=== PATIENT | female | born 1955 | race Caucasian/White ===

== ENCOUNTER 2023-09-24 09:40 | Outpatient (OUT) | payer MEDICARE, SELFPAY ==
--- NOTE | 2023-09-24 09:45 | MM_ITS ---
Patient Name: ABDIFATAH HUERTA MR#: [id number] : 1955 Exam Date: 09/24/2023 Ordering Doctor: DR FAWN NOLBE M.D. RADIOLOGY REPORT PROCEDURE: MM TOMOSYNTHESIS SCREENING BI COMPARISON: MG MAMM SCREEN 3D CASTRO CAD, 09/03/2022. MG MAMM SCREEN 3D CASTRO CAD, 08/29/2021. MG MAMM SCREEN CASTRO W CAD, 06/16/2020. MG MAMM SCREEN CASTRO W CAD, 06/12/2019. INDICATIONS: screening Calculator Name NCI Breast Cancer Risk Assessment Tool 5 Year Breast Cancer Risk 1.90% Lifetime Breast Cancer Risk 6.40% Personal Breast Cancer No Personal Ovarian Cancer No Treatments None Family Cancers Father with unknown cancer at age 80. LOCATION: [facility] BREAST COMPOSITION: Scattered areas fibroglandular density. FINDINGS: DIAGNOSTIC CATEGORY 1--NEGATIVE. RIGHT BREAST: No significant suspicious finding. No significant change has occurred. LEFT BREAST: No significant suspicious finding. No significant change has occurred. RECOMMENDATIONS: ROUTINE MAMMOGRAM AND CLINICAL EVALUATION IN 12 MONTHS. PLEASE NOTE: A NORMAL MAMMOGRAM DOES NOT EXCLUDE THE POSSIBILITY OF BREAST CANCER. A CLINICALLY SUSPICIOUS PALPABLE LUMP SHOULD BE BIOPSIED. Dictated by: Austin Alonso M.D. on 09/26/2023 at 07:04 Approved by: Austin Alonso M.D. on 09/26/2023 at 07:06
--- NOTE | 2023-09-24 10:00 | XR_ITS ---
[address] [address] Patient Name: ABDIFATAH HUERTA MRN: [id number] date: 1955 Sex: F Assigned Patient Location: [facility] Current Patient Location: [facility] Accession/Order Number: [id number] Exam Date: 09/24/2023 09:52 Report Date: 09/24/2023 11:26 At the request of: FAWN NOBLE Procedure: XR DEXA axial skeleton EXAMINATION: XR DEXA axial skeleton HISTORY: decreased estrogen level E28.39 COMPARISON: DEXA bone densitometry 08/29/2021 TECHNIQUE: Dual-energy X-ray absorptiometry (DXA) was performed. FINDINGS: SPINE ANALYSIS: Average bone mineral density is 0.939 g/cm2. T-score (standard deviation relative to young adult mean): -2.0 . -2.3% change since prior study. HIP ANALYSIS: Lowest bone mineral density is within the femoral neck, 0.826 g/cm2. T-score (standard deviation relative to young adult mean): -1.5 . +0.2% change since prior study. XR/XR DEXA axial skeleton IMPRESSION: [employer] Classification: Osteopenia - Moderate Fracture Risk Electronically authenticated by: JOEL MEI Date: 09/24/2023 11:26
== END 2023-09-24 09:41 | disposition home or self-care (01) ==
LOC: MAMMO 09:40
PROVIDERS: PCP Internal Medicine; Visit Provider Internal Medicine
DX: Z12.31 Encounter for screening mammogram for malignant neoplasm of breast (principal); Z00.00 Encounter for general adult medical examination without abnormal findings; E28.39 Other primary ovarian failure; Z80.8 Family history of malignant neoplasm of other organs or systems; M85.80 Other specified disorders of bone density and structure, unspecified site
CPT/HCPCS: 77063; 77067; 77080

== ENCOUNTER 2024-10-20 09:29 | Outpatient (OUT) | payer MEDICARE, SELFPAY ==
--- NOTE | 2024-10-20 09:33 | MM_ITS ---
Patient Name: ABDIFATAH HUERTA MR#: [id number] : 1955 Exam Date: 10/20/2024 Ordering Doctor: DR FAWN NOBLE M.D. RADIOLOGY REPORT PROCEDURE: MM TOMOSYNTHESIS SCREENING BI COMPARISON: MM TOMOSYNTHESIS SCREENING BI, 09/24/2023. MG MAMM SCREEN 3D CASTRO CAD, 09/03/2022. MG MAMM SCREEN 3D CASTRO CAD, 08/29/2021. MG MAMM SCREEN CASTRO W CAD, 06/16/2020. INDICATIONS: Screening Calculator Name NCI Breast Cancer Risk Assessment Tool 5 Year Breast Cancer Risk 1.90% Lifetime Breast Cancer Risk 6.20% Personal Breast Cancer No Personal Ovarian Cancer No Treatments None Family Cancers Father with unknown cancer at age 80. LOCATION: [facility] BREAST COMPOSITION: There are scattered areas of fibroglandular density. FINDINGS: DIAGNOSTIC CATEGORY 1--NEGATIVE. RIGHT BREAST: No significant suspicious finding. LEFT BREAST: No significant suspicious finding. RECOMMENDATIONS: ROUTINE MAMMOGRAM AND CLINICAL EVALUATION IN 12 MONTHS. PLEASE NOTE: A NORMAL MAMMOGRAM DOES NOT EXCLUDE THE POSSIBILITY OF BREAST CANCER. A CLINICALLY SUSPICIOUS PALPABLE LUMP SHOULD BE BIOPSIED. Dictated by: Gaetano Sanabria DO on 10/20/2024 at 16:01 Approved by: Gaetano Sanabria DO on 10/20/2024 at 16:03
--- OUTSIDE RECORDS SUMMARY | 2024-10-20 09:40 | XMS_ITS | CCD ---
Author Organization [facility] Care Team Providers Care Rod Welder Name Role Phone HOUSE, DR HOOK Primary Care Unavailable West, DR Tello Attending Unavailable West, DR Tello Admitting Unavailable West, DR Tello Consulting Unavailable HOUSE, DR HOOK Primary Care Unavailable West, DR Tello Attending Unavailable West, DR Tello Admitting Unavailable West, DR Tello Consulting Unavailable ZIEBERIKA, DR JOEL Guzman Consulting Unavailable West, DR Tello Attending Unavailable West, DR Tello Admitting Unavailable West, DR Tello Consulting Unavailable HOUSE, DR HOOK Primary Care Unavailable HOUSE, DR HOOK Primary Care Unavailable West, DR Tello Admitting Unavailable West, DR Tello Attending Unavailable West, DR Tello Consulting Unavailable ZIEBER, DR JOEL Guzman Consulting Unavailable HOUSE, DR HOOK Primary Care Unavailable West, DR Tello Attending Unavailable West, DR Tello Admitting Unavailable West, DR Tello Consulting Unavailable HOUSE, DR HOOK Primary Care Unavailable West, DR Tello Attending Unavailable West, DR Tello Admitting Unavailable West, DR Tello Consulting Unavailable HOUSE, DR HOOK Primary Care Unavailable ARMSTRONG, DR AUGUSTINE Admitting Unavailable ARMSTRONG, DR AUGUSTINE Consulting Unavailable ARMSTRONG, DR AUGUSTINE Attending Unavailable West, DR Tello Consulting Unavailable OSIEL THOMAS Admitting Unavailable ARMSTRONG, DR AUGUSTINE Primary Care Unavailable ARMSTRONG, DR AUGUSTINE Consulting Unavailable OSIEL THOMAS Attending Unavailable ZIEBER, DR JOEL Guzman Consulting Unavailable ARMSTRONG, DR AUGUSTINE Admitting Unavailable ARMSTRONG, DR AUGUSTINE Primary Care Unavailable ARMSTRONG, DR AUGUSTINE Consulting Unavailable ARMSTRONG, DR AUGUSTINE Attending Unavailable ZIEBER, DR JOEL Guzman Consulting Unavailable HOUSE, DR HOOK Primary Care Unavailable West, DR Tello Attending Unavailable West, DR Tello Admitting Unavailable West, DR Tello Consulting Unavailable HOUSE, DR HOOK Primary Care Unavailable West, DR Tello Attending Unavailable West, DR Tello Admitting Unavailable West, DR Tello Consulting Unavailable ANTOINETTEER, DR JOEL Guzman Consulting Unavailable HOUSE, DR HOOK Primary Care Unavailable West, DR Tello Attending Unavailable West, DR Tello Consulting Unavailable West, DR Tello Admitting Unavailable DEBORAHEBER, DR JOEL Guzman Consulting Unavailable SOLO, DR HOOK Primary Care Unavailable West, DR Tello Attending Unavailable West, DR Tello Consulting Unavailable West, DR Tello Admitting Unavailable ZIEBER, DR JOEL Guzman Consulting Unavailable SOLO, DR HOOK Primary Care Unavailable West, DR Tello Attending Unavailable West, DR Tello Consulting Unavailable West, DR Tello Admitting Unavailable SOLO, DR HOOK Primary Care Unavailable West, DR Tello Admitting Unavailable West, DR Tello Attending Unavailable West, DR Tello Consulting Unavailable SOLO, DR HOOK Primary Care Unavailable West, DR Tello Attending Unavailable West, DR Tello Admitting Unavailable West, DR Tello Consulting Unavailable Brijesh Armstrong MD Unavailable Brijesh Armstrong MD Primary Care Provider Brijesh Armstrong MD Primary Care Provider MEENA SCHRADER Attending Unavailable BRIJESH ARMSTRONG Primary Care Unavailable OZIEL ORDAZ Attending Unavailable BRIJESH ARMSTRONG Primary Care Unavailable MEENA SCHRADER Attending Unavailable BRIJESH ARMSTRONG Primary Care Unavailable MEENA SCHRADER Attending Unavailable BRIJESH ARMSTRONG B Primary Care Unavailable BRIJESH ARMSTRONG B Attending Unavailable ROSEANN MARI Attending Unavailable ROSEANN MARI Attending Unavailable BRIJESH ARMSTRONG Referring Unavailable ROSEANN MARI Attending Unavailable MEENA SCHRADER Admitting Unavailable MEENA SCHRADER Attending Unavailable BRIJESH ARMSTRONG B Primary Care Unavailable MEENA SCHRADER Referring Unavailable BRIJESH ARMSTRONG B Primary Care Unavailable MEENA SCHRADER Referring Unavailable BRIJESH ARMSTRONG B Primary Care Unavailable MEENA SCHRADER Referring Unavailable BRIJESH ARMSTRONG B Primary Care Unavailable LUKE GARCIA Referring Unavailable LUKE GARCIA Referring Unavailable JACINTA MORALES Attending Unavailable ERNIE CAO Attending Unavailable LUKE GARCIA Referring Unavailable LUKE GARCIA Referring Unavailable LUKE GARCIA Admitting Unavailable JOSE HOOK Attending Unavailable LUKE GARCIA Referring Unavailable TEMPLE, MADI Referring Unavailable TEMPLEMADI Referring Unavailable JACINTA MORALES Attending Unavailable LUKE GARCIA Attending Unavailable Medications Current Medications Medication Drug Class(es) Dates Sig (Normalized) Sig (Original) calcium chloride 0.0014 meq/ml / potassium chloride 0.004 meq/ml / sodium chloride 0.103 meq/ml / sodium lactate 0.028 meq/ml injectable solution (2 sources) Start: 03-23-2024 take 100 mL intravenously every hour 100 mL/hr, intravenous, Continuous, Starting on Sat03/23/24 at 1215, Recovery (only) calcium citrate 600 mg and vitamin D3 (Citrical & Minerals + Vit D) 600-200 MG-UNIT tablet (8 sources) take 1 tablet by mouth once daily in the morning calcium citrate 600 mg and vitamin D3 (Citrical & Minerals + Vit D) 600-200 MG-UNIT tablet Take 1 tablet by mouth in the morning. Active take 1 tablet by nishi th once daily in the morning calcium citrate 600 mg and vitamin D3 (Citrical & Minerals + Vit D) 600-200 MG-UNIT tablet Take 1 tablet by mouth in the morning. 0 Active cephalexin 500 mg oral capsule (2 sources) Cephalosporin Antibacterial Start: 05-07-2024 End: 05-14-2024 take 1 capsule by mouth three times daily cephalexin (Keflex) 500 mg capsule Indications: Wound infection after surgery Take 1 capsule (500 mg) by mouth 3 times a day for 7 days. 21 capsule 05/07/2024 05/14/2024 Active Start: 04-08-2024 End: 04-13-2024 take 1 capsule by mouth four times daily cephalexin (Keflex) 500 mg capsule Indications: Cellulitis of left lower extremity Take 1 capsule (500 mg) by mouth 4 times a day for 5 days. 20 capsule 04/08/2024 04/13/2024 Active cholecalciferol 0.05 mg oral capsule (7 sources) Vitamin D take 1 capsule by mouth once daily cholecalciferol (Vitamin D-3) 50 mcg (2,000 unit) capsule Take 1 capsule (50 mcg) by mouth once daily. Active citalopram 10 mg oral tablet (14 sources) Serotonin Reuptake Inhibitor Start: 024 End: 025 take 1 tablet by mouth once daily in the morning citalopram (CeleXA) 10 MG tablet Indications: Major depressive disorder with single episode, in full remission (CMS/HCC) TAKE 1 TABLET BY MOUTH EVERY DAY IN THE MORNING 90 tablet 3 08/18/2024 Active docosahexaenoic acid 120 mg / eicosapentaenoic acid 180 mg oral capsule (6 sources) End: take 1 capsule by mouth once daily omega-3 (fish oil) 1000 MG capsule Take 1 capsule by mouth 1 (one) time each day at the same time. 09/03/2024 Discontinued doxycycline monohydrate 100 mg oral tablet (1 source) Tetracycline-class Drug Start: End: take 1 tablet by mouth twice daily doxycycline (Adoxa) 100 mg tablet Indications: Wound infection after surgery Take 1 tablet (100 mg) by mouth 2 times a day for 7 days. Take with a full glass of water and do not lie down for at least 30 minutes after 14 tablet 05/07/2024 05/14/2024 Active 1 ml fentaNYL 0.05 mg/ml injection (1 source) Opioid Agonist Start: 25 mcg, intravenous, Every 5 min PRN, pain moderate (4-6), first line, Starting on Sat03/23/24 at 1159, Recovery (only), Max total of 200 micrograms regardless of dose., If ordered PRN for pain, nurse is permitted to administer this medication for higher pain scores based on patient preference? Yes fluticasone propionate 0.05 mg/actuat metered dose nasal spray (15 sources) Corticosteroid take 1 spray(s) nasal route once daily fluticasone (Flonase) 50 MCG/ACT nasal spray Administer 1 spray into each nostril 1 (one) time each day at the same time. Active fluticasone (Avi nase) 50 mcg/actuation nasal spray 1 spray once daily as needed. Active 0.5 ml HYDROmorphone hydrochloride 1 mg/ml prefilled syringe (1 source) Opioid Agonist Start: 03-23-2024 0.5 mg, intravenous, Every 5 min PRN, pain severe (7-10), first line, Starting on Sat03/23/24 at 1159, Recovery (only), Max total of 4 mg regardless of dose. labetalol hydrochloride 5 mg/ml injectable solution (1 source) beta-Adrenergic Dayana Start: 03-23-2024 5 mg, intravenous, Administer over 1 Minutes, Once as needed, systolic blood pressure greater than 180 mmHg, dystolic blood pressure greater than 100 mmHg and heart rate greater than 60 BPM, Starting on Sat03/23/24 at 1159, For 1 dose, Recovery (only) 2 ml ondansetron 2 mg/ml injection (1 source) Serotonin-3 Receptor Antagonist Start: 03-23-2024 4 mg, intravenous, Once as needed, nausea/vomiting, first line, Starting on Sat03/23/24 at 1159, For 1 dose, Recovery (only), When administering via IV Push, administer over 3-5 minutes. promethazine (Phenergan) 6.25 mg in sodium chloride 0.9% 50 mL IV (1 source) Start: 03-23-2024 6.25 mg, intravenous, Administer over 15 Minutes, Once as needed, Nausea/vomiting, second line, Starting on Sat03/23/24 at 1159, For 1 dose, Recovery (only) simvastatin 40 mg oral tablet (14 sources) HMG-CoA Reductase Inhibitor Start: 08-22-2023 End: 08-21-2024 take 1 tablet by mouth in the morning simvastatin (Zocor) 40 MG tablet Indications: Mixed hyperlipidemia (CMS/HCC) Take 1 tablet (40 mg) by mouth in the morning. 90 tablet 3 08/22/2023 Active sulfamethoxazole 800 mg / trimethoprim 160 mg oral tablet (1 source) Dihydrofolate Reductase Inhibitor Antibacterial, Sulfonamide Antimicrobial Start: 04-03-2024 End: 04-10-2024 take 1 tablet by mouth twice daily sulfamethoxazole-tr imethoprim (Bactrim DS) 800-160 mg tablet Indications: Cellulitis of left lower extremity Take 1 tablet by mouth 2 times a day for 7 days. 14 tablet 04/03/2024 04/10/2024 Active traMADol hydrochloride 50 mg oral tablet (3 sources) Opioid Agonist Start: 03-23-2024 End: 03-28-2024 take 1 tablet by mouth twice daily as needed for pain traMADol (Ultram) 50 mg tablet Indications: Malignant melanoma of lower leg, left (Multi) Take 1 tablet (50 mg) by mouth 2 times a day as needed for severe pain (7 - 10) for up to 5 days. 5 tablet 03/23/2024 03/28/2024 Active valACYclovir 1000 mg oral tablet (6 sources) Herpesvirus Nucleoside Analog DNA Polymerase Inhibitor, Herpes Simplex Virus Nucleoside Analog DNA Polymerase Inhibitor, Herpes Zoster Virus Nucleoside Analog DNA Polymerase Inhibitor Start: 06-02-2024 valACYclovir (Valtrex) 1 g tablet Indications: Herpesviral vesicular dermatitis Take 2 tablets twice a day x 1 day at first start of outbreak, 1 day supply 4 tablet 4 06/02/2024 Active Completed/Discontinued Medications Medication Drug Class(es) Dates Sig (Normalized) Sig (Original) [id number] (Lymphoseek) injection 0.614 millicurie (1 source) Start: 03-23-2024 End: 03-23-2024 0.614 millicurie, intradermal, Once in imaging, Starting on Sat03/23/24 at 0745, For 1 dose, If using for lymphoscintigraphy, administer immediately and up to 15 hours prior to imaging unless otherwise indicated. No imaging for breast injections. Problems Active Problems Problem Classification Problem Date Documented Date Episodic/Chronic Administrative/socia l admission (2 sources) Patient encounter status; Translations: [Other specified counseling] 09-03-2024 Episodic Cardiac dysrhythmias (5 sources) Bradycardia, unspecified; Translations: [Palpitations] Onset: 06-11-2022 Episodic Complications of surgical procedures or medical care (4 sources) Postoperative wound infection; Translations: [Infection following a procedure, other surgical site, initial encounter] Onset: 05-07-2024 05-07-2024 Episodic Conduction disorders (20 sources) Second degree atrioventricular block; Translations: [Atrioventricular block, second degree] Onset: 03-07-2023 03-07-2023 Chronic Disorders of lipid metabolism (18 sources) Mixed hyperlipidemia; Translations: [Mixed hyperlipidemia] Onset: 03-07-2023 03-07-2023 Chronic Melanomas of skin (17 sources) Malignant melanoma of lower leg; Translations: [Malignant melanoma of left lower limb, including hip] Onset: 03-17-2024 03-17-2024 Chronic Melanomas of skin (3 sources) History of malignant melanoma of the skin; Translations: [Personal history of malignant melanoma of skin] 06-02-2024 Episodic Menopausal disorders (10 sources) Decreased estrogen level; Translations: [Other primary ovarian failure] Onset: 03-07-2023 03-07-2023 Chronic Mood disorders (11 sources) Single episode of major depression in full remission; Translations: [Major depressive disorder, single episode, in full remission] Onset: 03-07-2023 3 Chronic Osteoarthritis (8 sources) Osteoarthritis of left knee joint; Translations: [Unilateral primary osteoarthritis, left knee] Onset: 03-07-2023 03-07-2023 Chronic Osteoporosis (10 sources) Osteoporosis; Translations: [Age-related osteoporosis without current pathological fracture] Onset: 03-07-2023 03-07-2023 Chronic Other ear and sense organ disorders (8 sources) Conductive hearing loss; Translations: [Conductive hearing loss, unspecified] Onset: 03-07-2023 03-07-2023 Chronic Other lower respiratory disease (4 sources) Other forms of dyspnea; Translations: [OTHER FORMS OF DYSPNEA] Onset: 08-15-2022 Episodic Other screening for suspected conditions (not mental disorders or infectious disease) (6 sources) Encounter for screening mammogram for malignant neoplasm of breast; Translations: [Patient encounter status] Onset: 09-03-2022 Episodic Other skin disorders (3 sources) Seborrheic keratosis; Translations: [Other seborrheic keratosis] 06-02-2024 Episodic Other skin disorders (3 sources) Lentiginosis; Translations: [Other melanin hyperpigmentation] 06-02-2024 Episodic Other skin disorders (3 sources) Actinic keratosis; Translations: [Actinic keratosis] 06-02-2024 Episodic Otitis media and related conditions (8 sources) Chronic serous otitis media; Translations: [Chronic serous otitis media, unspecified ear] Onset: 03-07-2023 03-07-2023 Chronic Residual codes; unclassified (1 source) Family history of malignant neoplasm, unspecified; Translations: [FAM HX MALIGNANT NEOPLASM UNS] Onset: 09-04-2022 Episodic Skin and subcutaneous tissue infections (3 sources) Cellulitis of left lower limb; Translations: [Cellulitis of left lower limb] Onset: 04-08-2024 Episodic Unclassified (1 source) Ventricular tachycardia, unspecified; Translations: [Ventricular tachycardia, unspecified] Onset: 09-29-2024 Viral infection (1 source) Herpesviral vesicular dermatitis; Translations: [Herpesviral vesicular dermatitis] 06-02-2024 Episodic Past or Other Problems Problem Classification Problem Date Documented Da te Episodic/Chronic Biliary tract disease (8 sources) Cholelithiasis without obstruction; Translations: [Calculus of gallbladder without cholecystitis without obstruction] Onset: 3 03-07-2023 Episodic Other aftercare (4 sources) Encounter for surgical aftercare following surgery on the circulatory system; Translations: [ENC SURG AFTRCARE FLW SURG CIRC SYS] Onset: 2 Episodic Otitis media and related conditions (8 sources) Dysfunction of left eustachian tube; Translations: [Unspecified Eustachian tube disorder, left ear] Onset: 3 03-07-2023 Episodic Phlebitis; thrombophlebitis and thromboembolism (9 sources) Phlebitis and thrombophlebitis of superficial vessels of right lower extremity; Translations: [Phlebitis and thrombophlebitis of superficial vessels of left lower extremity] Onset: 2 Episodic Unclassified (1 source) Ventricular tachycardia, unspecified; Translations: [Ventricular tachycardia, unspecified] Onset: 5 Varicose veins of lower extremity (13 sources) Varicose veins of bilateral lower extremities with pain; Translations: [Varicose veins of lower extremity] Onset: 2 Episodic Results Test Name Value Interpretation Reference Range Facility LIPID PANEL, [facility] [place] Cholesterol [Mass/Vol] 236 mg/dL High <200 [facility] Comment on above: Order Comment: FASTI NG:YES FASTING: YES Performed By: #### 9 [id number], [id number], [id number] #### [facility] [address], [address] [place], [place] [id number] Complaint Operator: Collin Dickson MD Cholesterol in HDL [Mass/Vol] 83 mg/dL Normal > OR = 50 [facility] Comment on above: Order Comment: FASTI NG:YES FASTING: YES Performed By: #### 7 982, [id number], 866 #### [facility] [address], [address] [place] [id number] Complaint Operator: Collin Dickson MD Cholesterol in LDL [Mass/Vol] 132 mg/dL High [facility] Comment on above: Order Comment: FASTI NG:YES FASTING: YES Result Comment: Refe rence range: <100 Desirable range <100 mg/dL for primary prevention; <70 mg/dL for patients with CHD or diabetic patients with > or = 2 CHD risk factors. LDL-C is now calculated using the Shira calculation, which is a validated novel method providing better accuracy than the Friedewald equation in the estimation of LDL-C. Parvin SS et al. LYSSA. 2013;310(19): 2820-2061 (http://IdentiGEN.UmbaBox/faq/DNC363) Performed By: #### 7 600, [id number], 866 #### [facility] [place] [address] Complaint Operator: Collin Dickson MD Cholesterol.total/Chol esterol in HDL [Mass ratio] 2.8 {ratio} Normal <5.0 [facility] Comment on above: Order Comment: FASTI NG:YES FASTING: YES Performed By: #### 7 600, [id number], 868 #### [facility] [place] [address] Complaint Operator: Collin Dickson MD NON HDL CHOLESTEROL 153 mg/dL (calc) High <130 [facility] Comment on above: Order Comment: FASTI NG:YES FASTING: YES Result Comment: For patients with diabetes plus 1 major ASCVD risk factor, treating to a non-HDL-C goal of <100 mg/dL (LDL-C of <70 mg/dL) is considered a therapeutic option. Performed By: #### 7 600, [id number], 865 #### [facility] [place] [address] Complaint Operator: Collin Dickson MD Triglyceride [Mass/Vol] 103 mg/dL Normal <150 [facility] Comment on above: Order Comment: FASTI NG:YES FASTING: YES Performed By: #### 7 600, [id number], 866 #### [facility] [place] [address] Complaint Operator: Collin Dickson MD T4, FREEon 09-05-2024 Free T4 [Mass/Vol] 0.8 ng/dL Normal 0.8-1.8 [facility] Comment on above: Performed By: #### 7 600, [id number], 866 #### [facility] [address] [place] [address] Complaint Operator: Collin Dickson MD TSH W/REFLEX TO FT4on 2024 TSH W/REFLEX TO FT4 19.03 mIU/L High 0.40-4.50 [facility] Comment on above: Performed By: #### 7 600, [id number], 866 #### [facility] [address], [address] [place] [address] Complaint Operator: Collin Dickson MD No Panel Informationon 09-03 [facility] Office Visiton 08-14-2024 Follow-up visit [id number] Cassandra Jo 1955 F Date Provider Department Center 08/14/2024 3848-JACINTA MORALES CARD [facility] Family History Problem Relation Age of Onset Aortic aneurysm Mother Atrial fibrillation Mother Hypertension Father Diabetes Father Hypertension Brother Family Status - Relation Status Age at Mother Father Brother Level of Service:NOCHG MD 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 Problem: Pain - Adult Goal: Verbalizes/displays adequate comfort level or baseline comfort level Outcome: Progressing Problem: Safety - Adult Goal: Free from fall injury Outcome: Progressing Problem: Discharge Planning Goal: Discharge to home or other facility with appropriate resources Outcome: Progressing Problem: Chronic Conditions and Co-morbidities Goal: Patient's chronic conditions and co-morbidity symptoms are monitored and maintained or improved Outcome: Progressing Normal [facility] DSon 08-04-2024 DS Admission Admitted 08/03/2024 for Complete heart block (CMS/HCC) Discharge Diagnosis Complete heart block (CMS/HCC) s/p dual chamber pacemaker Discharge Disposition Home or Self Care () Discharge Medications Your medication list CONTINUE taking these medications Instructions Last Dose Given Next Dose Due cholecalciferol (vitamin D3) 50 mcg (2,000 unit) capsule citalopram 20 mg tablet Commonly known as: CeleXA simvastatin 40 mg tablet Commonly known as: Zocor STOP taking these medications meloxicam 15 mg tablet Commonly known as: Mobic Activity No driving for 1 month (4 weeks) Range of motion restrictions: No lifting left arm above shoulder height for 4-6 weeks. Showering instructions: Can sponge bathe until 1 week wound check. Please do not get incision or bandage wet. Keep clean and dry. Diet Continue on the same type of diet and foods as you were eating before your admission. Drink plenty of water. Allergies Patient has no known allergies. 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 EKG in office showed complete heart block. She was sent to [facility] ED for evaluation and management. EP team saw patient and proceeded with permanent pacemaker placement for complete heart block . Patient tolerated procedure well. Device check showed normally functioning device, stable lead thresholds. Chest XR showed leads in appropriate place. DUAL CHAMBER PACEMAKER IMPLANT PROCEDURE NOTE DATE OF PROCEDURE: 08/03/24 PERFORMING PHYSICIAN: Dr. Luke Garcia CONSENT: Patient LOCATION: EP Lab PROCEDURE PERFORMED: 1. Implantation of pacemaker ([employer]) 2. Ultrasound guided venous access INDICATIONS: 1. 3rd degree AV block PROCEDURAL SEDATION: Versed and Fentanyl. Moderate sedation was administered by the sedation nurse under my supervision and noted in the CVL log. Intraprocedural face to face sedation time: 79min. Monitoring: Cardiac telemetry, Blood pressure, continuous pulse oxymetry. POST PROCEDURE EXAM: Patient was hemodynamically stable. COMPLICATIONS: None. ESTIMATED BLOOD LOSS: 5cc IMPRESSION: 1. Successful dual chamber pacemaker with excellent pacing and sensing parameters. RECOMMENDATIONS: 1. Occlusive dressing to be removed after 2 weeks. 2. Do not wet the incision for 7 days. 3. No lifting heavy weights using arm on the same side x 3weeks 4. Do not lift elbow above the shoulder on the same side for 4-6 weeks. 5. No driving for 1 month. 6. F/u in device clinic 1 week from discharge or sooner for any concerns. Echocardiogram 08/04/24 Conclusions Left Ventricle: The left ventricle is normal size. Global left ventricular systolic function is normal. The EF is 60 % visually. Left ventricular wall thickness is mildly increased. No regional wall motion abnormality. Unable to assess diastolic dysfunction. Right Ventricle: The right ventricle appears normal in size. Right ventricular systolic function appears normal. Unable to assess right sided pressures due to lack of measurable tricuspid regurgitation. Left Atrium: The left atrium appears normal in size. Overall Conclusions: Technically difficult due to patients left arm in sling No significant valvular abnormalities EKG IMPRESSION: Atrial-sensed ventricular-paced rhythm with intrinsic complexes Abnormal ECG When compared with ECG of 03-AUG-2024 14:48, Electronic ventricular pacemaker has replaced Junctional rhythm Vent. rate has increased BY 34 BPM Narrative & Impression XR CHEST 2 VIEWS 08/04/2024 10:01 AM CLINICAL INDICATIONS: Status post pacemaker placed COMPARISON: 08/03/2024 FINDINGS: Heart and mediastinum are unchanged and compatible technique. Dual-lead cardiac pacer in place with leads appear grossly normal position. No evidence of pneumothorax, sizable effusion or acute pulmonary pathology. IMPRESSION: * Uncomplicated postprocedural appearance of the chest. Pertinent Physical Exam At Time of Discharge Physical Exam Constitutional: Appearance: Normal appearance. HENT: Head: Normocephalic. Cardiovascular: Rate and Rhythm: Normal rate and regular rhythm. Pulses: Normal pulses. Heart sounds: Normal heart sounds. Pulmonary: Effort: Pulmonary effort is normal. Breath sounds: Normal breath sounds. Musculoskeletal: Cervical back: Normal range of motion and neck supple. Skin: General: Skin is warm and dry. Comments: Pacemaker insertion site is clean and dry, covered in bandage. Neurological: Mental Status: She is alert. Psychiatric: Mood and Affect: Mood normal. Behavior: Behavior normal. Lab Results Labs Reviewed BASIC METABOLIC PANEL - Abnormal Result Value Sodium 139 Potassium 3.6 Chloride 106 CO2 25 BUN 13 Creatinine 0.80 Glu (more content not included)... Normal [facility] EDPROVon 08-04-2024 EDPROV History of Present Illness Chief Complaint Patient presents with Bradycardia Patient sent to the ED for bradycardia from complete heart block. Cardiology aware. No data recorded History Past Medical History: Diagnosis Date Abnormal ECG Cancer (CMS/HCC) Hyperlipidemia Hypertension Second degree AV block Syncope Past Surgical History: Procedure Laterality Date CHOLECYSTECTOMY Family History Problem Relation Name Age of Onset Aortic aneurysm Mother Atrial fibrillation Mother Hypertension Father Diabetes Father Hypertension Brother Social History Tobacco Use Smoking status: Never Smokeless tobacco: Never Vaping Use Vaping status: Never Used Substance Use Topics Alcohol use: Not Currently Drug use: Never Review of Systems Review of Systems Constitutional: Negative for chills and fever. HENT: Negative for ear pain and sore throat. Eyes: Negative for pain and visual disturbance. Respiratory: Negative for cough and shortness of breath. Cardiovascular: Negative for chest pain and palpitations. Gastrointestinal: Negative for abdominal pain and vomiting. Genitourinary: Negative for dysuria and hematuria. Musculoskeletal: Negative for arthralgias and back pain. Skin: Negative for color change and rash. Neurological: Negative for seizures and syncope. All other systems reviewed and are negative. Physical Exam ED Triage Vitals Temp Heart Rate Resp BP 08/03/24 1436 08/03/24 1436 08/03/24 1436 08/03/24 1436 37.1 ???C (98.7 ???F) (!) 35 18 (!) 209/58 SpO2 Temp Source Heart Rate Source Patient Position 08/03/24 1436 08/03/24 1436 08/03/24 1436 08/04/24 0500 98 % Oral Monitor Standing BP Location FiO2 (%) 08/04/24 1203 -- Left arm Physical Exam Constitutional: Appearance: She is well-developed. HENT: Head: Normocephalic and atraumatic. Nose: Nose normal. Eyes: Pupils: Pupils are equal, round, and reactive to light. Neck: Thyroid: No thyromegaly. Vascular: No JVD. Cardiovascular: Rate and Rhythm: Regular rhythm. Bradycardia present. Pulmonary: Effort: Pulmonary effort is normal. No respiratory distress. Breath sounds: No wheezing. Abdominal: General: Bowel sounds are normal. Palpations: Abdomen is soft. Musculoskeletal: General: Normal range of motion. Cervical back: Normal range of motion and neck supple. Skin: General: Skin is warm. Neurological: Mental Status: She is alert and oriented to person, place, and time. Procedures ED Course & MDM Labs Reviewed BASIC METABOLIC PANEL - Abnormal Result Value Sodium 139 Potassium 3.6 Chloride 106 CO2 25 BUN 13 Creatinine 0.80 Glucose 103 (*) Calcium 9.5 Anion Gap 12 eGFR 80.2 BUN/Creatinine Ratio 16.3 TROPONIN I - Normal Troponin I 0.02 MAGNESIUM - Normal Magnesium 2.4 CBC WITH AUTO DIFFERENTIAL - Normal Auto WBC 8.85 RBC 4.37 Hemoglobin 14.1 Hematocrit 41.9 MCV 95.9 MCH 32.3 MCHC 33.7 RDW 12.6 Neutrophils Relative 66.0 Lymphocytes Relative 25.1 Monocytes Relative 7.1 Eosinophils Relative 1.0 Basophils Relative 0.5 Neutrophils Absolute 5.84 Lymphocytes Absolute 2.22 Monocytes Absolute 0.63 Eosinophils Absolute 0.09 Basophils Absolute 0.04 Platelets 273 nRBC % 0.0 Immature Granulocytes Relative 0.3 Immature Granulocytes Absolute 0.03 CBC AND DIFFERENTIAL Narrative: The following orders were created for panel order CBC and differential. Procedure Abnormality Status --------- ------ CBC auto differential[[id number]] Normal Final result Please view results for these tests on the individual orders. HUITRON TOP Extra Tube Hold for add-ons. XR chest 2 views Final Result * Uncomplicated postprocedural appearance of the chest. Electronically signed: Vignesh Levin. Complete Echo (TTE) w/wo Imaging Agent, Strain, 3D, Bubble Study Final Result Electrophysiology procedure Preliminary Result 1. Successful dual chamber pacemaker with excellent pacing and sensing parameters. RECOMMENDATIONS: 1. Occlusive dressing to be removed after 2 weeks. 2. Do not wet the incision for 7 days. 3. No lifting heavy weights using arm on the same side x 3weeks 4. Do not lift elbow above the shoulder on the same side for 4-6 weeks. 5. No driving for 1 month. 6. F/u in device clinic 1 week from discharge or sooner for any concerns. Luke Garcia MD Cardiac Electrophysiology XR chest 1 view Final Result Low lung volumes with no acute cardiopulmonary disease. Electronically signed: Alphonso Lazo MD. Diagnoses as of 08/10/24 0733 Complete heart block (CMS/HCC) Bradycardia Heart block AV block, 3rd degree (CMS/HCC) Medical Decision Making Attestion Madi Temple MD 08/10/24 0734 Normal [facility] 30on 08-03-2024 30 The patient is Moderately Stable - Low risk of patient condition declining or worsening The patient's goals for the shift include The clinical goals for the shift include stable vs Problem: Pain - Adult Goal: Verbalizes/displays adequate comfort level or baseline comfort level Outcome: Progressing Problem: Safety - Adult Goal: Free from fall injury Outcome: Progressing Problem: Discharge Planning Goal: Discharge to home or other facility with appropriate resources Outcome: Progressing Problem: Chronic Conditions and Co-morbidities Goal: Patient's chronic conditions and co-morbidity symptoms are monitored and maintained or improved Outcome: Progressing Normal [facility] ANESon 08-03-2024 ANES -- Attestation signed by Luke Garcia MD at 08/04/2024 9:26 PM By using the attestations below, the signing clinician agrees that I have read and verify that the documentation has been personally reviewed by me and ensure that the documentation accurately reflects the encounter. GC: I performed the lopez portion(s) of the service and participated in the management and confirm the resident's documentation. Please note there may be an additional personal documentation from me. Patient: Mei Jo Choose an anesthesia record to view details Clinical information reviewed: Tobacco Allergies Meds Med Hx Surg Hx OB Status Fam Hx Soc Hx Physical Exam Airway Mallampati: II TM distance: >3 FB Neck ROM: full Cardiovascular Rhythm: regular Rate: normal (-) murmur Dental Pulmonary (-) decreased breath sounds, wheezes, rales Abdominal Abdomen: soft Bowel sounds: normal Anesthesia Plan ASA 3 (Conscious sedation) Anesthetic plan and risks discussed with patient. Use of blood products discussed with patient who consented to blood products. Plan discussed with attending and fellow. Additional Equipment Requests Normal [facility] BASIC METABOLIC PANELon 07-07 Anion gap [Moles/Vol] 12 mmol/L Normal 7-20 [facility] Comment on above: Performed By: #### L [id number] ####[facility] ([facility])[address] [place] [address] Calcium [Mass/Vol] 9.5 mg/dL Normal 8.6-10.3 [facility] Comment on above: Performed By: #### L [id number] ####[facility] ([facility])[address] [place] [address] Chloride [Moles/Vol] 106 mmol/L Normal 98-107 [facility] Comment on above: Performed By: #### L [id number] ####[facility] ([facility])[address] [place] [address] CO2 [Moles/Vol] 25 mmol/L Normal 21-31 [facility] Comment on above: Performed By: #### L [id number] ####[facility] ([facility])[address] [place] [address] Creatinine [Mass/Vol] 0.80 mg/dL Normal 0.60-1.20 [facility] Comment on above: Performed By: #### L [id number] ####[facility] ([facility])[address] [place] [address] GLOMERULAR FILTRATION RATE ML/MIN/1.73 SQ M.PREDICTED 80.2 mL/min/1.73m*2 Normal >60.0 [facility] Comment on above: Result Comment: The [facility]???s estimated glomerular filtration rate (eGFR) will no longer include consideration of race in its calculation. The National Kid[employer] Foundation???s eGFR Task Force developed new recommendations for the estimation of the glomerular filtration rate in the [place] They recommend immediate implementation of the new equation refit without the race variable in all laboratories because the calculation does not include race. In addition to not including race in the calculation and reporting, it included diversity in its development, and has acceptable performance characteristics and potential consequences that do not disproportionately affect any one group of individuals. Performed By: #### L [id number] ####[facility] ([facility])[address] [place] [address] Glucose [Mass/Vol] 103 mg/dL High 70-100 [facility] Comment on above: Performed By: #### L [id number] ####[facility] ([facility])[address] [place] [address] Potassium [Moles/Vol] 3.6 mmol/L Normal 3.5-5.1 [facility] Comment on above: Performed By: #### L [id number] ####[facility] ([facility])[address] [place] [address] Sodium [Moles/Vol] 139 mmol/L Normal 136-145 [facility] Comment on above: Performed By: #### L [id number] ####[facility] ([facility])[address] [place] [address] Urea nitrogen [Mass/Vol] 13 mg/dL Normal 7-25 [facility] Comment on above: Performed By: #### L [id number] ####[facility] ([facility])[address] [place] [address] UREA NITROGEN/CREATININE (MASS RATIO) IN SER/PLAS 16.3 Normal [facility] Comment on above: Performed By: #### L [id number] ####[facility] ([facility])[address] [place] [address] CBC WITH AUTO DIFFERENTIALon 08-03-2024 Basophils (Bld) [#/Vol] 0.04 10*3/uL Normal 0.00-0.20 [facility] Comment on above: Performed By: #### L [id number] #### [facility] ([facility]) [address] [place] [address] Basophils/100 WBC (Bld) 0.5 % Normal 0.0-1.0 [facility] Comment on above: Performed By: #### L [id number] #### [facility] ([facility]) [address] [place] [address] Eosinophils (Bld) [#/Vol] 0.09 10*3/uL Normal 0.00-0.50 [facility] Comment on above: Performed By: #### L [id number] #### [facility] ([facility]) [address] [place] [address] Eosinophils/100 WBC (Bld) 1.0 % Normal 0.0-6.0 [facility] Comment on above: Performed By: #### L [id number] #### [facility] ([facility]) [address] [place] [address] Erythrocyte distribution width (RBC) [Ratio] 12.6 % Normal 11.5-15.0 [facility] Comment on above: Performed By: #### L [id number] #### [facility] ([facility]) [address] [place] [address] ERYTHROCYTE MEAN CORPUSCULAR HEMOGLOBIN CONCENTRATION (G/DL) BY AUTOMATED 33.7 g/dL Normal 32.0-35.0 [facility] Comment on above: Performed By: #### L [id number] #### [facility] ([facility]) [address] [place] [address] Hematocrit (Bld) [Volume fraction] 41.9 % Normal 36.0-48.0 [facility] Comment on above: Performed By: #### L [id number] #### [facility] ([facility]) [address] [place] [address] Hemoglobin (Bld) [Mass/Vol] 14.1 g/dL Normal 12.0-15.0 [facility] Comment on above: Performed By: #### L [id number] #### [facility] ([facility]) [address] [place] [address] Immature granulocytes (Bld) [#/Vol] 0.03 10*3/uL Normal 0.00-0.20 [facility] Comment on above: Performed By: #### L [id number] #### [facility] ([facility]) [address] [place] [address] Immature granulocytes/100 WBC (Bld) 0.3 % Normal 0.0-1.0 [facility] Comment on above: Performed By: #### L [id number] #### [facility] ([facility]) [address] [place] [address] Lymphocytes (Bld) [#/Vol] 2.22 10*3/uL Normal 1.20-4.00 [facility] Comment on above: Performed By: #### L [id number] #### [facility] ([facility]) [address] [place] [address] Lymphocytes/100 WBC (Bld) 25.1 % Normal 20.0-45.0 [facility] Comment on above: Performed By: #### L [id number] #### [facility] ([facility]) [address] [place] [address] MCH (RBC) [Entitic mass] 32.3 pg Normal 27.0-33.0 [facility] Comment on above: Performed By: #### L [id number] #### [facility] ([facility]) [address] [place] [address] MCV (RBC) [Entitic vol] 95.9 fL Normal 82.0-98.0 [facility] Comment on above: Performed By: #### L [id number] #### [facility] ([facility]) [address] [place] [address] Monocytes (Bld) [#/Vol] 0.63 10*3/uL Normal 0.10-1.00 [facility] Comment on above: Performed By: #### L [id number] #### [facility] ([facility]) [address] [place] [address] Monocytes/100 WBC (Bld) 7.1 % Normal 5.0-12.0 [facility] Comment on above: Performed By: #### L [id number] #### [facility] ([facility]) [address] [place] [address] Neutrophils (Bld) [#/Vol] 5.84 10*3/uL Normal 1.60-7.60 [facility] Comment on above: Performed By: #### L [id number] #### [facility] ([facility]) [address] [place] [address] Neutrophils/100 WBC (Bld) 66.0 % Normal 40.0-72.0 [facility] Comment on above: Performed By: #### L [id number] #### [facility] ([facility]) [address] [place] [address] NRBC (PER 100 WBCS) BY AUTOMATED COUNT 0.0 % Normal 0 [facility] Comment on above: Performed By: #### L [id number] #### [facility] ([facility]) [address] [place] [address] PLATELETS (10*3/UL) IN BLOOD AUTOMATED COUNT 273 10*3/uL Normal 150-400 [facility] Comment on above: Performed By: #### L [id number] #### [facility] ([facility]) [address] [place] [address] RBC (Bld) [#/Vol] 4.37 10*6/uL Normal 3.80-5.00 [facility] Comment on above: Performed By: #### L [id number] #### [facility] ([facility]) [address] [place] [address] WBC (Bld) [#/Vol] 8.85 10*3/uL Normal 4.00-10.60 [facility] Comment on above: Performed By: #### L [id number] #### [facility] ([facility]) [address] [place] [address] CONSULTon 08-03-2024 CONSULT -- Attestation signed by Luke Garcia MD at 08/03/2024 5:46 PM By using the attestations below, the signing clinician agrees that I have read and verify that the documentation has been personally reviewed by me and ensure that the documentation accurately reflects the encounter. GC: I performed the lopez portion(s) of the service and participated in the management and confirm the resident's documentation. Please note there may be an additional personal documentation from me. I discussed the procedure in length with figures to the patient and went over the risks, benefits and alternatives of the PPM implantation procedure. I stated to the patient that the risk can be classified as major and minor complications. The minor include discomfort over the incision site, erythema. The major complications include pneumothorax, hemothorax, thromboembolism including DVT stroke systemic emboli endorgan damage and even . We also discussed the possibility of lead perforation leading to pericardial effusion or tamponade which may or may not require surgical intervention as well as the possibility of valve damage. Overall the risk of these complications ranged anywhere from 1-5%. Patient verbalized understanding and have agreed to proceed with the procedure. Cardiology Consult Note Reason for Consult: Complete heart block HPI: Mei Jo is a 68 y.o. female with past history remarkable for primary hypertension, hyperlipidemia, remote history of syncope and 2nd degree AV block who presented to [facility] ED after she was sent from cardiology clinic for complete heart block. Over last 2 to 3 weeks patient had noted that her heart rate is slow, in the 30s, reported that she felt dizzy when she climbs stairs, in addition to significant fatigue and tiredness. No chest pain or shortness of breath. No other complaints. Cardiology team consulted for evaluation and management. Cardiology ROS: Review of Systems Constitutional: Negative for activity change and appetite change. Respiratory: Negative for chest tightness, shortness of breath and wheezing. Cardiovascular: Negative for chest pain, palpitations and leg swelling. Gastrointestinal: Negative for abdominal pain, nausea and vomiting. Neurological: Positive for dizziness and light-headedness. Past Medical History She has a past medical history of Abnormal ECG, Cancer (CMS/HCC), Hyperlipidemia, Hypertension, Second degree AV block, and Syncope. Surgical History She has a past surgical history that includes Cholecystectomy. Social History She reports that she has never smoked. She has never used smokeless tobacco. She reports that she does not currently use alcohol. She reports that she does not use drugs. Family History Family History Problem Relation Name Age of Onset Aortic aneurysm Mother Atrial fibrillation Mother Hypertension Father Diabetes Father Hypertension Brother Allergies Patient has no known allergies. Medications Current Outpatient Medications Medication Instructions cholecalciferol (vitamin D3) 50 mcg, oral, Daily RT citalopram (CELEXA) 20 mg, oral, Daily meloxicam (MOBIC) 15 mg, oral, As needed simvastatin (ZOCOR) 40 mg, oral, Nightly (Not in a hospital admission) Last Recorded Vitals Patient Vitals for the past 24 hrs: BP Temp Temp src Pulse Resp SpO2 Height Weight 08/03/24 1436 (!) 209/58 37.1 ???C (98.7 ???F) Oral (!) 35 18 98 % 1.575 m (5' 2 ) 74.4 kg (164 lb) Physical Examination: Physical Exam Constitutional: General: She is not in acute distress. Appearance: Normal appearance. She is not ill-appearing. HENT: Head: Normocephalic and atraumatic. Cardiovascular: Rate and Rhythm: Regular rhythm. Bradycardia present. Heart sounds: Normal heart sounds. No murmur heard. Pulmonary: Breath sounds: Normal breath sounds. No wheezing or rales. Abdominal: Palpations: Abdomen is soft. Tenderness: There is no abdominal tenderness. Musculoskeletal: Right lower leg: No edema. Left lower leg: No edema. Skin: General: Skin is warm and dry. Findings: No erythema or rash. Neurological: Mental Status: She is alert and oriented to person, place, and time. Mental status is at baseline. Relevant Lab Results Encounter Date: 08/03/24 ECG 12 lead (Now) Result Value Ventricular Rate 37 QRS DURATION 86 QT Interval 536 QTC CALCULATION(BAZETT) 420 R-Jones 14 T Wave Jones 71 Impression Junctional bradycardia with occasional Premature ventricular complexes Possible Anterior infarct , age undetermined Abnormal ECG No previous ECGs available No results found for: CKTOTAL , CKMB , CKMBINDEX , TROPONINI No echocardiogram results found for the past 12 months No nuclear medicine results found for the past 12 m (more content not included)... Normal [facility] EDNJACOBon 08-03-2024 EDNURS Patient was instruct ed to come here by bladder trimmer to have pacemaker placed. Patient HR 35 upon arrival to ED. Patient denies any chest pain. SOB with exertion. Normal [facility] MAGNESIUMon 08-03-2024 Magnesium [Mass/Vol] 2.4 mg/dL Normal 1.9-2.7 [facility] Comment on above: Performed By: #### L [id number] ####[facility] ([facility])[address] [place] [address] NURSNOTEon 08-03-2024 NURSNOTE Report given to BORIS Blanchard from RENETTA Foster Any medications or safety alerts were reviewed. Any pending diagnostics and notifications were also reviewed, as well as any safety concerns or issues, abnormal labs, abnormal imagining, and abnormal assessment findings. Questions were answered. Normal [facility] Office Visiton 08-03-2024 Follow-up visit [id number] Cassandra Jo 1955 F Date Provider Department Center 08/03/2024 [id number]-[facility]ED[facility]ERN[facility] Family History Problem Relation Age of Onset Aortic aneurysm Mother Atrial fibrillation Mother Hypertension Father Diabetes Father Hypertension Brother Family Status - Relation Status Age at Mother Father Brother Level of Service:77030 MD OFFICE/OUTPATIENT ESTABLISHED HIGH MDM 40 MIN Reason for Visit and Comments: Hypertension [603785] - BP has been high. Hyperlipidemia [182] Bradycardia [098424] - HR running in the high 30's-low 40's. Very lightheaded and tired lately. Fatigue [46] Shortness of Breath [340920] - Very SOB with minimal exertion. Normal [facility] TROPONIN Ion 08-03-2024 Troponin I.cardiac [Mass/Vol] 0.02 ng/mL Normal 0.00-0.04 [facility] Comment on above: Performed By: #### L [id number] ####[facility] ([facility])[address] [place] [address] Cryotherapy, skin lesionon 1 [facility] DERMPATH LAB- DERMATOPATHOLO GYon 03-23-2024 DERMPATH LAB- DERMATOPATHOLOGY Pathology report.total SEE COMMENT Dermatopathology Case: [id number] Authorizing Provider: Meena Schrader MD Collected: 03/23/2024 1101 Ordering Location: [facility] Received: 03/23/2024 1213 OR Pathologist: Rosana Hoang MD Specimens: A) - SENTINEL LYMPH NODE MELANOMA, SENTINEL NODE #1 COUNT- 732 B) - SKIN EXCISION, WIDE LOCAL EXCISION 3X5 CM, SHORT SUPERIOR 12:00, LONG POSTERIOR 3:00 Path report.final diagnosis SEE COMMENT A. NODE, SENTINEL NODE #1 COUNT- 732, BIOPSY: BENIGN LYMPH NODE. B. SKIN, 3X5 CM, SHORT SUPERIOR 12:00, LONG POSTERIOR 3:00, WIDE EXCISION: CHANGES CONSISTENT WITH PREVIOUS PROCEDURE, INKED MARGINS FREE IN THE PLANES OF SECTIONS EXAMINED, WITHOUT RESIDUAL ATYPICAL MELANOCYTIC NEOPLASM SEEN. Electronically signed out by Rosana Hoang MD Laboratory comment By the signature on this report, the individual or group listed as making the Final Interpretation/Diagnos is certifies that they have reviewed this case. Path report.relevant Hx SEE COMMENT Pre-Op Diagnosis: Malignant melanoma of lower leg, left (Multi) Post-Op Diagnosis: Malignant melanoma of lower leg, left (Multi) Admission Diagnosis: Malignant melanoma of lower leg, left (Multi) C43.72 Specimen ID: [id number], [id number] Specimen Source: SENTINEL LYMPH NODE MELANOMA Site/Location: SENTINEL NODE #1 COUNT- 732 Collection Comments: Specimen ID: [id number], [id number] Specimen Source: SKIN EXCISION Site/Location: WIDE LOCAL EXCISION 3X5 CM, SHORT SUPERIOR 12:00, LONG POSTERIOR 3:00 Collection Comments: Path report.microscopic observation SEE COMMENT A: Microscopic examination reveals a lymph node. No melanoma is seen on H&E. Melan A, Sox10, and HMB45 stains are unremarkable. All control slides stain appropriately. B. Microscopic examination reveals a specimen that extends into the subcutaneous fat. An area with horizontally oriented collagen and vertically oriented vessels is present. LAB AP ASR DISCLAIMER One or more of the reagents used to perform assays on this specimen MAY have contained components considered to be analyte specific reagents (ASR's). ASR's have not been cleared or approved by the U.S. Food and Drug Administration. These assays were developed and their performance characteristics determined by the Department of Pathology at [facility]. The FDA does not require this test to go through premarket FDA review. This test is used for clinical purposes. It should not be regarded as investigational or for research. This laboratory is certified under the Clinical Laboratory Improvement Amendments (CLIA) as qualified to perform high complexity clinical laboratory testing. The assays were performed with appropriate positive and negative controls which stained appropriately. Path report.gross observation SEE COMMENT A: Received in formalin is a 14 x 12 x 4 mm piece of skin. It is gee and yellow in color. It is irregularly shaped in shape. It was embedded in toto. B: Received in formalin is a gee elliptical piece of skin measuring 30 x 25 x 5 mm. It was received with a short suture on the superior margin designated by the surgeon as the 12 o'clock position. It was received with a long suture on the posterior margin designated by the surgeon as the 3 o'clock position. It was inked blue on the 12 o'clock to 6 o'clock margin and black on the 6 to 12 o'clock margin. It was serially sectioned and embedded in toto in eight blocks. Block 1 is a the 12 o'clock position, block 8 is at 6 o'clock and block 5 is at 3 and 9 o'clock position. The specimen was grossed by Roxanna Robert. [facility] Comment on above: Order Comment: Pre-o p diagnosis: Malignant melanoma of lower leg, left (Multi) [C43.72] ECG 12-LEADon 03-23-2024 ECG 12-LEAD Ventricular Rate 73 Atrial Rate 73 P-R Interval 194 QRS Duration 86 Q-T Interval 384 QTC Calculation(Bazett) 423 P Jones 39 R Jones -6 T Jones 39 QRS Count 12 Q Onset 216 P Onset 119 P Offset 173 T Offset 408 QTC Fredericia 410 Diagnosis Normal sinus rhythm Normal ECG No previous ECGs available Confirmed by Otis Canales ([id number]) on 03/24/2024 1:25:11 PM Normal [facility] NM LYMPHOSCINTIGRAMon 2023 NM LYMPHOSCINTIGRAM Interpreted By: Jamal Pak and Kaur Arashdeep STUDY: NM LYMPHOSCINTIGRAM; 03/23/2024 8:50 am INDICATION: Signs/Symptoms:SLNB. COMPARISON: None. ACCESSION NUMBER(S): [id number] ORDERING CLINICIAN: MEENA SCHRADER TECHNIQUE: DIVISION OF NUCLEAR MEDICINE RADIONUCLIDE SENTINEL LYMPH NODE LYMPHOSCINTIGRAPHY A total of 0.6 millicuries of Tc-99m tilmanocept (Lymphoseek) was injected intradermally in a circumferential pattern surrounding the patient's left lower leg melanoma biopsy site. Immediate dynamic images were obtained followed by multiple static images in multiple projections. SPECT/CT images localized to the likely sentinel node region were also acquired. FINDINGS: Immediate dynamic images reveal radiotracer traveling to left inguinal region, corresponding to a left inguinal lymph node seen on SPECT CT, likely representing sentinel lymph node. No other draining node identified. IMPRESSION: 1. A left inguinal lymph node, likely representing sentinel lymph node. No other draining node identified. Images were saved into PACS for review. I personally reviewed the images/study and I agree with the findings as stated by Ramana Arreola MD. This study was interpreted at [place], [place]. MACRO: None Signed by: Jamal Castorena 03/23/2024 9:13 AM Dictation workstation: [id number] Normal [facility] NM Lymphatic vessels Views W radionuclide intra lymphaticon 03-23-2024 1. A left inguinal lymph node, likely representing sentinel lymph node. No other draining node identified. Images were saved into PACS for review. I personally reviewed the images/study and I agree with the findings as stated by Ramana Arreola MD. This study was interpreted at [facility], [place], [place]. MACRO: None Signed by: Jamal Castorena 03/23/2024 9:13 AM Dictation workstation: [id number] Interpreted By: Jamal Pak and Kaur Arashdeep STUDY: NM LYMPHOSCINTIGRAM; 03/23/2024 8:50 am INDICATION: Signs/Symptoms:SLNB. COMPARISON: None. ACCESSION NUMBER(S): [id number] ORDERING CLINICIAN: MEENA SCHRADER TECHNIQUE: DIVISION OF NUCLEAR MEDICINE RADIONUCLIDE SENTINEL LYMPH NODE LYMPHOSCINTIGRAPHY A total of 0.6 millicuries of Tc-99m tilmanocept (Lymphoseek) was injected intradermally in a circumferential pattern surrounding the patient's left lower leg melanoma biopsy site. Immediate dynamic images were obtained followed by multiple static images in multiple projections. SPECT/CT images localized to the likely sentinel node region were also acquired. FINDINGS: Immediate dynamic images reveal radiotracer traveling to left inguinal region, corresponding to a left inguinal lymph node seen on SPECT CT, likely representing sentinel lymph node. No other draining node identified. [facility] MMODAL Jamal Castorena MD - 03/23/2024 Interpreted By: Jamal Castorena and Kaur Arashdeep STUDY: NM LYMPHOSCINTIGRAM; 03/23/2024 8:50 am INDICATION: Signs/Symptoms:SLNB. COMPARISON: None. ACCESSION NUMBER(S): [id number] ORDERING CLINICIAN: MEENA SCHRADER TECHNIQUE: DIVISION OF NUCLEAR MEDICINE RADIONUCLIDE SENTINEL LYMPH NODE LYMPHOSCINTIGRAPHY A total of 0.6 millicuries of Tc-99m tilmanocept (Lymphoseek) was injected intradermally in a circumferential pattern surrounding the patient's left lower leg melanoma biopsy site. Immediate dynamic images were obtained followed by multiple static images in multiple projections. SPECT/CT images localized to the likely sentinel node region were also acquired. FINDINGS: Immediate dynamic images reveal radiotracer traveling to left inguinal region, corresponding to a left inguinal lymph node seen on SPECT CT, likely representing sentinel lymph node. No other draining node identified. IMPRESSION: 1. A left inguinal lymph node, likely representing sentinel lymph node. No other draining node identified. Images were saved into PACS for review. I personally reviewed the images/study and I agree with the findings as stated by Ramana Arreola MD. This study was interpreted at [facility], [place], [place]. MACRO: None Signed by: Jamal Castorena 03/23/2024 9:13 AM Dictation workstation: [id number] [facility] Work Phone: Radiology Study observation (narrative) [facility] Work Phone: NM Lymphatic vessels Views W radionuclide intra lymphaticOrdered By: Jamal Castorena on 03-23-2024 [facility] Work Phone: Surgical pathology studyon 0 03-09-2024 Surgical pathology study Pathology report.total SEE COMMENT Dermatopathology Report Case: [id number] Authorizing Provider: Meena Schrader MD Collected: 03/09/2024 1249 Ordering Location: [facility] Received: 03/09/2024 1249 [facility] Pathologist: London Coulter MD Specimen: OUTSIDE BLOCK(S)/SLIDE(S), 3 SLIDES, [facility] #[id number] (BX: 02/24/2024) Path report.final diagnosis SEE COMMENT 3 SLIDES, [facility] #[id number] (BX: 02/24/2024) SKIN, LEFT LEG, SHAVE BIOPSY: INVASIVE MALIGNANT MELANOMA, EXTENDING TO A DEPTH OF AT LEAST 0.6 MM (SEE COMMENT): Comment: The specimen is received in two portions and submitted in two blocks. There is a severely atypical, broad, poorly nested and poorly circumscribed compound melanocytic proliferation. The junctional component is composed of enlarged nests of medium-sized melanocytes with increased dillard cytoplasm that are poorly nested along the dermal-epidermal junction with runs of confluence and pagetoid scatter. The dermal component has similar-appearing nested and single unit melanocytes. There is a moderately brisk lymphocytic infiltrate. The outside deeper additional step sections were reviewed on block 1. The invasive component is moderately transected at the deep and a peripheral margin, and the in situ component extends to the deep (via adenxa) and the peripheral margins throughout the blocks. There is mild to moderate underlying solar elastosis. See synoptic summary below. Electronically signed out by LONDON COULTER MD Synoptic report SEE COMMENT MELANOMA OF THE SKIN: Biopsy MELANOMA OF THE SKIN: BIOPSY - A 8th Edition - Protocol posted: 10/25/2021 SPECIMEN Procedure: Biopsy, shave Specimen Laterality: Left TUMOR Tumor Site: Skin of lower limb and hip: Left leg Histologic Type: Superficial spreading melanoma (low-cumulative sun damage (CSD) melanoma) Maximum Tumor (Breslow) Thickness (Millimeters): At least: 0.6 mm : Moderately transected on the deep and a peripheral margin Ulceration: Not identified Anatomic (Ruiz) Level: IV (melanoma invades reticular dermis) Mitotic Rate: None identified Microsatellite(s): Cannot be determined: Shave specimen Lymphovascular Invasion: Not identified Neurotropism: Not identified Tumor-Infiltrating Lymphocytes: Present, brisk Tumor Regression: Not identified MARGINS: Margin Status for Invasive Melanoma: Invasive melanoma present at margin Margin(s) Involved by Invasive Melanoma: Peripheral Margin(s) Involved by Invasive Melanoma: Deep: Moderately transected Margin Status for Melanoma in situ: Melanoma in situ present at margin Margin(s) Involved by Melanoma in Situ: Peripheral Margin(s) Involved by Melanoma in Situ: Deep: Via adnexal extension PATHOLOGIC STAGE CLASSIFICATION (pTNM, AJCC 8th Edition): pT Category: pT1a Comment(s): Tumor block is CSPL original case# [id number] Blocks 1 and 2. 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 Path report.gross observation SEE COMMENT A. OUTSIDE BLOCK(S)/SLIDE(S). Received for consultation from [facility] are three slides labeled [id number] (BX: 02/24/2024) along with the corresponding pathology report. Path report.microscopic observation Microscopic examination performed. [facility] Comment on above: Order Comment: Mater ials Received: 3 SLIDES, [facility] #[id number] (BX: 02/24/2024) Office Visiton 11-18-2023 Follow-up visit [id number] Cassandra Jo kyleigh Roger 1955 F Date Provider Department Center 11/18/2023 JACINTA LOPEZ [facility] Family History Problem Relation Age of Onset Aortic aneurysm Mother Atrial fibrillation Mother Hypertension Father Diabetes Father Hypertension Brother Family Status - Relation Status Age at Mother Father Brother Level of Service:44464 MD OFFICE/OUTPATIENT ESTABLISHED LOW MDM 20 MIN Normal [facility] MG MAMM SCREEN 3D CASTRO CADon 09-03-2022 MG MAMM SCREEN 3D CASTRO CAD Patient: MEI JO Exam Date: 09/03/2022 : 1955 Gender:F Ordering : DR BRIJESH ARMSTRONG M.D. Admission #: [id number] Family : Order #: [id number] CLICK HERE TO VIEW EXAM RADIOLOGY REPORT PROCEDURE: MAMMOGRAM SCREENING 3D BILATERAL CAD COMPARISON: MG MAMM SCREEN CASTRO W CAD, 06/16/2020. MG MAMM SCREEN CASTRO W CAD, 06/12/2019. MG MAMM SCREEN CASTRO W CAD, 10/24/2016. MG MAMM SCREEN 3D CASTRO CAD, 08/29/2021. INDICATIONS: Screening mammography Calculator Name NCI Breast Cancer Risk Assessment Tool 5 Year Breast Cancer Risk 1.90% Lifetime Breast Cancer Risk 6.70% Personal Breast Cancer No Personal Ovarian Cancer No Treatments None Family Cancers Father with unknown cancer at age 80. LOCATION: [facility] BREAST COMPOSITION: Scattered areas fibroglandular density. FINDINGS: DIAGNOSTIC CATEGORY 1--NEGATIVE. RIGHT BREAST: No significant suspicious finding. No significant change has occurred. LEFT BREAST: No significant suspicious finding. No significant change has occurred. RECOMMENDATIONS: ROUTINE MAMMOGRAM AND CLINICAL EVALUATION IN 12 MONTHS. PLEASE NOTE: A NORMAL MAMMOGRAM DOES NOT EXCLUDE THE POSSIBILITY OF BREAST CANCER. A CLINICALLY SUSPICIOUS PALPABLE LUMP SHOULD BE BIOPSIED. Dictated by: Joel Alonso M.D. on 09/04/2022 at 07:35 Approved by: Joel Alonso M.D. on 09/04/2022 at 07:37 Normal [facility] NM STRESS/REST MULTIon 08-15 NM STRESS/REST MULTI Patient: DONALDO JO Exam Date: 08/15/2022 : 1955 Gender:F Ordering : DR BRIJESH ARMSTRONG M.D. Admission #: [id number] Family : OSIEL THOMAS Order #: [id number] CLICK HERE TO VIEW EXAM RADIOLOGY REPORT PROCEDURE: RADIONUCLIDE IMAGING STRESS/REST MULTI COMPARISON: None. INDICATIONS: Dyspnea TECHNIQUE: Exam Description: Stress/Rest one day protocol gated SPECT Rest Imagin.0 mCi Tc-99m Cardiolite IV on 08/15/2022 Stress Imaging 30.1 mCi Tc-99m Cardiolite IV on 08/15/2022 Exercise Protocol: Vignesh Heart Rate (bpm): Rest: 75 Max: 142 PMHR: 92 Blood Pressure: Rest: 160/104 Max: 180/86 Exercise Time: Minutes: 4 Seconds: 09 Stage Reached: Stage: 2 Mets 5.5 Symptoms: Rest and peak stress ECG findings were normal and the exercise portion of the study was normal per attending physician Dr. Morales . For more details please see separate cardiac stress test report. FINDINGS: QUALITY OF STUDY: Excellent. PERFUSION DEFECT: None. LOCATION: N/A SIZE: N/A. SEVERITY: N/A. TYPE: N/A. WALL MOTION: Normal. LV SIZE: Normal. 50 mL. TID / TCD: None; 0.6 LVEF: Normal. Calculated EF 77%. SUMMARY: Myocardial perfusion imaging study is NORMAL. CONCLUSION: 1. Normal nuclear medicine myocardial perfusion scan. Dictated by: Joel Alonso M.D. on 08/16/2022 at 11:01 Approved by: Joel Alonso M.D. on 08/16/2022 at 11:03 Normal [facility] XR CHEST 2 Von 06-07-2022 XR CHEST 2 V EXAMINATION: XR CHES T 2 V HISTORY: Dyspnea COMPARISON: No relevant comparison available. TECHNIQUE: AP and lateral FINDINGS: LUNGS: No significant pulmonary parenchymal abnormalities. VASCULATURE: No increased pulmonary vasculature. PLEURA: No pneumothorax, effusion, or pleural thickening. CARDIAC: No cardiomegaly or cardiac silhouette abnormality. MEDIASTINUM: No visible mass or adenopathy. BONES: No fracture or visible bone lesion. OTHER: Negative. IMPRESSION: No acute disease. Electronically authenticated by: PETER CORREIA Date: 2022-06-07 18:35 Normal [facility] VC INJ SCL DOLLY DISH MAKER VEINSon 0 12-05-2021 VC INJ SCL DOLLY DISH MAKER VEINS Patient: MEI JO Exam Date: 12/05/2021 : 1955 Gender:F Ordering : DR PETER CORREIA M.D. Admission #: [id number] Family : Order #: [id number] CLICK HERE TO VIEW EXAM RADIOLOGY REPORT PROCEDURE: VEIN CENTER INJECTION SCLEROSING SOLUTION MULTIPLE VEINS SAME COMPARISON: VC INJ SCL DOLLY DISH MAKER VEINS, 11/21/2021. INDICATIONS: Pain co-occurrent and due to varicose veins of bilateral legs I83.813 PROCEDURE NOTE: The risks and benefits of the procedure were explained at length to the patient and informed written consent was obtained. Saúl Fritz R.N. was present and assisted. The procedure was performed under sterile technique. The patient's leg was wrapped with Coban and postprocedural verbal and written instructions provided. SCLEROSANT: 2 cc, 0.5% polidocanol VEIN(S) INJECTED: 30 to veins in the left leg. VISUALIZATION: Ultrasound was not used to visualize the sclerosant ANESTHESIA Supercooled air COMPLICATIONS: None CONCLUSION: 1. Technically successful sclerotherapy as described Dictated by: Joel Alonso M.D. on 12/05/2021 at 10:30 Approved by: Joel Alonso M.D. on 12/05/2021 at 10:33 Normal [facility] VC INJ SCL DOLLY DISH MAKER VEINSon 0 11-21-2021 VC INJ SCL DOLLY DISH MAKER VEINS Patient: MEI JOCarolin Exam Date: 11/21/2021 : 1955 Gender:F Ordering : DR PETER CORREIA M.D. Admission #: [id number] Family : Order #: [id number] CLICK HERE TO VIEW EXAM RADIOLOGY REPORT PROCEDURE: VEIN CENTER INJECTION SCLEROSING SOLUTION MULTIPLE VEINS SAME COMPARISON: VC INJ SCL DOLLY DISH MAKER VEINS, 11/07/2021. VC INJ SCL DOLLY DISH MAKER VEINS, 11/02/2021. VC INJ SCL DOLLY DISH MAKER VEINS, 10/25/2021. INDICATIONS: Pain co-occurrent and due to varicose veins of bilateral legs I83.813 PROCEDURE NOTE: The risks and benefits of the procedure were explained at length to the patient and informed written consent was obtained. Saúl Fritz R.N. was present and assisted. The procedure was performed under sterile technique. The patient's leg was wrapped with Coban and postprocedural verbal and written instructions provided. SCLEROSANT: 2 cc, 0.5% polidocanol VEIN(S) INJECTED: 21 veins in the right leg VISUALIZATION: Ultrasound was not used to visualize the sclerosant ANESTHESIA Supercooled air COMPLICATIONS: None CONCLUSION: 1. Technically successful sclerotherapy as described Dictated by: Joel Alonso M.D. on 11/21/2021 at 13:23 Approved by: Joel Alonso M.D. on 11/21/2021 at 13:25 Normal [facility] VC INJ SCL DOLLY DISH MAKER VEINSon 0 11-07-2021 VC INJ SCL DOLLY DISH MAKER VEINS Patient: MEI JOCarolin Exam Date: 11/07/2021 : 1955 Gender:F Ordering : DR PETER CORREIA M.D. Admission #: [id number] Family : Order #: [id number] CLICK HERE TO VIEW EXAM RADIOLOGY REPORT PROCEDURE: VEIN CENTER INJECTION SCLEROSING SOLUTION MULTIPLE VEINS SAME COMPARISON: VC INJ SCL DOLLY DISH MAKER VEINS, 11/02/2021. VC INJ SCL DOLLY DISH MAKER VEINS, 10/25/2021. INDICATIONS: Pain co-occurrent and due to varicose veins of bilateral legs I83.813 PROCEDURE NOTE: The risks and benefits of the procedure were explained at length to the patient and informed written consent was obtained. I was present and assisted. The procedure was performed under sterile technique. The patient's leg was wrapped with Coban and postprocedural verbal and written instructions provided. SCLEROSANT: 4 cc, 0.5% polidocanol VEIN(S) INJECTED: 26 veins in the left leg VISUALIZATION: Ultrasound was not used to visualize the sclerosant ANESTHESIA Supercooled air COMPLICATIONS: None CONCLUSION: 1. Technically successful sclerotherapy as described Dictated by: Peter Correia MD on 11/07/2021 at 11:04 Approved by: Peter Correia MD on 11/07/2021 at 11:08 Normal [facility] VC INJ SCL DOLLY DISH MAKER VEINSon 0 11-02-2021 VC INJ SCL DOLLY DISH MAKER VEINS Patient: MEI JO Exam Date: 11/02/2021 : 1955 Gender:F Ordering : DR PETER CORREIA M.D. Admission #: [id number] Family : Order #: [id number] CLICK HERE TO VIEW EXAM RADIOLOGY REPORT PROCEDURE: VEIN CENTER INJECTION SCLEROSING SOLUTION MULTIPLE VEINS SAME COMPARISON: VC INJ SCL DOLLY DISH MAKER VEINS, 10/25/2021. INDICATIONS: Pain co-occurrent and due to varicose veins of bilateral legs I83.813 PROCEDURE NOTE: The risks and benefits of the procedure were explained at length to the patient and informed written consent was obtained. Saúl Fritz R.N. was present and assisted. The procedure was performed under sterile technique. The patient's leg was wrapped with Coban and postprocedural verbal and written instructions provided. SCLEROSANT: 2 cc, 0.5% polidocanol VEIN(S) INJECTED: 26 veins in the right leg VISUALIZATION: Ultrasound was not used to visualize the sclerosant ANESTHESIA Supercooled air COMPLICATIONS: None CONCLUSION: 1. Technically successful sclerotherapy as described Dictated by: Joel Alonso M.D. on 11/02/2021 at 09:40 Approved by: Joel Alonso M.D. on 11/02/2021 at 09:40 Normal [facility] VC INJ SCL DOLLY DISH MAKER VEINSon 0 10-25-2021 VC INJ SCL DOLLY DISH MAKER VEINS Patient: MEI JO Exam Date: 10/25/2021 : 1955 Gender:F Ordering : DR PETER CORREIA M.D. Admission #: [id number] Family : Order #: [id number] CLICK HERE TO VIEW EXAM RADIOLOGY REPORT PROCEDURE: VEIN CENTER INJECTION SCLEROSING SOLUTION MULTIPLE VEINS SAME COMPARISON: None. INDICATIONS: Pain co-occurrent and due to varicose veins of bilateral legs I83.813 PROCEDURE NOTE: The risks and benefits of the procedure were explained at length to the patient and informed written consent was obtained. I personally performed some injections. The procedure was performed under sterile technique. The patient's leg was wrapped with Coban and postprocedural verbal and written instructions provided. SCLEROSANT: 2 cc, 0.5% polidocanol VEIN(S) INJECTED: 27 veins in the left leg VISUALIZATION: Ultrasound was not used to visualize the sclerosant ANESTHESIA Supercooled air COMPLICATIONS: None CONCLUSION: 1. Technically successful sclerotherapy as described Dictated by: Peter Correia MD on 10/25/2021 at 10:59 Approved by: Peter Correia MD on 10/25/2021 at 11:00 Normal [facility] VC EXT VENOUS RT LIMITEDon 0 10-24-2021 VC EXT VENOUS RT LIMITED Patient: MEI JO Exam Date: 10/23/2021 : 1955 Gender:F Ordering : DR PETER CORREIA M.D. Admission #: [id number] Family : Order #: [id number] CLICK HERE TO VIEW EXAM RADIOLOGY REPORT PROCEDURE: VEIN CENTER EXTREMITY VENOUS RIGHT LIMITED COMPARISON: None. INDICATIONS: Phlebitis and thrombophlebitis of superficial veins of right lower extremity I80.01 TECHNIQUE: Lower extremity huitron scale and Duplex Doppler evaluation of the deep venous system from the inguinal ligament through the calf veins. FINDINGS: REGION: Right lower extremity. THROMBI: Positive for DVT. Chemically induced thrombus in the treated varicose veins posterior thigh from proximal-distal. Small segment of SSV is thrombosed as well as 2 senior qa automation engineer veins mid calf. Thrombus noted in one of the posterior tibial veins. COMPRESSIBILITY: Non-compressible segments on the. FLOW: Absent flow corresponding to thrombus *Exam performed in accordance with [facility] practice guidelines- Peripheral venous ultrasound, October 29, 2009. CONCLUSION: Post ablation occlusion of right leg incompetent varicose veins with a small amount of superficial thrombus identified in the thigh extension of the right small saphenous vein and small amount of deep vein thrombus in 1 of 2 distal right posterior tibial veins Dictated by: Peter Correia MD on 10/23/2021 at 11:30 Approved by: Peter Correia MD on 10/23/2021 at 11:45 Normal [facility] VC CONSULT FOLLOWUPon 2021 VC CONSULT FOLLOWUP Patient: KEYANA JO Exam Date: 10/23/2021 : 1955 Gender:F Ordering : DR PETER CORREIA M.D. Admission #: [id number] Family : Order #: [id number] CLICK HERE TO VIEW EXAM RADIOLOGY REPORT PROCEDURE: VEIN CENTER CONSULTATION FOLLOWUP VEIN CENTER - OFFICE VISIT FOLLOW UP COMPARISON: VC CONSULT FOLLOWUP, 10/13/2021. VC CONSULT FOLLOWUP, 10/02/2021. PROGRESS NOTES: The patient reports some mild tenderness following micro foam chemical ablation of the right leg. The patient did not require oral analgesics. The patient did wear her compression stocking. The patient has followed our recommendations to walk 20-30 minutes once or twice per day since the procedure. The patient reports marked improvement in her initial presenting symptoms with no significant pain, swelling or cramping currently. We discussed at the use of bilateral knee high and thigh-high 20-30 mm compression stockings to slow the progression of additional disease. Review of the ultrasound performed the same day demonstrates occlusive thrombus extending throughout the treated right leg varicose veins. A small amount of thrombus identified in the thigh extension of the superficial small saphenous vein. A small amount of thrombus is identified in 1 of 2 distal right posterior tibial veins, expected complication as a senior qa automation engineer was present in the region of injection. Ultrasound demonstrates moderate bilateral great saphenous vein venous insufficiency. In light of the patient's lack of symptoms at this time, 1 year follow-up was recommended rather than treatments. The patient expressed a desire to proceed with treatment of bilateral reticular and spider veins. IMPRESSION: 1. Successful ablation of incompetent right leg varicose veins 2. Increase in asymptomatic bilateral great saphenous vein venous insufficiency 3. Bilateral reticular and spider veins PLAN: 1. Injection sclerotherapy for reticular and spider veins 2. One year follow-up for bilateral great saphenous vein venous insufficiency Nurse notes, history and physical were reviewed and confirmed, see attached forms. The nurse was present throughout the physical exam and consultation Dictated by: Peter Correia MD on 10/23/2021 at 11:45 Approved by: Peter Correia MD on 10/23/2021 at 11:49 [facility] VC INJ FOAM SCLERO W US MLTI on 10-17-2021 VC INJ FOAM SCLERO W US MLTI Patient: MEI JO Exam Date: 10/17/2021 : 1955 Gender:F Ordering : DR PETER CORREIA M.D. Admission #: [id number] Family : Order #: [id number] CLICK HERE TO VIEW EXAM RADIOLOGY REPORT PROCEDURE: VEIN CENTER INJECTION FOAM SCLEROSING SOLUTION WITH ULTRASOUND MULTIPLE VEINS COMPARISON: VC INJ FOAM SCLERO W US MLTI, 10/06/2021. VC INJ FOAM SCLERO W US MLTI, 09/27/2021. Pre-operative Diagnosis: CEAP class C2 venous insufficiency with pain, tenderness, edema and incompetent right great saphenous vein and saphenous tributaries/varicose vein, chronic venous insufficiency right leg secondary to venous incompetence Post-operative Diagnosis: CEAP class C2 venous insufficiency with pain, tenderness, edema and incompetent right great saphenous vein and saphenous tributaries/varicose vein, chronic venous insufficiency right leg secondary to venous incompetence Procedure Performed: 1. Ultrasound-guided microfoam chemical ablation with Varithena(r) 2. Intraoperative ultrasound guidance Physician: Peter Correia M.D. Anesthesia: None Indications for Procedure: 65-year-old female who presents with a long history of dilated bulging veins with leg pain and cramping. The patient failed conservative medical therapy including medical compression stockings, exercise and analgesics. Multiple incompetent varicosities of the right leg. Duplex scan showed reflux and enlarged diameters up to 7 mm. The patient underwent informed consent including management options where the complications of infection, bleeding, pain, and skin injury were discussed. Particular attention was spent discussing thrombus extension and deep vein thrombosis as well as the possibility of pulmonary embolus and treatment with oral or injectable blood thinners. Procedure: The patient walked to the procedure room. All applicable staff donned appropriate apparel. A procedure timeout was performed to confirm correct patient, correct extremity, correct procedure, and correct room set-up including presence of all applicable supplies, devices, and drugs. A duplex ultrasound, performed by myself confirmed the location and incompetence distal thigh great saphenous vein and branch saphenous tributaries/varicose veins marked on the skin together with the dilated tributaries. The extent of treatment of the vein and the associated varicosities was determined through ultrasound mapping. The patient was placed on the operating room table. The limb was prepped. The skin was punctured with a butterfly needle through the skin with the venous access needle and advanced under ultrasound guidance. The target limb was positioned at 45 degrees of elevation in relation to the torso utilizing a foam pad. The Varithena(r) canister was activated and the canister was primed and purged as required in the instructions for use. The following injections were made: 9 mL aliquot of Varithena(r) was drawn into a sterile syringe. Injection into a 7 mm varicose vein mid to distal medial thigh. This was a tributary of the great saphenous vein. Pressure was held to occlude the great saphenous vein at the level of the distal thigh to allow treatment of the dilated incompetent portion of the great saphenous vein at the level of the distal thigh. Pressure was also held to occlude two senior qa automation engineer veins. 6 mL aliquot of Varithena(r) was drawn into a sterile syringe. Injection into a 4 mm varicose vein mid to distal posterior thigh Varithena(r) was slowly administered at 0.5-1.0 cc/second with close observation by ultrasound of its course in the injected veins. A total volume of 15 mL of Varithena(r) was used. During administration of Varithena(r), the patient was asked to dorsiflex the ankle to limit flow of Varithena(r) into perforating veins. Once appropriate spasm had been confirmed in the treated veins, the vascular catheter was removed from the leg and light pressure was applied over the puncture site for hemostasis The common femoral and deep superficial veins were then evaluated for flow and compressibility prior to dressing placement. The lower extremity was kept elevated at 45 degrees above the horizontal and cording material was applied over the saphenous segments and tributaries to allow for eccentric compression over the target vessels including the targeted saphenous vein(s). A multilayer dressing was applied consisting of foam pads, coban and thigh-high 20-30 mm Hg compression elastic support hose were placed on the patient. The leg was lowered only after compression had been applied and the patient was immediately ambulatory. The patient ambulated 10 minutes under supervision and was without apparent concerns at time of release Post-care instructions include advising patient to keep post-treatment bandages in place and dry for 48 hours, avoid extended periods of inactivity, avoid heavy exercise for one week, wear (more content not included)... Normal [facility] VC CONSULT FOLLOWUPon 2021 VC CONSULT FOLLOWUP Patient: KEYANA OJ Exam Date: 10/13/2021 : 1955 Gender:F Ordering : DR PETER CORREIA M.D. Admission #: [id number] Family : Order #: [id number] CLICK HERE TO VIEW EXAM RADIOLOGY REPORT PROCEDURE: VEIN CENTER CONSULTATION FOLLOWUP VEIN CENTER - OFFICE VISIT FOLLOW UP COMPARISON: VC EXT VENOUS LT LIMITED, 10/13/2021. VC EXT VENOUS LT LIMITED, 10/02/2021. VC CONSULT FOLLOWUP, 10/02/2021. PROGRESS NOTES: The patient reports improvement in leg symptoms. There has been interval reduction in varicosities. The patient has followed our recommendations to walk 20-30 minutes once or twice per day since the procedure. Physical exam demonstrates prominent hemosiderin staining overlying the recently treated large branch saphenous varicosity within the lateral thigh. Scattered spider veins. No appreciable residual varicose veins. Review of the ultrasound performed the same day demonstrates occlusive thrombus extending throughout the treated vein, see separate report, consistent with a successful ablation. No thrombus extending into or beyond the saphenofemoral junction. The patient expressed a desire to proceed with treatment of right leg incompetent branch saphenous varicosities. The patient was informed that treatment was a process and would require several procedures/sessions. IMPRESSION: 1. Successful ablation of the incompetent branch saphenous saphenous veins. 2. 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 Nurse notes, history and physical were reviewed and confirmed, see attached forms. The nurse was present throughout the physical exam and consultation Dictated by: Joel Alonso M.D. on 10/13/2021 at 09:54 Approved by: Joel Alonso M.D. on 10/13/2021 at 09:58 Normal [facility] VC EXT VENOUS LT LIMITEDon 0 10-13-2021 VC EXT VENOUS LT LIMITED Patient: MEI JO Exam Date: 10/13/2021 : 1955 Gender:F Ordering : DR PETER CORREIA M.D. Admission #: [id number] Family : Order #: [id number] CLICK HERE TO VIEW EXAM RADIOLOGY REPORT PROCEDURE: VEIN CENTER EXTREMITY VENOUS LEFT LIMITED COMPARISON: VC EXT VENOUS LT LIMITED, 10/02/2021. INDICATIONS: Phlebitis and thrombophlebitis of superficial veins of left lower extremity I80.02 TECHNIQUE: Lower extremity huitron scale and Duplex Doppler evaluation of the deep venous system from the inguinal ligament through the calf veins. FINDINGS: REGION: Left lower extremity. THROMBI: Negative for DVT. Areas treated with Varithena/microfoam are seen with echogenic thrombus. COMPRESSIBILITY: Non-compressible segments. FLOW: Areas of no flow. OTHER: No patent varicose veins visualized. CONCLUSION: 1. Successful post ablation occlusion of treated branch saphenous varicosities within the left leg. Dictated by: Joel Alonso M.D. on 10/13/2021 at 09:53 Approved by: Joel Alonso M.D. on 10/13/2021 at 09:54 Normal [facility] VC INJ FOAM SCLERO W US MLTI on 10-06-2021 VC INJ FOAM SCLERO W US MLTI Patient: MEI JO Exam Date: 10/06/2021 : 1955 Gender:F Ordering : DR PETER CORREIA M.D. Admission #: [id number] Family : Order #: [id number] CLICK HERE TO VIEW EXAM RADIOLOGY REPORT PROCEDURE: VEIN CENTER INJECTION FOAM SCLEROSING SOLUTION WITH ULTRASOUND MULTIPLE VEINS COMPARISON: VC INJ FOAM SCLERO W US MLTI, 09/27/2021. Pre-operative Diagnosis: CEAP class C2 venous insufficiency with pain, tenderness, edema and incompetent left anterior accessory saphenous vein and branch saphenous tributaries/varicose veins, chronic venous insufficiency left leg secondary to venous incompetence Post-operative Diagnosis: CEAP class C2 venous insufficiency with pain, tenderness, edema and incompetent left anterior accessory saphenous vein and branch saphenous tributaries/varicose veins, chronic venous insufficiency left leg secondary to venous incompetence Procedure Performed: 1. Ultrasound-guided microfoam chemical ablation with Varithena(r) 2. Intraoperative ultrasound guidance Physician: Peter Correia M.D. Anesthesia: None Indications for Procedure: 65-year-old female who presents with dilated bulging veins, cramping, leg pain for many years despite conservative medical therapy including medical compression stockings, exercise and analgesics. Prior procedures include intravenous laser ablation of the left anterior accessory saphenous vein and micro foam chemical ablation Multiple incompetent varicosities of the left leg. Duplex scan showed reflux and enlarged diameters up to 4 mm. The patient underwent informed consent including management options where the complications of infection, bleeding, pain, and skin injury were discussed. Particular attention was spent discussing thrombus extension and deep vein thrombosis as well as the possibility of pulmonary embolus and treatment with oral or injectable blood thinners. Procedure: The patient walked to the procedure room. All applicable staff donned appropriate apparel. A procedure timeout was performed to confirm correct patient, correct extremity, correct procedure, and correct room set-up including presence of all applicable supplies, devices, and drugs. A duplex ultrasound, performed by myself confirmed the location and incompetence of left leg incompetent varicose veins and their course marked on the skin together with the dilated tributaries. The extent of treatment of the vein and the associated varicosities was determined through ultrasound mapping. The patient was placed on the operating room table. The limb was prepped. The skin was punctured with a butterfly needle through the skin with the venous access needle and advanced under ultrasound guidance. The target limb was positioned at 45 degrees of elevation in relation to the torso utilizing a foam pad. The Varithena(r) canister was previously activated and the canister was primed and purged as required in the instructions for use. 7 mL aliquot of Varithena(r) was drawn into a sterile syringe. Injection into a 4 mm varicose vein distal lateral thigh, this was a branch of the anterior accessory saphenous vein inserting at the level of the thrombosed upper anterior accessory saphenous vein. Varithena(r) was slowly administered at 0.5-1.0 cc/second with close observation by ultrasound of its course in the injected vein. A total volume of 7 mL of Varithena(r) was used. During administration of Varithena(r), the patient was asked to dorsiflex the ankle to limit flow of Varithena(r) into perforating veins. Once appropriate spasm had been confirmed in the treated veins, the vascular catheter was removed from the leg and light pressure was applied over the puncture site for hemostasis The common femoral and deep superficial veins were then evaluated for flow and compressibility prior to dressing placement. The lower extremity was kept elevated at 45 degrees above the horizontal and cording material was applied over the saphenous segments and tributaries to allow for eccentric compression over the target vessels including the targeted saphenous vein(s). A multilayer dressing was applied consisting of foam pads, coban and thigh-high 20-30 mm Hg compression elastic support hose were placed on the patient. The leg was lowered only after compression had been applied and the patient was immediately ambulatory. The patient ambulated 10 minutes under supervision and was without apparent concerns at time of release Post-care instructions include advising patient to keep post-treatment bandages in place and dry for 48 hours, avoid extended periods of inactivity, avoid heavy exercise for one week, wear compression stockings on the treated leg continuously for two weeks, to walk daily for 10 minutes over the next month. The patient was instructed to take an anti-inflammatory medicine as needed and to follow up for color duplex scan of the GSV, the shilpi (more content not included)... Normal [facility] VC CONSULT FOLLOWUPon 2021 VC CONSULT FOLLOWUP Patient: KEYANA JO Exam Date: 10/02/2021 : 1955 Gender:F Ordering : DR PETER CORREIA M.D. Admission #: [id number] Family : Order #: [id number] CLICK HERE TO VIEW EXAM RADIOLOGY REPORT PROCEDURE: VEIN CENTER CONSULTATION FOLLOWUP VEIN CENTER - OFFICE VISIT FOLLOW UP COMPARISON: VC CONSULT FOLLOWUP, 09/20/2021. PROGRESS NOTES: The patient reports no significant pain following micro foam chemical ablation of the left leg. The patient does report some bruising. The patient did not require oral analgesics. The patient has worn her compression stockings as directed. The patient has followed our recommendations to walk 20-30 minutes once or twice per day since the procedure. Physical exam demonstrates multiple thrombosed left leg varicose veins with a small amount of associated hemosiderin staining. Additional large incompetent varicose veins are observed. No areas of erythema or warmth. No active ulceration. No evidence of cellulitis or thrombophlebitis. Review of the ultrasound performed the same day demonstrates occlusive thrombus extending throughout the treated left leg veins including the untreated distal portion of the left anterior accessory saphenous vein. The senior qa automation engineer veins are significantly decreased in size and I do not feel they need treated at this time, this was discussed with the patient. The patient expressed a desire to proceed with treatment of additional left leg incompetent varicose veins which measure up to 8 mm in diameter. IMPRESSION: 1. Successful ablation of left leg incompetent varicose veins and left anterior accessory saphenous vein 2. Persistent incompetent left leg varicose veins measuring up to 8 mm PLAN: Micro foam chemical ablation left leg Nurse notes, history and physical were reviewed and confirmed, see attached forms. The nurse was present throughout the physical exam and consultation Dictated by: Peter Correia MD on 10/02/2021 at 09:20 Approved by: Peter Correia MD on 10/02/2021 at 09:34 Normal [facility] VC EXT VENOUS LT LIMITEDon 0 10-02-2021 VC EXT VENOUS LT LIMITED Patient: MEI JO Exam Date: 10/02/2021 : 1955 Gender:F Ordering : DR PETER CORREIA M.D. Admission #: [id number] Family : Order #: [id number] CLICK HERE TO VIEW EXAM RADIOLOGY REPORT PROCEDURE: VEIN CENTER EXTREMITY VENOUS LEFT LIMITED COMPARISON: VC EXT VENOUS LT LIMITED, 09/20/2021. INDICATIONS: Phlebitis and thrombophlebitis of superficial veins of left lower extremity I80.02 TECHNIQUE: Lower extremity huitron scale and Duplex Doppler evaluation of the deep venous system from the inguinal ligament through the calf veins. FINDINGS: REGION: Left lower extremity. THROMBI: Negative for DVT. Chemically induced thrombus in left leg varicose vein extending from distal thigh 8cm proximal to knee down to anterior proximal lower leg. COMPRESSIBILITY: Noncompressibility corresponding to thrombus FLOW: Absent flow corresponding to thrombus. *Exam performed in accordance with [facility] practice guidelines- Peripheral venous ultrasound, October 29, 2009. CONCLUSION: Post ablation occlusion of treated varicose veins/distal anterior accessory saphenous vein Dictated by: Peter Correia MD on 10/02/2021 at 09:06 Approved by: Peter Correia MD on 10/02/2021 at 09:08 Normal [facility] VC INJ FOAM SCLERO W US MLTI on 09-27-2021 VC INJ FOAM SCLERO W US MLTI Patient: MEI JO Exam Date: 09/27/2021 : 1955 Gender:F Ordering : DR PETER CORREIA M.D. Admission #: [id number] Family : Order #: [id number] CLICK HERE TO VIEW EXAM RADIOLOGY REPORT PROCEDURE: VEIN CENTER INJECTION FOAM SCLEROSING SOLUTION WITH ULTRASOUND MULTIPLE VEINS COMPARISON: None. Pre-operative Diagnosis: CEAP class C2 venous insufficiency with pain, tenderness, edema and incompetent branch saphenous vein, chronic venous insufficiency left leg secondary to venous incompetence Post-operative Diagnosis: CEAP class C2 venous insufficiency with pain, tenderness, edema and incompetent branch saphenous vein, chronic venous insufficiency left leg secondary to venous incompetence Procedure Performed: 1. Ultrasound-guided microfoam chemical ablation with Varithena(r) 2. Intraoperative ultrasound guidance Physician: Joel Alonso M.D. Anesthesia: None. Indications for Procedure: 65 year old female. Symptoms including dilated bulging veins, cramping, leg pain for many years despite conservative medical therapy including medical compression stockings, exercise and analgesics. Prior procedures include: Endovenous laser ablation. Multiple incompetent varicosities of the left leg. Duplex scan showed reflux and enlarged diameters up to 5 mm. The patient has undergone informed consent including management options where the complications of infection, bleeding, pain, and skin injury were discussed. Particular attention was spent discussing thrombus extension and deep vein thrombosis as well as the possibility of pulmonary embolus and treatment with oral or injectable blood thinners. Procedure: The patient walked to the procedure room. All applicable staff donned appropriate apparel. A procedure timeout was performed to confirm correct patient, correct extremity, correct procedure, and correct room set-up including presence of all applicable supplies, devices, and drugs. A duplex ultrasound, performed by myself confirmed the location and incompetence of branch saphenous varicosities and their course was marked on the skin together with the dilated tributaries. The extent of treatment of the veins and the associated varicosities was determined through ultrasound mapping. The skin was prepped and then punctured with a butterfly needle and advanced under ultrasound guidance. The Varithena(r) canister was activated and the canister was primed and purged as required in the instructions for use. Varithena(r) was drawn into a sterile syringe. Varithena(r) was slowly administered at 0.5-1.0 cc/second with close observation by ultrasound of its course in the vessels. Total volume utilized was: 10 mL injected into a 5 mm incompetent branch saphenous varicosity beginning in the anterior aspect of the proximal lower left leg). Following administration of Varithena(r), the leg was elevated and the patient was asked to repeatedly dorsiflex the ankle to limit flow of Varithena(r) into perforating veins. Once appropriate spasm had been confirmed in the treated veins, the vascular catheter was removed from the leg and light pressure was applied over the puncture site for hemostasis The common femoral and deep superficial veins were then evaluated for flow and compressibility prior to dressing placement. The lower extremity was kept elevated at 45 degrees above the horizontal and cording material was applied over the saphenous segments and tributaries to allow for eccentric compression over the target vessels including the targeted saphenous vein(s). A multilayer dressing was applied consisting of foam pads, coban and thigh-high 20-30 mm Hg compression elastic support hose were placed on the patient. The leg was lowered only after compression had been applied and the patient was immediately ambulatory. The patient ambulated 10 minutes under supervision and was without apparent concerns at time of release Post-care instructions include advising patient to keep post-treatment bandages in place and dry for 48 hours, avoid extended periods of inactivity, avoid heavy exercise for one week, wear compression stockings on the treated leg continuously for two weeks, to walk daily for 10 minutes over the next month. The patient was instructed to take an anti-inflammatory medicine as needed and to follow up for color duplex scan of the Saphenous veins, the treated branch saphenous varicosities, the adjacent deep veins, and additional treatment within 7 days. PERSONNEL: Saúl Fritz R.N. Dictated by: Joel Alonso M.D. on 09/27/2021 at 10:59 Approved by: Joel Alonso M.D. on 09/27/2021 at 11:06 Normal [facility] VC CONSULT FOLLOWUPon 2021 VC CONSULT FOLLOWUP Patient: KEYANA JO Exam Date: 09/20/2021 : 1955 Gender:F Ordering : DR PETER CORREIA M.D. Admission #: [id number] Family : Order #: [id number] CLICK HERE TO VIEW EXAM RADIOLOGY REPORT PROCEDURE: VEIN CENTER CONSULTATION FOLLOWUP VEIN CENTER - OFFICE VISIT FOLLOW UP COMPARISON: None. PROGRESS NOTES: The patient reports mild discomfort following intravenous laser ablation of the left anterior accessory saphenous vein. The patient did not require oral analgesics. The patient has worn her compression stockings. The patient has followed our recommendations to walk 20-30 minutes once or twice per day since the procedure. Physical exam demonstrates 2 areas bruising in the anterior left thigh likely related to tumescent injection measuring 5 and 8 cm in size respectively. No active ulceration. Thrombosed anterior accessory saphenous vein can be palpated. No erythema or warmth to suggest thrombophlebitis or cellulitis. Review of the ultrasound performed the same day demonstrates occlusive thrombus extending throughout the treated left anterior accessory saphenous vein with no deep vein thrombus. Heat induced thrombus was 9 mm from saphenofemoral junction. The patient expressed a desire to proceed with treatment of incompetent left leg branch saphenous tributary/varicose veins with micro foam chemical ablation. IMPRESSION: 1. Successful ablation of the left anterior accessory saphenous vein 2. Persistent bilateral incompetent branch saphenous tributaries/ varicose veins PLAN: Micro foam chemical ablation of the left leg Nurse notes, history and physical were reviewed and confirmed, see attached forms. The nurse was present throughout the physical exam and consultation Dictated by: Peter Correia MD on 09/20/2021 at 10:04 Approved by: Peter Correia MD on 09/20/2021 at 10:05 Normal [facility] VC EXT VENOUS LT LIMITEDon 0 09-20-2021 VC EXT VENOUS LT LIMITED Patient: MEI JO Exam Date: 09/20/2021 : 1955 Gender:F Ordering : DR PETER CORREIA M.D. Admission #: [id number] Family : Order #: [id number] CLICK HERE TO VIEW EXAM RADIOLOGY REPORT PROCEDURE: VEIN CENTER EXTREMITY VENOUS LEFT LIMITED COMPARISON: None. INDICATIONS: Phlebitis and thrombophlebitis of superficial veins of left lower extremity I80.02 TECHNIQUE: Lower extremity huitron scale and Duplex Doppler evaluation of the deep venous system from the inguinal ligament through the calf veins. FINDINGS: REGION: Left lower extremity. THROMBI: Negative for DVT. Heat induced thrombus in the AASV 8.8 mm from saphenofemoral junction extending to point of insertion mid thigh, approximately 8 cm from junction. COMPRESSIBILITY: Noncompressibility corresponding to thrombus FLOW: Absent flow corresponding to thrombus *Exam performed in accordance with [facility] practice guidelines- Peripheral venous ultrasound, October 29, 2009. CONCLUSION: Post ablation occlusion of the left anterior accessory saphenous vein with heat induced thrombus 8.8 mm from the saphenofemoral junction Dictated by: Peter Correia MD on 09/20/2021 at 09:52 Approved by: Peter Correia MD on 09/20/2021 at 09:52 Normal [facility] VC ENDOVENOUS ABL 1ST V LTon 09-13-2021 VC ENDOVENOUS ABL 1ST V LT Patient: MEI JO Exam Date: 09/13/2021 : 1955 Gender:F Ordering : DR PETER CORREIA M.D. Admission #: [id number] Family : Order #: [id number] CLICK HERE TO VIEW EXAM RADIOLOGY REPORT PROCEDURE: VEIN CENTER ENDOVENOUS ABLATION FIRST VEIN LEFT ANTERIOR ACCESSORY SAPHENOUS VEIN COMPARISON: None. INDICATIONS: Pain co-occurrent and due to varicose veins of bilateral legs I83.813 OPERATIVE REPORT: The risks and benefits of the procedure had been previously discussed, and were rediscussed at length. Informed written consent was obtained by and Saúl goff. Time out procedure was performed. The left lower extremity was prepared and draped in the usual sterile fashion to allow knee flexion in the sterile field. Duplex ultrasound probe was draped in a sterile cover, sterile transmission gel was used. Venous mapping was performed with the areas of dilation and large tributaries marked. The total length was 8 cm from the entry upper thigh to 3 cm below the saphenofemoral junction. The diameter of the anterior accessory saphenous vein ranged from 5-8 mm. A 30 gauge needle and 1% buffered lidocaine was used to anesthetize the entry site. The vein below this area was 2 tortuous for access. A 4 mm incision was made with a scalpel and the saphenous vein was entered percutaneously under direct ultrasound guidance with a micropuncture set, a single stick was successful in gaining access. A micro-guide wire was inserted and the needle removed. A micro-set including a dilator was inserted over the microwire and the needle and dilator were removed. A 0.018 guide wire was inserted through the micro-set and threaded through the saphenous vein to the saphenofemoral junction. The dilator was removed and an introducer sheath was inserted over the wire until the end of the sheath entered the saphenofemoral junction. The dilator and wire were removed and the 600 micron fiber was introduced and placed and positioned so that it extended beyond the sheath and was 3 cm peripheral to the saphenofemoral femoral junction. Final position of the fiber was determined by ultrasound guidance and duplex imaging. Tumescent anesthetic was delivered by ultrasound guidance. 100 cc of fluid was delivered along the entire course of the saphenous vein. The solution consisted of 500 cc of normal saline with 20mL of 1% lidocaine and 10 mL of sodium bicarbonate. A final positioning check was made. The energy source was turned on by means of the foot pedal and the fiber and sheath were withdrawn. The total number of Joules delivered was 658. The laser was active for 82 seconds under continuous pulse, average laser use of 8 J. Laser start time 11:18 a.m. September 13, 2021. Laser stop time 11:20 a.m. September 13, 2021. A duplex ultrasound revealed compressibility and flow at the saphenofemoral junction immediately after the procedure. Hemostasis at the access site was achieved. The skin incision of the saphenous vein was closed with a 4 x 4. A compression stocking was applied. Postop instructions were given. A follow up appointment was recommended and scheduled. The patient tolerated the procedure well and was discharged in good condition. CONCLUSION: 1. Technically successful endovenous laser ablation of the left anterior accessory saphenous vein. Dictated by: Peter Correia MD on 09/13/2021 at 11:21 Approved by: Peter Correia MD on 09/13/2021 at 11:23 Normal [facility] Q - SUREPATH-FPGS PAPon 08-06 CLINICAL INFORMATION: None given Normal [facility] Comment on above: Order Comment: [facility] Testing performed at: [facility], [facility], [address] [place] [address] Gaurav Hyde PA, , Automatic Pattern Edger: Donato Wall MD [facility] Collection Date/Time: [facility] Results Received Date/Time: [facility] Reported Date/Time: Performed By: #### 1 [id number] #### [facility] [address] [place] [address] COMMENT SEE NOTE Normal [facility] Comment on above: Order Comment: [facility] Testing performed at: [facility], [facility], [address] [place] [address] Gaurav Hyde PA, , Automatic Pattern Edger: Donato Wall MD [facility] Collection Date/Time: [facility] Results Received Date/Time: [facility] Reported Date/Time: Result Comment: EXPL ANATORY NOTE: The Pap is a screening test for cervical cancer. It is not a diagnostic test and is subject to false negative and false positive results. It is most reliable when a satisfactory sample, regularly obtained, is submitted with relevant clinical findings and history, and when the Pap result is evaluated along with historic and current clinical information. Performed By: #### 1 [id number] #### [facility] [address] [place] [address] COMMENT: SEE NOTE [facility] Comment on above: Order Comment: [facility] Testing performed at: [facility], [facility], [address] [place], [place] [address]Gaurav PA, , Automatic Pattern Edger: Donato Wall MD [facility] Collection Date/Time: [facility] Results Received Date/Time: [facility] Reported Date/Time: Result Comment: This Pap test has been evaluated with computer assisted technology. Parabasal cells in smears that lack maturation due to atrophy or other hormonal reasons cannot be differentiated from transformation zone cells. Accordingly, presence or absence of endocervical or transformation zone components cannot be reported in this patient. Performed By: #### 1 [id number] #### [facility] [address] [place] [address] DRY HEAT ROOM ATTENDANT: SEE NOTE Normal [facility] Comment on above: Order Comment: [facility] Testing performed at: [facility], [facility], [address] [place], [place] [address]marry [place], , Automatic Pattern Edger: Donato Wall MD [facility] Collection Date/Time: [facility] Results Received Date/Time: [facility] Reported Date/Time: Result Comment: ANL, CT(ASCP) FOr informational purposes: All Cytology specimens are processed and screened at [facility]. [address] [place] [address] [place] [address]. Performed By: #### 1 [id number] #### [facility] [address] [place] [address] INTERPRETATION/RESULT: SEE NOTE [facility] on above: Order Comment: [facility] Testing performed at: [facility], [facility], [address] [place] [address] Gaurav [place], , Automatic Pattern Edger: Donato Wall MD [facility] Collection Date/Time: [facility] Results Received Date/Time: [facility] Reported Date/Time: Result Comment: Nega tive for intraepithelial lesion or malignancy. Atrophic pattern; predominantly parabasal cells Performed By: #### 1 [id number] #### [facility] [address] [place] [address] LMP: None given Normal [facility] Comment on above: Order Comment: [facility] Testing performed at: [facility], [facility], [address] [place], [place] [address]Gaurav PA, , Automatic Pattern Edger: Donato Wall MD [facility] Collection Date/Time: [facility] Results Received Date/Time: [facility] Reported Date/Time: Performed By: #### 1 [id number] #### [facility] [address] [place] [address] PREV. BX: None given Normal [facility] Comment on above: Order Comment: [facility] Testing performed at: [facility], [facility], [address] [place] [address] Gaurav Hyde PA, , Automatic Pattern Edger: Donato Wall MD [facility] Collection Date/Time: [facility] Results Received Date/Time: [facility] Reported Date/Time: Performed By: #### 1 [id number] #### [facility] [address] [place] [address] PREV. PAP: None given Normal [facility] Comment on above: Order Comment: [facility] Testing performed at: [facility], [facility], [address] [place] [address] Gaurav Hyde PA, , Automatic Pattern Edger: Donato Wall MD [facility] Collection Date/Time: [facility] Results Received Date/Time: [facility] Reported Date/Time: Performed By: #### 1 [id number] #### [facility] [address] [place] [address] SOURCE: None given Normal [facility] Comment on above: Order Comment: [facility] Testing performed at: [facility], [facility], [address] [place] [address] Gaurav Hyde PA, , Automatic Pattern Edger: Donato Wall MD [facility] Collection Date/Time: [facility] Results Received Date/Time: [facility] Reported Date/Time: Performed By: #### 1 [id number] #### [facility] [address] [place] [address] HAND LEFT 3 VWSon 03-04-2019 HAND LEFT 3 VWS [facility] Department of Radiology [address] [place] [address] ======== Patient Name: MEI JO : 1955 Sex: F Age: Race: NA Pt. Location: Patient Status: Ordered Date: 03/04/2019 1:25:00 PM Completed Date: 03/04/2019 01:22 PM Requesting Provider: JOHN FERNÁNDEZ Attending Provider: Report Copy To: Signs & Symptoms: M79.642 Pain in left hand I10 History: [place] Comments: , Views (X-RAY, HAND): Radiologic Protocol , Views (X-RAY, HAND): Radiologic Protocol , , , Ordering Provider - JOHN FERNÁNDEZ MD , Exam: HAND LEFT 3 S ======== HAND LEFT 3 S 03/04/2019 1:22 PM EDT SIGNS AND SYMPTOMS: M79.642 Pain in left hand I10 TECHNOLOGIST COMMENTS: Patient fractured left hand 3 weeks ago. Has pain to left hand. QUESTION FOR THE RADIOLOGIST: , Views (X-RAY, HAND): Radiologic Protocol , Views (X-RAY, HAND): Radiologic Protocol , , , Ordering Provider - JOHN FERNÁNDEZ MD , PROTOCOL: AP,Lateral and Oblique views were obtained. 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 Closed reduction of fifth metacarpal base fracture healing in satisfactory alignment 2. Osteoporosis diffusely and focal thumb base arthritis Electronically signed by:Kaylie Dominguez. Transcribed by: [id number], User Resident: Electronically Signed by: KAYLIE DOMINGUEZ @ 03/04/2019 04:14 PM Normal [facility] Comment on above: Order Comment: , Vie ws (X-RAY, HAND): Radiologic Protocol , Views (X-RAY, HAND): Radiologic Protocol , , , Ordering Provider - JOHN FERNÁNDEZ MD , Coding Summaryon 02-16-2019 Coding Summary CODING DATE: 02/16/2019 [facility] STATUS: Home PAYOR: Commercial Insurance ADMIT DX: REASON FOR VISIT DX: S61.412A Laceration without foreign body of left hand, initial encounter FINAL DX: PRINCIPAL: S62.315B Displaced fracture of base of fourth metacarpal bone, left hand, initial encounter for open fracture SECONDARY: S62.317B Displaced fracture of base of fifth metacarpal bone, left hand, initial encounter for open fracture W01.0XXA Fall on same level from slipping, tripping and stumbling without subsequent striking against object, initial encounter PROCEDURES DOCTOR NAME DATE NOTE: The code number assigned matches the documented diagnosis and / or procedure in the patient's chart. However, the narrative phrase printed from the coding software may appear abbreviated, or result in slightly different terminology. Revised Coded By: Onur Grayson' Revised Date Saved: 02/16/2019 02:01 pm Normal [facility] Coding Summary CODING DATE: 02/16/2019 [facility] STATUS: Home PAYOR: Commercial Insurance APC DESCRIPTION 5023 Level 3 Type A ED Visits ADMIT DX: REASON FOR VISIT DX: S61.412A Laceration without foreign body of left hand, initial encounter FINAL DX: PRINCIPAL: S62.315B Displaced fracture of base of fourth metacarpal bone, left hand, initial encounter for open fracture SECONDARY: S62.317B Displaced fracture of base of fifth metacarpal bone, left hand, initial encounter for open fracture W01.0XXA Fall on same level from slipping, tripping and stumbling without subsequent striking against object, initial encounter PYMT PROC APC STAT DESCRIPTION DOCTOR NAME DATE NOTE: The code number assigned matches the documented diagnosis and / or procedure in the patient's chart. However, the narrative phrase printed from the coding software may appear abbreviated, or result in slightly different terminology. Coded By: Eze Grayson Date Saved: 02/16/2019 01:51 pm [facility] Coding Summary CODING DATE: 02/16/2019 [facility] STATUS: Home PAYOR: Commercial Insurance APC DESCRIPTION 5023 Level 3 Type A ED Visits ADMIT DX: REASON FOR VISIT DX: S61.412A Laceration without foreign body of left hand, initial encounter FINAL DX: PRINCIPAL: S62.315B Displaced fracture of base of fourth metacarpal bone, left hand, initial encounter for open fracture SECONDARY: S62.317B Displaced fracture of base of fifth metacarpal bone, left hand, initial encounter for open fracture W01.0XXA Fall on same level from slipping, tripping and stumbling without subsequent striking against object, initial encounter PYMT PROC APC STAT DESCRIPTION DOCTOR NAME DATE NOTE: The code number assigned matches the documented diagnosis and / or procedure in the patient's chart. However, the narrative phrase printed from the coding software may appear abbreviated, or result in slightly different terminology. Coded By: Eze Grayson Date Saved: 02/16/2019 01:51 pm [facility] Coding Summary CODING DATE: 02/16/2019 [facility] STATUS: Home PAYOR: Commercial Insurance APC DESCRIPTION 5023 Level 3 Type A ED Visits ADMIT DX: REASON FOR VISIT DX: S61.412A Laceration without foreign body of left hand, initial encounter FINAL DX: PRINCIPAL: S62.315B Displaced fracture of base of fourth metacarpal bone, left hand, initial encounter for open fracture SECONDARY: S62.317B Displaced fracture of base of fifth metacarpal bone, left hand, initial encounter for open fracture W01.0XXA Fall on same level from slipping, tripping and stumbling without subsequent striking against object, initial encounter PYMT PROC APC STAT DESCRIPTION DOCTOR NAME DATE NOTE: The code number assigned matches the documented diagnosis and / or procedure in the patient's chart. However, the narrative phrase printed from the coding software may appear abbreviated, or result in slightly different terminology. Revised Coded By: Onur Grayson' Revised Date Saved: 02/16/2019 01:51 pm Normal [facility] Release of Informationon Release of Information [id number]#1.00 OTGTIFF [facility] .Auto Diff 1on 02-10-2019 Auto [place] % 6 % Normal 08-16 [facility] Comment on above: Performed By: #### 1 [id number], 4135240, [id number], 03000577, 1066264 #### [facility] (DEFAULT) [address] [place] [address] Baso Abs# 0.0 x10 Normal 0.0-0.2 [facility] Comment on above: Performed By: #### 1 [id number], 7924873, 2753575266, 32814856, 2397643 #### [facility] (DEFAULT) [address] [place] [address] Basophils/100 WBC (Bld) 0.2 % Normal 0.2-2.0 [facility] Comment on above: Performed By: #### 1 [id number], 9346548, 5050448201, 99108929, 5171710 #### [facility] (DEFAULT) [address] [place] [address] Eos Abs# 0.1 x10 Normal 0.0-0.4 [facility] Comment on above: Performed By: #### 1 [id number], 2667316, 0673021459, 06865234, 6374613 #### [facility] (DEFAULT) [address] [place] [address] Eosinophils/100 WBC (Bld) 0.9 % Normal 0.9-4.0 [facility] Comment on above: Performed By: #### 1 [id number], 2405708, 2809565032, 03761877, 4187480 #### [facility] (DEFAULT) [address] [place] [address] Lymphocytes (Bld) [#/Vol] 1.5 x10 Normal 1.3-2.9 [facility] Comment on above: Performed By: #### 1 [id number], 5780750, 4206577562, 05161245, 9686565 #### [facility] (DEFAULT) [address] [place] [address] Lymphocytes/100 WBC (Bld) 11 % Low 14-48 [facility] Comment on above: Performed By: #### 1 [id number], 8282771, 5423700526, 91742421, 2852776 #### [facility] (DEFAULT) [address] [place] [address] [place] Abs# 0.8 x10 Normal 0.0-0.8 [facility] Comment on above: Performed By: #### 1 [id number], 6703628, 0179793671, 21034848, 4193551 #### [facility] (DEFAULT) [address] [place] [address] Neut Abs# 10.8 x10 High 1.5-9.2 [facility] Comment on above: Performed By: #### 1 [id number], 3585706, 6993906330, 54020698, 8579743 #### [facility] (DEFAULT) [address] [place] [address] Neutrophils/100 WBC (Bld) 81 % Normal 44-88 [facility] Comment on above: Performed By: #### 1 [id number], 6149179, 6737857161, 81777671, 1321807 #### [facility] (DEFAULT) [address] [place] [address] CBC w/ Auto Diffon Erythrocyte distribution width (RBC) [Ratio] 12.7 % Normal 11.5-15.0 [facility] Comment on above: Performed By: #### 1 [id number], 6493729, 6085717406, 37358732, 1253006 #### [facility] (DEFAULT) [address] [place] [address] Hematocrit (Bld) [Volume fraction] 37.0 % Normal 33.7-40.4 [facility] Comment on above: Performed By: #### 1 570204935, 5635490, 1561737999, 93289701, 4525359 #### [facility] (DEFAULT) [address] [place] [address] Hemoglobin (Bld) [Mass/Vol] 12.7 g/dL Normal 11.3-15.9 [facility] Comment on above: Performed By: #### 1 683093727, 9705876, 8443402920, 64663137, 1317395 #### [facility] (DEFAULT) [address] [place] [address] Man Diff? Auto Normal [facility] Comment on above: Performed By: #### 1 345896357, 6107577, 2691814111, 08002697, 1300474 #### [facility] (DEFAULT) [address] [place] [address] MCH (RBC) [Entitic mass] 32 pg Normal 24-34 [facility] Comment on above: Performed By: #### 1 [id number], 6844957, 1067187421, 29806931, 5346439 #### [facility] (DEFAULT) [address] [place] [address] MCHC (RBC) [Mass/Vol] 34 g/dL Normal 26-37 [facility] Comment on above: Performed By: #### 1 [id number], 6371821, 4960911562, 03086465, 8463201 #### [facility] (DEFAULT) [address] [place] [address] MCV (RBC) [Entitic vol] 94 fL Normal 81-100 [facility] Comment on above: Performed By: #### 1 255412554, 1864314, 4126323835, 56103892, 8042295 #### [facility] (DEFAULT) [address] [place] [address] Platelet mean volume (Bld) [Entitic vol] 8.6 fL Normal 6.3-10.2 [facility] Comment on above: Performed By: #### 1 [id number], 8963687, 8320104601, 89122749, 8764498 #### [facility] (DEFAULT) [address] [place] [address] Platelets (Bld) [#/Vol] 278 x10 Normal 138-427 [facility] Comment on above: Performed By: #### 1 527989951, 5746107, 3389489113, 23301922, 5874173 #### [facility] (DEFAULT) [address] [place] [address] RBC (Bld) [#/Vol] 3.93 x10 Normal 3.70-5.30 [facility] Comment on above: Performed By: #### 1 [id number], 8973844, 5883762421, 85078995, 9599089 #### [facility] (DEFAULT) [address] [place] [address] WBC (Bld) [#/Vol] 13.3 x10 [facility] Comment on above: Performed By: #### 1 [id number], 9304814, 9040093379, 72764661, 7232354 #### [facility] (DEFAULT) [address] [place] [address] Standardon 02-10-2019 eGFR Non AA >60 [facility] Comment on above: Performed By: #### 1 [id number], 7731237, 0811875278, 61766481, 6623646 #### [facility] (DEFAULT) [address] [place] [address] eGFR AA >60 [facility] Comment on above: Result Comment: [facility] [place] Department Supervisor frantz Kidney disease could be indicated at eGFRs of less than 60 ml/min/1.73m2. Kidney Failure is indicated at less than 15 ml/min/1.73m2 Performed By: #### 1 [id number], 0471673, 3457304590, 65069125, 3956490 #### [facility] (DEFAULT) [address] [place] [address] Albumin [Mass/Vol] 4.4 g/dL Normal 3.5-5.[address] [facility] Comment on above: Performed By: #### 1 [id number], 2547917, 5345721956, 56290306, 4564871 #### [facility] (DEFAULT) [address] [place] [address] Albumin/Globulin [Mass ratio] 1.6 {ratio} Normal 1.4-2.6 [facility] Comment on above: Performed By: #### 1 [id number], 7292761, 9524334303, 67707584, 5930026 #### [facility] (DEFAULT) [address] [place] [address] Alk Phos 62 IU/L Normal 32-91 [facility] Comment on above: Performed By: #### 1 [id number], 8937262, 9306395500, 90399590, 6824182 #### [facility] (DEFAULT) [address] [place] [address] ALT/SGPT 19.0 IU/L Normal 14.0-54.0 [facility] Comment on above: Performed By: #### 1 [id number], 3479761, 3183334948, 53521550, 5333427 #### [facility] (DEFAULT) [address] [place] [address] Anion gap [Moles/Vol] 16.0 mmol/L Normal 5.0-19.0 [facility] Comment on above: Performed By: #### 1 [id number], 2156779, 5559640693, 22846642, 1098836 #### [facility] (DEFAULT) [address] [place] [address] AST/SGOT 22 IU/L Normal 15-41 [facility] Comment on above: Performed By: #### 1 [id number], 7202820, 3157356985, 44469443, 0143418 #### [facility] (DEFAULT) [address] [place] [address] Bili Total 0.6 mg/dL Normal 0.3-1.2 [facility] Comment on above: Performed By: #### 1 [id number], 0284213, 7471280588, 49835220, 1850936 #### [facility] (DEFAULT) [address] [place] [address] Calcium [Mass/Vol] 9.3 mg/dL Normal 8.9-10.[address] [facility] Comment on above: Performed By: #### 1 [id number], 0862548, 7419993088, 66173983, 7945726 #### [facility] (DEFAULT) [address] [place] [address] Chloride [Moles/Vol] 103 mmol/L Normal 101-111 [facility] Comment on above: Performed By: #### 1 [id number], 0597842, 0139273465, 25865834, 9089627 #### [facility] (DEFAULT) [address] [place] [address] CO2 [Moles/Vol] 23 mmol/L Normal 21-32 [facility] Comment on above: Performed By: #### 1 140558920, 6734253, 2613287469, 60507682, 9863855 #### [facility] (DEFAULT) [address] [place] [address] Creatinine [Mass/Vol] 0.72 mg/dL Normal 0.60-1.30 [facility] [place] Comment on above: Performed By: #### 1 [id number], [id number], [id number], [id number], [id number] #### [facility] (DEFAULT) [address] [place] [address]42 Globulin (S) [Mass/Vol] 2.8 g/dL Normal 1.5-4.3 [facility] Comment on above: Performed By: #### 1 [id number], [id number], [id number] #### [facility] (DEFAULT) [address] [place] [address]163 Glucose [Mass/Vol] 123.0 mg/dL High 74.0-118.0 [facility] Comment on above: Performed By: #### 1 [id number], [id number], [id number] #### [facility] (DEFAULT) [address] [place] [address]347 Osmolality [Osmolality] 279 mOsm/L [facility] Comment on above: Performed By: #### 1 [id number], [id number], [id number], [id number], [id number] #### [facility] (DEFAULT) [address] [place] [address] 81076 Potassium [Moles/Vol] 3.7 mmol/L Normal 3.6-5.1 [facility] [place] Comment on above: Performed By: #### 1 [id number], [id number], [id number], [id number], [id number] #### [facility] (DEFAULT) [address] [place] [address] 93515 Protein [Mass/Vol] 7.2 g/dL Normal 6.5-8.[address] [facility] Comment on above: Performed By: #### 1 [id number], [id number], [id number], [id number], [id number] #### [facility] (DEFAULT) [address] [place] [address] 10761 Sodium [Moles/Vol] 138.0 mmol/L Normal 136.0-144.0 [facility] [place] Comment on above: Performed By: #### 1 [id number], [id number], [id number], [id number] #### [facility] (DEFAULT) [address] [place] [address] 45475 Urea nitrogen [Mass/Vol] 18 mg/dL Normal 8-26 [facility] Comment on above: Performed By: #### 1 [id number], [id number], [id number], [id number], [id number] #### [facility] (DEFAULT) [address] [place] [address] 47142 Urea nitrogen/Creatinine [Mass ratio] 25.0 mg/mg High 4.6-16.2 [facility] Comment on above: Performed By: #### 1 [id number], [id number], [id number], [id number], [id number] #### [facility] (DEFAULT) [address] [place] [address]42 ED Clinical Summaryon 2018 ED Clinical Summary [facility] - Emergency Department [address] [place] [address] ED Clinical Summary PERSON INFORMATION Name: MIE JO Age: 63 Years Sex: FEMALE : 55 MRN: Acct#: Visit Reason: Hand laceration; LAC LEFT HAND Arrival: 02/10/19 16:19:00 Discharge: 02/10/19 18:34:00 LOS: 000 02:15 Check In: 02/10/19 16:19:00 Checkout:02/10/19 18:34:00 Address: [address] [facility] [address] PCP: MILADYS CORDERO PROVIDER INFORMATION Provider Role Assigned Unassigned José Johnson PA-C ED PA 02/10/19 16:25:25 Any ESCALNATE, Iris ED Nurse 02/10/19 16:36:18 VITALS INFORMATION Vital Sign Triage Latest Temperature Tympanic Temperature Temporal Artery Pulse Rate 94 bpm 94 bpm O2 Sat Respiratory Rate 16 br/min 16 br/min Blood Pressure 112 mmHg/82 mmHg 112 mmHg/82 mmHg MEDICAL INFORMATION Medications Given: Medication Dose Route bacitracin topical 500 unit(s) TOP Allergy Information: No known allergies PHYSICIAN DOCUMENTATION DISCHARGE INFORMATION: Discharge Disposition: Home Discharge Location: Home PATIENT EDUCATION INFORMATION Instructions: Metacarpal Fracture; Sutured Wound Care Follow-Up: With: Address: When: Jimbo Gama [address] [place] [address], [place], [place] [facility] (2) Within 3 to 5 days Comments: Please follow-up with Dr. Gama orthopedic physician in 3-5 days. Please call his office tomorrow morning to schedule a follow-up appointment. Please let him know that you have fractures of the left fourth and fifth metacarpals with an overlying laceration at the base of the left fifth digit. This was thoroughly cleansed with Betasept soaked in normal saline. This was irrigated with normal saline. Bacitracin ointment used to cover the area following 6 sutures. The left hand was placed in a temporary splint that he must keep on until you follow up with Dr. Gama. You are treated with Keflex 3 times daily ?7 days for the laceration overlying the fractured areas. You are sent with a prescription for [place], pain medication and he may take 1/2 tablet every 6 hours as needed for pain. Do not drive or drink alcohol while taking this medication as it may make you drowsy. You may return here to the emergency department for any worsening or concerning symptoms. With: Address: When: [address], [address] [place], [place] [id number] Business (1) Within 3 to 5 days DIAGNOSIS: Fall from ground level; Fracture of metacarpal of left hand, open; Hand laceration Patient Understands: Yes - Patient/family/caregiv er verbalizes understanding of instructions given Comment: [facility] ED Note - Physicianon 2018 ED Note - Physician Patient: KEYANA JO Age: 63 years Sex: FEMALE : 55 Associated Diagnoses: Fall from ground level; Hand laceration; Fracture of metacarpal of left hand, open Author: Alex MCCRACKEN, José Roger Basic Information Time seen: Date & time 02/10/19 16:25:00. History source: Patient. Arrival mode: Private vehicle. History limitation: None. History of Present Illness 63-year-old female was sent here to the emergency department from urgent care with hypotension as well as dizziness. Patient states [place] Patient states she was going to sit down to drink a beer when she tripped over the bottom of the picnic table falling forward. She denies any headache injury or loss of consciousness. Denied any dizziness or lightheadedness at the time of fall. She denies any numbness tingling or weakness to left hand. Stated she noted a left hand laceration just underneath the left fifth digit in bruising to left hand. Denies any significant pain recess as a 7 out of 10 throbbing in nature. Stated bleeding with control with pressure. Stated following injury she began feeling lightheaded. Stated on the car ride over she felt very dizzy lightheaded and had some blurred vision. Urgent cares and upon their arrival they got a blood pressure of 60/48 and 80/40. A [employer]or[employer] to the emergency department patient's systolic blood pressure 114 N108. Patient was unsure at the site of left had caused her to feel lightheaded. Patient states she then felt like she was going to have a bowel movement. Patient denies any chest pain or shortness of breath. Does state a history of high cholesterol which she's been taking fish oil. Denies any other medications. Denies any blood thinner aspirin. Denies any dysuria hematuria urinary urgency or frequency. Denies any abdominal pain nausea vomiting diarrhea. Does state she felt like she was going to get sick following injury. Patient states tetanus is up-to-date. Review of Systems Constitutional symptoms: No fever, no chills, no sweats, no weakness, no fatigue. Skin symptoms: Laceration left hand underneath the left fifth digit., No rash, Eye symptoms: Vision unchanged. ENMT symptoms: No ear pain, no sore throat, no nasal congestion, no sinus pain. Respiratory symptoms: No shortness of breath, no cough. Cardiovascular symptoms: No chest pain, no palpitations, no tachycardia, no syncope, no diaphoresis, no peripheral edema. Gastrointestinal symptoms: Nausea, no abdominal pain, no vomiting, no diarrhea, no constipation. Genitourinary symptoms: No dysuria, no hematuria. Musculoskeletal symptoms: Left hand pain, left hand laceration, no back pain, no Muscle pain, no Joint pain. Neurologic symptoms: Dizziness, no headache, no altered level of consciousness, no numbness, no tingling, no weakness. Additional review of systems information: All other systems reviewed and otherwise negative. Health Status Allergies: Allergic Reactions (Selected) No known allergies. Medications: fish oil. Immunizations: Tetanus up to date. Past Medical/ Family/ Social History Medical history: High cholesterol. Social history: Social & Psychosocial Habits No Data Available . Physical Examination General: Alert, no acute distress. Skin: Warm, dry, intact, no pallor, no rash, Patient has a 2.5 cm laceration that is subcutaneous in nature at the palmar aspect the left hand at the base of the left fifth digit. No venous or tendon involvement. No surrounding redness red streaking or concern for infection. Bleeding controlled with pressure.. Head: Normocephalic, atraumatic. Neck: Supple, no tenderness, No localized cervical spine or paraspinal tenderness. No focal deficits.. Eye: Pupils are equal, round and reactive to light, extraocular movements are intact, normal conjunctiva. Ears, nose, mouth and throat: Tympanic membranes clear, oral mucosa moist, no pharyngeal erythema or exudate, Bilateral tympanic membranes within normal limits. No erythema or bulging. No tonsillar erythema or exudate.. Cardiovascular: Regular rate and rhythm, No murmur, Normal peripheral perfusion, No edema, S1, S2, regular rhythm.. Respiratory: Lungs are clear to auscultation, respirations are non-labored, breath sounds are equal, Symmetrical chest wall expansion, Lung sounds are clear bilaterally. No wheezing rhonchi or crackles on exam.. Chest wall: No tenderness, No deformity, No chest wall tenderness. No deformities or crepitus.. Back: Nontender, Normal range of motion, Normal alignment, no step-offs, No localized spinal or paraspinal tenderness. No focal deficits. No CVA tenderness.. Musculoskeletal: Normal ROM, normal strength, no tenderness, no swelling, no deformity, Patient has normal range of motion of all 4 extremities. Normal flexion and extension of all digits in the left hand equal wood floor layer strength. Good strength in flexion-extension MCP DIP and PIP joint spaces. Patient has a 2.5 cm laceration which is subcutaneous in depth at the palmar aspect just below the left fifth digit. At the palmar aspect of MCP joint area. No venous or tendon involvement noted. No foreign bodies. Patient has a hematoma at the dorsal aspect the left hand at the base of left fifth digit. No surrounding redness or streaking or concern for infection. Strong radial and pedal pulses bilaterally. No lower extremity edema or pedal edema. No calf tenderness. No focal deficits. Patient is neurovascularly intact.. Gastrointestinal: Soft, Nontender, Non distended, Normal bowel sounds, No organomegaly, Patient has bowel sounds present ?4 quadrants. Abdomen is soft, nontender, nondistended. No rigidity rebound or guarding on exam.. Neurological: Alert and oriented to person, place, time, and situation, No focal neurological deficit observed, normal sensory observed, normal motor observed, normal speech observed, normal coordination observed, Normal sensory, motor, speech, coordination is observed on exam of the patient.. Lymphatics: No lymphadenopathy. Psychiatric: Cooperative, appropriate mood & affect, normal judgment, non-suicidal. Medical Decision Making Orders Launch Orders Laboratory: CMP Standard (Order): Blood, Stat collect, 02/10/19 16:32 EDT, Lab Collect CBC w/ Auto Diff (Order): Blood, Stat collect, 02/10/19 16:32 EDT, Lab Collect Troponin I (Order): Blood, Stat collect, 02/10/19 16:32 EDT, Lab Collect Patient Care: Orthostatic Vital Signs (Order): 02/10/19 16:33 EDT Cardiac Monitoring (Order): 02/10/19 16:32 EDT, Constant Order Radiology: XR Hand Complete Left (Order): 02/10/19 16:32 EDT Stat, fall, left hand pain, bruising, Allow Modification Per Radiologist, Transport Mode: Wheelchair Cardiovascular: EKG (Order): 02/10/19 16:32 EDT, Dizziness, No, Launch Orders Patient Care: Brace/Splint ED (Order): 02/10/19 18:09 EDT, Ocl splint arm/hand, ulnar gutter splint, left hand. Electrocardiogram: Time 02/10/19 17:15:00, rate 66, Sinus rhythm Normal ECG MD interval 190, QRS duration 85, QT/QTc 377/390, No prior ECG in the system for comparison.. Results review: Lab results : Lab Flowsheet 02/10/19 17:08 EDT Sodium Level 138.0 mmol/L Potassium Level 3.7 mmol/L Chloride Level 103 mmol/L CO2 23 mmol/L Anion Gap 16.0 mmol/L Glucose Level 123.0 mg/dL HI BUN 18 mg/dL Creatinine Level 0.72 mg/dL BUN/Creat Ratio 25.0 HI eGFR AA >60 mL/min/1.73m2 NA eGFR Non AA >60 mL/min/1.73m2 NA Calcium Level 9.3 mg/dL Bili Total 0.6 mg/dL Alk Phos 62 IU/L AST/SGOT 22 IU/L ALT/SGPT 19.0 IU/L Protein Total 7.2 gm/dL Albumin Level 4.4 gm/dL Globulin 2.8 gm/dL A/G Ratio 1.6 Osmolality 279 mOsm/L NA Troponin-I <0.03 ng/mL WBC 13.3 x103/mcL HI RBC 3.93 x106/mcL Hgb 12.7 gm/dL Hct 37.0 % MCV 94 fL MCH 32 pg MCHC 34 gm/dL RDW 12.7 % Platelet 278 x103/mcL MPV 8.6 fL Auto Neut % 81 % Auto Lymph % 11 % LOW Auto [place] % 6 % Auto Eos % 0.9 % Auto Baso % 0.2 % Neut Abs# 10.8 x103/mcL HI Lymph Abs# 1.5 x103/mcL [place] Abs# 0.8 x103/mcL Eos Abs# 0.1 x103/mcL Baso Abs# 0.0 x103/mcL 02/10/19 17:08 EDT Tube Collected Yes . Radiology results: X-ray, Left hand, reviewed radiologist's report, interpretation: * Final Report * Reason For Exam fall, left hand pain, bruising REPORT EXAM: XR Hand Complete Left REASON FOR EXAM: Female, 63 years, fall, left hand pain, bruising. TECHNIQUE: 3 views of the left hand are performed. COMPARISON: None. FINDINGS: There is irregularity at the bases of the fourth and fifth metacarpals, suggesting nondisplaced fractures. Degenerative changes are seen at the first carpal metacarpal joint. IMPRESSION: Suspected nondisplaced fractures at the bases of the fourth and fifth metacarpals. Signature Line Final Dictated by: Feliciano Lozano Dictated DT/TM: 02/10/19 5:13 Signed (Electronic Signature): Feliciano Lozano 02/10/19 5:19 pm Technologist: JENIFER. Reexamination/ Reevaluation 17:22 white blood cell count 13.3, hemoglobin 12.7. 18:10 I spoke with patient and in regards to left fourth and fifth metacarpal fractures and was patient placed in OCL ulnar gutter splint. Patient will follow up with Dr. Gama or Dr. Puentes as she is from [facility] in 3-5 days to understand to call tomorrow morning to schedule follow-up appointment. Patient and both agree and understand plan of care. Procedure 17:29 Pt has a 2.5 cm laceration to the palmar aspect of the left hand, just under the left fifth digit, over the MCP joint space area. No venous, or tendon involvement, subcutaneous in nature. That wound was cleansed with Betasept soap and normal saline. A total of 6 cc of 1% lidocaine was used to numb the area. Patient tolerated well. This wound was thoroughly irrigated with 250 cc of normal saline. No venous or tendon involvement. #6 4-0 nylon sutures were used to close the wound and close approximation. Bacitracin ointment and nonstick dressing placed over the area. Patient tolerated well. Impression and Plan Diagnosis Fall from ground level ([id number] W18.30XA, Discharge, Medical) Hand laceration ([id number] S61.419A, Discharge, Medical) Fracture of metacarpal of left hand, open ([id number] S62.309B, Discharge, Medical) Plan Condition: Stable. Disposition: Discharged: Time 02/10/19 18:13:00, to home. Prescriptions: Launch prescriptions Pharmacy: Keflex 500 mg oral capsule (Prescribe): 500 mg = 1 cap(s), PO, q8hr, for 7 day(s), 21 cap(s), 0 Refill(s), Launch prescriptions Pharmacy: [place] 5 mg-325 mg oral tablet (Prescribe): 1 tab(s), PO, q6hr, for 1 day(s), PRN: for pain, 4 tab(s), 0 Refill(s). Patient was given the following educational materials: Sutured Wound Care, Metacarpal Fracture, Metacarpal Fracture, Sutured Wound Care, Metacarpal Fracture, Sutured Wound Care. Follow up with: Jimbo Gama Within 3 to 5 days Please follow-up with Dr. Gama orthopedic physician in 3-5 days. Please call his office tomorrow morning to schedule a follow-up appointment. Please let him know that you have fractures of the left fourth and fifth metacarpals with an overlying laceration at the base of the left fifth digit. You are treated with Keflex 3 times daily ?7 days for the laceration overlying the fractured areas. You are sent with a prescription for [place], pain medication and he may take 1/2 tablet every 6 hours as needed for pain. Do not drive or drink alcohol while taking this medication as it may make you drowsy. You may return here to the emergency department for any worsening or concerning symptoms.; MILADYS CORDERO Within 3 to 5 days. Counseled: Patient, Family, Regarding diagnosis, Regarding diagnostic results, Regarding treatment plan, Regarding prescription, Patient indicated understanding of instructions. Notes: 63-year-old female presented here with this afternoon to urgent care following fall left hand laceration left hand pain. Also stated dizziness as after fall she became dizzy especially in the car she had some blurred vision that she was going to pass out. Upon arrival to urgent care her blood pressure was low at 60s over 40s and then 80s over 40s. Upon arrival to the emergency department patient's blood pressure was up to 108 and 114 systolic. Patient was alert and oriented denied blurred vision double vision change in vision or slurred speech denied any weakness or numbness tingling of the extremities denies any left hand pain numbness or weakness. She does have a laceration that was 2.5 cm in length to the left hand palmar aspect of the left fifth digit. This was subcutaneous in nature no tendon or venous involvement she had normal flexion and extension at MCP DIP and PIP joints at all digits on the left hand. Able to make a fist but with discomfort tenderness at the fourth and fifth MCP joint areas with edema and hematoma to the dorsal aspect the left hand beneath the fourth and fifth digits. Strong radial pulses with brisk capillary refill bilaterally. There are no focal deficits and patient was neurovascularly intact. Patient had labs and EKG completed his urgent care had concern to the hypotension which is sounds like patient had a near febrile episode following with a laceration after fall she was not dizzy or lightheaded prior to she denies any chest pain or shortness of breath she denied abdominal pain nausea vomiting diarrhea she is treated for high cholesterol with fish oil does not currently take any medications aspirin or blood thinners. EKG showed normal sinus rhythm no prior EKG for comparison patient's troponin and labs were within normal limits. Patient was prepped and draped in a sterile fashion left hand was cleansed with Betasept open normal saline this was copiously irrigated with 250 cc of normal saline patient's x-ray showed nondisplaced fractures of the fourth and fifth metacarpals in which patient has an open fracture. Patient treated with Keflex 3 times daily ?7 days. Following initial cleansing of the wound a total of 6 cc of 1% lidocaine was used to numb the area patient tolerated well. #6 4-0 nylon sutures were used to close the wound close approximation. Bacitracin ointment and bandages to cover the area as patient was then placed an ulnar gutter splint of the left hand to protect the fourth and fifth metacarpal fractures. Patient will follow up with Dr. Gama orthopedic physician in 3-5 days she will call his office tomorrow morning to schedule a follow-up appointment. She is given a prescription for [place], pain medication she may take 1 tablet every 6 hours as needed for pain. She understands not to drive or take alcohol obtain his medication as it may make her drowsy. She understands to return here to the emergency department for any worsening or concerning symptoms. Patient agrees and understands plan of care.. [Electronically Signed on: 02/10/2019 20:12 EDT] José Johnson PA-C [Verified on: 02/10/2019 20:12 EDT] José Johnson PA-C [facility] ED Note-Nursingon 02-10-2019 ED Note-Nursing Patient arrives afte r a fall, states she tripped over a table and landed on the asphalt. Patient has a laceration to her left hand. Patient went to and was taken here for low blood pressure and she was feeling dizzy at that time, symptoms have resolved. [facility] ED Patient Education Noteon 02-10-2019 ED Patient Education Note Education Materials Dermatology Sutured Wound Care Sutures are stitches that can be used to close wounds. Taking care of your wound properly can help to prevent pain and infection. It can also help your wound to heal more quickly. Follow instructions from your health care provider about how to care for your sutured wound. Supplies needed: ? Soap and water. ? A clean bandage (dressing), if needed. ? Antibiotic ointment. ? A clean towel. How to care for your sutured wound ? Keep the wound completely dry for the first 24 hours, or for as long as directed by your health care provider. After 24?48 hours, you may shower or bathe as directed by your health care provider. Do not soak or submerge the wound in water until the sutures have been removed. ? After the first 24 hours, clean the wound once a day, or as often as directed by your health care provider, using the following steps: ? Wash the wound with soap and water. ? Rinse the wound with water to remove all soap. ? Pat the wound dry with a clean towel. Do not rub the wound. ? After cleaning the wound, apply a thin layer of antibiotic ointment as directed by your health care provider. This will prevent infection and keep the dressing from sticking to the wound. ? Follow instructions from your health care provider about how to change your dressing: ? Wash your hands with soap and water. If soap and water are not available, use hand community relations specialist. ? Change your dressing at least once a day, or as often as told by your health care provider. If your dressing gets wet or dirty, change it. ? Leave sutures and other skin closures, such as adhesive tape or skin glue, in place. These skin closures may need to stay in place for 2 weeks or longer. If adhesive strip edges start to loosen and curl up, you may trim the loose edges. Do not remove adhesive strips completely unless your health care provider tells you to do that. ? Check your wound every day for signs of infection. Watch for: ? Redness, swelling, or pain. ? Fluid or blood. ? Warmth. ? Pus or a bad smell. ? Have the sutures removed as directed by your health care provider. Follow these instructions at home: Medicines ? Take or apply [id number]-vvvputy and prescription medicines only as told by your health care provider. ? If you were prescribed an antibiotic medicine or ointment, take or apply it as told by your health care provider. Do not stop using the antibiotic even if your condition improves. General instructions ? To help reduce scarring after your wound heals, cover your wound with clothing or apply sunscreen of at least 30 SPF whenever you are outside. ? Do not scratch or pick at your wound. ? Avoid stretching your wound. ? Raise (elevate) the injured area above the level of your heart while you are sitting or lying down, if possible. ? Drink enough fluids to keep your urine clear or pale yellow. ? Keep all follow-up visits as told by your health care provider. This is important. Contact a health care provider if: ? You received a tetanus shot and you have swelling, severe pain, redness, or bleeding at the injection site. ? Your wound breaks open. ? You have redness, swelling, or pain around your wound. ? You have fluid or blood coming from your wound. ? Your wound feels warm to the touch. ? You have a fever. ? You notice something coming out of your wound, such as wood or glass. ? You have pain that does not get better with medicine. ? The skin near your wound changes color. ? You need to change your dressing very frequently due to a lot of fluid, blood, or pus draining from the wound. ? You develop a new rash. ? You develop numbness around the wound. Get help right away if: ? You develop severe swelling around your wound. ? You have pus or a bad smell coming from your wound. ? Your pain suddenly gets worse and is severe. ? You develop painful lumps near your wound or anywhere on your body. ? You have a red streak going away from your wound. ? The wound is on your hand or foot and: ? You cannot properly move a finger or toe. ? Your fingers or toes look pale or bluish. ? You have numbness that is spreading down your hand, foot, fingers, or toes. Summary ? Sutures are stitches that can be used to close wounds. ? Taking care of your wound properly can help to prevent pain and infection. ? Keep the wound completely dry for the first 24 hours, or for as long as directed by your health care provider. After 24?48 hours, you may shower or bathe as directed by your health care provider. This information is not intended to replace advice given to you by your health care provider. Make sure you discuss any questions you have with your health care provider. Document Released: 08/29/2005 Document Revised: 08/27/2017 Document Reviewed: 08/27/2017 [employer] Interactive Patient Education ? 2019 [employer] Orthopedics Metacarpal Fracture A metacarpal fracture is a break (fracture) of a bone in the hand. Metacarpals are the bones that extend from your knuckles to your wrist. In each hand, you have five metacarpal bones that connect your fingers and your thumb to your wrist. Some hand fractures have bone pieces that are close together and stable (simple). These fractures may be treated with only a splint or cast. Hand fractures that have many pieces of broken bone (comminuted), unstable bone pieces (displaced), or a bone that breaks through the skin (compound) usually require surgery. What are the causes? This injury may be caused by: ? A fall. ? A hard, direct hit to your hand. ? An injury that squeezes your knuckle, stretches your finger out of place, or crushes your hand. What increases the risk? This injury is more likely to occur if: ? You play contact sports. ? You have certain bone diseases. What are the signs or symptoms? Symptoms of this type of fracture develop soon after the injury. Symptoms may include: ? Swelling. ? Pain. ? Stiffness. ? Increased pain with movement. ? Bruising. ? Inability to move a finger. ? A shortened finger. ? A finger knuckle that looks sunken in. ? Unusual appearance of the hand or finger (deformity). How is this diagnosed? This injury may be diagnosed based on your signs and symptoms, especially if you had a recent hand injury. Your health care provider will perform a physical exam. He or she may also order X-rays to confirm the diagnosis. How is this treated? Treatment for this injury depends on the type of fracture you have and how severe it is. Possible treatments include: ? Non-reduction. This can be done if the bone does not need to be moved back into place. The fracture can be casted or splinted as it is. ? Closed reduction. If your bone is stable and can be moved back into place, you may only need to wear a cast or splint or have paul taping. ? Closed reduction with internal fixation (CRIF). This is the most common treatment. You may have this procedure if your bone can be moved back into place but needs more support. Wires, pins, or screws may be inserted through your skin to stabilize the fracture. ? Open reduction with internal fixation (ORIF). This may be needed if your fracture is severe and unstable. It involves surgery to move your bone back into the right position. Screws, wires, or plates are used to stabilize the fracture. After all procedures, you may need to wear a cast or a splint for several weeks. You will also need to have follow-up X-rays to make sure that the bone is healing well and staying in position. After you no longer need your cast or splint, you may need physical therapy. This will help you to regain full movement and strength in your hand. Follow these instructions at home: If you have a cast: ? Do not stick anything inside the cast to scratch your skin. Doing that increases your risk of infection. ? Check the skin around the cast every day. Report any concerns to your health care provider. You may put lotion on dry skin around the edges of the cast. Do not apply lotion to the skin underneath the cast. If you have a splint: ? Wear it as directed by your health care provider. Remove it only as directed by your health care provider. ? Loosen the splint if your fingers become numb and tingle, or if they turn cold and blue. Bathing ? Cover the cast or splint with a watertight plastic bag to protect it from water while you take a bath or a shower. Do not let the cast or splint get wet. Managing pain, stiffness, and swelling ? If directed, apply ice to the injured area (if you have a splint, not a cast): ? Put ice in a plastic bag. ? Place a towel between your skin and the bag. ? Leave the ice on for 20 minutes, 2?3 times a day. ? Move your fingers often to avoid stiffness and to lessen swelling. ? Raise the injured area above the level of your heart while you are sitting or lying down. Driving ? Do not drive or operate heavy machinery while taking pain medicine. ? Do not drive while wearing a cast or splint on a hand that you use for driving. Activity ? Return to your normal activities as directed by your health care provider. Ask your health care provider what activities are safe for you. General instructions ? Do not put pressure on any part of the cast or splint until it is fully hardened. This may take several hours. ? Keep the cast or splint clean and dry. ? Do not use any tobacco products, including cigarettes, chewing tobacco, or electronic cigarettes. Tobacco can delay bone healing. If you need help quitting, ask your health care provider. ? Take medicines only as directed by your health care provider. ? Keep all follow-up visits as directed by your health care provider. This is important. Contact a health care provider if: ? Your pain is getting worse. ? You have redness, swelling, or pain in the injured area. ? You have fluid, blood, or pus coming from under your cast or splint. ? You notice a bad smell coming from under your cast or splint. ? You have a fever. Get help right away if: ? You develop a rash. ? You have trouble breathing. ? Your skin or nails on your injured hand turn blue or dillard even after you loosen your splint. ? Your injured hand feels cold or becomes numb even after you loosen your splint. ? You develop severe pain under the cast or in your hand. This information is not intended to replace advice given to you by your health care provider. Make sure you discuss any questions you have with your health care provider. Document Released: 07/22/2006 Document Revised: 12/27/2016 Document Reviewed: 05/11/2015 [employer] Interactive Patient Education ? 2019 [employer]. Normal [facility] ED Patient Summaryon 019 ED Patient Summary [facility] - Emergency Department [address] [place], [place] [id number] PATIENT DISCHARGE INSTRUCTIONS Patient Information Name: MEI JO Age: 63 Years Date of : [birth year] Reason For Visit: Hand laceration; LAC LEFT HAND Arrival Time: 02/10/19 16:19:00 Primary Care Physician: MILADYS CORDERO Attending Physician: Harvey Velez MD Comment: Visit Diagnosis: Diagnoses This Visit Fall from ground level (W18.30XA) Fracture of metacarpal of left hand, open (S62.309B) Hand laceration (S61.419A) Hand laceration ([id number]) Prescription Information: If you have been given a prescription for narcotics, seek immediate medical attention if you have any difficulty breathing or any sudden status changes such as confusion and sleepiness. If you or anyone you know is experiencing suicidal thoughts, mental health, alcohol and/or drug addiction problems; contact the [facility] 25/02 Crisis Hotline -Text 4HOPE to 250656. If you received any narcotics, sedation, or any other medication that causes drowsiness for the next 24 hours, unless otherwise directed: ? Do not drive a car. ? Do not operate machinery such as power tools, lawn mowers, drills, sewing machines, or stoves ? Avoid alcoholic beverages and drugs for allergies, nerves, or sleep ? Do not make important personal or business decisions or sign any legal documents With: Address: When: Jimbo Gama [address] [place] [address] [address] [place], [place] Business (2) Within 3 to 5 days Comments: Please follow-up with Dr. Gama orthopedic physician in 3-5 days. Please call his office tomorrow morning to schedule a follow-up appointment. Please let him know that you have fractures of the left fourth and fifth metacarpals with an overlying laceration at the base of the left fifth digit. This was thoroughly cleansed with Betasept soaked in normal saline. This was irrigated with normal saline. Bacitracin ointment used to cover the area following 6 sutures. The left hand was placed in a temporary splint that he must keep on until you follow up with Dr. Gama. You are treated with Keflex 3 times daily ?7 days for the laceration overlying the fractured areas. You are sent with a prescription for [place], pain medication and he may take 1/2 tablet every 6 hours as needed for pain. Do not drive or drink alcohol while taking this medication as it may make you drowsy. You may return here to the emergency department for any worsening or concerning symptoms. With: Address: When: MILADYS CORDERO [address] [place] [address] [place], [place] [id number] Business (1) Within 3 to 5 days Medication Information: The exam and treatment you received today in the [facility] Emergency Department were for an urgent problem and are not intended as complete care. It is important for you to follow up with a doctor, nurse practitioner, or physician?s assistant counsel for ongoing care. If your symptoms become worse or you do not improve as expected and you are unable to reach your usual health care provider, you should return to the Emergency Department, we are available 24 hours a day. For those patients who have received Radiology results, the interpretation of your X-ray as given to you by our Emergency Department physician is only a preliminary report. The Radiologist will review your films and if there is a change in the diagnosis you will be notified by phone. Please make sure you have provided a working phone number so we can reach you if necessary. In the event that you had a lab culture while you were a patient in the Emergency Department, you will be notified by phone if there is a need to change your antibiotic. Please make sure you have provided a working phone number so we can reach you if necessary. [facility] Emergency Department has provided you with a complete list of medications post discharge. Please inform your cadmium burner/provider of your visit and for further instruction on these medications. Any specific questions regarding your chronic medications and dosages should be discussed with your primary care physician(s) and/or pharmacist. New Medications [facility]/pharmacy #[id number], [address] [place], [place] [id number], [phone] cephalexin (Keflex 500 mg oral capsule) 1 cap(s) Oral Every 8 hours for 7 Days. Refills: 0. Printed Prescriptions acetaminophen-hydrocod one ([place] 5 mg-325 mg oral tablet) 1 tab(s) Oral Every 6 hours as needed for pain for 1 Days. Refills: 0. Medications to Continue That Have Not Changed Other Medications citalopram (citalopram 20 mg oral tablet) 1 tab(s) Oral every day. simvastatin (simvastatin 20 mg oral tablet) 1 tab(s) Oral once a day (at bedtime). Visit Information Allergies: Substance Reaction Symptoms Type Comments No known allergies Drug Vital Signs: Vitals and Measurements this Visit (last charted value for your 02/10/2019 visit) Vital Signs This Visit Temperature Oral: 36.4 DegC Peripheral Pulse Rate: 94 bpm Respiratory Rate: 16 br/min Systolic Blood Pressure: 112 mmHg Diastolic Blood Pressure: 82 mmHg Orthostatic Vital Signs: 131 mmHg Problems List: Problem Onset Comments No Problems found Patient Education Metacarpal Fracture A metacarpal fracture is a break (fracture) of a bone in the hand. Metacarpals are the bones that extend from your knuckles to your wrist. In each hand, you have five metacarpal bones that connect your fingers and your thumb to your wrist. Some hand fractures have bone pieces that are close together and stable (simple). These fractures may be treated with only a splint or cast. Hand fractures that have many pieces of broken bone (comminuted), unstable bone pieces (displaced), or a bone that breaks through the skin (compound) usually require surgery. What are the causes? This injury may be caused by: ? A fall. ? A hard, direct hit to your hand. ? An injury that squeezes your knuckle, stretches your finger out of place, or crushes your hand. What increases the risk? This injury is more likely to occur if: ? You play contact sports. ? You have certain bone diseases. What are the signs or symptoms? Symptoms of this type of fracture develop soon after the injury. Symptoms may include: ? Swelling. ? Pain. ? Stiffness. ? Increased pain with movement. ? Bruising. ? Inability to move a finger. ? A shortened finger. ? A finger knuckle that looks sunken in. ? Unusual appearance of the hand or finger (deformity). How is this diagnosed? This injury may be diagnosed based on your signs and symptoms, especially if you had a recent hand injury. Your health care provider will perform a physical exam. He or she may also order X-rays to confirm the diagnosis. How is this treated? Treatment for this injury depends on the type of fracture you have and how severe it is. Possible treatments include: ? Non-reduction. This can be done if the bone does not need to be moved back into place. The fracture can be casted or splinted as it is. ? Closed reduction. If your bone is stable and can be moved back into place, you may only need to wear a cast or splint or have paul taping. ? Closed reduction with internal fixation (CRIF). This is the most common treatment. You may have this procedure if your bone can be moved back into place but needs more support. Wires, pins, or screws may be inserted through your skin to stabilize the fracture. ? Open reduction with internal fixation (ORIF). This may be needed if your fracture is severe and unstable. It involves surgery to move your bone back into the right position. Screws, wires, or plates are used to stabilize the fracture. After all procedures, you may need to wear a cast or a splint for several weeks. You will also need to have follow-up X-rays to make sure that the bone is healing well and staying in position. After you no longer need your cast or splint, you may need physical therapy. This will help you to regain full movement and strength in your hand. Follow these instructions at home: If you have a cast: ? Do not stick anything inside the cast to scratch your skin. Doing that increases your risk of infection. ? Check the skin around the cast every day. Report any concerns to your health care provider. You may put lotion on dry skin around the edges of the cast. Do not apply lotion to the skin underneath the cast. If you have a splint: ? Wear it as directed by your health care provider. Remove it only as directed by your health care provider. ? Loosen the splint if your fingers become numb and tingle, or if they turn cold and blue. Bathing ? Cover the cast or splint with a watertight plastic bag to protect it from water while you take a bath or a shower. Do not let the cast or splint get wet. Managing pain, stiffness, and swelling ? If directed, apply ice to the injured area (if you have a splint, not a cast): ? Put ice in a plastic bag. ? Place a towel between your skin and the bag. ? Leave the ice on for 20 minutes, 2?3 times a day. ? Move your fingers often to avoid stiffness and to lessen swelling. ? Raise the injured area above the level of your heart while you are sitting or lying down. Driving ? Do not drive or operate heavy machinery while taking pain medicine. ? Do not drive while wearing a cast or splint on a hand that you use for driving. Activity ? Return to your normal activities as directed by your health care provider. Ask your health care provider what activities are safe for you. General instructions ? Do not put pressure on any part of the cast or splint until it is fully hardened. This may take several hours. ? Keep the cast or splint clean and dry. ? Do not use any tobacco products, including cigarettes, chewing tobacco, or electronic cigarettes. Tobacco can delay bone healing. If you need help quitting, ask your health care provider. ? Take medicines only as directed by your health care provider. ? Keep all follow-up visits as directed by your health care provider. This is important. Contact a health care provider if: ? Your pain is getting worse. ? You have redness, swelling, or pain in the injured area. ? You have fluid, blood, or pus coming from under your cast or splint. ? You notice a bad smell coming from under your cast or splint. ? You have a fever. Get help right away if: ? You develop a rash. ? You have trouble breathing. ? Your skin or nails on your injured hand turn blue or dillard even after you loosen your splint. ? Your injured hand feels cold or becomes numb even after you loosen your splint. ? You develop severe pain under the cast or in your hand. This information is not intended to replace advice given to you by your health care provider. Make sure you discuss any questions you have with your health care provider. Document Released: 07/22/2006 Document Revised: 12/27/2016 Document Reviewed: 05/11/2015 [employer] Interactive Patient Education ? 2019 [employer] Sutured Wound Care Sutures are stitches that can be used to close wounds. Taking care of your wound properly can help to prevent pain and infection. It can also help your wound to heal more quickly. Follow instructions from your health care provider about how to care for your sutured wound. Supplies needed: ? Soap and water. ? A clean bandage (dressing), if needed. ? Antibiotic ointment. ? A clean towel. How to care for your sutured wound ? Keep the wound completely dry for the first 24 hours, or for as long as directed by your health care provider. After 24?48 hours, you may shower or bathe as directed by your health care provider. Do not soak or submerge the wound in water until the sutures have been removed. ? After the first 24 hours, clean the wound once a day, or as often as directed by your health care provider, using the following steps: ? Wash the wound with soap and water. ? Rinse the wound with water to remove all soap. ? Pat the wound dry with a clean towel. Do not rub the wound. ? After cleaning the wound, apply a thin layer of antibiotic ointment as directed by your health care provider. This will prevent infection and keep the dressing from sticking to the wound. ? Follow instructions from your health care provider about how to change your dressing: ? Wash your hands with soap and water. If soap and water are not available, use hand community relations specialist. ? Change your dressing at least once a day, or as often as told by your health care provider. If your dressing gets wet or dirty, change it. ? Leave sutures and other skin closures, such as adhesive tape or skin glue, in place. These skin closures may need to stay in place for 2 weeks or longer. If adhesive strip edges start to loosen and curl up, you may trim the loose edges. Do not remove adhesive strips completely unless your health care provider tells you to do that. ? Check your wound every day for signs of infection. Watch for: ? Redness, swelling, or pain. ? Fluid or blood. ? Warmth. ? Pus or a bad smell. ? Have the sutures removed as directed by your health care provider. Follow these instructions at home: Medicines ? Take or apply [id number] and prescription medicines only as told by your health care provider. ? If you were prescribed an antibiotic medicine or ointment, take or apply it as told by your health care provider. Do not stop using the antibiotic even if your condition improves. General instructions ? To help reduce scarring after your wound heals, cover your wound with clothing or apply sunscreen of at least 30 SPF whenever you are outside. ? Do not scratch or pick at your wound. ? Avoid stretching your wound. ? Raise (elevate) the injured area above the level of your heart while you are sitting or lying down, if possible. ? Drink enough fluids to keep your urine clear or pale yellow. ? Keep all follow-up visits as told by your health care provider. This is important. Contact a health care provider if: ? You received a tetanus shot and you have swelling, severe pain, redness, or bleeding at the injection site. ? Your wound breaks open. ? You have redness, swelling, or pain around your wound. ? You have fluid or blood coming from your wound. ? Your wound feels warm to the touch. ? You have a fever. ? You notice something coming out of your wound, such as wood or glass. ? You have pain that does not get better with medicine. ? The skin near your wound changes color. ? You need to change your dressing very frequently due to a lot of fluid, blood, or pus draining from the wound. ? You develop a new rash. ? You develop numbness around the wound. Get help right away if: ? You develop severe swelling around your wound. ? You have pus or a bad smell coming from your wound. ? Your pain suddenly gets worse and is severe. ? You develop painful lumps near your wound or anywhere on your body. ? You have a red streak going away from your wound. ? The wound is on your hand or foot and: ? You cannot properly move a finger or toe. ? Your fingers or toes look pale or bluish. ? You have numbness that is spreading down your hand, foot, fingers, or toes. Summary ? Sutures are stitches that can be used to close wounds. ? Taking care of your wound properly can help to prevent pain and infection. ? Keep the wound completely dry for the first 24 hours, or for as long as directed by your health care provider. After 24?48 hours, you may shower or bathe as directed by your health care provider. This information is not intended to replace advice given to you by your health care provider. Make sure you discuss any questions you have with your health care provider. Document Released: 08/29/2005 Document Revised: 08/27/2017 Document Reviewed: 08/27/2017 [employer] Interactive Patient Education ? 2019 [employer] Viruses or Bacteria What?s got you sick? Antibiotics only treat bacterial infections. Viral illnesses cannot be treated with antibiotics. When an antibiotic is not prescribed, ask your healthcare professional for tips on how to relieve symptoms and feel better. Usual Cause Illness Viruses Bacteria Antibiotic Needed Cold/Runny Nose NO Bronchitis/Chest Cold (in otherwise healthy children and adults) NO Whooping Cough Yes Flu NO Strep Throat Yes Sore Throat (except strep) NO Fluid in the middle ear (otitis media with effusion) NO Urinary Tract Infection Yes Antibiotics Aren?t Always the Answer www.cdc.gov/getsmart GET SMART Know When Antibiotics Work U.S. Department of Health and Human Services Centers for Disease Control and Prevention April 2014 Normal [facility] Extra Blue 02-10-2019 Tube Collected Yes [facility] Comment on above: Performed By: #### 1 [id number] #### [facility] (DEFAULT) [address] [place] [address] Troponin Ion 02-10-2019 Troponin I.cardiac [Mass/Vol] ng/mL Normal <=0.03 [facility] Comment on above: Performed By: #### 1 [id number] #### [facility] (DEFAULT) [address] [place] [address] XR Hand Complete Lefton XR Hand Complete Left EXAM: XR Hand Comp lete Left REASON FOR EXAM: Female, 63 years, fall, left hand pain, bruising. TECHNIQUE: 3 views of the left hand are performed. COMPARISON: None. FINDINGS: There is irregularity at the bases of the fourth and fifth metacarpals, suggesting nondisplaced fractures. Degenerative changes are seen at the first carpal metacarpal joint. IMPRESSION: Suspected nondisplaced fractures at the bases of the fourth and fifth metacarpals. Final Dictated by: Feliciano Lozano Dictated DT/TM: 02/10/19 5:13 Signed (Electronic Signature): Feliciano Lozano 02/10/19 5:19 pm Technologist: JENIFER Sandhu [facility] Vital Signs Date Time Vital Sign Value Performing Clinician Facility 09-03-2024 09:27-0500 Body height 157.5 cm Brijesh Armstrong MD Work Phone: [facility] 09-03-2024 09:27-0500 Body mass index (BMI) [Ratio] 30.18 kg/m2 Brijesh Armstrong MD Work Phone: [facility] 09-03-2024 09:27-0500 Body weight 74.84 kg Brijseh Armstrong MD Work Phone: [facility] 09-03-2024 09:27-0500 Diastolic blood pressure 86 mm[Hg] Brijesh Armstrong MD Work Phone: [facility] 09-03-2024 09:27-0500 Heart rate 82 /min Brijesh Armstrong MD Work Phone: [facility] 09-03-2024 09:27-0500 SaO2% (BldA) [Mass fraction] 97 % Brijesh Armstrong MD Work Phone: [facility] 09-03-2024 09:27-0500 Systolic blood pressure 132 mm[Hg] Brijesh Armstrong MD Work Phone: [facility] 05-07-2024 13:34-0400 Body mass index (BMI) [Ratio] 29.31 kg/m2 Meena Schrader MD Work Phone: [facility] 05-07-2024 13:34-0400 Body temperature 96.6 [degF] Meena Schrader MD Work Phone: [facility] 05-07-2024 13:34-0400 Body weight 72.7 kg Meena Schrader MD Work Phone: [facility] 05-07-2024 13:34-0400 Diastolic blood pressure 84 mm[Hg] Meena Schrader MD Work Phone: [facility] 05-07-2024 13:34-0400 Heart rate 83 /min Meena Schrader MD Work Phone: [facility] 05-07-2024 13:34-0400 Respiratory rate 16 /min Meena Schrader MD Work Phone: [facility] 05-07-2024 13:34-0400 SaO2% (BldA) [Mass fraction] 97 % Meena Schrader MD Work Phone: [facility] 05-07-2024 13:34-0400 Systolic blood pressure 152 mm[Hg] Meena Schrader MD Work Phone: [facility] 04-14-2024 13:54-0400 Body mass index (BMI) [Ratio] 29.45 kg/m2 Meena Schrader MD Work Phone: [facility] 04-14-2024 13:54-0400 Body temperature 96.3 [degF] Meena Schrader MD Work Phone: [facility] 04-14-2024 13:54-0400 Body weight 73.03 kg Meena Schrader MD Work Phone: [facility] 04-14-2024 13:54-0400 Diastolic blood pressure 88 mm[Hg] Meena Schrader MD Work Phone: [facility] 04-14-2024 13:54-0400 Heart rate 106 /min Meena Schrader MD Work Phone: [facility] 04-14-2024 13:54-0400 Respiratory rate 18 /min Meena Schrader MD Work Phone: [facility] 04-14-2024 13:54-0400 SaO2% (BldA) [Mass fraction] 97 % Meena Schrader MD Work Phone: [facility] 04-14-2024 13:54-0400 Systolic blood pressure 139 mm[Hg] Meena Schrader MD Work Phone: [facility] 04-08-2024 09:50-0400 Body mass index (BMI) [Ratio] 29.12 kg/m2 Oziel Ordaz APRN-WILDLIFE ECOLOGIST Work Phone: [facility] 04-08-2024 09:50-0400 Body temperature 96.1 [degF] Oziel Ordaz APRN-WILDLIFE ECOLOGIST Work Phone: [facility] 04-08-2024 09:50-0400 Body weight 72.21 kg Oziel Ordaz APRN-WILDLIFE ECOLOGIST Work Phone: [facility] 04-08-2024 09:50-0400 Diastolic blood pressure 89 mm[Hg] Oziel Ordaz APRN-WILDLIFE ECOLOGIST Work Phone: [facility] 04-08-2024 09:50-0400 Heart rate 105 /min Oziel Ordaz APRN-WILDLIFE ECOLOGIST Work Phone: [facility] 04-08-2024 09:50-0400 Respiratory rate 16 /min Oziel Ordaz APRN-WILDLIFE ECOLOGIST Work Phone: [facility] 04-08-2024 09:50-0400 SaO2% (BldA) [Mass fraction] 100 % Oziel Ordaz RESERVATIONIST-WILDLIFE ECOLOGIST Work Phone: [facility] 04-08-2024 09:50-0400 Systolic blood pressure 128 mm[Hg] Oziel Ordaz RESERVATIONIST-WILDLIFE ECOLOGIST Work Phone: [facility] 03-23-2024 13:25-0400 Body temperature 97 [degF] Meena Schrader MD Work Phone: [facility] 03-23-2024 13:25-0400 Diastolic blood pressure 77 mm[Hg] Meena Schrader MD Work Phone: [facility] 03-23-2024 13:25-0400 Heart rate 68 /min Meena Schrader MD Work Phone: [facility] 03-23-2024 13:25-0400 Respiratory rate 18 /min eMena Schrader MD Work Phone: [facility] 03-23-2024 13:25-0400 SaO2% (BldA) [Mass fraction] 96 % Meena Schrader MD Work Phone: [facility] 03-23-2024 13:25-0400 Systolic blood pressure 136 mm[Hg] Meena Schrader MD Work Phone: [facility] 03-23-2024 07:18-0400 Body height 157.5 cm Meena Schrader MD Work Phone: [facility] 03-23-2024 07:18-0400 Body mass index (BMI) [Ratio] 29.35 kg/m2 Meena Schrader MD Work Phone: [facility] 03-23-2024 07:18-0400 Body weight 72.8 kg Meena Schrader MD Work Phone: [facility] Encounters Encounter Date Encounter Type Care Provider Facility Start: 09-29-2024 End: 09-29-2024 [facility] Start: 09-03-2024 End: 09-03-2024 Bamboo flowsheet Brijesh Armstrong MD Work Phone: [facility] Start: 09-03-2024 End: 09-03-2024 Bamboo flowsheet Brijesh Armstrong MD Work Phone: [facility] Start: 09-03-2024 End: 09-03-2024 Office outpatient visit 15 minutes Roseann Mari MD Work Phone: [facility] Comment on above: Seborrheic keratosis (Primary Dx); Lentigines; Actinic keratosis; History of malignant melanoma of skin Start: 09-03-2024 End: 09-03-2024 ambulatory ROSEANN MARI Not Available Start: 09-03-2024 End: 09-03-2024 Assay of hemosiderin, quant Brijesh Armstrong MD Work Phone: [facility] Work Phone: Start: 09-03-2024 End: 09-03-2024 Patient encounter procedure Brijesh Armstrong MD Work Phone: [facility] Comment on above: Routine general medi roosevelt examination at health care facility (Primary Dx); ACP (advance care planning); Mixed hyperlipidemia (CMS/HCC); Age-related osteoporosis without current pathological fracture (CMS/HCC); Estrogen deficiency; Second degree atrioventricular block; Major depressive disorder with single episode, in full remission (CMS/HCC); Breast screening; Third degree heart block (CMS/HCC); Artificial cardiac pacemaker Start: 09-03-2024 End: 09-03-2024 ambulatory BRIJESH ARMSTRONG Not Available Start: 08-18-2024 End: 08-18-2024 ambulatory [facility] Start: 08-14-2024 End: 08-14-2024 [facility] Start: 08-04-2024 Evaluation and manag ement of inpatient [facility] Start: 08-04-2024 Evaluation and manag ement of inpatient [facility] Start: 08-03-2024 Emergency department patient visit MADI TEMPLE [facility] Start: 08-03-2024 End: 08-04-2024 Evaluation and management of inpatient LUKE GARCIA [facility] Start: 08-03-2024 End: 08-03-2024 ambulatory ERNIE CAO [facility] Start: 06-02-2024 End: 06-02-2024 Bamrosana Mari MD Work Phone: [facility] Start: 06-02-2024 End: 06-02-2024 Bamboo flowsheet Roseann Mari MD Work Phone: [facility] Start: 06-02-2024 End: 06-02-2024 Office outpatient visit 15 minutes Roseann Mari MD Work Phone: [facility] Comment on above: Seborrheic keratosis (Primary Dx); Lentigines; Herpesviral vesicular dermatitis; Actinic keratosis; History of malignant melanoma of skin Start: 06-02-2024 End: 06-02-2024 ambulatory ROSEANN MARI Not Available Start: 05-07-2024 End: 05-07-2024 Postop follow up visit related to original px Meena Schrader MD Work Phone: [facility] Comment on above: Wound infection afte r surgery (Primary Dx) Start: 05-07-2024 End: 05-07-2024 ambulatory MEENA Mejia MEÑO [facility] Start: 04-14-2024 End: 04-14-2024 Postop follow up visit related to original px Meena Schrader MD Work Phone: [facility] Comment on above: Malignant melanoma o f lower leg, left (Multi) (Primary Dx) Start: 04-14-2024 End: 04-14-2024 ambulatory MEENA HENNINGEHN [facility] Start: 04-08-2024 End: 04-08-2024 Postop follow up visit related to original px Oziel Ordaz RESERVATIONIST-WILDLIFE ECOLOGIST Work Phone: [facility] Comment on above: Cellulitis of left l ower extremity (Primary Dx) Start: 04-08-2024 End: 04-08-2024 ambulatory OZIEL ORDAZ [facility] Start: 03-23-2024 End: 03-23-2024 Subsequent hospital visit by physician Dayanna Lay 3 [facility] Comment on above: Malignant melanoma o f lower leg, left (Multi) Arrived Start: 03-23-2024 End: 03-23-2024 ambulatory [facility] Start: 03-23-2024 End: 03-23-2024 Subsequent hospital visit by physician Meena Scharder MD Work Phone: [facility] [place] Comment on above: Malignant melanoma o f lower leg, left (Multi) (Primary Dx) Start: 03-18-2024 ambulatory [facility] Start: 03-17-2024 End: 03-17-2024 Office outpatient visit 25 minutes Meena Schrader MD Work Phone: [facility] Comment on above: Malignant melanoma o f lower leg, left (Multi) (Primary Dx) Start: 03-17-2024 End: 03-17-2024 ambulatory [facility] Start: 02-24-2024 End: 02-24-2024 ambulatory ROSEANN Alford SHMUEL Not Available Start: 11-18-2023 End: 11-18-2023 ambulatory [facility] Start: 07-12-2023 Howard Armstrong MD Work Phone: [facility] Comment on above: 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, in full remission (CMS/HCC) Start: 09-03-2022 End: 09-04-[address] BRIJESH ARMSTRONG Facility:[facility] Start: 08-15-2022 End: 08-16-2022 ambulatory OSIEL THOMAS Facility:[facility] Start: 06-07-2022 End: 06-08-[address] MILADYS CORDERO Facility:[facility] Start: 12-05-2021 End: 12-06-[address] MILADYS CORDERO Facility:[facility] Start: 11-21-2021 End: 11-22-[address] MILADYS CORDERO Facility:[facility] Start: 11-07-2021 End: 11-08-[address] MILADYS CORDERO Facility:[facility] Start: 11-02-2021 End: 11-03-[address] MILADYS CORDERO Facility:[facility] Start: 10-25-2021 End: 10-26-[address] MILADYS CORDERO Facility:[facility] Start: 10-23-2021 End: 10-24-[address] MILADYS CORDERO Facility:[facility] Start: 10-17-2021 End: 10-18-[address] Peter Correia Facility:[facility] Start: 10-13-2021 End: 10-14-[address] MILADYS CORDERO Facility:[facility] Start: 10-06-2021 End: 10-07-[address] MILADYS CORDERO Facility:[facility] Start: 10-02-2021 End: 10-03-[address] MILADYS CORDERO Facility:[facility] Start: 09-27-2021 End: 09-28-[address] MILADYS CORDERO Facility:[facility] Start: 09-20-2021 End: 09-21-[address] MILADYS CORDERO Facility:[facility] Start: 09-13-2021 End: 09-14-[address] MILADYS CORDERO Facility:[facility] Procedures Date Procedure Procedure Detail Performing Clinician Start: 09-03-2024 CRYOTHERAPY SKIN LESION Roseann Mari MD Work Phone: Start: 06-02-2024 CRYOTHERAPY SKIN LESION Roseann Mari MD Work Phone: Start: 03-23-2024 PULSE OXIMETRY, CONTINUOUS Luis Carlos Cloud MD Work Phone: Start: 03-23-2024 Lymphatics & lymph n odes imaging Meena Schrader MD Work Phone: Start: 03-23-2024 Ecg routine ecg w/le ast 12 lds trcg only w/o i&r Meena Schrader MD Work Phone: Start: 09-26-2023 Mammography Roseann treviño MD Work Phone: Start: 09-03-2022 Mammography Brijesh fernandez MD Work Phone: Plan of Treatment Date Care Activity Detail Author Start: 09-03-2025 Medicare Annual Wellness (AWV) Medicare Annual Wellness (AWV) [facility] Start: 08-31-2025 Screening for malignant neoplasm of colon [facility] Start: 02-23-2025 End: 02-23-2025 Patient encounter procedure 02/23/2025 9:50 AM EDT Office Visit [facility] [address] [place] [id number] Roseann Mari MD [address] [place] [address] [facility] Start: 11-03-2024 End: 11-03-2024 Patient encounter procedure 11/03/2024 9:05 AM EDT Office Visit [facility] [address] [place] [phone] Roseann Mari MD [address] [place] [address] [facility] Start: 10-02-2024 End: 09-03-2025 DXA Skeletal system Views for bone density DEXA bone density Imaging Routine Estrogen deficiency Expected: 10/02/2024 (Approximate), Expires: 09/03/2025 [facility] Comment on above: Expected: 10/02/2024 (Approximate), Expires: 09/03/2025 Start: 10-02-2024 End: 11-01-2025 MG Breast - bilateral Screening Bilateral screening mammogram Imaging Routine Breast screening Expected: 10/02/2024 (Approximate), Expires: 11/01/2025 [facility] Work Phone: Comment on above: Expected: 10/02/2024 (Approximate), Expires: 11/01/2025 Start: 09-26-2024 Screening for malignant neoplasm of breast Mammogram [facility] Start: 09-03-2024 End: 09-03-2025 Lipid 1996 panel - Serum or Plasma Lipid panel Lab Routine Mixed hyperlipidemia (CMS/HCC) Expected: 09/03/2024 (Approximate), Expires: 09/03/2025 [facility] Comment on above: Expected: 09/03/2024 (Approximate), Expires: 09/03/2025 Start: 09-03-2024 End: 09-03-2025 TSH W/REFLEX TO FT4 TSH W/REFLEX TO FT4 Lab Routine Mixed hyperlipidemia (CMS/HCC) Second degree atrioventricular block Expected: 09/03/2024 (Approximate), Expires: 09/03/2025 [facility] Comment on above: Expected: 09/03/2024 (Approximate), Expires: 09/03/2025 Start: 09-03-2024 End: 09-03-2024 Patient encounter procedure [facility] Start: 09-03-2024 End: 09-03-2024 Patient encounter procedure 09/03/2024 9:30 AM EST Office Visit [facility] [address] [facility] [address] [place] [address] Brijesh Armstrong MD [address] [facility] [address] [place] [address] Arrived [facility] Comment on above: Arrived Start: 08-22-2024 Medicare Annual Wellness (AWV) Medicare Annual Wellness (AWV) [facility] Start: 06-02-2024 End: 06-02-2024 Patient encounter procedure 06/02/2024 11:20 AM EDT Office Visit [facility] [address] [facility] [address] [place] [address] Roseann Mari MD [address] [place] [address] Arrived [facility] Comment on above: Arrived Start: 04-14-2024 End: 04-14-2024 Patient encounter procedure 04/14/2024 2:00 PM EDT Office Visit [address] [place] [address] [place] [address] [facility] [place] [address] [facility] Start: 04-05-2024 COVID-19 Vaccine ( season) COVID-19 Vaccine ( season) [facility] Start: 04-05-2024 DTaP/Tdap/Td Vaccine s (2 - Td or Tdap) DTaP/Tdap/Td Vaccines (2 - Td or Tdap) [facility] Start: 04-05-2024 Influenza vaccination Influenza Vacc ine (#1) [facility] Start: 03-23-2024 End: 03-17-2025 NM Lymphatic vessels Views W radionuclide intra lymphatic NM lymphoscintigram Imaging Routine Malignant melanoma of lower leg, left (Multi) Expected: 03/23/2024, Expires: 03/17/2025 [facility] Service Area Work Phone: Comment on above: Expected: 03/23/2024 , Expires: 03/17/2025 Start: 03-23-2024 Subsequent hospital visit by physician 03/23/2024 Hospital Encounter [facility] [place] [address] [place] [address] [place] [address] [facility] [place] [address] [facility] [place] Start: 03-23-2024 End: 03-23-2024 Bx/exc lymph node open superficial Biopsy Lymph Node Inguinal Malignant melanoma of lower leg, left (Multi) 03/23/2024 10:06 AM EDT [facility] Start: 03-23-2024 End: 03-23-2024 Excision malignant lesion trunk/arm/leg > 4.0 cm Excision Lesion Skin Lower Extremity Malignant melanoma of lower leg, left (Multi) 03/23/2024 10:06 AM EDT [facility] Start: 10-23-2023 COVID-19 Vaccine ( season) COVID-19 Vaccine ( season) [facility] Start: 09-03-2023 Screening for malignant neoplasm of breast Mammogram [facility] Start: 07-13-2023 Screening for osteoporosis Bone Density Scan [facility] Start: 11-14-2020 Pneumococcal Vaccine : 65+ Years (1 of 1 - PCV) Pneumococcal Vaccine: 65+ Years (1 of 1 - PCV) [facility] Start: 11-14-1973 Diabetes mellitus screening Diabetes Screening [facility] Start: 11-14-1973 Hepatitis C screening Hepatitis C Sc reening [facility] Start: 05-16-1956 Examination of skin Derm Melanoma Sk in Check [facility] Start: 1955 Lipid panel Lipid Panel [facility] Start: 1955 Medicare Annual Wellness Visit Medicare Annual Wellness Visit (AWV) [facility] Start: 1955 Screening for malignant neoplasm of colon [facility] Bx/exc lymph node op en superficial Biopsy Lymph Node Inguinal Malignant melanoma of lower leg, left (Multi) [facility] Dermatopathology- DE [facility] Service Area Work Phone: Comment on above: Release Upon Paulettein g for 1 Occurrences starting 03/23/2024 Electrocardiogram, 12-lead Electrocardiogram, 12-lead ECG Routine 03/23/2024 7:13 AM EDT [facility] Work Phone: Excision malignant lesion trunk/arm/leg > 4.0 cm Excision Lesion Skin Lower Extremity Malignant melanoma of lower leg, left (Multi) [facility] Immunizations Immunization Date Immunization Notes Care Provider Fa [facility] 04-20-2024 influenza, high dose seasonal, preservative-free Brijesh Armstrong MD Work Phone: [facility] 04-20-2024 influenza virus vaccine, unspecified formulation Roseann Mari MD Work Phone: [facility] 08-08-2023 RSV, recombinant, protein subunit RSVpreF, adjuvant reconstitu, 120mcg/0.5mL, PF (Arexvy) Roseann Mari MD Work Phone: [facility] 03-28-2023 Influenza, Seasonal, Quadrivalent, Adjuvanted Brijesh Armstrong MD Work Phone: [facility] 03-28-2023 influenza virus vaccine, unspecified formulation Meena Schrader MD Work Phone: [facility] Work Phone: 05-13-2022 Moderna Bivalent Booster Vaccination Brijesh Armstrong MD Work Phone: [facility] 04-14-2022 Influenza, High-dose Seasonal, Quadrivalent, Preservative Free Brijesh Armstrong MD Work Phone: [facility] 05-03-2021 Influenza, High-dose Seasonal, Quadrivalent, Preservative Free Brijesh Armstrong MD Work Phone: [facility] 08-31-2019 zoster vaccine recombinant Brijesh Armstrong MD Work Phone: [facility] 04-07-2019 Influenza, injectabl e, Madin Briseyda Canine Kidney, preservative free, quadrivalent Brijesh Armstrong MD Work Phone: [facility] 04-07-2019 zoster vaccine recombinant Brijesh Armstrong MD Work Phone: [facility] 04-30-2016 zoster vaccine, live Brijesh Armstrong MD Work Phone: [facility] 04-16-2016 influenza, injectabl e, quadrivalent, preservative free Brijesh Armstrong MD Work Phone: [facility] 04-05-2014 tetanus toxoid, redu linda diphtheria toxoid, and acellular pertussis vaccine, adsorbed Brijesh Armstrong MD Work Phone: [facility] Payers Date Payer Category Payer Private Health Insurance [id number] 2020 Medicare [id number] 1959 Medicare [id number] 1959 Private Health Insurance CLI [id number] 1955 Unknown [id number] 2.16.84 0.1.783927.3.579.2.593 1955 Unknown [id number] 2.16.84 0.1.582553.3.579.2.593 1955 Unknown [id number] 2.16.84 0.1.418452.3.579.2.593 1955 Unknown [id number] 2.16.84 0.1.675883.3.579.2.593 1955 Unknown [id number] 2.16.84 0.1.208803.3.579.2.593 1955 Unknown [id number] 2.16.84 0.1.999046.3.579.2.593 1955 Unknown [id number] 2.16.84 0.1.049441.3.579.2.593 1955 Unknown [id number] 2.16.84 0.1.404854.3.579.2.593 1955 Unknown [id number] 2.16.84 0.1.414875.3.579.2.593 1955 Unknown [id number] 2.16.84 0.1.048199.3.579.2.593 1955 Unknown [id number] 2.16.84 0.1.837974.3.579.2.593 1955 Unknown [id number] 2.16.84 0.1.083119.3.579.2.593 1955 Unknown [id number] 2.16.84 0.1.303992.3.579.2.593 1955 Unknown [id number] 2.16.84 0.1.249854.3.579.2.593 1955 Unknown [id number] 2.16.84 0.1.102029.3.579.2.593 1955 Unknown [id number] 2.16.84 0.1.346009.3.579.2.593 1955 Unknown [id number] 2.16.8 40.1.867562.3.579.2.1245 1955 Unknown [id number] 2.16.8 40.1.320977.3.579.2.1245 1955 Unknown [id number] 2.16.8 40.1.417392.3.579.2.1245 1955 Unknown [id number] 2.16.8 40.1.738602.3.579.2.1245 1955 Unknown [id number] 2.16.84 0.1.782530.3.579.2.1259 1955 Unknown [id number] 2.16.84 0.1.771502.3.579.2.1259 1955 Unknown [id number] 2.16.84 0.1.318420.3.579.2.9 1955 Unknown [id number] 2.16.84 0.1.036848.3.579.2.1258 1955 Unknown [id number] 2.16.8 40.1.492026.3.579.2.1246 1955 Unknown [id number] 2.16.8 40.1.224606.3.579.2.1246 1955 Unknown [id number] 2.16.8 40.1.565403.3.579.2.1246 1955 Unknown [id number] 2.16.8 40.1.221970.3.579.2.1246 Social History Date Type Detail Facility [facility] consumption unknown [facility] Start: 08-22-2023 End: 09-03-2024 History of Social function [facility] Start: 08-22-2023 End: 09-03-2024 Tobacco use panel [facility] Start: 1955 Sex Assigned At Not on file [facility] Start: 03-18-2024 Tobacco [facility] stat [facility] History of tobacco use Current smoker [facility] Work Phone: History of tobacco use Cigarette Smoker [facility] Work Phone: Start: 08-22-2023 End: 03-18-2024 Tobacco use and exposure Smokeless tobacco non-user [facility] Work Phone: Start: 04-14-2024 End: 09-03-2024 Alcoholic beverage intake Current drinker of alcohol (finding) [facility] Work Phone: Start: 03-13-2024 End: 05-07-2024 Exposure to SARS-CoV-2 (event) Not sure [facility] Start: 08-22-2023 Tobacco smoking stat us [facility] Never smoked tobacco [facility] Start: 03-07-2024 End: 03-17-2024 Exposure to SARS-CoV-2 (event) Unable to assess [facility] Start: 03-29-2024 End: 04-08-2024 Exposure to SARS-CoV-2 (event) Yes [facility] Clinical Notes 08-31-2021 to 09-03-2024 Roseann Mari MD - 09/03/2024 11:15 AM Denzel Armstrong MD - 09/03/2024 9:30 AM Nisha Mari MD - 06/02/2024 11:20 AM Nilsa Schrader MD - 05/07/2024 1:30 PM EDTDischarge Instructions Note Date & Type Note Facility 09-03-2024 History of Present illness Narrative Images from the original note were not included. Skin Check Location: Patient requests a full body skin examination Dermatologic history: history of Actinic Keratosis, history of Melanoma Last visit: 3 months ago Established patient Melanoma History Location: Left leg Date of Melanoma dx: 02/24/2024 Melanoma details: Malignant Melanoma Breslow's depth: 0.50 MM Mitotic rate: 0/mm Ulceration: Not identified (Specimen is fragmented making assessment difficult) Melanoma treatment: Referred for wide excision Meena Schrader MD Additional testing: none Lesions: Location: top of the left foot Duration: about 1 month Quality: painful Associated symptoms: bump Treatments: none All pertinent medical history, medications, and allergies were reviewed. General Exam: alert, oriented to person, place, and time, normal affect, well appearing Unaccompanied Patient declines exam of genital area Scalp, Examined Right leg Examined Head, Face Examined Left leg Examined Neck Examined Right foot Examined Chest Examined Left foot Examined Back Examined Buttocks Examined Abdomen Examined Digits,nails: Examined Right arm Examined Left arm Examined Lymphatics: Examined Hands Examined no cervical lymphadenopathy, no supraclavicular lymphadenopathy, no inguinal lymphadenopathy 1. Seborrheic keratosis Stuck on verrucous, gee-brown papules and plaques. Patient was counseled regarding these benign growths. Removal is normally not necessary, but they may be removed if they are symptomatic or for cosmetic reasons. 2. Lentigines Scattered gee macules in sun-exposed areas. The patient was informed that lentigines are benign pigmented lesions that occur on sun-exposed and sun-damaged skin. No treatment is necessary. Recommended regular use of broad spectrum sunscreen SPF 30 or higher 3. Actinic keratosis (3) Left Forehead, Left Malar Cheek, Left Upper Cutaneous Lip Erythematous scaly papules Patient was counseled regarding these sun-induced growths that can develop into squamous cell carcinoma if left untreated. Discussed treatment with cryotherapy. It was emphasized that any treated lesions that fail to resolve should be re-evaluated. Cryotherapy performed today; see procedure note Diagnosis: Actinic keratosis Indication: Precancerous Location: see skin exam Consent: Verbal consent was obtained and risks were discussed, including, but not limited to risks of scarring, darker or project development coordinator pigmentary changes, recurrence, incomplete removal and infection. Method: Liquid nitrogen was used to treat the lesion(s) with two 5-10 second freeze-thaw cycles. Eyes were shielded using cotton pad during procedure Number of lesions treated: 3 Post-procedure instructions: Instructions were given orally and in writing. The office will be contacted if the lesion fails to resolve despite treatment, or if a side effect develops such as abnormal crusting, scabbing, redness or tenderness Cryotherapy, skin lesion - Left Forehead, Left Malar Cheek, Left Upper Cutaneous Lip 4. History of malignant melanoma of skin Left Lower Leg - Anterior No evidence of recurrence at melanoma scar. The patient was counseled that scars from excisional sites of melanoma should be monitored closely for recurrence. The patient was instructed to contact the office for any new, changing, or symptomatic moles. The patient was also instructed to contact the office for any new lesions that develop within or around the previous melanoma scar. Next Visit: 3 months documented in this encounter [facility] 09-03-2024 History of Present illness Narrative Images from the original note were not included. Subjective : Chief Complaint: Mei Jo is an 68 y.o. female here for an annual wellness visit. I have reviewed and reconciled the history and medication list with the patient today. Current Outpatient Medications Medication Sig Dispense Refill calcium citrate 600 mg and vitamin D3 (Citrical & Minerals + Vit D) 600-200 MG-UNIT tablet Take 1 tablet by mouth in the morning. citalopram (CeleXA) 10 MG tablet TAKE 1 TABLET BY MOUTH EVERY DAY IN THE MORNING 90 tablet 3 fluticasone (Flonase) 50 MCG/ACT nasal spray Administer 1 spray into each nostril 1 (one) time each day at the same time. valACYclovir (Valtrex) 1 g tablet Take 2 tablets twice a day x 1 day at first start of outbreak, 1 day supply 4 tablet 4 simvastatin (Zocor) 40 MG tablet Take 1 tablet (40 mg) by mouth in the morning. 90 tablet 3 No current facility-administered medications for this visit. Review of Systems List of current healthcare providers: Patient Care Team: Brijesh Armstrong MD as PCP - General (Internal Medicine) Brijesh Armstrong MD as PCP - ACO [employer] Medicare Annual Visit Over the past 2 weeks, how often have you been bothered by any of the following problems? Little interest or pleasure in doing things: Not at all Feeling down, depressed, or hopeless: Not at all Patient Health Questionnaire-2 Score: 0 Braun Fall Risk History of Falling, Immediate or Within 3 Months: No Secondary Diagnosis: No Ambulatory Aid: Walks without aid/bedrest/nurse assist Health Risk Assessment Form Do you need help eating, bathing, using the toilet, dressing, or getting around your home?: No Can you prepare your own meals?: Yes Can you do your own housework without help?: Yes Can you shop for groceries or clothes without help?: Yes Do you exercise for about 20 minutes 3 or more days a week?: Yes How confident are you that you can control and manage most of your health problems?: Very confident Can you mange your money, credit cards and accounts, pay bills and taxes?: Yes Cognitive Screening Three Word Registration: Apple, Watch, Sandra Clock Drawing: Normal Clock - 2 Three Word Recall: All 3 words correct - 3 Total Score (0-5 Points): 5 Pain Assessment Pain Score: 7 Advance Care Planning Do you have a living will?: No Do you have a medical power of consumer attorney?: No Objective : BP 132/86 Pulse 82 Ht 5' 2 Wt 165 lb SpO2 97% BMI 30.18 kg/m No results found. Physical Exam Constitutional: General: She is not in acute distress. Appearance: Normal appearance. She is well-developed. HENT: Head: Normocephalic and atraumatic. Eyes: General: No scleral icterus. Conjunctiva/sclera: Conjunctivae normal. Cardiovascular: Rate and Rhythm: Normal rate and regular rhythm. Heart sounds: Normal heart sounds. No murmur heard. Pulmonary: Effort: Pulmonary effort is normal. No respiratory distress. Breath sounds: Normal breath sounds. No wheezing, rhonchi or rales. Skin: General: Skin is warm and dry. Neurological: General: No focal deficit present. Mental Status: She is alert and oriented to person, place, and time. Psychiatric: Mood and Affect: Mood normal. Behavior: Behavior normal. Assessment/Plan : The following health maintenance schedule was reviewed with the patient and provided in printed form in the after visit summary: Health Maintenance Topic Date Due Pneumococcal Vaccine: 65+ Years (1 of - PCV) Never done Medicare Annual Wellness (AWV) 08/22/2024 Mammogram 09/26/2024 Colorectal Cancer Screening 08/31/2025 Influenza Vaccine Completed Advance Care Planning Assessment/Plan Diagnoses and all orders for this visit: Routine general medical examination at health care facility ACP (advance care planning) Mixed hyperlipidemia (CMS/HCC) - Lipid panel; Future - TSH W/REFLEX TO FT4; Future Age-related osteoporosis without current pathological fracture (CMS/HCC) Estrogen deficiency - DEXA bone density; Future Second degree atrioventricular block - TSH W/REFLEX TO FT4; Future Major depressive disorder with single episode, in full remission (CMS/HCC) Breast screening - Bilateral screening mammogram; Future Third degree heart block (CMS/HCC) Artificial cardiac pacemaker Follow up in about 1 year (around 09/03/2025) for Wellness. No orders of the defined types were placed in this encounter. Electronically signed by Brijesh Armstrong MD on September 03, 2024 documented in this encounter [facility] 08-14-2024 Note Patient here for wou nd check s/p PPM placement on 08/03/[address] Garcia. She was not given antibiotics. Feeling much better. Patient adamantly denies any cardiac complaints or concerns. Patient denies any chest pain or shortness of breath. Patient denies any lower extremity edema, orthopnea, or proximal nocturnal dyspnea. No near-syncope or syncope. No dizziness or lightheadedness. No fevers no chills. Jacinta Morales MD [facility] 08-04-2024 Note Occupational Therapy Occupational Therapy Evaluation Patient Name: Mei Jo : 1955 Today's Date: 08/04/2024 Time In: 1050 Time Out: 1109 Mei Jo is a 68 y.o. year old female patient being seen for bradycardia, dizziness and shortness of breath, hypertension, and hyperlipidemia ..PPM 08/03/24 General Subjective: friendly and cooperative , present Patient Active Problem List Diagnosis Hyperlipidemia Second degree atrioventricular block Syncope TRAN (dyspnea on exertion) Cholelithiasis without obstruction Chronic serous otitis media Conductive hearing loss Decreased estrogen level Eustachian tube dysfunction, left Major depressive disorder with single episode, in full remission (CMS/HCC) Osteoporosis Primary osteoarthritis of left knee Varicose veins of bilateral lower extremities with pain Malignant melanoma of lower leg, left (CMS/HCC) Wound infection after surgery Bradycardia Complete heart block (CMS/HCC) Obesity (BMI 30-39.9) Heart block AV block, 3rd degree (CMS/HCC) Past Medical History: Diagnosis Date Abnormal ECG Cancer (CMS/HCC) Hyperlipidemia Hypertension Second degree AV block Syncope Past Surgical History: Procedure Laterality Date CHOLECYSTECTOMY Precautions Precautions Medical Precautions: pacemaker Pain Pain Assessment Pain Score: 2 (left chest wall) Cognition Cognition Overall Cognitive Status: Within Functional Limits General Assessment General Assessment Hearing: (wfl) Hand Dominance: Right Home Living Home Living Type of Home: House Lives With: Spouse Home Adaptive Equipment: None Home Layout: Two level, 1/2 bath on main level, Bed/bath upstairs (ff with rail) Home Access: Stairs to enter with rails (6) Bathroom Shower/Tub: Tub/shower unit Prior Level of Function Prior Function Level of [place]: Independent with ADLs and functional transfers, Independent with homemaking with ambulation (drives) Prior IADLs IADL History Homemaking Responsibilities: Yes Dynamic Standing Balance Dynamic Standing Balance Dynamic Standing Balance-Level of Assistance: Independent ADL ADL Equipment Provided: (indep with adls following pacer precautions) Transfers Transfers Transfer: (indep: supine to sit , sit to stand, take a few steps and return to supine) Objective General Assessments Activity Tolerance Endurance: Stage III Vision - Basic Assessment Current Vision: No visual deficits Sensation Light Touch: No apparent deficits Coordination Movements are Fluid and Coordinated: Yes Extremity Assessments RUE Assessment RUE Assessment: (reports no issues with UB / MMT deferred ., demo good left hand function) Outcome Assessments AM-PAC 6 Clicks Putting on and taking off regular lower body clothing?: None (Independent) Bathing(Including washing,rinsing,drying)?: None (Independent) Toileting, which includes using the toilet,bedpan,or urinal?: None (Independent) Putting on and taking off regular upper body clothing?: None (Independent) Taking care of personal grooming such as brushing teeth?: None (Independent) Eating meals?: None (Independent) Total Score OT [facility]: 24 Assessment/Plan OT Assessment OT Education/Comments: (pacer handout issued and discussed, general home safety all with good return demo) Plan OT Discharge Recommendations: Home OT - Discharge Recommendations Placed: Yes OT Goals Multi-Disciplinary Problems (from Occupational Therapy) Active Problems Not on file [facility] 08-03-2024 Note MD Cardiology - [facility] Subjective Mei Jo is a 68 y.o. year old female patient being seen for bradycardia, dizziness and shortness of breath, hypertension, and hyperlipidemia Patient Active Problem List Diagnosis Hyperlipidemia Second degree atrioventricular block Syncope TRAN (dyspnea on exertion) Cholelithiasis without obstruction Chronic serous otitis media Conductive hearing loss Decreased estrogen level Eustachian tube dysfunction, left Major depressive disorder with single episode, in full remission (CMS/HCC) Osteoporosis Primary osteoarthritis of left knee Varicose veins of bilateral lower extremities with pain Malignant melanoma of lower leg, left (CMS/HCC) Wound infection after surgery HPI Patient with history of hyperlipidemia and remote history of syncope related to hypoglycemia, also she had 2-1 AV block reported on prior EKG in 2021 but it was felt to be related to and conducted PACs. She is here because of 2 to 3 weeks history of bradycardia heart rate in the 30s. She reports that her heart rate used to be in the 80s. It is associated with feeling dizzy when she climbs the stairs in addition to significant exertional dyspnea and exertion significant fatigue and tired. No syncope. She denies chest pain at rest or with exertion. Denies orthopnea or paroxysmal nocturnal dyspnea or legs edema ROS All systems were reviewed and they were negative except for the positive findings noted above in the history Past Medical History: Diagnosis Date Abnormal ECG Cancer (CMS/HCC) Hyperlipidemia Hypertension Second degree AV block Syncope Past Surgical History: Procedure Laterality Date CHOLECYSTECTOMY Family History Problem Relation Name Age of Onset Aortic aneurysm Mother Atrial fibrillation Mother Hypertension Father Diabetes Father Hypertension Brother Social History Tobacco Use Smoking status: Never Smokeless tobacco: Never Substance Use Topics Alcohol use: Not Currently Allergies No Known Allergies Medications Current Outpatient Medications: citalopram (CeleXA) 20 mg tablet, Take 20 mg by mouth in the morning., Disp: , Rfl: simvastatin (Zocor) 40 mg tablet, Take 40 mg by mouth at bedtime., Disp: , Rfl: cholecalciferol, vitamin D3, 50 mcg (2,000 unit) capsule, Take 50 mcg by mouth in the morning., Disp: , Rfl: meloxicam (Mobic) 15 mg tablet, Take 15 mg by mouth if needed., Disp: , Rfl: Objective Visit Vitals BP 180/80 (BP Location: Left arm, Patient Position: Sitting) Pulse (!) 42 Ht 1.575 m (5' 2 ) Wt 74.4 kg (164 lb) SpO2 98% BMI 30.00 kg/m??? Smoking Status Never BSA 1.8 m??? Physical exam: GENERAL: alert and oriented x3, well developed, in no acute distress. HEAD: atraumatic, normocephalic. EYES: ASAD, EOMI. NECK: trachea midline, no JVD present, no carotid bruits present. CARDIAC: S1, S2 present. RRR, bradycardic. No murmur, rubs, or gallops. RESPIRATORY: CTAB, no increased effort of breathing, no rales, rhonchi, or wheezing. ABDOMEN: soft, nontender, nondistended. EXTREMITIES: no lower extremity edema. No rash/skin discoloration present. NEURO: strength/sensation equal and symmetric in bilateral upper and lower extremities. PSYCH: appropriate mood, affect, and judgement. Recent Labs 08/22/2023 White blood count 5.8, hemoglobin 13.6, hematocrit 39.7, platelets 288 GFR 97, glucose 86, BUN 11, creatinine 0.64, sodium 141, potassium 3.9, albumin 4.6, AST 19, ALT 18 Total cholesterol 214, triglyceride 128, HDL 84, Imaging and other tests EKG: Today 08/03/2024 showed sinus rhythm with complete heart block and junctional escape rhythm, abnormal EKG EKG 11/18/2023 Echo: 08/09/2021 Stress test: Cardiac cath: Event Monitor: Cardiac MRI: CX ray: Assessment/Plan Severe symptomatic bradycardia due to complete heart block. Patient reports dizziness, exertional dyspnea or and tiredness Hyperlipidemia on simvastatin Obesity, BMI 30 kg/m??? Plan: I will send the patient to ED at [facility]. I spoke already with Dr. Garcia he will see her immediately for permanent pacemaker implantation. Follow-up 1 to 2 weeks after pacemaker implantation Ernie Cao MD,[facility] 06-02-2024 History of Present illness Narrative Skin Check Location: Patient requests a full body skin examination Dermatologic history: history of Actinic Keratosis, history of Melanoma Last visit: 3 months ago Established patient Melanoma History Location: Left leg Date of Melanoma dx: 02/24/2024 Melanoma details: Malignant Melanoma Breslow's depth: 0.50 MM Mitotic rate: 0/mm Ulceration: Not identified (Specimen is fragmented making assessment difficult) Melanoma treatment: Referred for wide excision Meena Schrader MD Additional testing: none Lymph node: Benign All pertinent medical history, medications, and allergies were reviewed. General Exam: alert, oriented to person, place, and time, normal affect, well appearing Unaccompanied Areas not examined despite medical recommendation: From the waist down Scalp, Examined Right leg Examined Head, Face Examined Left leg Examined Neck Examined Right foot Examined Chest Examined Left foot Examined Back Examined Buttocks Examined Abdomen Examined Digits,nails: Examined Right arm Examined Left arm Examined Lymphatics: Examined Hands Examined no cervical lymphadenopathy, no supraclavicular lymphadenopathy, no inguinal lymphadenopathy 1. Seborrheic keratosis Stuck on verrucous, gee-brown papules and plaques. Patient was counseled regarding these benign growths. Removal is normally not necessary, but they may be removed if they are symptomatic or for cosmetic reasons. 2. Lentigines Scattered gee macules in sun-exposed areas. The patient was informed that lentigines are benign pigmented lesions that occur on sun-exposed and sun-damaged skin. No treatment is necessary. Recommended regular use of broad spectrum sunscreen SPF 30 or higher 3. Herpesviral vesicular dermatitis Right Upper Vermilion Lip Grouped vesicles and erosions on an erythematous base It was explained to the patient that herpes simplex is a common viral infection of the skin. It is contagious and can be easily spread by contact. It was explained that the infection is not curable and recurrence is common. The patient was informed that treatment with an anti-viral medication taken at the first sign of an outbreak can shorten the outbreak and relieve symptoms. If occurrences are frequent, an anti-viral medication taken daily may be beneficial valACYclovir (Valtrex) 1 g tablet - Right Upper Vermilion Lip Take 2 tablets twice a day x 1 day at first start of outbreak, 1 day supply 4. Actinic keratosis (4) Left Malar Cheek, Left Nondenominational, Left Zygomatic Area, Right Supraorbital Region Erythematous scaly papules Patient was counseled regarding these sun-induced growths that can develop into squamous cell carcinoma if left untreated. Discussed treatment with cryotherapy. It was emphasized that any treated lesions that fail to resolve should be re-evaluated. Cryotherapy performed today; see procedure note Diagnosis: Actinic keratosis Indication: Precancerous Location: see skin exam Consent: Verbal consent was obtained and risks were discussed, including, but not limited to risks of scarring, darker or project development coordinator pigmentary changes, recurrence, incomplete removal and infection. Method: Liquid nitrogen was used to treat the lesion(s) with two 5-10 second freeze-thaw cycles. Eyes were shielded using cotton pad during procedure Number of lesions treated: 4 Post-procedure instructions: Instructions were given orally and in writing. The office will be contacted if the lesion fails to resolve despite treatment, or if a side effect develops such as abnormal crusting, scabbing, redness or tenderness Cryotherapy, skin lesion - Left Malar Cheek, Left Nondenominational, Left Zygomatic Area, Right Supraorbital Region 5. History of malignant melanoma of skin Left Lower Leg - Anterior No evidence of recurrence at melanoma scar. The patient was counseled that scars from excisional sites of melanoma should be monitored closely for recurrence. The patient was instructed to contact the office for any new, changing, or symptomatic moles. The patient was also instructed to contact the office for any new lesions that develop within or around the previous melanoma scar. Next Visit: 3 months documented in this encounter [facility] 05-07-2024 History of Present illness Narrative ASSESSMENT AND PLAN Mei Jo is a 68 y.o. female who is now s/p wide local excision and sentinel lymph node biopsy on 03/23/24. On final pathology margins were clear and SLNB benign, pT1aN0, stage 1A. We discussed that this is great news and does not require further workup or follow-up with us at this time. We advised dermatology follow-up for regular exams and to return to our clinic with any concerns in the future. The patient expressed understanding. As far as her wound, she does look to have a bit of a wound infection along the inferior V-Y flap that is completely healed. We will give her Keflex and doxycycline for a week for this. I debrided the eschar off of her superior V-Y flap that did not survive and remove the single remaining suture. We then placed a dry gauze dressing and she will continue the wound care she has been doing. She will stay in touch with us with pictures going forward and come back to clinic as needed. Meena Schrader MD research coordinator Division of Surgical Oncology [phone] [email or web address] SUBJECTIVE Mei Jo is a 68 y.o. female who presents for a postoperative clinic visit. Referring provider: Roseann Mari Diagnosis: melanoma Location: left leg Thickness: at least 0.6 mm Surgery: Wide local excision and sentinel lymph node biopsy on 03/23/24 Postoperative issues: none Wound infection and necrosis of her superior V-Y flap, started on Bactrim, infection persisted, transitioned to Keflex, erythema has resolved Over the past couple of days she has had increasing erythema about the inferior aspect of her wound and it looks like there is still a stitch remaining in her incision. Physical exam No erythema, inferior flap is intact, wound edges are all healed, superior flap has necrotic epidermis but looks like the deep tissue is well-perfused and incorporated Surgical Pathology FINAL DIAGNOSIS A. NODE, SENTINEL NODE #1 COUNT- 732, BIOPSY: BENIGN LYMPH NODE. B. SKIN, 3X5 CM, SHORT SUPERIOR 12:00, LONG POSTERIOR 3:00, WIDE EXCISION: CHANGES CONSISTENT WITH PREVIOUS PROCEDURE, INKED MARGINS FREE IN THE PLANES OF SECTIONS EXAMINED, WITHOUT RESIDUAL ATYPICAL MELANOCYTIC NEOPLASM SEEN. documented in this encounter [facility] Work Phone: 04-14-2024 History of Present illness Narrative ASSESSMENT AND PLAN Mei Jo is a 68 y.o. female who is now s/p wide local excision and sentinel lymph node biopsy on 03/23/24. On final pathology margins were clear and SLNB benign, pT1aN0, stage 1A. We discussed that this is great news and does not require further workup or follow-up with us at this time. We advised dermatology follow-up for regular exams and to return to our clinic with any concerns in the future. The patient expressed understanding. As far as her wound, it seems that the infection is much improved and the superior V-Y flap is partially surviving. We removed her sutures in clinic today and have encouraged her to continue daily dressings with Vaseline based ointment. She will follow-up with dermatology and stay in touch with us with pictures going forward and return to clinic as needed for wound care. Meena Schrader MD research coordinator Division of Surgical Oncology [phone] [email or web address] SUBJECTIVE Mei Jo is a 68 y.o. female who presents for a postoperative clinic visit. Referring provider: Roseann Mari Diagnosis: melanoma Location: left leg Thickness: at least 0.6 mm Surgery: Wide local excision and sentinel lymph node biopsy on 03/23/24 Postoperative issues: none Wound infection and necrosis of her superior V-Y flap, started on Bactrim, infection persisted, transitioned to Keflex, erythema has resolved Physical exam No erythema, inferior flap is intact, wound edges are all healed, superior flap has necrotic epidermis but looks like the deep tissue is well-perfused and incorporated Surgical Pathology FINAL DIAGNOSIS A. NODE, SENTINEL NODE #1 COUNT- 732, BIOPSY: BENIGN LYMPH NODE. B. SKIN, 3X5 CM, SHORT SUPERIOR 12:00, LONG POSTERIOR 3:00, WIDE EXCISION: CHANGES CONSISTENT WITH PREVIOUS PROCEDURE, INKED MARGINS FREE IN THE PLANES OF SECTIONS EXAMINED, WITHOUT RESIDUAL ATYPICAL MELANOCYTIC NEOPLASM SEEN. documented in this encounter [facility] Work Phone: 04-08-2024 History of Present illness Narrative Chief Complaint: wound check HPI: 68 yr old female with LLE melanoma who underwent excision with flap closure and sentinel LN bx on 03/[address] Schrader. Called office 04/03 with c/o erythema - started on Bactrim. Called office 04/07 noting worsening erythema and scant serous drainage. Denies fever/chills, purulent drainage. c/o warmth and tightness. ROS: as noted in HPI VS: BP 128/89 (BP Location: Left arm, Patient Position: Sitting, BP Cuff Size: Adult) Pulse 105 Temp 35.6 C (96.1 F) (Skin) Resp 16 Wt 72.2 kg (159 lb 3.2 oz) SpO2 100% BMI 29.12 kg/m PE: Neurological: Awake, alert, conversive Respiratory/Thorax: even, unlabored Genitourinary: voiding Skin: warm, dry. LLE excision/flap well approximated with sutures, mild swelling and erythema, warm to the touch, no purulent drainage. Musculoskeletal: KEBEDE Extremities: trace LLE edema Psychological: appropriate mood/affect Procedure: n/a Assessment/Plan: 68 yr old female with LLE melanoma who underwent excision with flap closure and sentinel LN bx on 03/[address] Schrader now with cellulitis not responsive to Bactrim. - start Keflex x5 days - ok to shower, no soaking - ok for bacitracin PRN - call with questions/concerns, worsening s/s infection Medication Documentation Review Audit Reviewed by Roland Martell MA (Hydraulic Operator) on 04/08/24 at 0951 Medication Order Taking? Sig Documenting Provider Last Dose Status cholecalciferol (Vitamin D-3) 50 mcg (2,000 unit) capsule [id number] Yes Take 1 capsule (50 mcg) by mouth once daily. Historical Provider, Taking Active citalopram (CeleXA) 10 mg tablet [id number] Yes Take 1 tablet (10 mg) by mouth once daily. Historical Provider, Taking Active fluticasone (Flonase) 50 mcg/actuation nasal spray [id number] Yes 1 spray once daily as needed. Historical Provider, Taking Active simvastatin (Zocor) 40 mg tablet [id number] Yes Take 1 tablet (40 mg) by mouth once daily. Historical Provider, Taking Active sulfamethoxazole-trimethoprim (Bactrim DS) 800-160 mg tablet [id number] Yes Take 1 tablet by mouth 2 times a day for 7 days. Meena Schrader MD Taking Active No family history on file. Past Medical History: Diagnosis Date Arthritis Cholelithiasis Depression Hyperlipidemia Irregular heart beat Snoring Varicose vein of leg Vertigo Wears glasses Past Surgical History: Procedure Laterality Date CHOLECYSTECTOMY COLONOSCOPY DILATION AND CURETTAGE OF UTERUS TYMPANOPLASTY VARICOSE VEIN SURGERY documented in this encounter [facility] Work Phone: 03-23-2024 Hospital Discharge instructions Maryana Watson RN - 03/23/2024 11:39 AM EDT Melanoma Surgery Discharge Instructions Diet No diet restrictions Pain control For baseline pain control: Tylenol (acetaminophen) 1,000 mg every 8 hours for one week For mild pain: ibuprofen 600 mg every 8 hours with food as needed For moderate to severe pain: Tramadol as prescribed Activity No specific lifting or activity restrictions In general, listen to your body and do not overly stress your surgical sites Incisions Your leg is wrapped in gauze and an rosmery wrap. Keep this on for 48 hours. Then you may shower and leave the wound open, or dress with antibiotic ointment and gauze. Please call Radha with any questions or concerns. Your incisions are covered with skin glue. This is a sterile dressing placed in the operating room. Do not pick or peel it off. This will fall off in 2-3 weeks. No dressing changes or wound care is needed. Do not use any ointments or cleaning agents. You have multiple layers of sutures under the skin that will dissolve. If you have sutures through the skin they will be removed at your postoperative appointment in 3 weeks. You may shower the day after surgery. Let soap and water wash over the incision and pat it dry. No going underwater (bath, pool, angeles, ocean, etc.) for 2 weeks. If you notice any of the following, please call Radha Dash ([phone]) or Dr. Schrader's office ([phone]). Swelling under the incision like a golf ball or larger. Redness of the skin that is spreading away from the incision. Drainage from the incision. Fevers, chills, or any other concerning symptoms. Follow-up Call Amada Potts at [phone] to arrange a postop visit in 3 weeks If you have sutures through your skin, these should be removed at [address] Schrader will discuss your pathology and Tumor Board recommendations at your postop visit. You may see your pathology online prior the visit. Write down any questions you have and bring them to your postop visit. General Anesthesia Discharge Instructions About this topic You may need general anesthesia if you need to be asleep during a procedure. Your doctor will use drugs to block the signals that go from your nerves to your brain. Doctors give general anesthesia during a surgery or procedure to: Allow you to sleep Help your body be still Relax your muscles Help you to relax and be pain free Keep you from remembering the surgery Let the doctor manage your airway, breathing, and blood flow The doctor or nurse airbrush artist gives general anesthesia by a shot into your vein. Sometimes, you may breathe in a gas through a mask placed over your face. What care is needed at home? Ask your doctor what you need to do when you go home. Make sure you ask questions if you do not understand what the doctor says. Your doctor may give you drugs to prevent or treat an upset stomach from the anesthetic. Take them as ordered. If your throat is sore, suck on ice chips or popsicles to ease throat pain. Put 2 to 3 pillows under your head and back when you lie down to help you breathe easier. For the first 24 to 48 hours: Do not operate heavy or dangerous machinery. Do not make major decisions or sign important papers. You may not be able to think clearly. Avoid beer, wine, or mixed drinks. You are at a higher risk of falling for at least 24 hours after general anesthesia. Take extra care when you get up. Do not change positions quickly. Do not garcia when you need to go to the bathroom or to answer the phone. Ask for help if you feel unsteady when you try to walk. Wear shoes with non-slip soles and low heels. What follow-up care is needed? Your doctor may ask you to come back to the office to check on your progress. Be sure to keep these visits. If you have stitches that do not dissolve or pati, you will need to have them removed. Your doctor will want to do this in 1 to 2 weeks. If the doctor used skin glue, the glue will fall off on its own. What drugs may be needed? The doctor may order drugs to: Help with pain Treat an upset stomach or throwing up Will physical activity be limited? You will not be allowed to drive right away after the procedure. Ask a family member or a friend to drive you home. Avoid trying to get out of bed without help until you are sure of your balance. You may have to limit your activity. Talk to your doctor about if you need to limit how much you lift or limit exercise after your procedure. What changes to diet are needed? Start with a light diet when you are fully awake. This includes things that are easy to swallow like soups, pudding, jello, toast, and eggs. Slowly progress to your normal diet. What problems could happen? Low blood pressure Breathing problems Upset stomach or throwing up Dizziness Blood clots Infection When do I need to call the doctor? Trouble breathing Upset stomach or throwing up more than 3 times in the next 2 days Dizziness Teach Back: Helping You Understand The Teach Back Method helps you understand the information we are giving you. After you talk with the staff, tell them in your own words what you learned. This helps to make sure the staff has described each thing clearly. It also helps to explain things that may have been confusing. Before going home, make sure you can do these: I can tell you about my procedure. I can tell you if I need to follow up with my doctor. I can tell you what is good for me to eat and drink the next day. I can tell you what I would do if I have trouble breathing, an upset stomach, or dizziness. Where can I learn more? [employer] https://www.nigms.nih.gov/educat ion/pages/factsheet_Anesthesia.a spx NHS Choices http://www.nhs.uk/conditions/Marcella esthetic-general/Pages/Definitio n.aspx Last Reviewed Date 2019-11-25 documented in this encounter [facility] Work Phone: 03-23-2024 Note Formatting of this n ote is different from the original. Excision Lesion Skin Lower Extremity (L), [place] Lymph Node Biopsy Operative Note Date: 03/23/2024 OR Location: [facility] Name: Mei Jo, : 1955, Age: 68 y.o., , Sex: female Diagnosis Pre-op Diagnosis * Malignant melanoma of lower leg, left (Multi) [C43.72] Post-op Diagnosis * Malignant melanoma of lower leg, left (Multi) [C43.72] Procedures Excision Lesion Skin Lower Extremity 96622 - MD EXCISION MALIGNANT LESION TRUNK/ARM/LEG > 4.0 CM [place] Lymph Node Biopsy [id number] - MD BX/EXC LYMPH NODE OPEN SUPERFICIAL Double VY Advancement flap closure Surgeons * Meena Schrader - Primary Resident/Fellow/Other Electronic Service Technician: Surgeons and Role: * No surgeons found with a matching role * Procedure Summary Anesthesia: General ASA: II Anesthesia Staff: Anesthesiologist: Luis Carlos Cloud MD COMPUTER PROGRAMMING SUPERVISOR: Gaetano Chavez APRN-COMPUTER PROGRAMMING SUPERVISOR Estimated Blood Loss: 5mL Intra-op Medications: Administrations occurring from 0930 to 1130 on 03/23/24: Medication Name Total Dose sodium chloride 0.9 % irrigation solution 1,000 mL BUPivacaine HCl (Marcaine) 0.5 % (5 mg/mL) 17 mL, lidocaine (Xylocaine) 17 mL syringe 16 mL ceFAZolin (Ancef) 2 g in dextrose (iso) IV 100 mL 2 g Anesthesia Record Intraprocedure I/O Totals Intake LR bolus 500.00 mL Total Intake 500 mL Specimen: ID Type Source Tests Collected by Time 1 : SENTINEL NODE #1 COUNT- 732 Tissue SENTINEL LYMPH NODE MELANOMA DERMPATH LAB- DERMATOPATHOLOGY Meena Schrader MD 03/23/2024 1101 3 : WIDE LOCAL EXCISION 3X5 CM, SHORT SUPERIOR 12:00, LONG POSTERIOR 3:00 Tissue SKIN EXCISION DERMPATH LAB- DERMATOPATHOLOGY Meena Schrader MD 03/23/2024 1110 Staff: Chrome Tanning Drum Operator: Marla Peña Person: Susana INDICATIONS FOR SURGERY Referring provider: Roseann Mari Diagnosis: melanoma Location: left leg Thickness: at least 0.6 mm DETAILS OF PROCEDURE Wide Local Excision for Primary Cutaneous Melanoma Operation performed with curative intent Yes Original Breslow thickness of the lesion 0.6 mm (to the tenth of a millimeter) Clinical margin width 1 cm Depth of excision Full-thickness skin/subcutaneous tissue down to fascia (melanoma) Final dimensions of excision: 3.5cm naknek Specimen marking stitches: Short stitch superior at 12:00, long stitch posterior at 3:00 Excision closure: 4-0 Prolene, antibiotic ointment, gauze and Rosmery wrap Location of sentinel nodes: Left groin Number of sentinel lymph nodes: 1 The patient arrived at [facility] [place] for the aforementioned procedure. Consent was obtained, history and physical performed, and questions were answered. The patient was moved into the operating room and induced under anesthesia. A timeout was performed prior to surgery. For the wide local excision, the surgical site was prepped and draped in the usual sterile fashion. A margin was drawn about the lesion and this was extended into a 3:1 elliptical incision along natural body lines to facilitate a tension-free closure. This entire specimen was marked out to be 3.5 x 10 cm. Local anesthetic was injected and an incision was made along this ellipse. First I elected to excise the cervical around the tumor that was 3.5 cm in diameter. It was excised down to the muscular fascia and marked as above. There was no way the skin was closed in the traditional linear fashion and so I elected to perform double VY advancement flaps. The superior and inferior triangular flaps were mobilized circumferentially and pulled together and were able to meet. I raised skin flap circumferentially to facilitate closure. The 2 skin flaps were sutured together using 4-0 Prolene interrupted sutures. Vertical mattress 4-0 Prolene were used to approximate the corners of the incision. Then the entire incision was closed with a running 4-0 Prolene. This was done without undue tension and came together nicely at the end of the procedure. For the sentinel lymph node biopsy, the lymph node basin was prepped and draped in the usual sterile fashion after verifying radiotracer presence in this basin with the neoprobe. A 3 cm incision was made over the radioactivity and dissection was carried out with electrocautery to identify the sentinel node. The node/nodes was/were removed using clips and suture as needed to control blood vessels and lymphatics and sent for permanent pathology. The wound was then irrigated and hemostasis achieved. This was closed in a multilayer fashion using a deep 2-0 Vicryl [id number], interrupted deep 3-0 Vicryl, and a running subcuticular 4-0 Monocryl. The skin was dressed with Dermabond. The patient was awoken and returned to the PACU in anticipation of discharge home. I was present scrubbed and directed all operative decision-making. [facility] Work Phone: 03-23-2024 Miscellaneous Notes Excision Lesion Skin Lower Extremity (L), [place] Lymph Node Biopsy Operative Note Date: 03/23/2024 OR Location: [facility] Name: Mei Jo, : 1955, Age: 68 y.o., , Sex: female Diagnosis Pre-op Diagnosis * Malignant melanoma of lower leg, left (Multi) [C43.72] Post-op Diagnosis * Malignant melanoma of lower leg, left (Multi) [C43.72] Procedures Excision Lesion Skin Lower Extremity 25531 - MD EXCISION MALIGNANT LESION TRUNK/ARM/LEG > 4.0 CM [place] Lymph Node Biopsy [id number] - MD BX/EXC LYMPH NODE OPEN SUPERFICIAL Double VY Advancement flap closure Surgeons * Meena Schrader - Primary Resident/Fellow/Other Electronic Service Technician: Surgeons and Role: * No surgeons found with a matching role * Procedure Summary Anesthesia: General ASA: II Anesthesia Staff: Anesthesiologist: Luis Carlos Cloud MD COMPUTER PROGRAMMING SUPERVISOR: Gaetano Chavez APRN-FELIBERTO Estimated Blood Loss: 5mL Intra-op Medications: Administrations occurring from 0930 to 1130 on 03/23/24: Medication Name Total Dose sodium chloride 0.9 % irrigation solution 1,000 mL BUPivacaine HCl (Marcaine) 0.5 % (5 mg/mL) 17 mL, lidocaine (Xylocaine) 17 mL syringe 16 mL ceFAZolin (Ancef) 2 g in dextrose (iso) IV 100 mL 2 g Anesthesia Record Intraprocedure I/O Totals Intake LR bolus 500.00 mL Total Intake 500 mL Specimen: ID Type Source Tests Collected by Time 1 : SENTINEL NODE #1 COUNT- 732 Tissue SENTINEL LYMPH NODE MELANOMA DERMPATH LAB- DERMATOPATHOLOGY Meena Schrader MD 03/23/2024 1101 3 : WIDE LOCAL EXCISION 3X5 CM, SHORT SUPERIOR 12:00, LONG POSTERIOR 3:00 Tissue SKIN EXCISION DERMPATH LAB- DERMATOPATHOLOGY Meena Schrader MD 03/23/2024 1110 Staff: Chrome Tanning Drum Operator: Marla ePña Person: Susana INDICATIONS FOR SURGERY Referring provider: Roseann Mari Diagnosis: melanoma Location: left leg Thickness: at least 0.6 mm DETAILS OF PROCEDURE Wide Local Excision for Primary Cutaneous Melanoma Operation performed with curative intent Yes Original Breslow thickness of the lesion 0.6 mm (to the tenth of a millimeter) Clinical margin width 1 cm Depth of excision Full-thickness skin/subcutaneous tissue down to fascia (melanoma) Final dimensions of excision: 3.5cm naknek Specimen marking stitches: Short stitch superior at 12:00, long stitch posterior at 3:00 Excision closure: 4-0 Prolene, antibiotic ointment, gauze and Rosmery wrap Location of sentinel nodes: Left groin Number of sentinel lymph nodes: 1 The patient arrived at [facility] [place] for the aforementioned procedure. Consent was obtained, history and physical performed, and questions were answered. The patient was moved into the operating room and induced under anesthesia. A timeout was performed prior to surgery. For the wide local excision, the surgical site was prepped and draped in the usual sterile fashion. A margin was drawn about the lesion and this was extended into a 3:1 elliptical incision along natural body lines to facilitate a tension-free closure. This entire specimen was marked out to be 3.5 x 10 cm. Local anesthetic was injected and an incision was made along this ellipse. First I elected to excise the cervical around the tumor that was 3.5 cm in diameter. It was excised down to the muscular fascia and marked as above. There was no way the skin was closed in the traditional linear fashion and so I elected to perform double VY advancement flaps. The superior and inferior triangular flaps were mobilized circumferentially and pulled together and were able to meet. I raised skin flap circumferentially to facilitate closure. The 2 skin flaps were sutured together using 4-0 Prolene interrupted sutures. Vertical mattress 4-0 Prolene were used to approximate the corners of the incision. Then the entire incision was closed with a running 4-0 Prolene. This was done without undue tension and came together nicely at the end of the procedure. For the sentinel lymph node biopsy, the lymph node basin was prepped and draped in the usual sterile fashion after verifying radiotracer presence in this basin with the neoprobe. A 3 cm incision was made over the radioactivity and dissection was carried out with electrocautery to identify the sentinel node. The node/nodes was/were removed using clips and suture as needed to control blood vessels and lymphatics and sent for permanent pathology. The wound was then irrigated and hemostasis achieved. This was closed in a multilayer fashion using a deep 2-0 Vicryl [id number], interrupted deep 3-0 Vicryl, and a running subcuticular 4-0 Monocryl. The skin was dressed with Dermabond. The patient was awoken and returned to the PACU in anticipation of discharge home. I was present scrubbed and directed all operative decision-making. Reviewed pre-op instructions with patient including NPO after midnight, must have local delivery driver, hospital and check in location, and day of surgery routine. documented in this encounter [facility] Work Phone: 03-23-2024 Attending History and physical note H&P reviewed. The patient was examined and there are no changes to the H&P. Source Note - Meena Schrader MD - 03/17/2024 11:30 AM EDT Assessment and Plan: Mei Jo is a 68 y.o. female referred by Roseann Mari with a newly diagnosed melanoma of the left leg that is at least 0.6 mm thick, moderately transected deep and peripheral margins, possibly pT1b. After discussing the risks and benefits of wide local excision with sentinel lymph node biopsy the patient understands and would like to proceed. We will look for OR time at [facility] in the coming weeks. I believe this will close primarily with a 1 cm margin primarily or with VY plasty. I spent 60 minutes in the professional and overall care of this patient. Meena Schrader MD research coordinator Division of Surgical Oncology [phone] [email or web address] History Of Present Illness Referring provider: Roseann Mari Diagnosis: melanoma Location: left leg Thickness: at least 0.6 mm Margins: positive Subtype: ss High-risk features: none All other systems have been reviewed and are negative except as noted in the HPI. I personally reviewed all necessary laboratory results, pathology reports, and radiologic images for this patient. Past Medical History She has no past medical history on file. Surgical History She has no past surgical history on file. Social History She has no history on file for tobacco use, alcohol use, and drug use. Family History No family history on file. Allergies Patient has no allergy information on record. Last Recorded Vitals There were no vitals taken for this visit. Physical Exam Virtual visit Relevant Results FINAL DIAGNOSIS 3 SLIDES, [facility] #[id number] (BX: 02/24/2024) SKIN, LEFT LEG, SHAVE BIOPSY: INVASIVE MALIGNANT MELANOMA, EXTENDING TO A DEPTH OF AT LEAST 0.6 MM (SEE COMMENT): Comment: The specimen is received in two portions and submitted in two blocks. There is a severely atypical, broad, poorly nested and poorly circumscribed compound melanocytic proliferation. The junctional component is composed of enlarged nests of medium-sized melanocytes with increased dillard cytoplasm that are poorly nested along the dermal-epidermal junction with runs of confluence and pagetoid scatter. The dermal component has similar-appearing nested and single unit melanocytes. There is a moderately brisk lymphocytic infiltrate. The outside deeper additional step sections were reviewed on block 1. The invasive component is moderately transected at the deep and a peripheral margin, and the in situ component extends to the deep (via adenxa) and the peripheral margins throughout the blocks. There is mild to moderate underlying solar elastosis. See synoptic summary below. Electronically signed out by LONDON COULTER MD at 1751 Case Summary Report MELANOMA OF THE SKIN: Biopsy 8th Edition - Protocol posted: 10/25/2021MELANOMA OF THE SKIN: BIOPSY - A SPECIMEN Procedure Biopsy, shave Specimen Laterality Left TUMOR Tumor Site Skin of lower limb and hip: Left leg Histologic Type Superficial spreading melanoma (low-cumulative sun damage (CSD) melanoma) Maximum Tumor (Breslow) Thickness (Millimeters) At least: 0.6 mm Moderately transected on the deep and a peripheral margin Ulceration Not identified Anatomic (Ruiz) Level IV (melanoma invades reticular dermis) Mitotic Rate None identified Microsatellite(s) Cannot be determined: Shave specimen Lymphovascular Invasion Not identified Neurotropism Not identified Tumor-Infiltrating Lymphocytes Present, brisk Tumor Regression Not identified MARGINS Margin Status for Invasive Melanoma Invasive melanoma present at margin Margin(s) Involved by Invasive Melanoma Peripheral Deep: Moderately transected Margin Status for Melanoma in situ Melanoma in situ present at margin Margin(s) Involved by Melanoma in Situ Peripheral Deep: Via adnexal extension PATHOLOGIC STAGE CLASSIFICATION (pTNM, AJCC 8th Edition) pT Category pT1a Comment(s) Tumor block is CSPL original case# [id number] Blocks 1 and 2. [facility] Work Phone: 03-23-2024 History and physical note H&P reviewed. The patient was examined and there are no changes to the H&P. Source Note - Meena Schrader MD - 03/17/2024 11:30 AM EDT Assessment and Plan: Mei Jo is a 68 y.o. female referred by Roseann Mari with a newly diagnosed melanoma of the left leg that is at least 0.6 mm thick, moderately transected deep and peripheral margins, possibly pT1b. After discussing the risks and benefits of wide local excision with sentinel lymph node biopsy the patient understands and would like to proceed. We will look for OR time at [facility] in the coming weeks. I believe this will close primarily with a 1 cm margin primarily or with VY plasty. I spent 60 minutes in the professional and overall care of this patient. Meena Schrader MD research coordinator Division of Surgical Oncology [phone] [email or web address] History Of Present Illness Referring provider: Roseann Mari Diagnosis: melanoma Location: left leg Thickness: at least 0.6 mm Margins: positive Subtype: ss High-risk features: none All other systems have been reviewed and are negative except as noted in the HPI. I personally reviewed all necessary laboratory results, pathology reports, and radiologic images for this patient. Past Medical History She has no past medical history on file. Surgical History She has no past surgical history on file. Social History She has no history on file for tobacco use, alcohol use, and drug use. Family History No family history on file. Allergies Patient has no allergy information on record. Last Recorded Vitals There were no vitals taken for this visit. Physical Exam Virtual visit Relevant Results FINAL DIAGNOSIS 3 SLIDES, [facility] #[id number] (BX: 02/24/2024) SKIN, LEFT LEG, SHAVE BIOPSY: INVASIVE MALIGNANT MELANOMA, EXTENDING TO A DEPTH OF AT LEAST 0.6 MM (SEE COMMENT): Comment: The specimen is received in two portions and submitted in two blocks. There is a severely atypical, broad, poorly nested and poorly circumscribed compound melanocytic proliferation. The junctional component is composed of enlarged nests of medium-sized melanocytes with increased dillard cytoplasm that are poorly nested along the dermal-epidermal junction with runs of confluence and pagetoid scatter. The dermal component has similar-appearing nested and single unit melanocytes. There is a moderately brisk lymphocytic infiltrate. The outside deeper additional step sections were reviewed on block 1. The invasive component is moderately transected at the deep and a peripheral margin, and the in situ component extends to the deep (via adenxa) and the peripheral margins throughout the blocks. There is mild to moderate underlying solar elastosis. See synoptic summary below. Electronically signed out by LONDON COULTER MD at 1751 Case Summary Report MELANOMA OF THE SKIN: Biopsy 8th Edition - Protocol posted: 10/25/2021MELANOMA OF THE SKIN: BIOPSY - A SPECIMEN Procedure Biopsy, shave Specimen Laterality Left TUMOR Tumor Site Skin of lower limb and hip: Left leg Histologic Type Superficial spreading melanoma (low-cumulative sun damage (CSD) melanoma) Maximum Tumor (Breslow) Thickness (Millimeters) At least: 0.6 mm Moderately transected on the deep and a peripheral margin Ulceration Not identified Anatomic (Ruiz) Level IV (melanoma invades reticular dermis) Mitotic Rate None identified Microsatellite(s) Cannot be determined: Shave specimen Lymphovascular Invasion Not identified Neurotropism Not identified Tumor-Infiltrating Lymphocytes Present, brisk Tumor Regression Not identified MARGINS Margin Status for Invasive Melanoma Invasive melanoma present at margin Margin(s) Involved by Invasive Melanoma Peripheral Deep: Moderately transected Margin Status for Melanoma in situ Melanoma in situ present at margin Margin(s) Involved by Melanoma in Situ Peripheral Deep: Via adnexal extension PATHOLOGIC STAGE CLASSIFICATION (pTNM, AJCC 8th Edition) pT Category pT1a Comment(s) Tumor block is CSPL original case# [id number] Blocks 1 and 2. documented in this encounter [facility] Work Phone: 03-18-2024 Note Formatting of this n ote might be different from the original. Reviewed pre-op instructions with patient including NPO after midnight, must have local delivery driver, hospital and check in location, and day of surgery routine. [facility] Work Phone: 03-17-2024 History of Present illness Narrative Assessment and Plan: Mei Jo is a 68 y.o. female referred by Roseann Mari with a newly diagnosed melanoma of the left leg that is at least 0.6 mm thick, moderately transected deep and peripheral margins, possibly pT1b. After discussing the risks and benefits of wide local excision with sentinel lymph node biopsy the patient understands and would like to proceed. We will look for OR time at [place] in the coming weeks. I believe this will close primarily with a 1 cm margin primarily or with VY plasty. I spent 60 minutes in the professional and overall care of this patient. Meena Schrader MD research coordinator Division of Surgical Oncology [phone] [email or web address] History Of Present Illness Referring provider: Roseann Mari Diagnosis: melanoma Location: left leg Thickness: at least 0.6 mm Margins: positive Subtype: ss High-risk features: none All other systems have been reviewed and are negative except as noted in the HPI. I personally reviewed all necessary laboratory results, pathology reports, and radiologic images for this patient. Past Medical History She has no past medical history on file. Surgical History She has no past surgical history on file. Social History She has no history on file for tobacco use, alcohol use, and drug use. Family History No family history on file. Allergies Patient has no allergy information on record. Last Recorded Vitals There were no vitals taken for this visit. Physical Exam Virtual visit Relevant Results FINAL DIAGNOSIS 3 SLIDES, [facility] #[id number] (BX: 02/24/2024) SKIN, LEFT LEG, SHAVE BIOPSY: INVASIVE MALIGNANT MELANOMA, EXTENDING TO A DEPTH OF AT LEAST 0.6 MM (SEE COMMENT): Comment: The specimen is received in two portions and submitted in two blocks. There is a severely atypical, broad, poorly nested and poorly circumscribed compound melanocytic proliferation. The junctional component is composed of enlarged nests of medium-sized melanocytes with increased dillard cytoplasm that are poorly nested along the dermal-epidermal junction with runs of confluence and pagetoid scatter. The dermal component has similar-appearing nested and single unit melanocytes. There is a moderately brisk lymphocytic infiltrate. The outside deeper additional step sections were reviewed on block 1. The invasive component is moderately transected at the deep and a peripheral margin, and the in situ component extends to the deep (via adenxa) and the peripheral margins throughout the blocks. There is mild to moderate underlying solar elastosis. See synoptic summary below. Electronically signed out by LONDON COULTER MD at 1751 Case Summary Report MELANOMA OF THE SKIN: Biopsy 8th Edition - Protocol posted: 10/25/2021MELANOMA OF THE SKIN: BIOPSY - A SPECIMEN Procedure Biopsy, shave Specimen Laterality Left TUMOR Tumor Site Skin of lower limb and hip: Left leg Histologic Type Superficial spreading melanoma (low-cumulative sun damage (CSD) melanoma) Maximum Tumor (Breslow) Thickness (Millimeters) At least: 0.6 mm Moderately transected on the deep and a peripheral margin Ulceration Not identified Anatomic (Ruiz) Level IV (melanoma invades reticular dermis) Mitotic Rate None identified Microsatellite(s) Cannot be determined: Shave specimen Lymphovascular Invasion Not identified Neurotropism Not identified Tumor-Infiltrating Lymphocytes Present, brisk Tumor Regression Not identified MARGINS Margin Status for Invasive Melanoma Invasive melanoma present at margin Margin(s) Involved by Invasive Melanoma Peripheral Deep: Moderately transected Margin Status for Melanoma in situ Melanoma in situ present at margin Margin(s) Involved by Melanoma in Situ Peripheral Deep: Via adnexal extension PATHOLOGIC STAGE CLASSIFICATION (pTNM, AJCC 8th Edition) pT Category pT1a Comment(s) Tumor block is CSPL original case# [id number] Blocks 1 and 2. documented in this encounter [facility] Work Phone: 11-18-2023 Note Patient here for 1 y ear follow up hyperlipidemia, TRAN, and syncope. Had routine labs w/ lipid in Aug 2023. Still taking simvastatin. She denies chest pain, SOB, and palpitations. BP when she saw PCP in Aug 2023 was 130/76 per note. Review of Systems Neurological: Positive for light-headedness. All other systems reviewed and are negative. [facility] 11-18-2023 Note MD Cardiology Clinic Note Reason for visit: Follow up HPI: Mei Jo is a 68 y.o. year old with past medical history of hyperlipidemia and syncope reportedly related to hypoglycemia. She has previously seen Dr. Garcia (EP), and monitoring was recommended with possible event monitor if she developed symptoms. She presents today for follow up. Patient adamantly denies any cardiac complaints or concerns. Patient denies any chest pain or shortness of breath. Patient denies any lower extremity edema, orthopnea, or proximal nocturnal dyspnea. No near-syncope or syncope. No dizziness or lightheadedness. Previous cardiac workup including stress and echo were unremarkable. PMH: Past Medical History: Diagnosis Date Hyperlipidemia Second degree AV block Syncope PSH: Past Surgical History: Procedure Laterality Date CHOLECYSTECTOMY SH: Social Determinants of Health Tobacco Use: Low Risk (11/20/2022) Patient History Smoking Tobacco Use: Never Smokeless Tobacco Use: Never Passive Exposure: Not on file Alcohol Use: Not on file Financial Resource Strain: Not on file Food Insecurity: Not on file Transportation Needs: Not on file Physical Activity: Not on file Stress: Not on file Social Connections: Not on file Intimate Partner Violence: Unknown (09/26/2023) MD Safety & Environment Fear of Current or Ex-Partner: Not on file Emotionally Abused: Not on file Physically Abused: Not on file Sexually Abused: Not on file Physically or Sexually Abused: Not on file Depression: Not on file Housing Stability: Not on file Utilities: Not on file Allergies: No Known Allergies Weight: No results found for: PTWEIGHT Meds: Current Outpatient Medications on File Prior to Visit Medication Sig Dispense Refill citalopram (CeleXA) 20 mg tablet Take 20 mg by mouth in the morning. simvastatin (Zocor) 40 mg tablet Take 40 mg by mouth at bedtime. meloxicam (Mobic) 15 mg tablet Take 15 mg by mouth if needed. No current facility-administered medications on file prior to visit. Physical Exam: Constitutional General Appearance: well-nourished, well-developed, appears stated age Level of Distress: comfortable Psychiatric Mental Status: alert, normal affect Orientation: oriented to time, place, and person Insight: good judgement Eyes Lids and Conjunctivae: non-injected, no xanthelasma ENMT Ears: no lesions on external ear Nose: no lesions on external nose Oropharynx: no cyanosis, no pallor Neck Neck: supple, trachea midline Carotid Arteries: bilateral normal upstroke, no bruits Jugular Veins: normal jugular venous pressure Thyroid: not enlarged Lungs Respiratory Effort: unlabored Chest Exam: normal curvature, no thoracic deformity Auscultation: clear, no wheezing, no rales, no rhonchi Cardiovascular Rate And Rhythm: regular Heart Sounds: normal S1, normal s2, no gallop Systolic Murmur: not heard Diastolic Murmur: not heard Extremities: no cyanosis, no edema, no peripheral signs of emboli Peripheral Pulses Radial Pulse: normal Abdomen Inspection and Palpation: soft, non distended, no bruit, non tender Musculoskeletal Inspection: no joint swelling Neurologic Gait: normal gait Skin Inspection and Palpation: warm and dry Nails: no clubbing Labs: @LABRESULTS@ No results found for: CHOLESTEROL TOTAL , HDL , LDL CALC , LDL DIRECT , TRIGLYCERIDES , TSH , T3 TOTAL , T4 TOTAL , THYROID PEROXIDASE AB , BNP EK08/07/2022 06/07/22 per her PCP Echo: 08/09/2021 Diagnostic Imaging: No images are attached to the encounter. Assessment and Plan: TRAN (dyspnea on exertion) - This is spontaneously resolved as she is in normal sinus rhythm with no conduction blocks today stress test ruled out ischemia. Appears this was related to bradycardia. Second degree atrioventricular block - Her PCP ECG review showed Sr with blocked PAC. If she has symptoms, consider 30d event monitor as per EP HTN: Patient states that her Bp is well controlled at home Instructed to maintain Bp log and contact Cardiology if BP is above discussed target range HLD: Continue simvastatin Optimize medical management Aggressive risk factor modification Plan of care discussed with patient. All questions were answered. Patient voices understanding and is agreeable with current plan. Patient was educated on red flag symptoms. Strict return precautions were provided. Patient verbalizes understanding Follow-up in cardiology clinic in 6 months, or sooner as needed Jacinta Morales MD [facility] 07-15-2023 Telephone encounter Note Pt scheduled [facility] 07-15-2023 Miscellaneous Notes Pt scheduled Please advise a 30 days supply was sent to her pharmacy and she is due for an appt. documented in this encounter [facility] 07-12-2023 Telephone encounter Note Please advise a 30 days supply was sent to her pharmacy and she is due for an appt. [facility] 08-15-2022 Note CARDIAC STRESS TEST Requesting Physician: RAND Kennedy Procedure Date:08/15/2022 PERFORMING PHYSICIAN: Jacinta Morales M.D. REASON FOR TEST: Dyspnea on exertion, history of intermittent second degree AV block. STRESS TEST TYPE: Treadmill nuclear myocardial perfusion scan. RESTING EKG: Normal sinus rhythm with T-wave inversion in AVL. PROTOCOL: Vignesh. RESTING HEART RATE: 75 PEAK HEART RATE: 142 PEAK MAXIMAL HEART RATE PERCENTAGE: 92 RESTING BLOOD PRESSURE: 102/104 (Please verify) PEAK BLOOD PRESSURE: 180/86 EXERCISE TIME: 4 minutes and 9 seconds STAGE REACHED: 2 MAX METS: 5.50 SWEENEY TREADMILL SCORE: +2.35 REASON FOR TERMINATION: Fatigue, dyspnea. HEART RATE RECOVERY: Normal. CHRONOTROPIC RESPONSE INDEX: 0.85 FUNCTIONAL CAPACITY: Fair. BLOOD PRESSURE RESPONSE: ST CHANGES: No definitive ST changes consistent with ischemia noted. SYMPTOMS: None other than fatigue or dyspnea. ARRHYTHMIAS: Isolated PVCs. CONCLUSION: 1. The patient exercised for 4 minutes and 9 seconds. He reached stage 2 with a maximum METS of 5.50. He has fair functional capacity. 2. Sweeney Treadmill Score is +2.35. This portents medium risk of angiographic coronary artery disease with a 95% survival at [address] No definitive ST changes consistent with ischemia noted. 4. Nuclear imaging will be interpreted and reported in separate report. Please refer to that report for further information. 5. Clinical correlation recommended. [facility] 08-31-2021 Note SATISFACTORY FOR EVALUATION Nancy rubin [facility] Manager Comment on above: Order Comment: [facility] Testing performed at: [facility], [facility], [facility], [place], [address], Automatic Pattern Edger: Donato Wall MD [facility] Collection Date/Time: [facility] Results Received Date/Time: [facility] Reported Date/Time: Performed By: #### 1 [id number] #### [facility] Default [address] [place] [address] Evaluation note Diagnosis Major depressive disorder with single episode, in full remission (CMS/HCC) documented in this encounter [facility] HealthcareEvaluation note* Diagnosis Wound infection after surgery- Primary documented in this encounter [facility] Work Phone: Evaluation note* Diagnosis Seborrheic keratosis- Primary Lentigines Herpesviral vesicular dermatitis Dermatitis herpetiformis Actinic keratosis History of malignant melanoma of skin Personal history of malignant melanoma of skin documented in this encounter [facility] HealthcareEvaluation note* Diagnosis Malignant melanoma of lower leg, left (Multi)- Primary Malignant melanoma of lower leg, left (Multi)- Primary documented in this encounter [facility] Work Phone: Evaluation note* Diagnosis Malignant melanoma of lower leg, left (Multi)- Primary Malignant melanoma of lower leg, left (Multi) Hyperlipidemia Other and unspecified hyperlipidemia AV block, 2nd degree Other second degree atrioventricular block documented in this encounter [facility] Work Phone: Evaluation note* Diagnosis Malignant melanoma of lower leg, left (Multi) documented in this encounter [facility] Work Phone: Evaluation note* Diagnosis Cellulitis of left lower extremity- Primary documented in this encounter [facility] Work Phone: Evaluation note* Diagnosis Malignant melanoma of lower leg, left (Multi)- Primary documented in this encounter [facility] Work Phone: Evaluation note* Diagnosis Routine general medical examination at health care facility- Primary Routine general medical examination at a health care facility ACP (advance care planning) Other specified counseling Mixed hyperlipidemia (CMS/HCC) Mixed hyperlipidemia Age-related osteoporosis without current pathological fracture (CMS/HCC) Estrogen deficiency Other ovarian failure Second degree atrioventricular block Other second degree atrioventricular block Major depressive disorder with single episode, in full remission (CMS/HCC) Breast screening Breast screening, unspecified Third degree heart block (CMS/HCC) Atrioventricular block, complete Artificial cardiac pacemaker Cardiac pacemaker in situ [facility] Diagnosis Seborrheic keratosis- Primary Lentigines Actinic keratosis History of malignant melanoma of skin Personal history of malignant melanoma of skin [facility] N[facility]* Auth/Cert Specialty Diagnoses / Procedures Referred By Lacey austin Referred To Contact Diagnoses Malignant melanoma of lower leg, left (Multi) Malignant melanoma of lower leg, left (Multi) [C43.72] Procedures MD EXCISION MALIGNANT LESION TRUNK/ARM/LEG > 4.0 CM MD BX/EXC LYMPH NODE OPEN SUPERFICIAL Excision Lesion Skin Lower Extremity [place] [address] [address] [facility] [place] [address] [address] Referral ID Status Reason Start Date Expiration Date Visits Re quested Visits Authorized [id number] 1 1 [facility] Work Phone: Summary Purpose Family History No Family History Records FoundNo Family History Records FoundNo Family History Records FoundNo Family History Records FoundNo Family History Records FoundNo Family History Records FoundNo Family History Records FoundNo Family History Records FoundNo Family History Records FoundNo Family History Records FoundNo Family History Records Found Advance Directives No Advanced Directives Records Found Date Activated Date Inactivated Comments 03/23/2024 6:46 AM Question Answer Comments Plan of Care: Code Status Discussion Not Compl eted Decision Maker: Provider Rationale: Patient condition does not warra nt discussion Date Activated Date Inactivated Comments 03/23/2024 6:46 AM Question Answer Comments Plan of Care: Code Status Discussion Not Compl eted Decision Maker: Provider Rationale: Patient condition does not warra nt discussion Reason for Referral Specialty Diagnoses / Procedures Referred By Lacey austin Referred To Contact Radiology Diagnoses Malignant melanoma of lower leg, left (Multi) Procedures [place] [id number] [address] Department of Surgery-[place] [id number] Referral ID Status Reason Start Date Expiration Date Visits Requested Visits Authorized [id number] Authorized Perform Procedure 03/17/2024 03/17/2025 2 2 Additional Source Comments INFORMATION SOURCE (unrecogn ized section and content) DATE CREATED AUTHOR 02/20/2019 [facility] DATE CREATED AUTHOR AUTHOR'S ORGANIZ ATION 03/11/2019 [facility] DATE CREATED AUTHOR AUTHOR'S ORGANIZ ATION 09/06/2021 [facility] Specialist DATE CREATED AUTHOR AUTHOR'S ORGANIZ ATION 09/05/2022 [facility] DATE CREATED AUTHOR AUTHOR'S ORGANIZ ATION 03/11/2024 [facility] DATE CREATED AUTHOR AUTHOR'S ORGANIZ ATION 03/26/2024 [facility] DATE CREATED AUTHOR AUTHOR'S ORGANIZ ATION 05/27/2024 [facility] DATE CREATED AUTHOR AUTHOR'S ORGANIZ ATION 09/05/2024 [facility] d[facility] Specialists EPIC DATE CREATED AUTHOR AUTHOR'S ORGANIZ ATION 09/07/2024 [facility] DATE CREATED AUTHOR AUTHOR'S ORGANIZ ATION 09/14/2024 [facility] DATE CREATED AUTHOR AUTHOR'S ORGANIZ ATION 10/05/2024 [facility] Reason for Visit (unrecogniz ed section and content) Reason Onset Date Comments Med Refill 07/12/2023 Citalopram to cv s in [place] Reason Comments Follow-up Reason Comments Skin Check Reason Comments Medicare Annual Wellness Visit Subsequen t Care Teams (unrecognized sec tion and content) Rod Welder Relationship Specialty Start Date End Date Brijesh Armstrong MD [address] [facility] [address] [place] [address] PCP - ACO Reach 12/27/22 Brijesh Armstrong MD [address] [facility] [address] [place] [address] PCP - General Internal Medicine 12/11/22 Rod Welder Relationship Specialty Start Date End Date Brijesh Armstrong MD [address] [place] [address] PCP - General Internal Medicine 03/04/24 Rod Welder Relationship Specialty Start Date End Date Brijesh Armstrong MD [address] [place] [address] PCP - ACO Reach 12/27/22 Brijesh Armstrong MD [address] [place] [address] PCP - General Internal Medicine 12/11/22 Rod Welder Relationship Specialty Start Date End Date Brijesh Armstrong MD [address] [place] [address] PCP - ACO Reach 12/27/22 Brijesh Armstrong MD [address] [place] [address] PCP - General Internal Medicine 12/11/22 Rod Welder Relationship Specialty Start Date End Date Brijesh Armstrong MD [address] [place] [address] PCP - General Internal Medicine 03/04/24 Rod Welder Relationship Specialty Start Date End Date Brijesh Armstrong MD [address] [place] [address] PCP - General Internal Medicine 03/04/24 Rod Welder Relationship Specialty Start Date End Date Brijesh Armstrong MD [address] [place] [address] PCP - General Internal Medicine 03/04/24 Rod Welder Relationship Specialty Start Date End Date Brijesh Armstrong MD [address] [place] [address] PCP - General Internal Medicine 03/04/24 Rod Welder Relationship Specialty Start Date End Date Brijesh Armstrong MD [address] [place] [address] PCP - General Internal Medicine 03/04/24 Rod Welder Relationship Specialty Start Date End Date Brijesh Armstrong MD [address] [place] [address] PCP - General Internal Medicine 03/04/24 Rod Welder Relationship Specialty Start Date End Date Brijesh Armstrong MD [address] [place] [address] PCP - General Internal Medicine 03/04/24 Rod Welder Relationship Specialty Start Date End Date Brijesh Armstrong MD [address] [place] [address] PCP - ACO Reach 12/27/22 Brijesh Armstrong MD [address] [place] [address] PCP - General Internal Medicine 12/11/22 Rod Welder Relationship Specialty Start Date End Date Brijesh Armstrong MD [address] [place] [address] PCP - ACO Reach 12/27/22 Brijesh Armstrong MD [address] [place] [address] PCP - General Internal Medicine 12/11/22 Scheduled Active and Recently Administ ered Medications (unrecognized section and content) Medication Order 03/21/2024 03/22/2024 03/23/2024 ceFAZolin (Ancef) 2 g in dextrose (iso) IV 100 mL (COMPLETED) 2 g, intravenous, Administer over 30 Minutes, Once, On Sat03/23/24 at 0800, For 1 dose, Intraprocedure, Administer within 60 minutes prior to incision. premix bag, Dosing of this medication varies based on severity of illness. Does this patient have sepsis or concern for sepsis (probable or documented infection plus systemic manifestations of infection)? No, Suspected Indication (Select all that apply): Surgical Prophylaxis, Indications: Surgical Prophylaxis 1036 (Given - Provid er: Gaetano Chavez, [facility]) Continuous Medication Order 03/21/2024 03/22/2024 03/23/2024 lactated Ringer's infusion 50 mL/hr, intravenous, Continuous, Starting on Sat03/23/24 at 0715, Preprocedure 0725 (New Bag - Prov ider: Nory Broderick RN) lactated Ringer's infusion 100 mL/hr, intravenous, Continuous, Starting on Sat03/23/24 at 1215, Recovery (only) 1215 (Due) PRN Medication Order 03/21/2024 03/22/2024 03/23/2024 bacitracin ointment (CANCELED) As needed, Starting on Sat03/23/24 at 1142, Intraprocedure 1142 (Given - Provid er: Meena Schrader MD) BUPivacaine HCl (Marcaine) 0.5 % (5 mg/mL) 17 mL, lidocaine (Xylocaine) 17 mL syringe (CANCELED) As needed, Starting on Sat03/23/24 at 1043, Intraprocedure 1043 (Given - Provid er: Meena Schrader MD) fentaNYL PF (Sublimaze) injection 25 mcg 25 mcg, intravenous, Every 5 min PRN, pain moderate (4-6), first line, Starting on Sat03/23/24 at 1159, Recovery (only), Max total of 200 micrograms regardless of dose., If ordered PRN for pain, nurse is permitted to administer this medication for higher pain scores based on patient preference? Yes HYDROmorphone (Dilaudid) injection 0.5 mg 0.5 mg, intravenous, Every 5 min PRN, pain severe (7-10), first line, Starting on Sat03/23/24 at 1159, Recovery (only), Max total of 4 mg regardless of dose. labetaloL (Normodyne,Trandate) injection 5 mg 5 mg, intravenous, Administer over 1 Minutes, Once as needed, systolic blood pressure greater than 180 mmHg, dystolic blood pressure greater than 100 mmHg and heart rate greater than 60 BPM, Starting on Sat03/23/24 at 1159, For 1 dose, Recovery (only) ondansetron (Zofran) injection 4 mg 4 mg, intravenous, Once as needed, nausea/vomiting, first line, Starting on Sat03/23/24 at 1159, For 1 dose, Recovery (only), When administering via IV Push, administer over 3-5 minutes. promethazine (Phenergan) 6.25 mg in sodium chloride 0.9% 50 mL IV 6.25 mg, intravenous, Administer over 15 Minutes, Once as needed, Nausea/vomiting, second line, Starting on Sat03/23/24 at 1159, For 1 dose, Recovery (only) sodium chloride 0.9 % irrigation solution (CANCELED) As needed, Starting on Sat03/23/24 at 1046, Intraprocedure 1046 (Given - Provid er: Meena Schrader MD) FOR RECORDS PERTAINING TO PATIENTS WHO ARE OR HAVE BEEN ENROLLED IN A CHEMICAL DEPENDENCY/SUBSTANCEABUSE PROGRAM, SOME INFORMATION MAY BE OMITTED. This clinical summary was aggregated from multiple sources. Caution should be exercised in using it in the provision of clinical care. This summary normalizes information from multiple sources, and as a consequence, information in this document may materially change the coding, format and clinical context of patient data. In addition, data may be omitted in some cases. CLINICAL DECISIONS SHOULD BE BASED ON THE PRIMARY CLINICAL RECORDS. [email or web address] provides no warranty or guarantee of the accuracy or completeness of information [id number]
== END 2024-10-20 09:30 | disposition home or self-care (01) ==
LOC: MAMMO 09:29
PROVIDERS: PCP Internal Medicine; Visit Provider Internal Medicine
DX: Z12.31 Encounter for screening mammogram for malignant neoplasm of breast (principal); Z80.8 Family history of malignant neoplasm of other organs or systems
CPT/HCPCS: 77063; 77067

== ENCOUNTER 2024-12-21 20:58 | Outpatient (OUT) | payer MEDICARE, SELFPAY ==
--- OUTSIDE RECORDS SUMMARY | 2024-12-21 21:00 | XMS_ITS | CCD ---
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 Role Phone HOUSE, DR HOOK Primary Care Unavailable West, DR Tello Attending Unavailable West, DR Tello Admitting Unavailable West, DR Tello Consulting Unavailable HOUSE, DR HOOK Primary Care Unavailable West, DR Tello Attending Unavailable West, DR Tello Admitting Unavailable West, DR Tello Consulting Unavailable ZIEBER, DR JOEL Guzman Consulting Unavailable West, DR Tello Attending Unavailable West, DR Tello Admprudence Unavailable West, DR Tello Consulting Unavailable HOUSE, [...] Admitting Unavailable West, DR Tello Consulting Unavailable ZIEBER, DR JOEL Guzman Consulting Unavailable HOUSE, DR HOOK Primary Care Unavailable West, DR Tello Attending Unavailable West, DR Tello Consulting Unavailable West, DR Tello Admitting Unavailable ZIEBER, DR JOEL Guzman Consulting Unavailable CREOLA, DR HOOK Primary Care Unavailable West, DR Tello Attending Unavailable West, DR Tello Consulting Unavailable West, DR Tello Admitting Unavailable SIGIFREDO, DR JOEL Guzman Consulting Unavailable CREOLA, DR HOOK Primary Care Unavailable West, DR Tello Attending Unavailable West, DR Tello Consulting Unavailable West, DR Tello Admitting Unavailable CREOLA, DR HOOK Primary Care Unavailable West, DR Tello Admitting Unavailable West, DR Tello Attending Unavailable West, DR Tello Consulting Unavailable CREOLA, DR HOOK Primary Care Unavailable West, DR Tello Attending Unavailable West, DR Tello Admitting Unavailable West, DR Tello Consulting Unavailable Brijesh Armstrong MD Unavailable Brijesh Armstrong MD Primary Care Provider Brijesh Armstrong MD Primary Care Provider [phone] MEENA SCHRADER Attending Unavailable BRIJESH ARMSTRONG Primary Care Unavailable OZIEL ORDAZ Attending Unavailable BRIJESH ARMSTRONG Primary Care Unavailable MEENA SCHRADER Attending Unavailable BRIJESH ARMSTRONG Primary Care Unavailable MEENA SCHRADER Attending Unavailable BRIJESH ARMSTRONG Primary Care Unavailable MEENA SCHRADER Admitting Unavailable MEENA SCHRADER Attending Unavailable BRIJESH ARMSTRONG Primary Care Unavailable MEENA SCHRADER Referring Unavailable BRIJESH ARMSTRONG Primary Care Unavailable MEENA SCHRADER Referring Unavailable BRIJESH ARMSTRONG B Primary Care Unavailable MEENA SCHRADER Referring Unavailable AIDE BRIJESH B Primary Care Unavailable LUKE GARCIA Referring Unavailable JOSE HOOK Attending Unavailable LUKE GARCIA Admitting Unavailable LUKE GARCIA Referring Unavailable RADHALUKE Olivares Referring Unavailable LUKE GARCIA Referring Unavailable JACINTA MORALES Attending Unavailable LUKE GARCIA Referring Unavailable LUKE GARCIA Referring Unavailable LUKE GARCIA Attending Unavailable ERNIE CAO Attending Unavailable MADI TEMPLE Referring Unavailable MAVERICK, MADI Referring Unavailable BRIJESH ARMSTRONG Attending Unavailable ROSEANN MARI Attending Unavailable ROSEANN MARI Attending Unavailable BRIJESH ARMSTRONG Referring Unavailable ROSEANN MARI Attending Unavailable ROSEANN MARI Attending Unavailable Medications Current Medications Medication Drug Class(es) Dates Sig (Normalized) Sig (Original) calcium carbonate 1500 mg / cholecalciferol 200 unt oral tablet (3 sources) Vitamin D take 1 tablet by mouth once daily in the morning calcium citrate 600 mg and vitamin D3 (Citrical & Minerals + Vit D) 600-200 MG-UNIT tablet Take 1 tablet by mouth in the morning. Active calcium chloride 0.0014 meq/ml / potassium chloride 0.004 meq/ml / sodium chloride 0.103 meq/ml / sodium lactate 0.028 meq/ml injectable solution (2 sources) Start: 03-23-2024 take 100 mL intravenously every hour 100 mL/hr, intravenous, Continuous, Starting on Sat03/23/24 at 1215, Recovery (only) calcium citrate 600 mg and vitamin D3 (Citrical & Minerals + Vit D) 600-200 MG-UNIT tablet (9 sources) take 1 tablet by mouth once [...] daily. Active citalopram 10 mg oral tablet (18 sources) Serotonin Reuptake Inhibitor Start: End: 025 take 1 tablet by mouth [...] propionate 0.05 mg/actuat metered dose nasal spray (19 sources) Corticosteroid take 1 spray(s) nasal route [...] Recovery (only) simvastatin 40 mg oral tablet (18 sources) HMG-CoA Reductase Inhibitor Start: 09-24-2024 take 1 tablet by mouth once daily in the morning simvastatin (Zocor) 40 MG tablet Indications: Mixed hyperlipidemia (CMS/HCC) TAKE 1 TABLET BY MOUTH EVERY DAY IN THE MORNING 90 tablet 3 09/24/2024 Active Start: 08-22-2023 End: 08-21-2024 take 1 tablet [...] take 1 tablet by mouth twice daily sulfamethoxazole-trimethoprim (Bactrim DS) 800-160 mg tablet Indications: Cellulitis [...] 03/28/2024 Active valACYclovir 1000 mg oral tablet (10 sources) Herpesvirus Nucleoside Analog DNA Polymerase Inhibitor, [...] Drug Class(es) Dates Sig (Normalized) Sig (Original) [id number] (Lymphoseek) injection 0.614 millicurie (1 source) Start: [...] status; Translations: [Other specified counseling] 09-03-2024 Episodic Complications of surgical procedures or medical care (4 sources) Postoperative wound infection; Translations: [Infection following a procedure, other surgical site, initial encounter] Onset: 05-07-2024 05-07-2024 Episodic Conduction disorders (20 sources) Second degree atrioventricular block; Translations: [Atrioventricular block, second degree] Onset: 03-07-2023 03-07-2023 Chronic Disorders of lipid metabolism (20 sources) Mixed hyperlipidemia; Translations: [Mixed hyperlipidemia] Onset: 03-07-2023 03-07-2023 Chronic Melanomas of skin (17 sources) Malignant melanoma of lower leg; Translations: [Malignant melanoma of left lower limb, including hip] Onset: 03-17-2024 03-17-2024 Chronic Melanomas of skin (5 sources) History of malignant melanoma of the skin; Translations: [Personal history of malignant melanoma of skin] 06-02-2024 Episodic Menopausal disorders (14 sources) Decreased estrogen level; Translations: [Other primary ovarian failure] Onset: 03-07-2023 03-07-2023 Chronic Mood disorders (15 sources) Single episode of major depression in full remission; Translations: [Major depressive disorder, single episode, in full remission] Onset: 03-07-2023 07-12-2023 Chronic Osteoarthritis (12 sources) Osteoarthritis of left knee joint; Translations: [Unilateral primary osteoarthritis, left knee] Onset: 03-07-2023 03-07-2023 Chronic Osteoporosis (14 sources) Osteoporosis; Translations: [Age-related osteoporosis without current pathological fracture] Onset: 03-07-2023 03-07-2023 Chronic Other ear and sense organ disorders (12 sources) Conductive hearing loss; Translations: [Conductive hearing loss, unspecified] Onset: 03-07-2023 03-07-2023 Chronic Other lower respiratory disease (4 sources) Other forms of dyspnea; Translations: [OTHER FORMS OF DYSPNEA] Onset: 08-15-2022 Episodic Other screening for suspected conditions (not mental disorders or infectious disease) (7 sources) Encounter for screening mammogram for malignant neoplasm of breast; Translations: [Patient encounter status] Onset: 09-03-2022 Episodic Other skin disorders (5 sources) Seborrheic keratosis; Translations: [Other seborrheic keratosis] 06-02-2024 Episodic Other skin disorders (5 sources) Lentiginosis; Translations: [Other melanin hyperpigmentation] 06-02-2024 Episodic Other skin disorders (3 sources) Actinic keratosis; Translations: [Actinic keratosis] 06-02-2024 Episodic Otitis media and related conditions (12 sources) Chronic serous otitis media; Translations: [Chronic [...] Documented Da te Episodic/Chronic Biliary tract disease (12 sources) Cholelithiasis without obstruction; Translations: [Calculus of gallbladder without cholecystitis without obstruction] Onset: 3 03-07-2023 Episodic Cardiac dysrhythmias (5 sources) Bradycardia, unspecified; Translations: [Palpitations] Onset: 2 Episodic Other aftercare (4 sources) Encounter for surgical aftercare following surgery on the circulatory system; Translations: [ENC SURG AFTRCARE FLW SURG CIRC SYS] Onset: 2 Episodic Otitis media and related conditions (12 sources) Dysfunction of left eustachian tube; Translations: [...] Onset: 5 Varicose veins of lower extremity (17 sources) Varicose veins of bilateral lower extremities with pain; Translations: [Varicose veins of lower extremity] Onset: 2 Episodic Results Test Name Value Interpretation Reference Range Facility T3, 11-10-2024 Free T3 [Mass/Vol] 2.9 pg/mL Normal 2.3-4.2 [facility] Comment on above: Performed By: #### 8 99, [id number], 866 #### [facility] [address], [address] [place] [id number] Project Surveyor: Collin Dickson MD T4, 11-10-2024 Free T4 [Mass/Vol] 0.9 ng/dL Normal 0.8-1.8 [facility] Comment on above: Order Comment: FASTI NG:NO FASTING: NO Performed By: #### 8 99, 66429, 866 #### [facility] [address] [place] [address], [address] Project Surveyor: Collin Dickson MD TSHon 11-10-2024 TSH Qn 7.71 m[IU]/L High 0.40-4.50 [facility] Comment on above: Performed By: #### 8 99, 34357, 866 #### [facility] [address] [place] [address], [address] Project Surveyor: Collin Dickson MD 36on 11-05-2024 36 Spoke with patient a nd advised her of Sr. Garcia's response keep appointment with [facility] for testing. Normal [facility] 36on 11-04-2024 36 This patient already has a pacemaker. Dr. Garcia ordered the MRI to r/o sarcoidosis. This does not have to be done urgently. If I were her, I would keep the already scheduled MRI at [facility] for 01/13. Normal [facility] Office Visiton 09-29-2024 Follow-up visit [id number] Cassandra Jo 1955 F Date Provider Department Center 09/29/2024 LUKE AMIN RITU [facility] Family History Problem Relation Age of Onset Aortic aneurysm Mother Atrial fibrillation Mother Hypertension Father Diabetes Father Hypertension Brother Family Status - Relation Status Age at Mother Father Brother Level of Service:96448 MS OFFICE/OUTPATIENT ESTABLISHED LOW MDM 20 MIN Normal [facility] LIPID PANEL, STANDARDon Cholesterol [Mass/Vol] 236 mg/dL High <200 [facility] Comment on above: Order Comment: FASTI NG:YES FASTING: YES Performed By: #### 7 080, 10261, 866 #### [facility] [address], [address] [place] [id number] Project Surveyor: Collin Dickson MD Cholesterol in HDL [Mass/Vol] 83 mg/dL Normal > OR = 50 [facility] Comment on above: Order Comment: FASTI NG:YES FASTING: YES Performed By: #### 7 600, 73285, 866 #### [facility] [place] [address] Project Surveyor: Collin Dickson MD Cholesterol in LDL [Mass/Vol] [...] Friedewald equation in the estimation of LDL-C. Pravin SS et al. LYSSA. 2013;310(19): 8758-3406 (http://education.[employer].BookBottles/faq/FHR294) Performed By: #### 7 151, 32086, 984 #### [facility] [place] [address] Project Surveyor: Collin Dickson MD Cholesterol.total/Chol esterol in HDL [Mass ratio] 2.8 {ratio} Normal <5.0 [facility] Comment on above: Order Comment: FASTI NG:YES FASTING: YES Performed By: #### 7 822, 83363, 253 #### [facility] [place] [address] Project Surveyor: Collin Dickson MD NON HDL CHOLESTEROL 153 mg/dL (calc) High <130 [facility] Comment on above: Order Comment: FASTI NG:YES FASTING: YES Result Comment: For patients with diabetes plus 1 major ASCVD risk factor, treating to a non-HDL-C goal of <100 mg/dL (LDL-C of <70 mg/dL) is considered a therapeutic option. Performed By: #### 7 025, 14748, 239 #### [facility] [place] [address] Project Surveyor: Collin Dickson MD Triglyceride [Mass/Vol] 103 mg/dL Normal <150 [facility] Comment on above: Order Comment: FASTI NG:YES FASTING: YES Performed By: #### 7 842, 17541, 866 #### [facility] of [address], [address] [place] [address] Project Surveyor: Collin Dickson MD T4, FREEon 09-05-2024 Free T4 [Mass/Vol] 0.8 ng/dL Normal 0.8-1.8 [facility] Comment on above: Performed By: #### 7 600, 78742, 866 #### [facility] [address], [address] [place] [address] Project Surveyor: Collin Dickson MD TSH W/REFLEX TO FT4on 2024 TSH W/REFLEX TO FT4 19.03 mIU/L High 0.40-4.50 [facility] Comment on above: Performed By: #### 7 600, 80634, 866 #### [facility] [address], [address] [place] [address] Project Surveyor: Collin Dickson MD No Panel Informationon 09-03 [facility] Office Visiton 08-14-2024 Follow-up visit [id number] Cassandra Jo 1955 F Date Provider Department [place] 08/14/2024 Cirilo-JACINTA MORALES RITU [facility] Family History Problem Relation Age of Onset Aortic aneurysm Mother Atrial fibrillation Mother Hypertension Father Diabetes Father Hypertension Brother Family Status - Relation Status Age at Mother Father Brother 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 She was sent to [facility] ED for evaluation and management. EP team [...] Lab PROCEDURE PERFORMED: 1. Implantation of pacemaker ([employer]) 2. Ultrasound guided venous access INDICATIONS: [...] 0.80 Glu (more content not included)... Normal [facility] EDPROVon 08-04-2024 EDPROV History of Present [...] Procedure Abnormality Status --------- ------ CBC auto differential[[id number]] Normal Final result Please view results for [...] Attestion Madi Temple MD 08/10/24 0734 Normal [facility] 3008-03-2024 30 The patient is Moderately Stable - [...] and maintained or improved Outcome: Progressing Normal [facility] 08-03-2024 ANES -- Attestation signed by Luke [...] additional personal documentation from me. Patient: Mei oRger Sandro Choose an anesthesia record to view details [...] attending and fellow. Additional Equipment Requests Normal [facility] BASIC METABOLIC PANELon 12-3 0 Anion gap [Moles/Vol] 12 mmol/L Normal 7-20 [facility] Comment on above: Performed By: #### L [id number] #### [facility] ([facility]) [address] [place] [address] Calcium [Mass/Vol] 9.5 mg/dL Normal 8.6-10.3 [facility] Comment on above: Performed By: #### L [id number] #### [facility] ([facility]) [address] [place] [address] Chloride [Moles/Vol] 106 mmol/L Normal 98-107 [facility] Comment on above: Performed By: #### L [id number] #### [facility] ([facility]) [address] [place] [address] CO2 [Moles/Vol] 25 mmol/L Normal 21-31 [facility] Comment on above: Performed By: #### L [id number] #### [facility] ([facility]) [address] [place] [address] Creatinine [Mass/Vol] 0.80 mg/dL Normal 0.60-1.20 [facility] Comment on above: Performed By: #### L [id number] #### [facility] ([facility]) [address] [place] [address] GLOMERULAR FILTRATION RATE ML/MIN/1.73 SQ M.PREDICTED 80.2 mL/min/1.73m*2 Normal >60.0 [facility] Comment on above: Result Comment: The [facility]???s estimated glomerular filtration rate (eGFR) will [...] of individuals. Performed By: #### L [id number] #### [facility] ([facility]) [address] [place] [address] Glucose [Mass/Vol] 103 mg/dL High 70-100 [facility] Comment on above: Performed By: #### L [id number] #### [facility] ([facility]) [address] [place] [address] Potassium [Moles/Vol] 3.6 mmol/L Normal 3.5-5.1 [facility] Comment on above: Performed By: #### L [id number] #### [facility] ([facility]) [address] [place] [address] Sodium [Moles/Vol] 139 mmol/L Normal 136-145 [facility] Comment on above: Performed By: #### L [id number] #### [facility] ([facility]) [address] [place] [address] Urea nitrogen [Mass/Vol] 13 mg/dL Normal 7-25 [facility] Comment on above: Performed By: #### L [id number] #### [facility] ([facility]) [address] [place] [address] UREA NITROGEN/CREATININE (MASS RATIO) IN SER/PLAS 16.3 Normal [facility] Comment on above: Performed By: #### L [id number] #### [facility] ([facility]) [address] [place] [address] CBC WITH AUTO DIFFERENTIALon 08-03-2024 Basophils (Bld) [#/Vol] 0.04 10*3/uL Normal 0.00-0.20 [facility] Comment on above: Performed By: #### L [id number] ####[facility] ([facility])[address] [place] [address] Basophils/100 WBC (Bld) 0.5 % Normal 0.0-1.0 [facility] Comment on above: Performed By: #### L [id number] ####[facility] ([facility])[address] [place] [address] Eosinophils (Bld) [#/Vol] 0.09 10*3/uL Normal 0.00-0.50 [facility] Comment on above: Performed By: #### L [id number] ####[facility] ([facility])[address] [place] [address] Eosinophils/100 WBC (Bld) 1.0 % Normal 0.0-6.0 [facility] Comment on above: Performed By: #### L [id number] ####[facility] ([facility])[address] [place] [address] Erythrocyte distribution width (RBC) [Ratio] 12.6 % Normal 11.5-15.0 [facility] Comment on above: Performed By: #### L [id number] ####[facility] ([facility])[address] [place] [address] ERYTHROCYTE MEAN CORPUSCULAR HEMOGLOBIN CONCENTRATION (G/DL) BY AUTOMATED 33.7 g/dL Normal 32.0-35.0 [facility] Comment on above: Performed By: #### L [id number] ####[facility] ([facility])[address] [place] [address] Hematocrit (Bld) [Volume fraction] 41.9 % Normal 36.0-48.0 [facility] Comment on above: Performed By: #### L [id number] ####[facility] ([facility])[address] [place] [address] Hemoglobin (Bld) [Mass/Vol] 14.1 g/dL Normal 12.0-15.0 [facility] Comment on above: Performed By: #### L [id number] ####[facility] ([facility] [place] [address] Immature granulocytes (Bld) [#/Vol] 0.03 10*3/uL Normal 0.00-0.20 [facility] Comment on above: Performed By: #### L [id number] ####[facility] ([facility])[address] [place] [address] Immature granulocytes/100 WBC (Bld) 0.3 % Normal 0.0-1.0 [facility] Comment on above: Performed By: #### L [id number] ####[facility] ([facility])[address] [place] [address] Lymphocytes (Bld) [#/Vol] 2.22 10*3/uL Normal 1.20-4.00 [facility] Comment on above: Performed By: #### L [id number] ####[facility] ([facility])[address] [place] [address] Lymphocytes/100 WBC (Bld) 25.1 % Normal 20.0-45.0 [facility] Comment on above: Performed By: #### L [id number] ####[facility] ([facility])[address] [place] [address] MCH (RBC) [Entitic mass] 32.3 pg Normal 27.0-33.0 [facility] Comment on above: Performed By: #### L [id number] ####[facility] ([facility])[address] [place] [address] MCV (RBC) [Entitic vol] 95.9 fL Normal 82.0-98.0 [facility] Comment on above: Performed By: #### L [id number] ####[facility] ([facility])[address] [place] [address] Monocytes (Bld) [#/Vol] 0.63 10*3/uL Normal 0.10-1.00 [facility] Comment on above: Performed By: #### L [id number] ####[facility] ([facility])[address] [place] [address] Monocytes/100 WBC (Bld) 7.1 % Normal 5.0-12.0 [facility] Comment on above: Performed By: #### L [id number] ####[facility] ([facility])[address] [place] [address] Neutrophils (Bld) [#/Vol] 5.84 10*3/uL Normal 1.60-7.60 [facility] Comment on above: Performed By: #### L [id number] ####[facility] ([facility] [address] Neutrophils/100 WBC (Bld) 66.0 % Normal 40.0-72.0 [facility] Comment on above: Performed By: #### Reena [id number] ####[facility] ([facility])[address] [address] NRBC (PER 100 WBCS) BY AUTOMATED COUNT 0.0 % Normal 0 [facility] Comment on above: Performed By: #### Reena [id number] ####[facility] ([facility])[address] [address] PLATELETS (10*3/UL) IN BLOOD AUTOMATED COUNT 273 10*3/uL Normal 150-400 [facility] Comment on above: Performed By: #### Reena [id number] ####[facility] ([facility])[address] [address] RBC (Bld) [#/Vol] 4.37 10*6/uL Normal 3.80-5.00 [facility] Comment on above: Performed By: #### Reena [id number] ####[facility] ([facility])[address] [address] WBC (Bld) [#/Vol] 8.85 10*3/uL Normal 4.00-10.60 [facility] Comment on above: Performed By: #### L [id number] ####[facility] ([facility])[address] [address] CONSULTon 08-03-2024 CONSULT -- Attestation signed by [...] 2nd degree AV block who presented to [facility] ED after she was sent from cardiology [...] 86 QT Interval 536 QTC CALCULATION(BAZETT) 420 R-[place] 14 T Wave [place] 71 Impression Junctional bradycardia with occasional Premature ventricular complexes Possible Anterior infarct , age undetermined Abnormal ECG No previous ECGs available No results found for: CKTOTAL , CKMB , CKMBINDEX , TROPONINI No echocardiogram results found for the past 12 months No nuclear medicine results found for the past 12 m (more content not included)... Normal [facility] EDNURSon 08-03-2024 EDNURS Patient was instruct ed to come here by dye padder operator to have pacemaker placed. Patient HR 35 upon arrival to ED. Patient denies any chest pain. SOB with exertion. Normal [facility] MAGNESIUMon 08-03-2024 Magnesium [Mass/Vol] 2.4 mg/dL Normal 1.9-2.7 [facility] Comment on above: Performed By: #### L [id number] ####[facility] ([facility])[address] [place] [address] NURSNOTEon 08-03-2024 NURSNOTE Report given to BORIS Blanchard from RENETTA Foster Any medications or safety alerts were reviewed. Any pending diagnostics and notifications were also reviewed, as well as any safety concerns or issues, abnormal labs, abnormal imagining, and abnormal assessment findings. Questions were answered. Normal [facility] [facility] Office Visiton 08-03-2024 Follow-up visit [id number] Cassandra Jo 1955 F Date Provider Department Center 08/03/2024 [id number]-RPOMLFERNIE [facility] Family History Problem Relation Age of Onset Aortic aneurysm Mother Atrial fibrillation Mother Hypertension Father Diabetes Father Hypertension Brother Family Status - Relation Status Age at Mother Father Brother Level of Service:12794 MS OFFICE/OUTPATIENT ESTABLISHED HIGH MDM 40 MIN Reason for Visit and Comments: Hypertension [907386] - BP has been high. Hyperlipidemia [182] Bradycardia [166299] - HR running in the high 30's-low 40's. Very lightheaded and tired lately. Fatigue [46] Shortness of Breath [666996] - Very SOB with minimal exertion. Normal [facility] TROPONIN Ion 08-03-2024 Troponin I.cardiac [Mass/Vol] 0.02 ng/mL Normal 0.00-0.04 [facility] Comment on above: Performed By: #### L [id number] ####[facility] ([facility])[address] [place] [address] Cryotherapy, skin lesionon 1 [facility] DERMPATH LAB- DERMATOPATHOLO GYon 03-23-2024 DERMPATH LAB- DERMATOPATHOLOGY Pathology report.total SEE COMMENT Dermatopathology Case: [id number] Authorizing Provider: Meena Schrader MD Collected: 03/23/2024 1101 Ordering Location: [facility] Received: 03/23/2024 1213 OR Pathologist: Rosana Hoang [...] lower leg, left (Multi) C43.72 Specimen ID: [id number], [id number] Specimen Source: SENTINEL LYMPH NODE MELANOMA Site/Location: SENTINEL NODE #1 COUNT- 732 Collection Comments: Specimen ID: [id number], [id number] Specimen Source: SKIN EXCISION Site/Location: WIDE LOCAL [...] determined by the Department of Pathology at [facility]. The FDA does not require this test [...] The specimen was grossed by Roxanna Robert. [facility] Comment on above: Order Comment: Pre-o p diagnosis: Malignant melanoma of lower leg, left (Multi) [C43.72] ECG 12-LEADon 03-23-2024 ECG 12-LEAD Ventricular Rate 73 Atrial Rate 73 P-R Interval 194 QRS Duration 86 Q-T Interval 384 QTC Calculation(Bazett) 423 P [place] 39 R [place] -6 T [place] 39 QRS Count 12 Q Onset 216 P Onset 119 P Offset 173 T Offset 408 QTC Fredericia 410 Diagnosis Normal sinus rhythm Normal ECG No previous ECGs available Confirmed by Otis Canales ([id number]) on 03/24/2024 1:25:11 PM Normal [facility] NM LYMPHOSCINTIGRAMon 2023 NM LYMPHOSCINTIGRAM Interpreted By: Jamal Pak and Kaur Arashdeep STUDY: NM LYMPHOSCINTIGRAM; 03/23/2024 8:50 am INDICATION: Signs/Symptoms:SLNB. COMPARISON: None. ACCESSION NUMBER(S): [id number] ORDERING CLINICIAN: MEENA SCHRADER TECHNIQUE: DIVISION OF NUCLEAR MEDICINE RADIONUCLIDE SENTINEL LYMPH NODE LYMPHOSCINTIGRAPHY A total of 0.6 millicuries of Tc-99m tilmanocept (LymphYogiPlay) was injected intradermally in a circumferential pattern [...] Arreola MD. This study was interpreted at [place], [place]. MACRO: None Signed by: Jamal Castorena 03/23/2024 9:13 AM Dictation workstation: [id number] Normal [facility] NM Lymphatic vessels Views W radionuclide intra lymphaticon 03-23-2024 1. A left inguinal lymph node, likely representing sentinel lymph node. No other draining node identified. Images were saved into PACS for review. I personally reviewed the images/study and I agree with the findings as stated by Ramana Arreola MD. This study was interpreted at [place], [place]. MACRO: None Signed by: Jamal Castorena 03/23/2024 9:13 AM Dictation workstation: [id number] MMODAL Interpreted By: Jamal Pak and Kaur Arashdeep STUDY: NM LYMPHOSCINTIGRAM; 03/23/2024 8:50 am INDICATION: Signs/Symptoms:SLNB. COMPARISON: None. ACCESSION NUMBER(S): [id number] ORDERING CLINICIAN: MEENA SCHRADER TECHNIQUE: DIVISION OF [...] lymph node. No other draining node identified. MMODAL Jamal Castorena MD - 03/23/2024 Interpreted By: Jamal Castorena and Kaur Arashdeep STUDY: NM LYMPHOSCINTIGRAM; 03/23/2024 8:50 am INDICATION: Signs/Symptoms:SLNB. COMPARISON: None. ACCESSION NUMBER(S): [id number] ORDERING CLINICIAN: MEENA SCHRADER TECHNIQUE: DIVISION OF [...] Arreola MD. This study was interpreted at [facility], [place], [place]. MACRO: None Signed by: Jamal Castorena 03/23/2024 9:13 AM Dictation workstation: [id number] [facility] Work Phone: Radiology Study observation (narrative) [facility] Work Phone: NM Lymphatic vessels Views W radionuclide intra lymphaticOrdered By: Jamal Castorena on 03-23-2024 [facility] Work Phone: Surgical pathology studyon 0 03-09-2024 Surgical pathology study Pathology report.total SEE COMMENT Dermatopathology Report Case: [id number] Authorizing Provider: Meena Schrader MD Collected: 03/09/2024 1249 Ordering Location: [facility] Received: 03/09/2024 1249 [facility] Pathologist: London Coulter MD Specimen: OUTSIDE BLOCK(S)/SLIDE(S), 3 SLIDES, [facility] #[id number] (BX: 02/24/2024) Path report.final diagnosis SEE COMMENT 3 SLIDES, [facility] #[id number] (BX: 02/24/2024) SKIN, LEFT LEG, SHAVE BIOPSY: [...] Comment(s): Tumor block is CSPL original case# [id number] Blocks 1 and 2. 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 Path report.gross observation SEE COMMENT A. OUTSIDE BLOCK(S)/SLIDE(S). Received for consultation from [facility] are three slides labeled [id number] (BX: 02/24/2024) along with the corresponding pathology report. Path report.microscopic observation Microscopic examination performed. [facility] Comment on above: Order Comment: Mater ials Received: 3 SLIDES, [facility] #[id number] (BX: 02/24/2024) MG MAMM SCREEN 3D CASTRO CADon 09-03-2022 MG MAMM SCREEN 3D CASTRO CAD Patient: MEI JO Exam Date: 09/03/2022 : 1955 Gender:F Ordering : DR BRIJESH ARMSTRONG M.D. Admission #: [id number] Family : Order #: [id number] CLICK HERE TO VIEW EXAM RADIOLOGY REPORT [...] with unknown cancer at age 80. LOCATION: [facility] BREAST COMPOSITION: Scattered areas fibroglandular density. FINDINGS: [...] M.D. on 09/04/2022 at 07:37 Normal [facility] NM STRESS/REST MULTIon 08-15 [place] STRESS/REST MULTI Patient: DONALDO JO Exam Date: 08/15/2022 : 1955 Gender:F Ordering : DR BRIJESH ARMSTRONG M.D. Admission #: [id number] Family : OSIEL THOMAS Order #: [id number] CLICK HERE TO VIEW EXAM RADIOLOGY REPORT [...] Alonso M.D. on 08/16/2022 at 11:03 Normal [facility] XR CHEST 2 Von 06-07-2022 XR CHEST [...] by: PETER CORREIA Date: 2022-06-07 18:35 Normal [facility] VC INJ SCL DOLLY DRAW FRAME TENDER VEINSon 0 12-05-2021 VC INJ SCL DOLLY DRAW FRAME TENDER VEINS Patient: MEI JO Exam Date: 12/05/2021 : 1955 Gender:F Ordering : DR PETER CORREIA M.D. Admission #: [id number] Family : Order #: [id number] CLICK HERE TO VIEW EXAM RADIOLOGY REPORT PROCEDURE: VEIN CENTER INJECTION SCLEROSING SOLUTION MULTIPLE VEINS SAME COMPARISON: VC INJ SCL DOLLY DRAW FRAME TENDER VEINS, 11/21/2021. INDICATIONS: Pain co-occurrent and due [...] Alonso M.D. on 12/05/2021 at 10:33 Normal [facility] VC INJ SCL DOLLY DRAW FRAME TENDER VEINSon 0 11-21-2021 VC INJ SCL DOLLY DRAW FRAME TENDER VEINS Patient: MEI JO Exam Date: 11/21/2021 : 1955 Gender:F Ordering : DR PETER CORREIA M.D. Admission #: [id number] Family : Order #: [id number] CLICK HERE TO VIEW EXAM RADIOLOGY REPORT PROCEDURE: VEIN CENTER INJECTION SCLEROSING SOLUTION MULTIPLE VEINS SAME COMPARISON: VC INJ SCL DOLLY DRAW FRAME TENDER VEINS, 11/07/2021. VC INJ SCL DOLLY DRAW FRAME TENDER VEINS, 11/02/2021. VC INJ SCL DOLLY DRAW FRAME TENDER VEINS, 10/25/2021. INDICATIONS: Pain co-occurrent and due [...] Alonso M.D. on 11/21/2021 at 13:25 Normal [facility] VC INJ SCL DOLLY DRAW FRAME TENDER VEINSon 0 11-07-2021 VC INJ SCL DOLLY DRAW FRAME TENDER VEINS Patient: MEI JO Exam Date: 11/07/2021 : 1955 Gender:F Ordering : DR PETER CORREIA M.D. Admission #: [id number] Family : Order #: [id number] CLICK HERE TO VIEW EXAM RADIOLOGY REPORT PROCEDURE: VEIN CENTER INJECTION SCLEROSING SOLUTION MULTIPLE VEINS SAME COMPARISON: VC INJ SCL DOLLY DRAW FRAME TENDER VEINS, 11/02/2021. VC INJ SCL DOLLY DRAW FRAME TENDER VEINS, 10/25/2021. INDICATIONS: Pain co-occurrent and due [...] Correia MD on 11/07/2021 at 11:08 Normal [facility] VC INJ SCL DOLLY DRAW FRAME TENDER VEINSon 0 11-02-2021 VC INJ SCL DOLLY DRAW FRAME TENDER VEINS Patient: MEI JO Exam Date: 11/02/2021 : 1955 Gender:F Ordering : DR PETER CORREIA M.D. Admission #: [id number] Family : Order #: [id number] CLICK HERE TO VIEW EXAM RADIOLOGY REPORT PROCEDURE: VEIN CENTER INJECTION SCLEROSING SOLUTION MULTIPLE VEINS SAME COMPARISON: VC INJ SCL DOLLY DRAW FRAME TENDER VEINS, 10/25/2021. INDICATIONS: Pain co-occurrent and due [...] Alonso M.D. on 11/02/2021 at 09:40 Normal [facility] VC INJ SCL DOLLY DRAW FRAME TENDER VEINSon 0 10-25-2021 VC INJ SCL DOLLY DRAW FRAME TENDER VEINS Patient: MEI JO Exam Date: 10/25/2021 : 1955 Gender:F Ordering : DR PETER CORREIA M.D. Admission #: [id number] Family : Order #: [id number] CLICK HERE TO VIEW EXAM RADIOLOGY REPORT [...] Correia MD on 10/25/2021 at 11:00 Normal [facility] VC EXT VENOUS RT LIMITEDon 0 10-24-2021 VC EXT VENOUS RT LIMITED Patient: MEI JO Exam Date: 10/23/2021 : 1955 Gender:F Ordering : DR PETER CORREIA M.D. 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 Thrombus noted in one [...] Correia MD on 10/23/2021 at 11:45 Normal [facility] VC CONSULT FOLLOWUPon 2021 VC CONSULT FOLLOWUP Patient: KEYANA JO Exam Date: 10/23/2021 : 1955 Gender:F Ordering : DR PETER CORREIA M.D. Admission #: [id number] Family : Order #: [id number] CLICK HERE TO VIEW EXAM RADIOLOGY REPORT [...] posterior tibial veins, expected complication as a trace clerk was present in the region of injection. [...] Peter Correia MD on 10/23/2021 at 11:49 Normal [facility] VC INJ FOAM SCLERO W US MLTI on 10-17-2021 VC INJ FOAM SCLERO W US MLTI Patient: MEI JO Exam Date: 10/17/2021 : 1955 Gender:F Ordering : DR PETER CORREIA M.D. Admission #: [id number] Family : Order #: [id number] CLICK HERE TO VIEW EXAM RADIOLOGY REPORT [...] Pressure was also held to occlude two trace clerk veins. 6 mL aliquot of Varithena(r) was [...] wear (more content not included)... Normal [facility] VC CONSULT FOLLOWUPon 2021 VC CONSULT FOLLOWUP Patient: KEYANA JO Exam Date: 10/13/2021 : 1955 Gender:F Ordering : DR PETER CORREIA M.D. Admission #: [id number] Family : Order #: [id number] CLICK HERE TO VIEW EXAM RADIOLOGY REPORT [...] Alonso M.D. on 10/13/2021 at 09:58 Normal [facility] VC EXT VENOUS LT LIMITEDon 0 10-13-2021 VC EXT VENOUS LT LIMITED Patient: MEI JO Exam Date: 10/13/2021 : 1955 Gender:F Ordering : DR PETER CORREIA M.D. Admission #: [id number] Family : Order #: [id number] CLICK HERE TO VIEW EXAM RADIOLOGY REPORT [...] Alonso M.D. on 10/13/2021 at 09:54 Normal [facility] VC INJ FOAM SCLERO W US MLTI on 10-06-2021 VC INJ FOAM SCLERO W US MLTI Patient: MEI JO Exam Date: 10/06/2021 : 1955 Gender:F Ordering : DR PETER CORREIA M.D. Admission #: [id number] Family : Order #: [id number] CLICK HERE TO VIEW EXAM RADIOLOGY REPORT [...] shilpi (more content not included)... Normal [facility] VC CONSULT FOLLOWUPon 2021 VC CONSULT FOLLOWUP Patient: KEYANA JO Exam Date: 10/02/2021 : 1955 Gender:F Ordering : DR PETER CORREIA M.D. Admission #: [id number] Family : Order #: [id number] CLICK HERE TO VIEW EXAM RADIOLOGY REPORT [...] the left anterior accessory saphenous vein. The trace clerk veins are significantly decreased in size and [...] Correia MD on 10/02/2021 at 09:34 Normal [facility] VC EXT VENOUS LT LIMITEDon 0 10-02-2021 VC EXT VENOUS LT LIMITED Patient: MEI JO Exam Date: 10/02/2021 : 1955 Gender:F Ordering : DR PETER CORREIA M.D. Admission #: [id number] Family : Order #: [id number] CLICK HERE TO VIEW EXAM RADIOLOGY REPORT [...] Correia MD on 10/02/2021 at 09:08 Normal [facility] VC INJ FOAM SCLERO W US MLTI on 09-27-2021 VC INJ FOAM SCLERO W US MLTI Patient: MEI JO Exam Date: 09/27/2021 : 1955 Gender:F Ordering : DR PETER CORREIA M.D. Admission #: [id number] Family : Order #: [id number] CLICK HERE TO VIEW EXAM RADIOLOGY REPORT [...] Alonso M.D. on 09/27/2021 at 11:06 Normal [facility] VC CONSULT FOLLOWUPon 2021 VC CONSULT FOLLOWUP Patient: KEYANA JO Exam Date: 09/20/2021 : 1955 Gender:F Ordering : DR PETER CORREIA M.D. Admission #: [id number] Family : Order #: [id number] CLICK HERE TO VIEW EXAM RADIOLOGY REPORT [...] Correia MD on 09/20/2021 at 10:05 Normal [facility] VC EXT VENOUS LT LIMITEDon 0 09-20-2021 VC EXT VENOUS LT LIMITED Patient: MEI JO Exam Date: 09/20/2021 : 1955 Gender:F Ordering : DR PETER CORREIA M.D. Admission #: [id number] Family : Order #: [id number] CLICK HERE TO VIEW EXAM RADIOLOGY REPORT [...] Correia MD on 09/20/2021 at 09:52 Normal [facility] VC ENDOVENOUS ABL 1ST V LTon 09-13-2021 VC ENDOVENOUS ABL 1ST V LT Patient: MEI JO Exam Date: 09/13/2021 : 1955 Gender:F Ordering : DR PETER CORREIA M.D. Admission #: [id number] Family : Order #: [id number] CLICK HERE TO VIEW EXAM RADIOLOGY REPORT [...] Correia MD on 09/13/2021 at 11:23 Normal [facility] Q - SUREPATH-FPGS PAPon -2 CLINICAL INFORMATION: None given Normal [facility] Comment on above: Order Comment: [facility] Testing performed at: [facility], [facility], [address] [place] [address] PHILLIP Nolasco, , Iron Miner: Donato Wall MD [facility] Collection Date/Time: [facility] Results Received Date/Time: [facility] Reported Date/Time: Performed By: #### 1 8810X #### [facility] Default [address] [place] [address] COMMENT SEE NOTE Normal [facility] Comment on above: Order Comment: [facility] Testing performed at: [facility], [facility], [address] [place] [address] PHILLIP Nolasco, , Iron Miner: Donato Wall MD [facility] Collection Date/Time: [facility] [...] 1 8810X #### [facility] Default [address] [place] [address] COMMENT: SEE NOTE Normal [facility] Comment on above: Order Comment: [facility] Testing performed at: [facility], [facility], [address] [place], [place] [address]Gaurav PA, , Iron Miner: Donato Wall MD [facility] Collection Date/Time: [facility] [...] 1 8810X #### [facility] [address] [place] [address] MUSIC THERAPY SPECIALIST: SEE NOTE Normal [facility] Comment on above: Order Comment: [facility] Testing performed at: [facility], [facility], [address] [place], [place] [address]Gaurav PA, , Iron Miner: Donato Wlal MD [facility] Collection Date/Time: [facility] Results Received Date/Time: [facility] Reported Date/Time: Result Comment: ANL, CT(ASCP) FOr informational purposes: All Cytology specimens are processed and screened at [facility]. [address] [place] [address] [place] [address]. Performed By: #### 1 8810X #### [facility] Default [address] [place] [address] INTERPRETATION/RESULT: SEE NOTE Normal No [facility] Comment on above: Order Comment: [facility] Testing performed at: [facility], [facility], [address] [place] [address] Gaurav Hyde PA, , Iron Miner: Donato Wall MD [facility] Collection Date/Time: [facility] Results Received Date/Time: [facility] Reported Date/Time: Result Comment: Nega tive for intraepithelial lesion or malignancy. Atrophic pattern; predominantly parabasal cells Performed By: #### 1 8810X #### [facility] [address] [place] [address] LMP: None given Normal [facility] Comment on above: Order Comment: [facility] Testing performed at: [facility], [facility], [address] Gaurav Hyde PA, , Iron Miner: Donato Wall MD [facility] Collection Date/Time: [facility] Results Received Date/Time: [facility] Reported Date/Time: Performed By: #### 1 8810X #### [facility] Default [address] [place] [address] PREV. BX: None given Normal [facility] Comment on above: Order Comment: [facility] Testing performed at: [facility], [facility], [address] [place], [place] [address]Gaurav PA, , Iron Miner: Donato Wall MD [facility] Collection Date/Time: [facility] Results Received Date/Time: [facility] Reported Date/Time: Performed By: #### 1 8810X #### [facility] Default [address] [place] [address] PREV. PAP: None given Normal [facility] Comment on above: Order Comment: [facility] Testing performed at: [facility], [facility], [address] [place], [place] [address]Gaurav PA, , Iron Miner: Donato Wall MD [facility] Collection Date/Time: [facility] Results Received Date/Time: [facility] Reported Date/Time: Performed By: #### 1 8810X #### [facility] Default [address] [place] [address] SOURCE: None given Normal [facility] Comment on above: Order Comment: [facility] Testing performed at: [facility], [facility], [address] [place], [place] [address]Gaurav PA, , Iron Miner: Donato Wall MD [facility] Collection Date/Time: [facility] Results Received Date/Time: [facility] Reported Date/Time: Performed By: #### 1 8810X #### [facility] Default [address] [place] [address] HAND LEFT 3 [facility] 03-04-2019 HAND LEFT 3 S [facility] Department of Radiology [address] [place] [address] ======== Patient Name: MEI JO : 1955 Sex: F Age: Race: NA Pt. Location: Patient Status: Ordered Date: 03/04/2019 1:25:00 PM Completed Date: 03/04/2019 01:22 PM Requesting Provider: JOHN FERNÁNDEZ Attending Provider: Report Copy To: Signs & Symptoms: M79.642 Pain in left hand I10 History: [place] Comments: , Views (X-RAY, HAND): Radiologic Protocol , Views (X-RAY, HAND): Radiologic Protocol , , , Ordering Provider - OJHN FERNÁNDEZ MD , Exam: HAND LEFT 3 [facility] ======== HAND LEFT 3 S 03/04/2019 1:22 [...] arthritis Electronically signed by:Kaylie Dominguez. Transcribed by: [email or web address], User Resident: Electronically Signed by: KAYLIE DOMINGUEZ @ 03/04/2019 04:14 PM Normal [facility] Comment on above: Order Comment: , Vie ws (X-RAY, HAND): Radiologic Protocol , Views (X-RAY, HAND): Radiologic Protocol , , , Ordering Provider - JOHN FERNÁNDEZ MD , Coding Summaryon 02-16-2019 Coding Summary CODING DATE: 02/16/[address] [facility] STATUS: Home PAYOR: Commercial Insurance ADMIT [...] Grayson' Revised Date Saved: 02/16/2019 02:01 pm [facility] Coding Summary CODING DATE: 02/16/[address] [facility] STATUS: Home PAYOR: Commercial Insurance APC [...] result in slightly different terminology. Coded By: Onur Grayson' Date Saved: 02/16/2019 01:51 pm [facility] Coding Summary CODING DATE: 02/16/[address] [facility] STATUS: Home PAYOR: Commercial Insurance APC [...] Eze Grayson Date Saved: 02/16/2019 01:51 pm [facility] Coding Summary CODING DATE: 02/16/[address] [facility] STATUS: Home PAYOR: Commercial Insurance APC [...] Revised Date Saved: 02/16/2019 01:51 pm Normal [facility] Release of Informationon Release of Information [phone] [id number] OTGTIFF [facility] .Auto Diff 1on 02-10-2019 Auto Alfalfa % 6 % Normal -12 [facility] Comment on above: Performed By: #### 1 [id number], 5078663, [id number], [id number], [id number] #### [facility] (DEFAULT) [address] [place] [address] Baso Abs# 0.0 x10 Normal 0.0-0.2 [facility] Comment on above: Performed By: #### 1 [id number], 3530216, [id number], 64938714, 8986250 #### [facility] (DEFAULT) [address] [place] [address] Basophils/100 WBC (Bld) 0.2 % Normal 0.2-2.0 [facility] Comment on above: Performed By: #### 1 709788061, 6176158, 3412823089, 77737182, 9072558 #### [facility] (DEFAULT) [address] [place] [address] Eos Abs# 0.1 x10 Normal 0.0-0.4 [facility] Comment on above: Performed By: #### 1 [id number], 4317526, [id number], 95051456, 7042079 #### [facility] (DEFAULT) [address] [place] [address] Eosinophils/100 WBC (Bld) 0.9 % Normal 0.9-4.0 [facility] Comment on above: Performed By: #### 1 045109293, 2483516, 1608937168, 16920439, 3252784 #### [facility] (DEFAULT) [address] [place] [address] Lymphocytes (Bld) [#/Vol] 1.5 x10 Normal 1.3-2.9 [facility] Comment on above: Performed By: #### 1 [id number], 6217403, 6642235393, 32853961, 4335894 #### [facility] (DEFAULT) [address] [place] [address] Lymphocytes/100 WBC (Bld) 11 % Low 14-48 [facility] Comment on above: Performed By: #### 1 158439609, 9622713, 0276181116, 32115898, 3230710 #### [facility] (DEFAULT) [address] [place] [address] Alfalfa Abs# 0.8 x10 Normal 0.0-0.8 [facility] Comment on above: Performed By: #### 1 [id number], 6825243, 5290112731, 14171066, 8586589 #### [facility] (DEFAULT) [address] [place] [address] Neut Abs# 10.8 x10 High 1.5-9.2 [facility] Comment on above: Performed By: #### 1 114566595, 8425724, 9632638225, 47992513, 6776696 #### [facility] (DEFAULT) [address] [place] [address] Neutrophils/100 WBC (Bld) 81 % Normal 44-88 [facility] Comment on above: Performed By: #### 1 [id number], 6308880, 8148019993, 04116052, 0578060 #### [facility] (DEFAULT) [address] [place] [address] CBC w/ Auto Diffon 9 Erythrocyte distribution width (RBC) [Ratio] 12.7 % Normal 11.5-15.0 [facility] Comment on above: Performed By: #### 1 [id number], 0087310, 0976637969, 02415243, 7618431 #### [facility] (DEFAULT) [address] [place] [address] Hematocrit (Bld) [Volume fraction] 37.0 % Normal 33.7-40.4 [facility] Comment on above: Performed By: #### 1 058448741, 7269784, 8104832098, 16136578, 4815368 #### [facility] (DEFAULT) [address] [place] [address] Hemoglobin (Bld) [Mass/Vol] 12.7 g/dL Normal 11.3-15.9 [facility] Comment on above: Performed By: #### 1 [id number], 4888230, 8191313608, 01580832, 8073670 #### [facility] (DEFAULT) [address] [place] [address] Man Diff? Auto Normal [facility] [facility] Comment on above: Performed By: #### 1 [id number], [id number], [id number], [id number], [id number] #### [facility] (DEFAULT) [address] [place] [address] MCH (RBC) [Entitic mass] 32 pg Normal 24-34 [facility] Comment on above: Performed By: #### 1 [id number], [id number], [id number], [id number], [id number] #### [facility] (DEFAULT) [address] [place] [address] MCHC (RBC) [Mass/Vol] 34 g/dL Normal 26-37 [facility] Comment on above: Performed By: #### 1 [id number], [id number], [id number], [id number], 3019635 #### [facility] (DEFAULT) [address] [place] [address] MCV (RBC) [Entitic vol] 94 fL Normal 81-100 [facility] Comment on above: Performed By: #### 1 [id number], [id number], [id number], [id number], 3720883 #### [facility] (DEFAULT) [address] [place] [address] Platelet mean volume (Bld) [Entitic vol] 8.6 fL Normal 6.3-10.2 [facility] Comment on above: Performed By: #### 1 [id number], [id number], [id number], [id number], [id number] #### [facility] (DEFAULT) [address] [place] [address] Platelets (Bld) [#/Vol] 278 x10 Normal 138-427 [facility] Comment on above: Performed By: #### 1 [id number], [id number], [id number], [id number], 1930207 #### [facility] (DEFAULT) [address] [place] [address] RBC (Bld) [#/Vol] 3.93 x10 Normal 3.70-5.30 [facility] Comment on above: Performed By: #### 1 [id number], [id number], [id number], [id number], 3792388 #### [facility] (DEFAULT) [address] [place] [address] WBC (Bld) [#/Vol] 13.3 x10 [facility] Comment on above: Performed By: #### 1 [id number], 3670711, [id number], 01649000, 7045941 #### [facility] (DEFAULT) [address] [place] [address] Standardon 02-10-2019 eGFR Non AA >60 [facility] Comment on above: Performed By: #### 1 [id number], [id number], [id number], 79742134, 3939891 #### [facility] (DEFAULT) [address] [place] [address] eGFR AA >60 [facility] Comment on above: Result Comment: Wellness Program Administrator frantz Kidney disease could be indicated at eGFRs of less than 60 ml/min/1.73m2. Kidney Failure is indicated at less than 15 ml/min/1.73m2 Performed By: #### 1 [id number], 1283093, [id number], [id number], 3494959 #### [facility] (DEFAULT) [address] [place] [address] Albumin [Mass/Vol] 4.4 g/dL Normal 3.5-5.0 [facility] Comment on above: Performed By: #### 1 [id number], [id number], [id number], 35001777, 0405285 #### [facility] (DEFAULT) [address] [place] [address] Albumin/Globulin [Mass ratio] 1.6 {ratio} Normal 1.4-2.6 [facility] Comment on above: Performed By: #### 1 [id number], 0391622, [id number], 90245434, 1482088 #### [facility] (DEFAULT) [address] [place] [address] Alk Phos 62 IU/L Normal 32-91 [facility] Comment on above: Performed By: #### 1 [id number], 7432782, [id number], 82638869, 4421045 #### [facility] (DEFAULT) [address] [place] [address] ALT/SGPT 19.0 IU/L Normal 14.0-54.0 [facility] Comment on above: Performed By: #### 1 [id number], 6954139, 5400284235, 61321017, 3008570 #### [facility] (DEFAULT) [address] [place] [address] Anion gap [Moles/Vol] 16.0 mmol/L Normal 5.0-19.0 [facility] Comment on above: Performed By: #### 1 [id number], 3897430, [id number], 91311336, 0957147 #### [facility] (DEFAULT) [address] [place] [address] AST/SGOT 22 IU/L Normal 15-41 [facility] Comment on above: Performed By: #### 1 [id number], 7662990, [id number], 88596845, 4404241 #### [facility] (DEFAULT) [address] [place] [address] Bili Total 0.6 mg/dL Normal 0.3-1.2 [facility] Comment on above: Performed By: #### 1 [id number], [id number], [id number], 69593659, 7829844 #### [facility] (DEFAULT) [address] [place] [address] Calcium [Mass/Vol] 9.3 mg/dL Normal 8.9-10.3 [facility] Comment on above: Performed By: #### 1 [id number], 5373707, [id number], 00131862, 3425040 #### [facility] (DEFAULT) [address] [place] [address] Chloride [Moles/Vol] 103 mmol/L Normal 101-111 [facility] Comment on above: Performed By: #### 1 [id number], 3728768, 1800902493, 09093105, 3392355 #### [facility] (DEFAULT) [address] [place] [address] CO2 [Moles/Vol] 23 mmol/L Normal 21-32 [facility] Comment on above: Performed By: #### 1 [id number], 1216400, [id number], 33390397, 2537748 #### [facility] (DEFAULT) [address] [place] [address] Creatinine [Mass/Vol] 0.72 mg/dL Normal 0.60-1.30 [facility] Comment on above: Performed By: #### 1 [id number], 4293090, [id number], 20585760, 8900535 #### [facility] (DEFAULT) [address] [place] [address] Globulin (S) [Mass/Vol] 2.8 g/dL Normal 1.5-4.3 [facility] Comment on above: Performed By: #### 1 [id number], 3036293, [id number], 16234374, 7105376 #### [facility] (DEFAULT) [address] [place] [address] Glucose [Mass/Vol] 123.0 mg/dL High 74.0-118.0 [facility] Comment on above: Performed By: #### 1 [id number], 4331609, [id number], 17366518, 6954555 #### [facility] (DEFAULT) [address] [place] [address] Osmolality [Osmolality] 279 mOsm/L [facility] Comment on above: Performed By: #### 1 [id number], 8885344, [id number], 33800972, 9247526 #### [facility] (DEFAULT) [address] [place] [address] Potassium [Moles/Vol] 3.7 mmol/L Normal 3.6-5.1 [facility] Comment on above: Performed By: #### 1 [id number], 0079034, [id number], 52254164, 8056861 #### [facility] (DEFAULT) [address] [place] [address] Protein [Mass/Vol] 7.2 g/dL Normal 6.5-8.1 [facility] Comment on above: Performed By: #### 1 [id number], 8697143, 9277407901, 29645368, 6829864 #### [facility] (DEFAULT) [address] [place] [address] Sodium [Moles/Vol] 138.0 mmol/L Normal 136.0-144.0 [facility] Comment on above: Performed By: #### 1 [id number], 2208371, 8702925414, 83696496, 6836084 #### [facility] (DEFAULT) [address] [place] [address] Urea nitrogen [Mass/Vol] 18 mg/dL Normal 8-26 [facility] Comment on above: Performed By: #### 1 [id number], 3632965, 3480683225, 21954840, 4832601 #### [facility] (DEFAULT) [address] [place] [address] Urea nitrogen/Creatinine [Mass ratio] 25.0 mg/mg High 4.6-16.2 [facility] Comment on above: Performed By: #### 1 [id number], 9410418, [id number], 25756371, 3116686 #### [facility] (DEFAULT) [address] [place] [address] ED Clinical Summaryon 2018 ED Clinical Summary [facility] Emergency Department [address] [place] [address] ED Clinical Summary PERSON INFORMATION Name: MEI JO Age: 63 Years Sex: FEMALE : 55 MRN: Acct#: Visit Reason: Hand laceration; LAC LEFT HAND Arrival: 02/10/19 16:19:00 Discharge: 02/10/19 18:34:00 LOS: 000 02:15 Check In: 02/10/19 16:19:00 Checkout:02/10/19 18:34:00 Address: [facility] [address] [facility] [address] PCP: MILADYS CORDERO PROVIDER INFORMATION Provider Role Assigned Unassigned José Johnson PA-C ED PA 02/10/19 16:25:25 Any RN, Iris ED Nurse 02/10/19 16:36:18 VITALS INFORMATION [...] Care Follow-Up: With: Address: When: Jimbo Gama [address] [place] [address], [place], [place] Business (2) Within 3 to 5 [...] You are sent with a prescription for [place], pain medication and he may take 1/2 tablet every 6 hours as needed for pain. Do not drive or drink alcohol while taking this medication as it may make you drowsy. You may return here to the emergency department for any worsening or concerning symptoms. With: Address: When: [address], [address] [place], [place] [id number] Business (1) Within 3 to 5 days DIAGNOSIS: Fall from ground level; Fracture of metacarpal of left hand, open; Hand laceration Patient Understands: Yes - Patient/family/caregiv er verbalizes understanding of instructions given Comment: [facility] ED Note - Physicianon 2018 ED Note - Physician Patient: KEYANA JO Age: 63 years Sex: FEMALE : 55 Associated Diagnoses: Fall from ground level; Hand laceration; Fracture of metacarpal of left hand, open Author: José Johnson PA-C Basic Information Time seen: Date & time [...] all digits in the left hand equal ict support engineer strength. Good strength in flexion-extension MCP DIP [...] 17:15:00, rate 66, Sinus rhythm Normal ECG MS interval 190, QRS duration 85, QT/QTc 377/390, [...] Auto Lymph % 11 % LOW Auto Alfalfa % 6 % Auto Eos % 0.9 % Auto Baso % 0.2 % Neut Abs# 10.8 x103/mcL HI Lymph Abs# 1.5 x103/mcL Alfalfa Abs# 0.8 x103/mcL Eos Abs# 0.1 x103/mcL [...] or Dr. Puentes as she is from [facility] in 3-5 days to understand [...] and Plan Diagnosis Fall from ground level ([id number] W18.30XA, Discharge, Medical) Hand laceration (OJD98-PR S61.419A, Discharge, Medical) Fracture of metacarpal of left hand, open (DJW76-WS S62.309B, Discharge, Medical) Plan Condition: Stable. Disposition: Discharged: Time 02/10/19 18:13:00, to home. Prescriptions: Launch prescriptions Pharmacy: Keflex 500 mg oral capsule (Prescribe): 500 mg = 1 cap(s), PO, q8hr, for 7 day(s), 21 cap(s), 0 Refill(s), Launch prescriptions Pharmacy: [place] 5 mg-325 mg oral tablet (Prescribe): 1 [...] You are sent with a prescription for [place], pain medication and he may take 1/2 [...] appointment. She is given a prescription for [place], pain medication she may take 1 tablet [...] on: 02/10/2019 20:12 EDT] José Johnson PA-C [facility] ED Note-Nursingon 02-10-2019 ED Note-Nursing Patient arrives afte r a fall, states she tripped over a table and landed on the asphalt. Patient has a laceration to her left hand. Patient went to and was taken here for low blood pressure and she was feeling dizzy at that time, symptoms have resolved. [facility] ED Patient Education Noteon 02-10-2019 ED [...] and water are not available, use hand global president. ? Change your dressing at least once [...] at home: Medicines ? Take or apply xhel-ahg-tpszxki and prescription medicines only as told by [...] 08/29/2005 Document Revised: 08/27/2017 Document Reviewed: 08/27/2017 [employer] Patient Education ? 2019 [employer] Orthopedics Metacarpal Fracture A metacarpal fracture [...] 07/22/2006 Document Revised: 12/27/2016 Document Reviewed: 05/11/2015 [employer] Patient Education ? 2019 [employer]. Normal [facility] ED Patient Summaryon 019 ED Patient Summary [facility] - Emergency Department [address] [place], [place] [id number] PATIENT DISCHARGE INSTRUCTIONS Patient Information Name: MEI JO Age: 63 Years Date of : [birth year] Reason For Visit: Hand laceration; LAC LEFT HAND Arrival Time: 02/10/19 16:19:00 Primary Care Physician: MILADYS CORDERO Attending Physician: Harvey Velez MD Comment: Visit Diagnosis: Diagnoses This Visit Fall from ground level (W18.30XA) Fracture of metacarpal of left hand, open (S62.309B) Hand laceration (S61.419A) Hand laceration ([id number]) Prescription Information: If you have been given a prescription for narcotics, seek immediate medical attention if you have any difficulty breathing or any sudden status changes such as confusion and sleepiness. If you or anyone you know is experiencing suicidal thoughts, mental health, alcohol and/or drug addiction problems; contact the [facility] 25/02 Crisis Hotline -Text 4HOPE to 728969. If you received any narcotics, sedation, or [...] legal documents With: Address: When: Jimbo Gama [address] [place] [address], [address] [place], [place] Business (2) Within 3 to 5 [...] You are sent with a prescription for [place], pain medication and he may take 1/2 tablet every 6 hours as needed for pain. Do not drive or drink alcohol while taking this medication as it may make you drowsy. You may return here to the emergency department for any worsening or concerning symptoms. With: Address: When: [address] [place], [place] [id number] Business (1) Within 3 to 5 days Medication Information: The exam and treatment you received today in the [facility] Emergency Department were for an urgent problem and are not intended as complete care. It is important for you to follow up with a doctor, nurse practitioner, or physician?s fiscal assistant for ongoing care. If your symptoms become [...] so we can reach you if necessary. [facility] Emergency Department has provided you with a complete list of medications post discharge. Please inform your tallow refiner/provider of your visit and for further instruction on these medications. Any specific questions regarding your chronic medications and dosages should be discussed with your primary care physician(s) and/or pharmacist. New Medications [facility]/pharmacy #[id number], [address], [place] [id number], [phone] cephalexin (Keflex 500 mg oral capsule) 1 cap(s) Oral Every 8 hours for 7 Days. Refills: 0. Printed Prescriptions acetaminophen-hydrocod one ([place] 5 mg-325 mg oral tablet) 1 tab(s) [...] 07/22/2006 Document Revised: 12/27/2016 Document Reviewed: 05/11/2015 [employer] Patient Education ? 2019 [employer] Sutured Wound Care Sutures are stitches [...] and water are not available, use hand global president. ? Change your dressing at least once [...] at home: Medicines ? Take or apply zfht-pyd-fmsgoua and prescription medicines only as told by [...] 08/29/2005 Document Revised: 08/27/2017 Document Reviewed: 08/27/2017 [employer] Patient Education ? 2019 [employer]. Viruses or Bacteria What?s got you sick? [...] Disease Control and Prevention April 2014 Normal [facility] 02-10-2019 Tube Collected Yes [facility] Comment on above: Performed By: #### 1 [id number], [id number], [id number], [id number], [id number] #### [facility] (DEFAULT) [address] [place] [address] Troponin Ion 02-10-2019 Troponin I.cardiac [Mass/Vol] ng/mL Normal <=0.03 [facility] Comment on above: Performed By: #### 1 [id number], [id number], [id number], [id number], [id number] #### [facility] (DEFAULT) [address] [place] [address] XR Hand Complete Lefton XR Hand Complete [...] Lozano 02/10/19 5:19 pm Technologist: JENIFER Sandhu [facility] Vital Signs Date Time Vital Sign Value Performing Clinician Facility 09-03-2024 09:27-0500 Body height 157.5 cm Brijesh Armstrong MD Work Phone: [facility] 09-03-2024 09:27-0500 Body mass index (BMI) [Ratio] 30.18 kg/m2 Brijesh Armstrong MD Work Phone: [facility] 09-03-2024 09:27-0500 Body weight 74.84 kg Brijesh Armstrong MD Work Phone: [facility] 09-03-2024 09:27-0500 Diastolic blood pressure 86 mm[Hg] Brijesh Armstrong MD Work Phone: [facility] 09-03-2024 09:27-0500 Heart rate 82 /min Brijesh Armstrong MD Work Phone: [facility] 09-03-2024 09:27-0500 SaO2% (BldA) [Mass fraction] 97 % Brijesh Armstrong MD Work Phone: [facility] 09-03-2024 09:27-0500 Systolic blood pressure 132 mm[Hg] Brijesh Armstrong MD Work Phone: [facility] 05-07-2024 13:34-0400 Body mass index (BMI) [Ratio] 29.31 kg/m2 Meena Schrader MD Work Phone: [facility] 05-07-2024 13:34-0400 Body temperature 96.6 [degF] Meena Schrdaer MD Work Phone: [facility] 05-07-2024 13:34-0400 Body weight 72.7 kg Meena Schrader MD Work Phone: [facility] 05-07-2024 13:34-0400 Diastolic blood pressure 84 mm[Hg] Meena Schrader MD Work Phone: [facility] 05-07-2024 13:34-0400 Heart rate 83 /min Meena Schrader MD Work Phone: [facility] 05-07-2024 13:34-0400 Respiratory rate 16 /min Meena Schrader MD Work Phone: [facility] 05-07-2024 13:34-0400 SaO2% (BldA) [Mass fraction] 97 % Meena Schrader MD Work Phone: [facility] 05-07-2024 13:34-0400 Systolic blood pressure 152 mm[Hg] Meena Schrader MD Work Phone: [facility] 04-14-2024 13:54-0400 Body mass index (BMI) [Ratio] 29.45 kg/m2 Meena Schrader MD Work Phone: [facility] 04-14-2024 13:54-0400 Body temperature 96.3 [degF] Meena Schrader MD Work Phone: [facility] 04-14-2024 13:54-0400 Body weight 73.03 kg Meena Schrader MD Work Phone: [facility] 04-14-2024 13:54-0400 Diastolic blood pressure 88 mm[Hg] Menea Schrader MD Work Phone: [facility] 04-14-2024 13:54-0400 Heart rate 106 /min Meena Schrader MD Work Phone: [facility] 04-14-2024 13:54-0400 Respiratory rate 18 /min Meena Schrader MD Work Phone: [facility] 04-14-2024 13:54-0400 SaO2% (BldA) [Mass fraction] 97 % Meena Schrader MD Work Phone: [facility] 04-14-2024 13:54-0400 Systolic blood pressure 139 mm[Hg] Meena Schrader MD Work Phone: [facility] 04-08-2024 09:50-0400 Body mass index (BMI) [Ratio] 29.12 kg/m2 Oziel Ordaz DIRECT SUPPORT PROFESSIONAL-FIRST RESPONDER Work Phone: [facility] 04-08-2024 09:50-0400 Body temperature 96.1 [degF] Oziel Ordaz DIRECT SUPPORT PROFESSIONAL-FIRST RESPONDER Work Phone: [facility] 04-08-2024 09:50-0400 Body weight 72.21 kg Oziel Ordaz DIRECT SUPPORT PROFESSIONAL-FIRST RESPONDER Work Phone: [facility] 04-08-2024 09:50-0400 Diastolic blood pressure 89 mm[Hg] Oziel Ordaz APRN-FIRST RESPONDER Work Phone: [facility] 04-08-2024 09:50-0400 Heart rate 105 /min Oziel Ordaz APRN-FIRST RESPONDER Work Phone: [facility] 04-08-2024 09:50-0400 Respiratory rate 16 /min Oziel Ordaz APRN-FIRST RESPONDER Work Phone: [facility] 04-08-2024 09:50-0400 SaO2% (BldA) [Mass fraction] 100 % Oziel Ordaz APRN-FIRST RESPONDER Work Phone: [facility] 04-08-2024 09:50-0400 Systolic blood pressure 128 mm[Hg] Oziel Ordaz DIRECT SUPPORT PROFESSIONAL-FIRST RESPONDER Work Phone: [facility] 03-23-2024 13:25-0400 Body temperature 97 [degF] Meena Schrader MD Work Phone: [facility] 03-23-2024 13:25-0400 Diastolic blood pressure 77 mm[Hg] Meena Schrader MD Work Phone: [facility] 03-23-2024 13:25-0400 Heart rate 68 /min Meena Schrader MD Work Phone: [facility] 03-23-2024 13:25-0400 Respiratory rate 18 /min Meena Schrader MD Work Phone: [facility] 03-23-2024 13:25-0400 SaO2% (BldA) [Mass fraction] 96 % Meena Schrader MD Work Phone: [facility] 03-23-2024 13:25-0400 Systolic blood pressure 136 mm[Hg] Meena Schrader MD Work Phone: [facility] 03-23-2024 07:18-0400 Body height 157.5 cm Meena Schrader MD Work Phone: [facility] 03-23-2024 07:18-0400 Body mass index (BMI) [Ratio] 29.35 kg/m2 Meena Schrader MD Work Phone: [facility] 03-23-2024 07:18-0400 Body weight 72.8 kg Meena Schrader MD Work Phone: [facility] Encounters Encounter Date Encounter Type Care Provider Facility Start: 12-08-2024 End: 12-08-2024 Matt Mari MD Work Phone: [facility] Start: 12-08-2024 End: 12-08-2024 Bamboo flowsheet Roseann Mari MD Work Phone: [facility] Start: 12-08-2024 End: 12-08-2024 Office outpatient visit 15 minutes Roseann Mari MD Work Phone: [facility] Comment on above: Seborrheic keratosis (Primary Dx); Lentigines; History of malignant melanoma of skin Start: 12-08-2024 End: 12-08-2024 ambulatory ROSEANNENIO LESLIEITTI Not Available Start: 12-04-2024 ambulatory [facility] Start: 11-06-2024 End: 11-06-2024 Telephone encounter Brijesh Armstrong MD Work Phone: [facility] Start: 09-29-2024 End: 09-29-2024 ambulatory [facility] Start: 09-03-2024 End: 09-03-2024 Bamboo flowsheet Brijesh [...] skin Start: 09-03-2024 End: 09-03-2024 ambulatory ROSEANN Rocío COMBSI Not Available Start: 09-03-2024 End: 09-03-2024 Assay [...] (CMS/HCC); Breast screening; Third degree heart block ([facility]/HCC); Artificial cardiac pacemaker Start: 09-03-2024 End: 09-03-2024 ambulatory BRIJESH ARMSTRONG Not Available Start: 08-18-2024 End: 08-18-2024 ambulatory [facility] Start: 08-14-2024 End: 08-14-2024 [facility] Start: 08-04-2024 Evaluation and manag ement of inpatient [facility] Start: 08-04-2024 Evaluation and manag ement of inpatient [facility] Start: 08-03-2024 Emergency department patient visit MADI TEMPLE [facility] Start: 08-03-2024 End: 08-04-2024 Evaluation and management of inpatient JOSE HOOK [facility] Start: 08-03-2024 End: 08-03-2024 [facility] Start: 06-02-2024 End: 06-02-2024 Matt Mari MD Work Phone: [facility] Start: 06-02-2024 End: 06-02-2024 Matt Mari MD Work Phone: [facility] [...] up visit related to original px Meena S Raciel MD Work Phone: [facility] Comment on above: Wound infection afte r surgery (Primary Dx) Start: 05-07-2024 End: 05-07-2024 ambulatory MEENA SCHRADER [facility] Start: 04-14-2024 End: 04-14-2024 Postop follow up visit related to original px Meena Schrader MD Work Phone: [facility] Comment on above: Malignant melanoma o f lower leg, left (Multi) (Primary Dx) Start: 04-14-2024 End: 04-14-2024 ambulatory MEENA HENNINGEHN [facility] Start: 04-08-2024 End: 04-08-2024 Postop follow up visit related to original px Oziel Rocío Ordaz DIRECT SUPPORT PROFESSIONAL-FIRST RESPONDER Work Phone: [facility] Comment on above: Cellulitis of left l ower extremity (Primary Dx) Start: 04-08-2024 End: 04-08-2024 ambulatory OZIEL ORDAZ [facility] Start: 03-23-2024 End: 03-23-2024 Subsequent hospital visit by physician Dayanna Lay 3 [facility] Comment on above: Malignant melanoma o f lower leg, left (Multi) Arrived Start: 03-23-2024 End: 03-23-2024 ambulatory MEENA Mejia RACIEL [facility] Start: 03-23-2024 End: 03-23-2024 Subsequent hospital visit by physician Meena Schrader MD Work Phone: [facility] [place] Comment on above: Malignant melanoma o f lower leg, left (Multi) (Primary Dx) Start: 03-18-2024 ambulatory MEENA SCHRADER [facility] Start: 03-17-2024 End: 03-17-2024 Office outpatient visit 25 minutes Meena Schrader MD Work Phone: [facility] Comment on above: Malignant melanoma o f lower leg, left (Multi) (Primary Dx) Start: 03-17-2024 End: 03-17-2024 ambulatory MEENA Mjeia [facility] Start: 02-24-2024 End: 02-24-2024 ambulatory ROSEANN MARI Not Available Start: 07-12-2023 Refill Brijesh Armstrong MD Work Phone: [facility] Comment on above: 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, in full remission ([facility]) Start: 09-03-2022 End: 09-04-[address] BRIJESH ARMSTRONG Facility:[facility] Start: 08-15-2022 End: 08-16-2022 ambulatory OSIEL FAYUSAMA Facility:[facility] Start: 06-07-2022 End: 06-08-[address] [...] Date Procedure Procedure Detail Performing Clinician Start: 10-20-2024 Mammography Brijesh fernandez MD Work Phone: Start: 09-03-2024 CRYOTHERAPY SKIN LESION Roseann Mari [...] Treatment Date Care Activity Detail Author Start: 10-20-2025 Screening for malignant neoplasm of breast Mammogram [facility] Start: 09-03-2025 Medicare Annual Wellness (AWV) Medicare Annual Wellness (AWV) [facility] Start: 08-31-2025 Screening for malignant neoplasm of colon [facility] Start: 03-10-2025 End: 03-10-2025 Patient encounter procedure 03/10/2025 10:50 AM EDT Office Visit [facility] [address] [place] [address] Roseann Mari MD [address] [place] [address] [facility] Start: 02-23-2025 End: 02-23-2025 Patient encounter procedure 02/23/2025 9:50 AM EDT Office Visit [facility] [address] [place] [phone] Roseann Mari MD [address] [place] [address] [facility] Start: 12-08-2024 End: 12-08-2024 Patient encounter procedure 12/08/2024 10:05 AM EDT Office Visit [facility] [address] [place] [address] Roseann Mari MD [address] [place] [address] [facility] Start: 11-06-2024 End: 11-06-2025 Thyrotropin [Units/volume] in Serum or Plasma TSH Lab Routine Abnormal thyroid function test Expected: 11/06/2024 (Approximate), Expires: 11/06/2025 [facility] Work Phone: Comment on above: Expected: 11/06/2024 (Approximate), Expi res: 11/06/2025 Start: 11-06-2024 End: 11-06-2025 Thyroxine (T4) free [Mass/volume] in Serum or Plasma T4, free Lab Routine Abnormal thyroid function test Expected: 11/06/2024 (Approximate), Expires: 11/06/2025 [facility] Comment on above: Expected: 11/06/2024 (Approximate), Expi res: 11/06/2025 Start: 11-06-2024 End: 11-06-2025 Triiodothyronine (T3) Free [Mass/volume] in Serum or Plasma T3, free Lab Routine Abnormal thyroid function test Expected: 11/06/2024 (Approximate), Expires: 11/06/2025 [facility] Comment on above: Expected: 11/06/2024 (Approximate), Expi res: 11/06/2025 Start: 11-03-2024 End: 11-03-2024 Patient encounter procedure 11/03/2024 9:05 AM EDT Office Visit [facility] [address] [place] [address] Roseann Mari MD [address] [place], [place] [id number] [facility] Start: 10-02-2024 End: 09-03-2025 DXA Skeletal system Views for bone density DEXA bone density Imaging Routine Estrogen deficiency Expected: 10/02/2024 (Approximate), Expires: 09/03/2025 [facility] Comment on above: Expected: 10/02/2024 (Approximate), Expi res: 09/03/2025 Start: 10-02-2024 End: 11-01-2025 MG Breast - bilateral Screening Bilateral screening mammogram Imaging Routine Breast screening Expected: 10/02/2024 (Approximate), Expires: 11/01/2025 [facility] Work Phone: Comment on above: Expected: 10/02/2024 (Approximate), Expi res: 11/01/2025 Start: 09-26-2024 Screening for malignant neoplasm of breast Mammogram [facility] Start: 09-03-2024 End: 09-03-2025 Lipid 1996 panel - Serum or Plasma Lipid panel Lab Routine Mixed hyperlipidemia (CMS/HCC) Expected: 09/03/2024 (Approximate), Expires: 09/03/2025 [facility] Comment on above: Expected: 09/03/2024 (Approximate), Expi res: 09/03/2025 Start: 09-03-2024 End: 09-03-2025 TSH W/REFLEX TO FT4 TSH W/REFLEX TO FT4 Lab Routine Mixed hyperlipidemia (CMS/HCC) Second degree atrioventricular block Expected: 09/03/2024 (Approximate), Expires: 09/03/2025 [facility] Comment on above: Expected: 09/03/2024 (Approximate), Expi res: 09/03/2025 Start: 09-03-2024 End: 09-03-2024 Patient encounter procedure [facility] Start: 09-03-2024 End: 09-03-2024 Patient encounter procedure 09/03/2024 9:30 AM EST Office Visit [facility] [address] [facility] [address] [place] [phone] Brijesh Armstrong MD [address] [facility] [address] [place], [place] [phone] Arrived [facility] Comment on above: Arrived Start: 08-22-2024 Medicare Annual Wellness (AWV) Medicare Annual Wellness (AWV) [facility] Start: 06-02-2024 End: 06-02-2024 Patient encounter procedure 06/02/2024 11:20 AM EDT Office Visit [facility] [address] [place] [phone] Roseann Mari MD [address] [place] [address] Arrived [facility] Comment on above: Arrived Start: 04-14-2024 End: 04-14-2024 Patient encounter procedure 04/14/2024 2:00 PM EDT Office Visit [facility] [address] [facility] 2nd [place] [address] [place] [address] [address] [place] [address] [facility] Start: 04-05-2024 COVID-19 Vaccine (2022- season) COVID-19 Vaccine ( season) [facility] Start: 04-05-2024 DTaP/Tdap/Td Vaccines (2 - Td or Tdap) DTaP/Tdap/Td Vaccines (2 - Td or Tdap) [facility] Start: 04-05-2024 Influenza vaccination Influenza Vaccine (#1) [facility] Start: 03-23-2024 End: 03-17-2025 NM Lymphatic vessels Views W radionuclide intra lymphatic NM lymphoscintigram Imaging Routine Malignant melanoma of lower leg, left (Multi) Expected: 03/23/2024, Expires: 03/17/2025 [facility] Service Area Work Phone: Comment on above: Expected: 03/23/2024, Expires: Start: 03-23-2024 Subsequent hospital visit by physician 03/23/2024 Hospital Encounter [facility] [place] [address] [place] [phone] [place] [address] [address] [place] [address] [facility] [place] Start: 03-23-2024 End: 03-23-2024 Bx/exc lymph [...] Vaccine ( season) COVID-19 Vaccine ( season) [facility] Start: 09-03-2023 Screening for malignant neoplasm of breast Mammogram [facility] Start: 07-13-2023 Screening for osteoporosis Bone Density Scan [facility] Start: 11-14-2020 Pneumococcal Vaccine: 65+ Years (1 of 1 - PCV) Pneumococcal Vaccine: 65+ Years (1 of 1 - PCV) [facility] Start: 11-14-2005 Pneumococcal Vaccine: 65+ Years (1 of 1 - PCV) Pneumococcal Vaccine: 65+ Years (1 of 1 - PCV) [facility] Start: 11-14-1973 Diabetes mellitus screening Diabetes Screening [facility] Start: 11-14-1973 Hepatitis C screening Hepatitis C Screening [facility] Start: 05-16-1956 Examination of skin Derm Melanoma Skin Check [facility] Start: 1955 Lipid panel Lipid Panel [facility] Start: 1955 Medicare Annual Wellness Visit Medicare Annual Wellness Visit (AWV) [facility] Start: 1955 Screening for malignant neoplasm of colon [facility] Bx/exc lymph node op en superficial Biopsy Lymph Node Inguinal Malignant melanoma of lower leg, left (Multi) [facility] Dermatopathology- DE RM LAB [facility] Service Area Work Phone: Comment on above: Release Upon Ordering for 1 Occurrences starting 03/23/2024 Electrocardiogram, 12-lead Electrocardiogram, 12-lead ECG Routine 03/23/2024 7:13 AM EDT [facility] Work Phone: Excision malignant l esion trunk/arm/leg > 4.0 cm Excision Lesion Skin Lower Extremity Malignant melanoma of lower leg, left (Multi) [facility] [place] Immunizations Immunization Date Immunization Notes Care Provider [facility] 04-20-2024 influenza, high dose seasonal, preservative-free Brijesh Armstrong MD Work Phone: [facility] 04-20-2024 influenza virus vaccine, unspecified formulation Roseann Mari MD Work Phone: [facility] 08-08-2023 RSV, recombinant, protein subunit RSVpreF, adjuvant reconstitu, 120mcg/0.5mL, PF (Arexvy) Roseann Mari MD Work Phone: [facility] 03-28-2023 Influenza, Seasonal, Quadrivalent, Adjuvanted Brijesh Armstrong MD Work Phone: [facility] 03-28-2023 influenza virus vaccine, unspecified formulation Meena Schrader MD Work Phone: [facility] Work Phone: 05-13-2022 Moderna Bivalent Booster Vaccination Brijesh Armstrong MD Work Phone: [facility] 04-14-2022 Influenza, High-dose Seasonal, Quadrivalent, Preservative Free Brijesh Armstrong MD Work Phone: [facility] 05-03-2021 Influenza, High-dose Seasonal, Quadrivalent, Preservative Free Brijesh Armstrong MD Work Phone: [facility] 08-31-2019 zoster vaccine recombinant Brijesh Armstrong MD Work Phone: [facility] 04-07-2019 Influenza, injectabl e, [place] Canine Kidney, preservative free, quadrivalent Brijesh Armstrong MD Work Phone: [facility] 04-07-2019 zoster vaccine recombinant Brijesh Armstrong MD Work Phone: [facility] 04-30-2016 zoster vaccine, live Brijesh Armstrong MD Work Phone: [facility] 04-16-2016 influenza, injectabl e, quadrivalent, preservative free Brijesh Armstrong MD Work Phone: [facility] 04-05-2014 tetanus toxoid, redu linda diphtheria toxoid, and acellular pertussis vaccine, adsorbed Brijesh Armstrong MD Work Phone: [facility] Payers Date Payer Category Payer Private Health Insurance [id number] 2020 Medicare [id number] 1959 Medicare [id number] 1959 Private Health Insurance CLI [id number] 1955 Unknown [id number] 2.16.84 0.1.583826.3.579.2.593 1955 Unknown [id number] 2.16.84 0.1.710788.3.579.2.593 1955 Unknown [id number] 2.16.84 0.1.071544.3.579.2.593 1955 Unknown [id number] 2.16.84 0.1.885573.3.579.2.593 1955 Unknown [id number] 2.16.84 0.1.411411.3.579.2.593 1955 Unknown [id number] 2.16.84 0.1.670298.3.579.2.593 1955 Unknown [id number] 2.16.84 0.1.451986.3.579.2.593 1955 Unknown [id number] 2.16.84 0.1.862333.3.579.2.593 1955 Unknown [id number] 2.16.84 0.1.140076.3.579.2.593 1955 Unknown [id number] 2.16.84 0.1.071553.3.579.2.593 1955 Unknown [id number] 2.16.84 0.1.125917.3.579.2.593 1955 Unknown [id number] 2.16.84 0.1.020324.3.579.2.593 1955 Unknown [id number] 2.16.84 0.1.632402.3.579.2.593 1955 Unknown [id number] 2.16.84 0.1.292505.3.579.2.593 1955 Unknown [id number] 2.16.84 0.1.370653.3.579.2.593 1955 Unknown [id number] 2.16.84 0.1.169055.3.579.2.593 1955 Unknown [id number] 2.16.8 40.1.344845.3.579.2.1244 1955 Unknown [id number] 2.16.8 40.1.792220.3.579.2.1244 1955 Unknown [id number] 2.16.8 40.1.053522.3.579.2.1244 1955 Unknown [id number] 2.16.8 40.1.681240.3.579.2.1244 1955 Unknown [id number] 2.16.8 40.1.162309.3.579.2.1245 1955 Unknown [id number] 2.16.8 40.1.625031.3.579.2.1245 1955 Unknown [id number] 2.16.8 40.1.015689.3.579.2.1245 1955 Unknown [id number] 2.16.8 40.1.800960.3.579.2.1245 1955 Unknown [id number] 2.16.84 0.1.316814.3.579.2.1259 1955 Unknown [id number] 2.16.84 0.1.075198.3.579.2.1259 1955 Unknown [id number] 2.16.84 0.1.227451.3.579.2.1259 1955 Unknown [id number] 2.16.84 0.1.691655.3.579.2.1259 1955 Unknown [id number] 2.16.84 0.1.904071.3.579.2.1259 Social History Date Type Detail Facility [facility] Start: 08-22-2023 End: 09-03-2024 History of Social function [facility] Start: 08-22-2023 End: 09-03-2024 Tobacco use panel [facility] Start: 1955 Sex Assigned At Not on file N [facility] Start: 03-18-2024 [facility] History of tobacco use Current smoker [facility] Work Phone: History of tobacco use Cigarette Smoker [facility] Work Phone: Start: 08-22-2023 End: 03-18-2024 Tobacco use and exposure Smokeless tobacco non-user [facility] Work Phone: Start: 04-14-2024 End: 12-08-2024 Alcoholic beverage intake Current drinker of alcohol (finding) [facility] Work Phone: Start: 03-13-2024 End: 05-07-2024 Exposure to SARS-CoV-2 (event) Not sure [facility] Start: 08-22-2023 Tobacco smoking stat [facility] Never smoked tobacco [facility] Start: 03-07-2024 End: 03-17-2024 Exposure to SARS-CoV-2 (event) Unable to assess [facility] Start: 03-29-2024 End: 04-08-2024 Exposure to SARS-CoV-2 (event) Yes [facility] Clinical Notes 08-31-2021 to 12-08-2024 Roseann Mari MD - 12/08/2024 10:05 AM EDTTelephone Encounter - Brijesh Armstrong MD - 11/06/2024 10:10 AM EDTTelephone Encounter - Brijesh Armstrong MD - 11/06/2024 10:10 AM EDTDischarge Instructions Note Date & Type Note Facility 12-08-2024 History of Present illness Narrative Skin Check Location: Patient requests a full body skin examination Dermatologic history: history of Actinic Keratosis, history of Melanoma Last visit: 3 months ago Melanoma History Location: Left leg Date of Melanoma dx: 02/24/2024 Melanoma details: Malignant Melanoma Breslow's depth: 0.50 MM Mitotic rate: 0/mm Ulceration: Not identified (Specimen is fragmented making assessment difficult) Melanoma treatment: Referred for wide excision Meena Schrader MD Additional testing: none Denies unintentional weight loss, nightsweats Established patient All pertinent medical history, medications, and allergies were reviewed. General Exam: alert, oriented to person, place, and time, normal affect, well appearing Unaccompanied Scalp, Examined , exam limited by hair Right leg Examined Head, Face Examined Left leg Examined Neck Examined Right foot Examined Chest Examined Left foot Examined Back Examined Buttocks Examined Abdomen Examined Digits,nails: Examined Right arm Examined Left arm Examined Lymphatics: Examined Hands Examined no cervical lymphadenopathy, no supraclavicular lymphadenopathy, no axillary lymphadenopathy, no inguinal lymphadenopathy Skin Exam 1. SEBORRHEIC KERATOSIS Generalized Stuck on verrucous, gee-brown papules and plaques. Patient was counseled regarding these benign growths. Removal is normally not necessary, but they may be removed if they are symptomatic or for cosmetic reasons. 2. LENTIGINES Generalized Scattered gee macules in sun-exposed areas. The patient was informed that lentigines are benign pigmented lesions that occur on sun-exposed and sun-damaged skin. No treatment is necessary. Recommended regular use of broad spectrum sunscreen SPF 30 or higher 3. HISTORY OF MALIGNANT MELANOMA OF SKIN Left Lower Leg - Anterior No evidence [...] Visit: 3 months documented in this encounter [facility] 11-06-2024 Telephone encounter Note Please call and inform- thyroid lab needs to be rechecked. A lab order was placed. I will call her with the results after they are done. [facility] 11-06-2024 Miscellaneous Notes Please call and inform- thyroid lab needs to be rechecked. A lab order was placed. I will call her with the results after they are done. documented in this encounter [facility] 09-29-2024 Note MD Electrophysiology Consult Note MD Cardiology [facility] Reason for visit: s/p PPM for CHB HPI: Mei Jo is a 68 y.o. 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 EKG in office showed complete heart block. She was sent to [facility] ED for evaluation and management on 08/03/24 and got PPM placed by me. Since then device check today has revealed NSVT and lead thresholds being stable. PMH: Past Medical History: Diagnosis Date Abnormal ECG Cancer (CMS/HCC) Hyperlipidemia Hypertension Second degree AV block Syncope PSH: Past Surgical History: Procedure Laterality Date CHOLECYSTECTOMY SH: Social Determinants of Health Tobacco Use: Low Risk (09/03/2024) Received from [facility] Patient History Smoking Tobacco Use: Never Smokeless Tobacco Use: Never Passive Exposure: Not on file Alcohol Use: Not on file Financial Resource Strain: Low Risk (08/03/2024) Overall Financial Resource Strain (CARDIA) Difficulty of Paying Living Expenses: Not hard at all Food Insecurity: No Food Insecurity (08/03/2024) Hunger Vital Sign Worried About Running Out of Food in the Last Year: Never true Ran Out of Food in the Last Year: Not on file Transportation Needs: No Transportation Needs (08/03/2024) Transportation Lack of Transportation (Medical): No Lack of Transportation (Non-Medical): Not on file Physical Activity: Not on file Stress: Not on file Social Connections: Not on file Intimate Partner Violence: Unknown (08/03/2024) Humiliation, Afraid, Rape, and Kick questionnaire Fear of Current or Ex-Partner: No Emotionally Abused: Not on file Physically Abused: Not on file Sexually Abused: Not on file Depression: Not at risk (09/03/2024) Received from [facility] PHQ-2 Patient Health Questionnaire-2 Score: 0 Housing Stability: Low Risk (08/03/2024) Housing Stability Vital Sign Unable to Pay for Housing in the Last Year: No Number of Times Moved in the Last Year: Not on file Homeless in the Last Year: No Utilities: Not At Risk (08/03/2024) [facility] Utilities Threatened with loss of utilities: No Health Literacy: Not on file Allergies: No Known Allergies Weight: No weight available Visit Vitals OB Status Postmenopausal Smoking Status Never Meds: Current Outpatient Medications on File Prior to Visit Medication Sig Dispense Refill cholecalciferol, vitamin D3, 50 mcg (2,000 unit) capsule Take 50 mcg by mouth in the morning. citalopram (CeleXA) 20 mg tablet Take 10 mg by mouth in the morning. simvastatin (Zocor) 40 mg tablet Take 40 mg by mouth at bedtime. No current facility-administered medications on file prior to visit. ROS: Cardio Basic Cardiovascular Symptoms: no lightheadedness, no leg edema, no syncope, no orthopnea, no PND, no claudication, Constitutional Constitutional: no fever, no night sweats, no significant weight gain, no significant weight loss, no exercise intolerance Eyes Eyes: no dry eyes, no irritation, no vision change ENMT Ears: no difficulty hearing, no ear pain Nose: no frequent nosebleeds, Mouth/Throat: no sore throat, no bleeding gums, no snoring, no dry mouth, no mouth ulcers, no oral abnormalities, no teeth problems Respiratory Respiratory: no cough, no wheezing, no coughing up blood, no sleep apnea Musculoskeletal Musculoskeletal: no muscle aches, no muscle weakness, joint pain+, no back pain, no swelling in the extremities Integumentary Skin no rash, no ulcer, no varicosities, no discoloration, no pruritus Neurologic Neurologic: no loss of consciousness, no weakness, no numbness, no seizures, no dizziness, no headaches Psychiatric Psych: no depression, feeling safe in relationship, no alcohol abuse, Hematologic/Lymphatic Hematologic/Lymphatic no swollen glands, no bruising Physical Exam: Constitutional General Appearance: well-nourished, well-developed, appears stated age Level of Distress: comfortable Eyes ZACARIAS Neck Neck: supple, trachea midline Carotid Arteries: bilateral normal upstroke, no bruits Jugular Veins: normal jugular venous pressure Thyroid: not enlarged Lungs Respiratory Effort: unlabored Chest Exam: normal curvature, no thoracic deformity Auscultation: clear, no wheezing, no rales, no rhonchi Cardiovascular Chest wall: Rate And Rhythm: regular Heart Sounds: normal S1, normal s2, no gallop Systolic Murmur: not heard Diastolic Murmur: not heard Extremities: no cyanosis, no edema, no peripheral signs of emboli Peripheral Pulses Radial Pulse: normal Abdomen Inspection and Palpation: soft, non distended, no bruit, non tender Neurologic Gait: normal gait Labs: @LABRESULTS@ No results found for: CHOLESTEROL TOTAL , HDL , LDL CALC , LDL DIRECT , TRIGLYCERIDES , T (more content not included)... [facility] 09-03-2024 History of Present illness Narrative Images [...] limited to risks of scarring, darker or power plant operator pigmentary changes, recurrence, incomplete removal and infection. [...] Visit: 3 months documented in this encounter [facility] 09-03-2024 History of Present illness Narrative Images [...] Do you have a medical power of health care attorney?: No Objective : BP 132/86 Pulse [...] September 03, 2024 documented in this encounter [facility] 08-14-2024 Note Patient here for wou nd [...] No fevers no chills. Jacinta Morales MD [facility] 08-04-2024 Note Occupational Therapy Occupational Therapy [...] Level of Function Prior Function Level of [place]: Independent with ADLs and functional transfers, Independent [...] Eating meals?: None (Independent) Total Score OT [facility]: 24 Assessment/Plan OT Assessment OT Education/Comments: (pacer handout issued and discussed, general home safety all with good return demo) Plan OT Discharge Recommendations: Home OT - Discharge Recommendations Placed: Yes OT Goals Multi-Disciplinary Problems (from Occupational Therapy) Active Problems Not on file [facility] 08-03-2024 Note MD Cardiology - [facility] Subjective Mei Jo is a [...] will send the patient to ED at [facility]. I spoke already with Dr. Garcia he will see her immediately for permanent pacemaker implantation. Follow-up 1 to 2 weeks after pacemaker implantation Ernie Cao MD,[facility] 06-02-2024 History of Present illness Narrative [...] Actinic keratosis (4) Left Malar Cheek, Left Worship, Left Zygomatic Area, Right Supraorbital Region Erythematous [...] limited to risks of scarring, darker or power plant operator pigmentary changes, recurrence, incomplete removal and infection. [...] skin lesion - Left Malar Cheek, Left Worship, Left Zygomatic Area, Right Supraorbital Region 5. [...] Visit: 3 months documented in this encounter [facility] 05-07-2024 History of Present illness Narrative ASSESSMENT [...] to clinic as needed. Meena Schrader MD [facility] [place] Division of Surgical Oncology [phone] [email or web address] SUBJECTIVE Mei Jo is a 68 y.o. [...] MELANOCYTIC NEOPLASM SEEN. documented in this encounter [facility] Work Phone: 04-14-2024 History of Present illness [...] needed for wound care. Meena Schrader MD [facility] [place] Division of Surgical Oncology [phone] [email or web address] SUBJECTIVE Mei Jo is a 68 y.o. [...] MELANOCYTIC NEOPLASM SEEN. documented in this encounter [facility] Work Phone: 04-08-2024 History of Present illness [...] Review Audit Reviewed by Roland Martell MA (Clam Sorter) on 04/08/24 at 0951 Medication Order Taking? Sig Documenting Provider Last Dose Status cholecalciferol (Vitamin D-3) 50 mcg (2,000 unit) capsule [id number] Yes Take 1 capsule (50 mcg) by mouth once daily. Historical Provider, Taking Active citalopram (CeleXA) 10 mg tablet [id number] Yes Take 1 tablet (10 mg) by mouth once daily. Historical Provider, Taking Active fluticasone (Flonase) 50 mcg/actuation nasal spray [id number] Yes 1 spray once daily as needed. Historical Provider, Taking Active simvastatin (Zocor) 40 mg tablet [id number] Yes Take 1 tablet (40 mg) by mouth once daily. Historical Provider, Taking Active sulfamethoxazole-trimethoprim (Bactrim DS) 800-160 mg tablet [id number] Yes Take 1 tablet by mouth 2 [...] VARICOSE VEIN SURGERY documented in this encounter [facility] Work Phone: 03-23-2024 Hospital Discharge instructions Maryana [...] of the following, please call Radha Dash ([phone]) or Dr. Schrader's office ([phone]). Swelling under the incision like a golf ball or larger. Redness of the skin that is spreading away from the incision. Drainage from the incision. Fevers, chills, or any other concerning symptoms. Follow-up Call Amada Potts at [phone] to arrange a postop visit in 3 [...] and blood flow The doctor or nurse cylinder sander operator gives general anesthesia by a shot into [...] dizziness. Where can I learn more? [employer] [place] [employer] https://www.nigms.nih.gov/educat ion/pages/factsheet_Anesthesia.a spx NHS Choices http://www.nhs.uk/conditions/Marcella esthetic-general/Pages/Definitio n.aspx Last Reviewed Date 2019-11-25 documented in this encounter [facility] Work Phone: 03-23-2024 Note Formatting of this n ote is different from the original. Excision Lesion Skin Lower Extremity (L), [place] Lymph Node Biopsy Operative Note Date: 03/23/2024 OR Location: [facility] OR Name: Mei Jo, : 1955, Age: 68 y.o., , Sex: female Diagnosis Pre-op Diagnosis * Malignant melanoma of lower leg, left (Multi) [C43.72] Post-op Diagnosis * Malignant melanoma of lower leg, left (Multi) [C43.72] Procedures Excision Lesion Skin Lower Extremity 90089 - MS EXCISION MALIGNANT LESION TRUNK/ARM/LEG > 4.0 CM [place] Lymph Node Biopsy 73599 - MS BX/EXC LYMPH NODE OPEN SUPERFICIAL Double VY Advancement flap closure Surgeons * Meena Schrader - Primary Resident/Fellow/Other Manager Transplant: Surgeons and Role: * No surgeons found with a matching role * Procedure Summary Anesthesia: General ASA: II Anesthesia Staff: Anesthesiologist: Luis Carlos Cloud MD PROJECT MANAGER/DESIGN MANAGER: Gaetano Chavez APRN-FELIBERTO Estimated Blood Loss: 5mL [...] DERMATOPATHOLOGY Meena Schrader MD 03/23/2024 1110 Staff: Windows Server Specialist: Marla Peña Person: Susana INDICATIONS FOR SURGERY [...] fascia (melanoma) Final dimensions of excision: 3.5cm [place] Specimen marking stitches: Short stitch superior at 12:00, long stitch posterior at 3:00 Excision closure: 4-0 Prolene, antibiotic ointment, gauze and Rosmery wrap Location of sentinel nodes: Left groin Number of sentinel lymph nodes: 1 The patient arrived at [facility] for the aforementioned procedure. Consent was obtained, [...] multilayer fashion using a deep 2-0 Vicryl [id number], interrupted deep 3-0 Vicryl, and a running subcuticular 4-0 Monocryl. The skin was dressed with Dermabond. The patient was awoken and returned to the PACU in anticipation of discharge home. I was present scrubbed and directed all operative decision-making. [facility] Work Phone: 03-23-2024 Miscellaneous Notes Excision Lesion Skin Lower Extremity (L), [place] Lymph Node Biopsy Operative Note Date: 03/23/2024 OR Location: [facility] OR Name: Mei Jo, : 1955, Age: 68 y.o., , Sex: female Diagnosis Pre-op Diagnosis * Malignant melanoma of lower leg, left (Multi) [C43.72] Post-op Diagnosis * Malignant melanoma of lower leg, left (Multi) [C43.72] Procedures Excision Lesion Skin Lower Extremity 60926 - MS EXCISION MALIGNANT LESION TRUNK/ARM/LEG > 4.0 CM [place] Lymph Node Biopsy 62598 - MS BX/EXC LYMPH NODE OPEN SUPERFICIAL Double VY Advancement flap closure Surgeons * Meena Schrader - Primary Resident/Fellow/Other Manager Transplant: Surgeons and Role: * No surgeons found with a matching role * Procedure Summary Anesthesia: General ASA: II Anesthesia Staff: Anesthesiologist: Luis Carlos Cloud MD PROJECT MANAGER/DESIGN MANAGER: Gaetano Chavez APRN-FELIBERTO Estimated Blood Loss: 5mL [...] DERMATOPATHOLOGY Meena Schrader MD 03/23/2024 1110 Staff: Windows Server Specialist: Marla Peña Person: Ssuana INDICATIONS FOR SURGERY Referring provider: Roseann Mari [...] fascia (melanoma) Final dimensions of excision: 3.5cm [place] Specimen marking stitches: Short stitch superior at 12:00, long stitch posterior at 3:00 Excision closure: 4-0 Prolene, antibiotic ointment, gauze and Rosmery wrap Location of sentinel nodes: Left groin Number of sentinel lymph nodes: 1 The patient arrived at [facility] for the aforementioned procedure. Consent was obtained, [...] multilayer fashion using a deep 2-0 Vicryl [id number], interrupted deep 3-0 Vicryl, and a running subcuticular 4-0 Monocryl. The skin was dressed with Dermabond. The patient was awoken and returned to the PACU in anticipation of discharge home. I was present scrubbed and directed all operative decision-making. Reviewed pre-op instructions with patient including NPO after midnight, must have grain combine driver, hospital and check in location, and day of surgery routine. documented in this encounter [facility] Work Phone: 03-23-2024 Attending History and physical [...] We will look for OR time at [facility] in the coming weeks. I believe this will close primarily with a 1 cm margin primarily or with VY plasty. I spent 60 minutes in the professional and overall care of this patient. Meena Schrader MD ceo [place] Division of Surgical Oncology [phone] [email or web address] History Of Present Illness Referring provider: Roseann [...] visit Relevant Results FINAL DIAGNOSIS 3 SLIDES, [facility] #[id number] (BX: 02/24/2024) SKIN, LEFT LEG, SHAVE BIOPSY: [...] Comment(s) Tumor block is CSPL original case# [id number] Blocks 1 and 2. [facility] Work Phone: 03-23-2024 History and physical note [...] We will look for OR time at [facility] in the coming weeks. I believe this will close primarily with a 1 cm margin primarily or with VY plasty. I spent 60 minutes in the professional and overall care of this patient. Meena Schrader MD ceo [place] Division of Surgical Oncology [phone] [email or web address] History Of Present Illness Referring provider: Roseann [...] visit Relevant Results FINAL DIAGNOSIS 3 SLIDES, [facility] #[id number] (BX: 02/24/2024) SKIN, LEFT LEG, SHAVE BIOPSY: [...] Comment(s) Tumor block is CSPL original case# [id number] Blocks 1 and 2. documented in this encounter [facility] Work Phone: 03-18-2024 Note Formatting of this n ote might be different from the original. Reviewed pre-op instructions with patient including NPO after midnight, must have grain combine driver, hospital and check in location, and day of surgery routine. [facility] Work Phone: 03-17-2024 History of Present illness [...] We will look for OR time at [facility] in the coming weeks. I believe this will close primarily with a 1 cm margin primarily or with VY plasty. I spent 60 minutes in the professional and overall care of this patient. Meena Schrader MD ceo [place] Division of Surgical Oncology [phone] [email or web address] History Of Present Illness Referring provider: Roseann [...] visit Relevant Results FINAL DIAGNOSIS 3 SLIDES, [facility] #[id number] (BX: 02/24/2024) SKIN, LEFT LEG, SHAVE BIOPSY: [...] Comment(s) Tumor block is CSPL original case# [id number] Blocks 1 and 2. documented in this encounter [facility] Work Phone: 07-15-2023 Telephone encounter Note Pt scheduled [facility] 07-15-2023 Miscellaneous Notes Pt scheduled Please advise a 30 days supply was sent to her pharmacy and she is due for an appt. documented in this encounter [facility] 07-12-2023 Telephone encounter Note Please advise a 30 days supply was sent to her pharmacy and she is due for an appt. [facility] 08-15-2022 Note CARDIAC STRESS TEST Requesting Physician: [...] further information. 5. Clinical correlation recommended. [facility] 08-31-2021 Note SATISFACTORY FOR EVALUATION Nancy rubin [place] Education Reviewer Comment on above: Order Comment: [facility] Testing performed at: [facility], [address] [place] [address], [place], [address], Iron Miner: Donato Wall MD [facility] Collection Date/Time: [facility] Results Received Date/Time: [facility] Reported Date/Time: Performed By: #### 1 [id number] #### [facility] Default [address] [place] [address] Evaluation note Diagnosis Major depressive disorder with single episode, in full remission (CMS/HCC) documented in this encounter [facility] Diagnosis Wound infection after surgery- Primary documented in this encounter [facility] Work Phone: Evaluation note* Diagnosis Seborrheic keratosis- Primary Lentigines Herpesviral vesicular dermatitis Dermatitis herpetiformis Actinic keratosis History of malignant melanoma of skin Personal history of malignant melanoma of skin documented in this encounter [facility]* Diagnosis Malignant melanoma of lower leg, left (Multi)- Primary Malignant melanoma of lower leg, left (Multi)- Primary documented in this encounter [facility] Work Phone: Evaluation note* Diagnosis Malignant melanoma of lower leg, left (Multi)- Primary Malignant melanoma of lower leg, left (Multi) Hyperlipidemia Other and unspecified hyperlipidemia AV block, 2nd degree Other second degree atrioventricular block documented in this encounter [facility] Work Phone: Evaluation note* Diagnosis Malignant melanoma of lower leg, left (Multi) documented in this encounter [facility] Work Phone: Evaluation note* Diagnosis Cellulitis of left lower extremity- Primary documented in this encounter [facility] Work Phone: Evaluation note* Diagnosis Malignant melanoma of lower leg, left (Multi)- Primary documented in this encounter [facility] Work Phone: Evaluation note* Diagnosis Routine general [...] of skin [facility] Diagnosis Abnormal thyroid function test- Primary Nonspecific abnormal results of thyroid function study [facility] Diagnosis Seborrheic keratosis- Primary Lentigines History of malignant melanoma of skin Personal history of malignant melanoma of skin [facility] N[facility]ative* Auth/Cert Specialty Diagnoses / Procedures Referred By Lacey austin Referred To Contact Diagnoses Malignant melanoma of lower leg, left (Multi) Malignant melanoma of lower leg, left (Multi) [C43.72] Procedures MS EXCISION MALIGNANT LESION TRUNK/ARM/LEG > 4.0 CM MS BX/EXC LYMPH NODE OPEN SUPERFICIAL Excision Lesion Skin Lower Extremity [place] [address] [address] Department of Surgery-[place] [id number] [address] Referral ID Status Reason Start Date Expiration Date Visits Re quested Visits Authorized [id number] 1 1 [facility] Work Phone: Summary Purpose Family History No [...] Referral Specialty Diagnoses / Procedures Referred By Contac t Referred To Contact Radiology Diagnoses Malignant melanoma of lower leg, left (Multi) Procedures [place] [address] [address] [place] [address] Referral ID Status Reason Start Date Expiration Date Visits Requested Visits Authorized [id number] Authorized Perform Procedure 03/17/2024 03/17/2025 2 2 Additional Source Comments INFORMATION SOURCE (unrecogn ized section and content) DATE CREATED AUTHOR 02/20/[address] [facility] DATE CREATED AUTHOR AUTHOR'S ORGANIZ ATION 03/11/2019 [facility] DATE CREATED AUTHOR AUTHOR'S ORGANIZ ATION 09/06/2021 [facility] dical Specialist DATE CREATED AUTHOR AUTHOR'S ORGANIZ ATION 09/05/2022 [facility] DATE CREATED AUTHOR AUTHOR'S ORGANIZ ATION 03/11/2024 [facility] DATE CREATED AUTHOR AUTHOR'S ORGANIZ ATION 03/26/2024 [facility] DATE CREATED AUTHOR AUTHOR'S ORGANIZ ATION 05/27/2024 [facility] DATE CREATED AUTHOR AUTHOR'S ORGANIZ ATION 09/14/2024 [facility] DATE CREATED AUTHOR AUTHOR'S ORGANIZ ATION 11/12/2024 [facility] DATE CREATED AUTHOR AUTHOR'S ORGANIZ ATION 12/09/2024 [facility] DATE CREATED AUTHOR AUTHOR'S ORGANIZ ATION 12/11/2024 [facility] dical Specialists EPIC Reason for Visit (unrecogniz ed section and content) Reason Onset Date Comments Med Refill 07/12/2023 Citalopram to cv s in [place] Reason Comments Follow-up Reason Comments Skin Check Reason Comments Medicare Annual Wellness Visit Subsequen t Care Teams (unrecognized sec tion and content) 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 Relationship Specialty Start Date End Date Brijesh Armstrong MD [address] [facility] [address] [place] [address] PCP - ACO Reach 12/27/22 Brijesh Armstrong MD [address] [facility] [address] [place] [address] PCP - General Internal Medicine 12/11/22 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 Relationship Specialty Start Date End Date Brijesh Armstrong MD [address] [facility] [address] [place] [address] PCP - General Internal Medicine 03/04/24 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 Relationship Specialty Start Date End Date Brijesh Armstrong MD [address] [facility] [place] [address] PCP - ACO Reach 12/27/22 Brijesh Armstrong MD [address] [facility] [address] [place] [address] PCP - General Internal Medicine 12/11/22 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 Relationship 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 Start Date End Date Brijesh Armstrong MD [address] [place] [address] PCP - ACO Reach 12/27/22 Brijesh Armstrong MD [address] [facility] [place] [address] PCP - General Internal Medicine 12/11/22 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 Relationship 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 Start Date End Date Brijesh Armstrong MD [address] [place] [address] PCP - General Internal Medicine 03/04/24 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 Relationship Specialty Start Date End Date Brijesh Armstrong MD [address] [facility] [place] [address] PCP - General Internal Medicine 03/04/24 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 Relationship Specialty Start Date End Date Brijesh Armstrong MD [address] [place] [address] PCP - General Internal Medicine 03/04/24 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 Relationship Specialty Start Date End Date Brijesh Armstrong MD [address] [facility] [place] [address] PCP - General Internal Medicine 03/04/24 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 Relationship Specialty Start Date End Date Brijesh Armstrong MD [address] [place] [address] PCP - General Internal Medicine 03/04/24 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 Relationship Specialty Start Date End Date Brijesh Armstrong MD [address] [place] [address] PCP - General Internal Medicine 03/04/24 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 Relationship Specialty Start Date End Date Brijesh Armstrong MD [address] [place] [address] PCP - General Internal Medicine 03/04/24 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 Relationship Specialty Start Date End Date Brijesh Armstrong MD [address] [place] [address] PCP - ACO Reach 12/27/22 Brijesh Armstrong MD [address] [facility] [place] [address] PCP - General Internal Medicine 12/11/22 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 Relationship Specialty Start Date End Date Brijesh Armstrong MD [address] [place] [address] PCP - ACO Reach 12/27/22 Brijesh Armstrong MD [address] [place] [address] PCP - General Internal Medicine 12/11/22 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 Relationship Specialty Start Date End Date Brijesh Armstrong MD [address] [place] [address] PCP - ACO Reach 12/27/22 Brijesh Armstrong MD [address] [place] [address] PCP - General Internal Medicine 12/11/22 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 Relationship Specialty Start Date End Date Brijesh Armstrong MD [address] [place] [address] PCP - ACO Reach 12/27/22 Brijesh Armstrong MD [address] [place] [address] PCP - General Internal Medicine 12/11/22 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 [email or web address] [email or web address] provides no warranty or guarantee of the accuracy or completeness of information in this document.
== END 2024-12-21 20:59 | disposition home or self-care (01) ==
LOC: SLEEP 20:58
PROVIDERS: PCP Internal Medicine; Visit Provider Internal Medicine
DX: G47.33 Obstructive sleep apnea (adult) (pediatric) (principal); G47.11 Idiopathic hypersomnia with long sleep time
CPT/HCPCS: 95810

== ENCOUNTER 2025-01-26 20:55 | Outpatient (OUT) | payer MEDICARE, SELFPAY ==
--- OUTSIDE RECORDS SUMMARY | 2025-01-26 20:59 | XMS_ITS | CCD ---
Author Organization [facility] Care Team Providers Care Equipment Lead Name Role Phone HOUSE, DR HOOK Primary [...] Unavailable ZIEBER, DR JOEL Guzman Consulting Unavailable SINKS GROVE, DR HOOK Primary Care Unavailable West, DR Tello Attending Unavailable West, DR Tello Consulting Unavailable West, DR Tello Admitting Unavailable ZIEBER, DR JOEL Guzman Consulting Unavailable SINKS GROVE, DR HOOK Primary Care Unavailable West, DR Tello Attending Unavailable West, DR Tello Consulting Unavailable West, DR Tello Admitting Unavailable SINKS GROVE, DR HOOK Primary Care Unavailable West, DR Tello Admitting Unavailable West, DR Tello Attending Unavailable West, DR Tello Consulting Unavailable HOUSE, DR HOOK Primary Care Unavailable West, DR Tello Attending Unavailable West, DR Tello Admitting Unavailable West, DR Tello Consulting Unavailable Brijesh Armstrong MD Unavailable [phone] Brijesh Armstrong MD Primary Care Provider Brijesh Armstrong MD Primary Care Provider [phone] MEENA SCHRADER Attending Unavailable BRIJESH ARMSTRONG Primary Care Unavailable OZIEL ORDAZ Attending Unavailable BRIJESH ARMSTRONG Primary Care Unavailable MEENA SCHRADER Attending Unavailable BRIJESH ARMSTRONG B Primary Care Unavailable MEENA SCHRADER Attending Unavailable AIDE BRIJESH B Primary Care Unavailable MEENA SCHRADER Admitting Unavailable MEENA SCHRADER Attending Unavailable BRIJESH ARMSTRONG B Primary Care Unavailable MEENA SCHRADER Referring Unavailable AIDE BRIJESH B Primary Care Unavailable MEENA SCHRADER Referring Unavailable AIDE BRIJESH B Primary Care Unavailable MEENA SCHRADER Referring Unavailable AIDE BRIJESH B Primary Care Unavailable BRIJESH ARMSTRONG B Attending Unavailable ROSEANN MARI Attending Unavailable ROSEANN MARI Attending Unavailable BRIJESH ARMSTRONG B Referring Unavailable PETROSEANN GUDINO Attending Unavailable PETITTROSEANN Leung Attending Unavailable Luke Garcia MD Unavailable LUKE GARCIA Referring Unavailable RADHA, LUKE Referring Unavailable TERAERNIE Attending Unavailable LUKE GARCIA Attending Unavailable LUKE GARCIA Referring Unavailable RADHA, LUKE Referring Unavailable ALGHOTHANIJACINTA Attending Unavailable LUKE GARCIA Referring Unavailable RADHA, LUKE Referring Unavailable JOSE HOOK Attending Unavailable LUKE GARCIA Admitting Unavailable RADHA, LUKE Referring Unavailable RADHALUKE Referring Unavailable TEMPLE, MADI Referring Unavailable TEMPLEMADI Referring Unavailable Medications Current Medications Medication Drug Class(es) [...] (18 sources) Serotonin Reuptake Inhibitor Start: End: take 1 tablet by mouth once daily [...] Drug Class(es) Dates Sig (Normalized) Sig (Original) [id number] (Lymphoseek) injection 0.614 millicurie (1 source) Start: [...] limb] Onset: 04-08-2024 Episodic Unclassified (1 source) Radiology MRI Onset: 01-13-2025 Unclassified (1 source) Ventricular tachycardia, unspecified; Translations: [...] left lower extremity] Onset: 2 Episodic Unclassified (2 sources) Patient encounter status 01-13-2025 Unclassified (1 source) Ventricular tachycardia, unspecified; Translations: [Ventricular tachycardia, unspecified] Onset: 5 Varicose veins of lower extremity (17 sources) Varicose veins of bilateral lower extremities with pain; Translations: [Varicose veins of lower extremity] Onset: 2 Episodic Results Test Name Value Interpretation Reference Range Facility 36on 01-14-[address] Garcia, patient does not need ICD. I canceled her follow up with him in February and scheduled her to follow up with Dr. Cao in Apr 2025. Normal [facility] [address] Garcia, cardiac MRI performed yesterday at [facility] is normal. I spoke with patient and informed her. She wanted to know if this now means she doesn't need upgrade to ICD? Normal [facility] MR Heart cine for blood flow velocity mappingon 01-13-2025 * * *Final Report* * * DATE OF EXAM: Jan 13 2025 10:55AM [facility] 0704 - MRI CARDIAC VELOCITY FLOW MAP / PROCEDURE REASON: I47.20 * * * * Physician Interpretation * * * * Cardiac MRI Report: [facility] Date of service: 01/13/2025 10:13:04 AM Linked orders:[id number] CARDIAC VELOCITY FLOW MAP;[id number] CARD MORPH FUNC WO/W IVCON. Ordering physician: LUKE GARCIA Technologist: TERESA BAKER Fellow: Rc Palomo MD Interpreting physician: Luke More MD PATIENT: Name: MEI JO Age: 69 years Gender: F MRI Scanner: Siemens Alexa 1.5T Comparison: None History: 69 y/o with h/o PPM for AV block. Per order ventricular tachicardia. This study is performed to quantify left/right ventricular size and function, valvular function, and to perform tissue characterization for the assessment of myocardial fibrosis/edema. MRI Techniques: * Turbo spin echo and gradient echo imaging for anatomic definition. * Dynamic cine imaging (SSFP and GRE) for cardiac chamber and wall-motion analysis, and valvular analysis. * Flow quantification sequences for hemodynamics in 2 locations: aortic root and mid-ascending aorta. * Delayed gadolinium enhancement analysis after injection of gadolinium-chelate. * T2STIR/ T2 Fat Saturated Imaging. * T1 mapping. * T2 mapping. Gadolinium Agent: 11 ml of Gadavist was administered i.v. Limitations: artifact from PPM device Baseline vital signs: 80 bpm Height: 158.00 cm BSA: 1.79 m Weight: 73.00 kg BMI: 29.2 kg/m FINDINGS: Extracardiac findings: The chest wall is notable for artifact from PPM device over the left anterior chest wall. The mediastinum is normal. Limited imaging of the lungs reveals no gross abnormalities. Cardiac structures: The cardiac chambers demonstrate normal atrioventricular and normal ventriculoarterial concordance. Systemic and pulmonary venous return is normal. Aorta: The thoracic aorta is normal in course, caliber and contour. Aortic Root/Sinus: 3.2 cm Mid ascendin.8 cm Descending mid thoracic: 2.3 cm Arch: Left Arch vessel branching pattern: normal Arch branch vessels: patent ostia Pulmonary Arteries: Pulmonary Arteries: Normal dimensions Measurements: - Main pulmonary artery diameter: 2.2 cm Left Atrium: The left atrium is normal in size. LA volume: 93 ml (normal range: 28-100 ml) LA volume index: 52 ml/m (normal range: 17-54 ml/m ) LA area (4ch): 24 cm LA area (2ch): 23 cm Right Atrium: The right atrium is normal in size. Left Ventricle: The left ventricle is normal in size. Left ventricular systolic function is normal. value (normal range) indexed (normal range) EDV: 105 ml (70-155 ml) EDVi: 59 ml/m (45-93 ml/m ) ESV: 37 ml (15-64 ml) ESVi: 21 ml/m (10-38 ml/m ) SV: 68 ml (47-99 ml) SVi: 38 ml/m (30-59 ml/m ) DEBRA: 4.2 cm (3.9-5.9 cm) Malik: 2.4 cm/m (2.5-3.8 cm/m ) EF: 64 % (52-79 %) CO: 5.4 l/min (3.0-6.9 l/min) CI: 3.0 l/min/m (1.9-4.0 ml/min/m ) mass: 89 g (43-103 g) LVMi: 50 g/m (30-59 g/m ) LV segment wall thickness: basal anteroseptum: 0.8 cm basal inferolateral: 0.8 cm Wall Motion: There are no wall motion abnormalities. Delayed Enhancement: Withink limitations of current study There is no delayed enhancement. Right Ventricle: The right ventricle is normal in size. Right ventricular systolic function is normal. value (normal range) indexed (normal range) EDV: 119 ml (68-176 ml) EDVi: 66 ml/m (48-104 ml/m ) ESV: 59 ml (20-80 ml) ESVi: 33 ml/m (13-48 ml/m ) SV: 60 ml (39-109 ml) SVi: 34 ml/m (29-66 ml/m ) EF: 51 % (46-74 %) CO: 4.8 l/min (2.4-6.4 l/min) CI: 2.7 l/min/m (1.6-4.0 l/min/m ) Aortic Valve: There is trace aortic regurgitation. AV Flow Quantification: ST Junction Forward Volume: 57 ml Reverse Volume: 1 ml Net Forward Volume: 56 ml Regurgitant Fraction: 2 % Mitral Valve: There is trace mitral regurgitation. Mitral Flow Quantification: Integrating LV volumetric and aortic flow quantification data (ST junction level) reveals: Regurgitant Volume: 11 ml Regurgitant Fraction: 16 % Tricuspid Valve: Tricuspid Flow Quantification: TR severity: trace DIVISION OF RADIOLOGY Provider, [facility] - 01/13/2025 * * *Final Report* * * DATE OF EXAM: Jan 13 2025 10:55AM [facility] 0704 - MRI CARDIAC VELOCITY FLOW MAP / PROCEDURE REASON: I47.20 * * * * Physician Interpretation * * * * Cardiac MRI Report: [facility] Date of service: 01/13/2025 10:13:04 AM Linked orders:[id number] CARDIAC VELOCITY FLOW MAP;[id number] CARD MORPH FUNC WO/W IVCON. Ordering physician: LUKE GARCIA Technologist: TERESA BAKER Fellow: Rc Palomo MD Interpreting physician: Luke More MD PATIENT: Name: MEI JO Age: 69 years Gender: F MRI Scanner: Siemens Alexa 1.5T Comparison: None History: 69 y/o with h/o PPM for AV block. Per order ventricular tachicardia. This study is performed to quantify left/right ventricular size and function, valvular function, and to perform tissue characterization for the assessment of myocardial fibrosis/edema. MRI Techniques: * Turbo spin echo and gradient echo imaging for anatomic definition. * Dynamic cine imaging (SSFP and GRE) for cardiac chamber and wall-motion analysis, and valvular analysis. * Flow quantification sequences for hemodynamics in 2 locations: aortic root and mid-ascending aorta. * Delayed gadolinium enhancement analysis after injection of gadolinium-chelate. * T2STIR/ T2 Fat Saturated Imaging. * T1 mapping. * T2 mapping. Gadolinium Agent: 11 ml of Gadavist was administered i.v. Limitations: artifact from PPM device Baseline vital signs: 80 bpm Height: 158.00 cm BSA: 1.79 m Weight: 73.00 kg BMI: 29.2 kg/m FINDINGS: Extracardiac findings: The chest wall is notable for artifact from PPM device over the left anterior chest wall. The mediastinum is normal. Limited imaging of the lungs reveals no gross abnormalities. Cardiac structures: The cardiac chambers demonstrate normal atrioventricular and normal ventriculoarterial concordance. Systemic and pulmonary venous return is normal. Aorta: The thoracic aorta is normal in course, caliber and contour. Aortic Root/Sinus: 3.2 cm Mid ascendin.8 cm Descending mid thoracic: 2.3 cm Arch: Left Arch vessel branching pattern: normal Arch branch vessels: patent ostia Pulmonary Arteries: Pulmonary Arteries: Normal dimensions Measurements: - Main pulmonary artery diameter: 2.2 cm Left Atrium: The left atrium is normal in size. LA volume: 93 ml (normal range: 28-100 ml) LA volume index: 52 ml/m (normal range: 17-54 ml/m ) LA area (4ch): 24 cm LA area (2ch): 23 cm Right Atrium: The right atrium is normal in size. Left Ventricle: The left ventricle is normal in size. Left ventricular systolic function is normal. value (normal range) indexed (normal range) EDV: 105 ml (70-155 ml) EDVi: 59 ml/m (45-93 ml/m ) ESV: 37 ml (15-64 ml) ESVi: 21 ml/m (10-38 ml/m ) SV: 68 ml (47-99 ml) SVi: 38 ml/m (30-59 ml/m ) DEBRA: 4.2 cm (3.9-5.9 cm) Malik: 2.4 cm/m (2.5-3.8 cm/m ) EF: 64 % (52-79 %) CO: 5.4 l/min (3.0-6.9 l/min) CI: 3.0 l/min/m (1.9-4.0 ml/min/m ) mass: 89 g (43-103 g) LVMi: 50 g/m (30-59 g/m ) LV segment wall thickness: basal anteroseptum: 0.8 cm basal inferolateral: 0.8 cm Wall Motion: There are no wall motion abnormalities. Delayed Enhancement: Withink limitations of current study There is no delayed enhancement. Right Ventricle: The right ventricle is normal in size. Right ventricular systolic function is normal. value (normal range) indexed (normal range) EDV: 119 ml (68-176 ml) EDVi: 66 ml/m (48-104 ml/m ) ESV: 59 ml (20-80 ml) ESVi: 33 ml/m (13-48 ml/m ) SV: 60 ml (39-109 ml) SVi: 34 ml/m (29-66 ml/m ) EF: 51 % (46-74 %) CO: 4.8 l/min (2.4-6.4 l/min) CI: 2.7 l/min/m (1.6-4.0 l/min/m ) Aortic Valve: There is trace aortic regurgitation. AV Flow Quantification: ST Junction Forward Volume: 57 ml Reverse Volume: 1 ml Net Forward Volume: 56 ml Regurgitant Fraction: 2 % Mitral Valve: There is trace mitral regurgitation. Mitral Flow Quantification: Integrating LV volumetric and aortic flow quantification data (ST junction level) reveals: Regurgitant Volume: 11 ml Regurgitant Fraction: 16 % Tricuspid Valve: Tricuspid Flow Quantification: TR severity: trace IMPRESSION IMPRESSION: No imaging evidence of infiltrative cardiomyopathy The left ventricle is normal in size (LV EDVi = 59 ml/m ). -The left ventricular systolic function is normal (LV EF = 64 %). -There is no delayed gadolinium enhancement to suggest prior ischemic injury, infiltration, or scar. The right ventricle is normal in size (RV EDVi = 66 ml/m ). The right ventricular systolic function is normal (RV EF = 51 %). * * * Final * * * RP Appliance Worker: SOCO (more content not included)... [facility] MRI CARD MORPH FUNC WO/W IVC ONon 01-13-2025 MRI CARD MORPH FUNC WO/W IVCON * * *Final Report* * * DATE OF EXAM: Jan 13 2025 10:55AM J 0703 - MRI CARD MORPH FUNC WO/W IVCON / PROCEDURE REASON: I47.20 * * * * Physician Interpretation * * * * Cardiac MRI Report: [facility] Date of service: 01/13/2025 10:13:04 AM Linked orders:[id number] CARDIAC VELOCITY FLOW MAP;[id number] CARD MORPH FUNC WO/W IVCON. Ordering physician: LUKE GARCIA Technologist: TERESA BAKER Fellow: Rc Palomo MD Interpreting physician: Luke More MD PATIENT: Name: MEI JO Age: 69 years Gender: F MRI Scanner: Siemens Alexa 1.5T Comparison: None History: 69 y/o with h/o PPM for AV block. Per order ventricular tachicardia. This study is performed to quantify left/right ventricular size and function, valvular function, and to perform tissue characterization for the assessment of myocardial fibrosis/edema. MRI Techniques: * Turbo spin echo and gradient echo imaging for anatomic definition. * Dynamic cine imaging (SSFP and GRE) for cardiac chamber and wall-motion analysis, and valvular analysis. * Flow quantification sequences for hemodynamics in 2 locations: aortic root and mid-ascending aorta. * Delayed gadolinium enhancement analysis after injection of gadolinium-chelate. * T2STIR/ T2 Fat Saturated Imaging. * T1 mapping. * T2 mapping. Gadolinium Agent: 11 ml of Gadavist was administered i.v. Limitations: artifact from PPM device Baseline vital signs: 80 bpm Height: 158.00 cm BSA: 1.79 m? Weight: 73.00 kg BMI: 29.2 kg/m? FINDINGS: Extracardiac findings: The chest wall is notable for artifact from PPM device over the left anterior chest wall. The mediastinum is normal. Limited imaging of the lungs reveals no gross abnormalities. Cardiac structures: The cardiac chambers demonstrate normal atrioventricular and normal ventriculoarterial concordance. Systemic and pulmonary venous return is normal. Aorta: The thoracic aorta is normal in course, caliber and contour. Aortic Root/Sinus: 3.2 cm Mid ascendin.8 cm Descending mid thoracic: 2.3 cm Arch: Left Arch vessel branching pattern: normal Arch branch vessels: patent ostia Pulmonary Arteries: Pulmonary Arteries: Normal dimensions Measurements: - Main pulmonary artery diameter: 2.2 cm Left Atrium: The left atrium is normal in size. LA volume: 93 ml (normal range: 28-100 ml) LA volume index: 52 ml/m? (normal range: 17-54 ml/m?) LA area (4ch): 24 cm? LA area (2ch): 23 cm? Right Atrium: The right atrium is normal in size. Left Ventricle: The left ventricle is normal in size. Left ventricular systolic function is normal. value (normal range) indexed (normal range) EDV: 105 ml (70-155 ml) EDVi: 59 ml/m? (45-93 ml/m?) ESV: 37 ml (15-64 ml) ESVi: 21 ml/m? (10-38 ml/m?) SV: 68 ml (47-99 ml) SVi: 38 ml/m? (30-59 ml/m?) DEBRA: 4.2 cm (3.9-5.9 cm) Malik: 2.4 cm/m? (2.5-3.8 cm/m?) EF: 64 % (52-79 %) CO: 5.4 l/min (3.0-6.9 l/min) CI: 3.0 l/min/m? (1.9-4.0 ml/min/m?) mass: 89 g (43-103 g) LVMi: 50 g/m? (30-59 g/m?) LV segment wall thickness: basal anteroseptum: 0.8 cm basal inferolateral: 0.8 cm Wall Motion: There are no wall motion abnormalities. Delayed Enhancement: Withink limitations of current study There is no delayed enhancement. Right Ventricle: The right ventricle is normal in size. Right ventricular systolic function is normal. value (normal range) indexed (normal range) EDV: 119 ml (68-176 ml) EDVi: 66 ml/m? (48-104 ml/m?) ESV: 59 ml (20-80 ml) ESVi: 33 ml/m? (13-48 ml/m?) SV: 60 ml (39-109 ml) SVi: 34 ml/m? (29-66 ml/m?) EF: 51 % (46-74 %) CO: 4.8 l/min (2.4-6.4 l/min) CI: 2.7 l/min/m? (1.6-4.0 l/min/m?) Aortic Valve: There is trace aortic regurgitation. AV Flow Quantification: ST Junction Forward Volume: 57 ml Reverse Volume: 1 ml Net Forward Volume: 56 ml Regurgitant Fraction: 2 % Mitral Valve: There is trace mitral regurgitation. Mitral Flow Quantification: Integrating LV volumetric and aortic flow quantification data (ST junction level) reveals: Regurgitant Volume: 11 ml Regurgitant Fraction: 16 % Tricuspid Valve: Tricuspid Flow Quantification: TR severity: trace IMPRESSION: No imaging evidence of infiltrative cardiomyopathy The left ventricle is normal in size (LV EDVi = 59 ml/m?). -The left ventricular systolic function is normal (LV EF = 64 %). -There is no delayed gadolinium enhancement to suggest prior ischemic injury, infiltration, or scar. The right ventricle is normal in size (RV EDVi = 66 ml/m?). The right ventricular systolic function is normal (RV EF = 51 %). * * * Final * * * RP Appliance Worker: BRITNEY Transcribe Date/Time: Jan 13 2025 10:13A Dictated by : LUKE MORE MD This examination was interpreted and the report reviewed and electronically sig (more content not included)... Normal [facility] MRI CARDIAC MORPH FUNC WO/W IVCONon 01-13-2025 * * *Final Report* * * DATE OF EXAM: Jan 13 2025 10:55AM J 0703 - MRI CARD MORPH FUNC WO/W IVCON / PROCEDURE REASON: I47.20 * * * * Physician Interpretation * * * * Cardiac MRI Report: [facility] Date of service: 01/13/2025 10:13:04 AM Linked orders:[id number] CARDIAC VELOCITY FLOW MAP;[id number] CARD MORPH FUNC WO/W IVCON. Ordering physician: LUKE GARCIA Technologist: TERESA BAKER Fellow: Rc Palomo MD Interpreting physician: Luke More MD PATIENT: Name: MEI JO Age: 69 years Gender: F MRI Scanner: Siemens Alexa 1.5T Comparison: None History: 69 y/o with h/o PPM for AV block. Per order ventricular tachicardia. This study is performed to quantify left/right ventricular size and function, valvular function, and to perform tissue characterization for the assessment of myocardial fibrosis/edema. MRI Techniques: * Turbo spin echo and gradient echo imaging for anatomic definition. * Dynamic cine imaging (SSFP and GRE) for cardiac chamber and wall-motion analysis, and valvular analysis. * Flow quantification sequences for hemodynamics in 2 locations: aortic root and mid-ascending aorta. * Delayed gadolinium enhancement analysis after injection of gadolinium-chelate. * T2STIR/ T2 Fat Saturated Imaging. * T1 mapping. * T2 mapping. Gadolinium Agent: 11 ml of Gadavist was administered i.v. Limitations: artifact from PPM device Baseline vital signs: 80 bpm Height: 158.00 cm BSA: 1.79 m Weight: 73.00 kg BMI: 29.2 kg/m FINDINGS: Extracardiac findings: The chest wall is notable for artifact from PPM device over the left anterior chest wall. The mediastinum is normal. Limited imaging of the lungs reveals no gross abnormalities. Cardiac structures: The cardiac chambers demonstrate normal atrioventricular and normal ventriculoarterial concordance. Systemic and pulmonary venous return is normal. Aorta: The thoracic aorta is normal in course, caliber and contour. Aortic Root/Sinus: 3.2 cm Mid ascendin.8 cm Descending mid thoracic: 2.3 cm Arch: Left Arch vessel branching pattern: normal Arch branch vessels: patent ostia Pulmonary Arteries: Pulmonary Arteries: Normal dimensions Measurements: - Main pulmonary artery diameter: 2.2 cm Left Atrium: The left atrium is normal in size. LA volume: 93 ml (normal range: 28-100 ml) LA volume index: 52 ml/m (normal range: 17-54 ml/m ) LA area (4ch): 24 cm LA area (2ch): 23 cm Right Atrium: The right atrium is normal in size. Left Ventricle: The left ventricle is normal in size. Left ventricular systolic function is normal. value (normal range) indexed (normal range) EDV: 105 ml (70-155 ml) EDVi: 59 ml/m (45-93 ml/m ) ESV: 37 ml (15-64 ml) ESVi: 21 ml/m (10-38 ml/m ) SV: 68 ml (47-99 ml) SVi: 38 ml/m (30-59 ml/m ) DEBRA: 4.2 cm (3.9-5.9 cm) Malik: 2.4 cm/m (2.5-3.8 cm/m ) EF: 64 % (52-79 %) CO: 5.4 l/min (3.0-6.9 l/min) CI: 3.0 l/min/m (1.9-4.0 ml/min/m ) mass: 89 g (43-103 g) LVMi: 50 g/m (30-59 g/m ) LV segment wall thickness: basal anteroseptum: 0.8 cm basal inferolateral: 0.8 cm Wall Motion: There are no wall motion abnormalities. Delayed Enhancement: Withink limitations of current study There is no delayed enhancement. Right Ventricle: The right ventricle is normal in size. Right ventricular systolic function is normal. value (normal range) indexed (normal range) EDV: 119 ml (68-176 ml) EDVi: 66 ml/m (48-104 ml/m ) ESV: 59 ml (20-80 ml) ESVi: 33 ml/m (13-48 ml/m ) SV: 60 ml (39-109 ml) SVi: 34 ml/m (29-66 ml/m ) EF: 51 % (46-74 %) CO: 4.8 l/min (2.4-6.4 l/min) CI: 2.7 l/min/m (1.6-4.0 l/min/m ) Aortic Valve: There is trace aortic regurgitation. AV Flow Quantification: ST Junction Forward Volume: 57 ml Reverse Volume: 1 ml Net Forward Volume: 56 ml Regurgitant Fraction: 2 % Mitral Valve: There is trace mitral regurgitation. Mitral Flow Quantification: Integrating LV volumetric and aortic flow quantification data (ST junction level) reveals: Regurgitant Volume: 11 ml Regurgitant Fraction: 16 % Tricuspid Valve: Tricuspid Flow Quantification: TR severity: trace DIVISION OF RADIOLOGY Provider, Denisse Orta - 01/13/2025 * * *Final Report* * * DATE OF EXAM: Jan 13 2025 10:55AM [facility] 0703 - MRI CARD MORPH FUNC WO/W IVCON / PROCEDURE REASON: I47.20 * * * * Physician Interpretation * * * * Cardiac MRI Report: [facility] Date of service: 01/13/2025 10:13:04 AM Linked orders:[id number] CARDIAC VELOCITY FLOW MAP;[id number] CARD MORPH FUNC WO/W IVCON. Ordering physician: LUKE GARCIA Technologist: TERESA BAKER Fellow: Rc Palomo MD Interpreting physician: Luke More MD PATIENT: Name: MEI JO Age: 69 years Gender: F MRI Scanner: Siemens Alexa 1.5T Comparison: None History: 69 y/o with h/o PPM for AV block. Per order ventricular tachicardia. This study is performed to quantify left/right ventricular size and function, valvular function, and to perform tissue characterization for the assessment of myocardial fibrosis/edema. MRI Techniques: * Turbo spin echo and gradient echo imaging for anatomic definition. * Dynamic cine imaging (SSFP and GRE) for cardiac chamber and wall-motion analysis, and valvular analysis. * Flow quantification sequences for hemodynamics in 2 locations: aortic root and mid-ascending aorta. * Delayed gadolinium enhancement analysis after injection of gadolinium-chelate. * T2STIR/ T2 Fat Saturated Imaging. * T1 mapping. * T2 mapping. Gadolinium Agent: 11 ml of Gadavist was administered i.v. Limitations: artifact from PPM device Baseline vital signs: 80 bpm Height: 158.00 cm BSA: 1.79 m Weight: 73.00 kg BMI: 29.2 kg/m FINDINGS: Extracardiac findings: The chest wall is notable for artifact from PPM device over the left anterior chest wall. The mediastinum is normal. Limited imaging of the lungs reveals no gross abnormalities. Cardiac structures: The cardiac chambers demonstrate normal atrioventricular and normal ventriculoarterial concordance. Systemic and pulmonary venous return is normal. Aorta: The thoracic aorta is normal in course, caliber and contour. Aortic Root/Sinus: 3.2 cm Mid ascendin.8 cm Descending mid thoracic: 2.3 cm Arch: Left Arch vessel branching pattern: normal Arch branch vessels: patent ostia Pulmonary Arteries: Pulmonary Arteries: Normal dimensions Measurements: - Main pulmonary artery diameter: 2.2 cm Left Atrium: The left atrium is normal in size. LA volume: 93 ml (normal range: 28-100 ml) LA volume index: 52 ml/m (normal range: 17-54 ml/m ) LA area (4ch): 24 cm LA area (2ch): 23 cm Right Atrium: The right atrium is normal in size. Left Ventricle: The left ventricle is normal in size. Left ventricular systolic function is normal. value (normal range) indexed (normal range) EDV: 105 ml (70-155 ml) EDVi: 59 ml/m (45-93 ml/m ) ESV: 37 ml (15-64 ml) ESVi: 21 ml/m (10-38 ml/m ) SV: 68 ml (47-99 ml) SVi: 38 ml/m (30-59 ml/m ) DEBRA: 4.2 cm (3.9-5.9 cm) Malik: 2.4 cm/m (2.5-3.8 cm/m ) EF: 64 % (52-79 %) CO: 5.4 l/min (3.0-6.9 l/min) CI: 3.0 l/min/m (1.9-4.0 ml/min/m ) mass: 89 g (43-103 g) LVMi: 50 g/m (30-59 g/m ) LV segment wall thickness: basal anteroseptum: 0.8 cm basal inferolateral: 0.8 cm Wall Motion: There are no wall motion abnormalities. Delayed Enhancement: Withink limitations of current study There is no delayed enhancement. Right Ventricle: The right ventricle is normal in size. Right ventricular systolic function is normal. value (normal range) indexed (normal range) EDV: 119 ml (68-176 ml) EDVi: 66 ml/m (48-104 ml/m ) ESV: 59 ml (20-80 ml) ESVi: 33 ml/m (13-48 ml/m ) SV: 60 ml (39-109 ml) SVi: 34 ml/m (29-66 ml/m ) EF: 51 % (46-74 %) CO: 4.8 l/min (2.4-6.4 l/min) CI: 2.7 l/min/m (1.6-4.0 l/min/m ) Aortic Valve: There is trace aortic regurgitation. AV Flow Quantification: ST Junction Forward Volume: 57 ml Reverse Volume: 1 ml Net Forward Volume: 56 ml Regurgitant Fraction: 2 % Mitral Valve: There is trace mitral regurgitation. Mitral Flow Quantification: Integrating LV volumetric and aortic flow quantification data (ST junction level) reveals: Regurgitant Volume: 11 ml Regurgitant Fraction: 16 % Tricuspid Valve: Tricuspid Flow Quantification: TR severity: trace IMPRESSION IMPRESSION: No imaging evidence of infiltrative cardiomyopathy The left ventricle is normal in size (LV EDVi = 59 ml/m ). -The left ventricular systolic function is normal (LV EF = 64 %). -There is no delayed gadolinium enhancement to suggest prior ischemic injury, infiltration, or scar. The right ventricle is normal in size (RV EDVi = 66 ml/m ). The right ventricular systolic function is normal (RV EF = 51 %). * * * Final * * * RP Appliance Worker: S (more content not included)... [facility] MRI CARDIAC VELOCITY FLOW MA Rafal 01-13-2025 MRI CARDIAC VELOCITY FLOW MAP * * *Final Report* * * DATE OF EXAM: Jan 13 2025 10:55AM [facility] 0704 - MRI CARDIAC VELOCITY FLOW MAP / PROCEDURE REASON: I47.20 * * * * Physician Interpretation * * * * Cardiac MRI Report: [facility] Date of service: 01/13/2025 10:13:04 AM Linked orders:[id number] CARDIAC VELOCITY FLOW MAP;[id number] CARD MORPH FUNC WO/W IVCON. Ordering physician: LUKE GARCIA Technologist: TERESA BAKER Fellow: Rc Palomo MD Interpreting physician: Luek More MD PATIENT: Name: MEI OJ Age: 69 years Gender: F MRI Scanner: Siemens Alexa 1.5T Comparison: None History: 69 y/o with h/o PPM for AV block. Per order ventricular tachicardia. This study is performed to quantify left/right ventricular size and function, valvular function, and to perform tissue characterization for the assessment of myocardial fibrosis/edema. MRI Techniques: * Turbo spin echo and gradient echo imaging for anatomic definition. * Dynamic cine imaging (SSFP and GRE) for cardiac chamber and wall-motion analysis, and valvular analysis. * Flow quantification sequences for hemodynamics in 2 locations: aortic root and mid-ascending aorta. * Delayed gadolinium enhancement analysis after injection of gadolinium-chelate. * T2STIR/ T2 Fat Saturated Imaging. * T1 mapping. * T2 mapping. Gadolinium Agent: 11 ml of Gadavist was administered i.v. Limitations: artifact from PPM device Baseline vital signs: 80 bpm Height: 158.00 cm BSA: 1.79 m? Weight: 73.00 kg BMI: 29.2 kg/m? FINDINGS: Extracardiac findings: The chest wall is notable for artifact from PPM device over the left anterior chest wall. The mediastinum is normal. Limited imaging of the lungs reveals no gross abnormalities. Cardiac structures: The cardiac chambers demonstrate normal atrioventricular and normal ventriculoarterial concordance. Systemic and pulmonary venous return is normal. Aorta: The thoracic aorta is normal in course, caliber and contour. Aortic Root/Sinus: 3.2 cm Mid ascendin.8 cm Descending mid thoracic: 2.3 cm Arch: Left Arch vessel branching pattern: normal Arch branch vessels: patent ostia Pulmonary Arteries: Pulmonary Arteries: Normal dimensions Measurements: - Main pulmonary artery diameter: 2.2 cm Left Atrium: The left atrium is normal in size. LA volume: 93 ml (normal range: 28-100 ml) LA volume index: 52 ml/m? (normal range: 17-54 ml/m?) LA area (4ch): 24 cm? LA area (2ch): 23 cm? Right Atrium: The right atrium is normal in size. Left Ventricle: The left ventricle is normal in size. Left ventricular systolic function is normal. value (normal range) indexed (normal range) EDV: 105 ml (70-155 ml) EDVi: 59 ml/m? (45-93 ml/m?) ESV: 37 ml (15-64 ml) ESVi: 21 ml/m? (10-38 ml/m?) SV: 68 ml (47-99 ml) SVi: 38 ml/m? (30-59 ml/m?) DEBRA: 4.2 cm (3.9-5.9 cm) Malik: 2.4 cm/m? (2.5-3.8 cm/m?) EF: 64 % (52-79 %) CO: 5.4 l/min (3.0-6.9 l/min) CI: 3.0 l/min/m? (1.9-4.0 ml/min/m?) mass: 89 g (43-103 g) LVMi: 50 g/m? (30-59 g/m?) LV segment wall thickness: basal anteroseptum: 0.8 cm basal inferolateral: 0.8 cm Wall Motion: There are no wall motion abnormalities. Delayed Enhancement: Withink limitations of current study There is no delayed enhancement. Right Ventricle: The right ventricle is normal in size. Right ventricular systolic function is normal. value (normal range) indexed (normal range) EDV: 119 ml (68-176 ml) EDVi: 66 ml/m? (48-104 ml/m?) ESV: 59 ml (20-80 ml) ESVi: 33 ml/m? (13-48 ml/m?) SV: 60 ml (39-109 ml) SVi: 34 ml/m? (29-66 ml/m?) EF: 51 % (46-74 %) CO: 4.8 l/min (2.4-6.4 l/min) CI: 2.7 l/min/m? (1.6-4.0 l/min/m?) Aortic Valve: There is trace aortic regurgitation. AV Flow Quantification: ST Junction Forward Volume: 57 ml Reverse Volume: 1 ml Net Forward Volume: 56 ml Regurgitant Fraction: 2 % Mitral Valve: There is trace mitral regurgitation. Mitral Flow Quantification: Integrating LV volumetric and aortic flow quantification data (ST junction level) reveals: Regurgitant Volume: 11 ml Regurgitant Fraction: 16 % Tricuspid Valve: Tricuspid Flow Quantification: TR severity: trace IMPRESSION: No imaging evidence of infiltrative cardiomyopathy The left ventricle is normal in size (LV EDVi = 59 ml/m?). -The left ventricular systolic function is normal (LV EF = 64 %). -There is no delayed gadolinium enhancement to suggest prior ischemic injury, infiltration, or scar. The right ventricle is normal in size (RV EDVi = 66 ml/m?). The right ventricular systolic function is normal (RV EF = 51 %). * * * Final * * * RP Appliance Worker: BRITNEY Transcribe Date/Time: Jan 13 2025 10:13A Dictated by : LUKE MORE MD This examination was interpreted and the report reviewed and electronically sign (more content not included)... Normal [facility] No Panel Informationon 01-13 IMPRESSION: No imagi ng evidence of infiltrative cardiomyopathy The left ventricle is normal in size (LV EDVi = 59 ml/m ). -The left ventricular systolic function is normal (LV EF = 64 %). -There is no delayed gadolinium enhancement to suggest prior ischemic injury, infiltration, or scar. The right ventricle is normal in size (RV EDVi = 66 ml/m ). The right ventricular systolic function is normal (RV EF = 51 %). * * * Final * * * RP Appliance Worker: BRITNEY Transcribe Date/Time: Jan 13 2025 10:13A Dictated by : LUKE MORE MD This examination was interpreted and the report reviewed and electronically signed by: LUKE MORE MD on Jan 13 2025 12:22PM [facility] DIVISION OF RADIOLOGY [facility] Radiology Study observation (narrative) [facility] XR CHEST 2V FRONTAL/LATon XR CHEST 2V FRONTAL/LAT * * *Final Report* * * DATE OF EXAM: Jan 13 2025 7:35AM JIX [id number] - XR CHEST 2V FRONTAL/LAT / PROCEDURE REASON: device clearance for mri * * * * Physician Interpretation * * * * EXAMINATION: CHEST RADIOGRAPH (2 VIEW FRONTAL and LATERAL) CLINICAL HISTORY: device clearance for mri MQ: XC2_6 EXAM DATE/TIME: 01/13/2025 7:35 AM COMPARISON: None available RESULT: Lines, tubes, and devices: The tips of transvenous pacemaker leads are in the right atrium and right ventricle via the left subclavian approach. The leads appear intact. Lungs and pleura: The lungs appear clear of consolidation or mass. No pleural effusion or pneumothorax is identified. Cardiomediastinal silhouette: Normal cardiomediastinal silhouette. The heart size and pulmonary vascular pattern are within normal limits. Bones and soft tissues: The vertebral body heights appear symmetric and well-maintained. IMPRESSION: No acute disease identified in the lungs or mediastinum. Appliance Worker: NAYELY Transcribe Date/Time: Jan 13 2025 12:48P Dictated by : SHERRY HATFIELD MD This examination was interpreted and the report reviewed and electronically signed by: SHERRY HATFIELD MD on Jan 13 2025 12:49PM EST [id number] Normal [facility] XR Chest PA and Lateralon IMPRESSION: No acute disease identified in the lungs or mediastinum. Appliance Worker: NAYELY Transcribe Date/Time: Jan 13 2025 12:48P Dictated by : SHERRY HATFIELD MD This examination was interpreted and the report reviewed and electronically signed by: SHERRY HATFIELD MD on Jan 13 2025 12:49PM EST DIVISION OF RADIOLOGY * * *Final Report* * * DATE OF EXAM: Jan 13 2025 7:35AM [facility] [id number] - XR CHEST 2V FRONTAL/LAT / PROCEDURE REASON: device clearance for mri * * * * Physician Interpretation * * * * EXAMINATION: CHEST RADIOGRAPH (2 VIEW FRONTAL & LATERAL) CLINICAL HISTORY: device clearance for mri MQ: XC2_6 EXAM DATE/TIME: 01/13/2025 7:35 AM COMPARISON: None available RESULT: Lines, tubes, and devices: The tips of transvenous pacemaker leads are in the right atrium and right ventricle via the left subclavian approach. The leads appear intact. Lungs and pleura: The lungs appear clear of consolidation or mass. No pleural effusion or pneumothorax is identified. Cardiomediastinal silhouette: Normal cardiomediastinal silhouette. The heart size and pulmonary vascular pattern are within normal limits. Bones and soft tissues: The vertebral body heights appear symmetric and well-maintained. DIVISION OF RADIOLOGY Provider, Jeny Jairo medel Holley - 01/13/2025 * * *Final Report* * * DATE OF EXAM: Jan 13 2025 7:35AM [facility] [id number] - XR CHEST 2V FRONTAL/LAT / PROCEDURE REASON: device clearance for mri * * * * Physician Interpretation * * * * EXAMINATION: CHEST RADIOGRAPH (2 VIEW FRONTAL & LATERAL) CLINICAL HISTORY: device clearance for mri MQ: XC2_6 EXAM DATE/TIME: 01/13/2025 7:35 AM COMPARISON: None available RESULT: Lines, tubes, and devices: The tips of transvenous pacemaker leads are in the right atrium and right ventricle via the left subclavian approach. The leads appear intact. Lungs and pleura: The lungs appear clear of consolidation or mass. No pleural effusion or pneumothorax is identified. Cardiomediastinal silhouette: Normal cardiomediastinal silhouette. The heart size and pulmonary vascular pattern are within normal limits. Bones and soft tissues: The vertebral body heights appear symmetric and well-maintained. IMPRESSION IMPRESSION: No acute disease identified in the lungs or mediastinum. Appliance Worker: PSCB Transcribe Date/Time: Jan 13 2025 12:48P Dictated by : SHERRY HATFIELD MD This examination was interpreted and the report reviewed and electronically signed by: SHERRY HATFIELD MD on Jan 13 2025 12:49PM EST [facility] XR Chest PA and LateralOrder ed By: Ccf Provider on 01-13-2025 [facility] Orders Onlyon 12-17-2024 Orders Only [id number] Cassandra Jo 1955 F Date Provider Department Center 12/17/2024 LUKE AMIN [facility] CARD [facility] Family History Problem Relation Age of Onset Aortic aneurysm Mother Atrial fibrillation Mother Hypertension Father Diabetes Father Hypertension Brother Family Status - Relation Status Age at Mother Father Brother Normal [facility] T3, FREEon 11-10-2024 Free T3 [Mass/Vol] 2.9 pg/mL Normal 2.3-4.2 [facility] Comment on above: Performed By: #### 8 10, [id number], 865 #### [facility] [address], [address] [place], [place] [id number] Body Shop Technician: Collin Dickson MD T4, FREE11-10-2024 Free T4 [Mass/Vol] 0.9 ng/dL Normal 0.8-1.8 [facility] Comment on above: Order Comment: FASTI NG:NO FASTING: NO Performed By: #### 8 42, 55248, 868 #### [facility] [address], [address] [place], [place] [id number] Body Shop Technician: Collin Dickson MD TSHon 11-10-2024 TSH Qn 7.71 m[IU]/L High 0.40-4.50 [facility] Comment on above: Performed By: #### 8 02, 93009, 866 #### [facility] [address], [address] [place] [phone] Body Shop Technician: Collin Dickson MD 36on 11-05-2024 36 Spoke with patient a nd advised her of Sr. Garcia's response keep appointment with [facility] for testing. Normal [facility] 36on 11-04-2024 36 This patient already has a pacemaker. Dr. Garcia ordered the MRI to r/o sarcoidosis. This does not have to be done urgently. If I were her, I would keep the already scheduled MRI at [facility] for 01/13. Normal [facility] Office Visiton 09-29-2024 Follow-up visit [id number] Cassandra Jo 1955 F Date Provider Department Center 09/29/2024 [facility] Family History Problem Relation Age of Onset Aortic aneurysm Mother Atrial fibrillation Mother Hypertension Father Diabetes Father Hypertension Brother Family Status - Relation Status Age at Mother Father Brother Level of Service:88188 RI OFFICE/OUTPATIENT ESTABLISHED LOW MDM 20 MIN Normal [facility] LIPID PANEL, STANDARDon 0 Cholesterol [Mass/Vol] 236 mg/dL High <200 [facility] Comment on above: Order Comment: FASTI NG:YES FASTING: YES Performed By: #### 7 260, 07418, 866 #### [facility] [address], [address] [place] [phone] Body Shop Technician: Collin Dickson MD Cholesterol in HDL [Mass/Vol] 83 mg/dL Normal > OR = 50 [facility] Comment on above: Order Comment: FASTI NG:YES FASTING: YES Performed By: #### 7 317, 78988, 866 #### [facility] [address], [address] [place] [phone] Body Shop Technician: Coliln Dickson MD Cholesterol in LDL [Mass/Vol] 132 [...] equation in the estimation of LDL-C. Pravin SORIA et al. LYSSA. 2013;310(19): 6307-7871 (http://education.Aethon.ActiveRain/faq/IAT083) Performed By: #### 7 600, 88914, 866 #### [facility] [address], [address] [place] [address] Body Shop Technician: Collin Dickson MD Cholesterol.total/Chol esterol in HDL [Mass ratio] 2.8 {ratio} Normal <5.0 [facility] Comment on above: Order Comment: FASTI NG:YES FASTING: YES Performed By: #### 7 600, 18567, 792 #### [facility] [place] [address] Body Shop Technician: Collin Dickson MD NON HDL CHOLESTEROL 153 mg/dL (calc) High <130 [facility] Comment on above: Order Comment: FASTI NG:YES FASTING: YES Result Comment: For patients with diabetes plus 1 major ASCVD risk factor, treating to a non-HDL-C goal of <100 mg/dL (LDL-C of <70 mg/dL) is considered a therapeutic option. Performed By: #### 7 600, 97184, 864 #### [facility] [place] [address] Body Shop Technician: Collin Dickson MD Triglyceride [Mass/Vol] 103 mg/dL Normal <150 [facility] Comment on above: Order Comment: FASTI NG:YES FASTING: YES Performed By: #### 7 600, 01413, 869 #### [facility] [place] [address] Body Shop Technician: Collin Dickson MD T4, FREEon 09-05-2024 Free T4 [Mass/Vol] 0.8 ng/dL Normal 0.8-1.8 [facility] Comment on above: Performed By: #### 7 600, 06365, 866 #### [facility] [address], [address] [place] [address] Body Shop Technician: Collin Dickson MD TSH W/REFLEX TO FT4on 2024 TSH W/REFLEX TO FT4 19.03 mIU/L High 0.40-4.50 [facility] Comment on above: Performed By: #### 7 600, 55309, 866 #### [facility] [address], [address] [place] [address] Body Shop Technician: Collin Dickson MD No Panel Informationon 09-03 [facility] Office Visiton 08-14-2024 Follow-up visit [id number] Cassandra Jo 1955 F Date Provider Department Center 08/14/2024 3848-JACINTA MORALES CARD [facility] Family History Problem Relation Age of Onset Aortic aneurysm Mother Atrial fibrillation Mother Hypertension Father Diabetes Father Hypertension Brother Family Status - Relation Status Age at Mother Father Brother Level of Service:NOC 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 She was [facility] to [facility] for evaluation and management. EP team [...] Lab PROCEDURE PERFORMED: 1. Implantation of pacemaker ([employer]) 2. Ultrasound guided venous access INDICATIONS: [...] 0.80 Glu (more content not included)... Normal [facility] EDPROVon 08-04-2024 EDPROV History of Present Illness [...] Procedure Abnormality Status --------- ------ CBC auto differential[[id number]] Normal Final result Please view results for [...] as of 08/10/24 0733 Complete heart block ([facility]/HCC) Bradycardia Heart block AV block, 3rd degree ([facility]) Medical Decision Making Attestion Madi Temple MD 08/10/24 0734 [facility] 3008-03-2024 30 The patient is Moderately Stable [...] and maintained or improved Outcome: Progressing Normal [facility] ANESon 08-03-2024 ANES -- Attestation signed by [...] attending and fellow. Additional Equipment Requests Normal [facility] BASIC METABOLIC PANELon 07-07 Anion gap [Moles/Vol] 12 mmol/L Normal 7-20 [facility] Comment on above: Performed By: #### L [id number] ####[facility] ([facility])[address] [place] [address] Calcium [Mass/Vol] 9.5 mg/dL Normal 8.6-10.3 [facility] Comment on above: Performed By: #### L AB15 ####[facility] ([facility])[address] [place] [address] Chloride [Moles/Vol] 106 mmol/L Normal 98-107 [facility] Comment on above: Performed By: #### L [id number] ####[facility] ([facility])[address] [place] [address] CO2 [Moles/Vol] 25 mmol/L Normal 21-31 [facility] Comment on above: Performed By: #### L [id number] ####[facility] ([facility])[address] [place] [address] Creatinine [Mass/Vol] 0.80 mg/dL Normal 0.60-1.20 [facility] Comment on above: Performed By: #### L [id number] ####[facility] ([facility])[address] [place] [address] GLOMERULAR FILTRATION RATE ML/MIN/1.73 SQ M.PREDICTED 80.2 mL/min/1.73m*2 Normal >60.0 [facility] Comment on above: Result Comment: The [facility]???s estimated glomerular filtration rate (eGFR) will no [...] of individuals. Performed By: #### L [id number] ####[facility] ([facility])[address] [place] [address] Glucose [Mass/Vol] 103 mg/dL High 70-100 [facility] Comment on above: Performed By: #### L [id number] ####[facility] ([facility])[address] [place] [address] Potassium [Moles/Vol] 3.6 mmol/L Normal 3.5-5.1 [facility] Comment on above: Performed By: #### L [id number] ####[facility] ([facility])[address] [place] [address] Sodium [Moles/Vol] 139 mmol/L Normal 136-145 [facility] Comment on above: Performed By: #### L [id number] ####[facility] ([facility])[address] [place] [address] Urea nitrogen [Mass/Vol] 13 mg/dL Normal 7-25 [facility] Comment on above: Performed By: #### L [id number] ####[facility] ([facility])[address] [place] [address] UREA NITROGEN/CREATININE (MASS RATIO) IN SER/PLAS 16.3 Normal [facility] Comment on above: Performed By: #### L [id number] ####[facility] ([facility])[address] [place] [address] CBC WITH AUTO DIFFERENTIALon 08-03-2024 Basophils (Bld) [#/Vol] 0.04 10*3/uL Normal 0.00-0.20 [facility] Comment on above: Performed By: #### L [id number] ####[facility] ([facility])[address] [place] [address] Basophils/100 WBC (Bld) 0.5 % Normal 0.0-1.0 [facility] Comment on above: Performed By: #### L [id number] ####[facility] ([facility])[address] [place] [address] Eosinophils (Bld) [#/Vol] 0.09 10*3/uL Normal 0.00-0.50 [facility] Comment on above: Performed By: #### L [id number] ####[facility] ([facility])[address] [place] [address] Eosinophils/100 WBC (Bld) 1.0 % Normal 0.0-6.0 [facility] Comment on above: Performed By: #### L [id number] ####[facility] ([facility])[address] [place] [address] Erythrocyte distribution width (RBC) [Ratio] 12.6 % Normal 11.5-15.0 [facility] Comment on above: Performed By: #### L [id number] ####[facility] ([facility])[address] [place] [address] ERYTHROCYTE MEAN CORPUSCULAR HEMOGLOBIN CONCENTRATION (G/DL) BY AUTOMATED 33.7 g/dL Normal 32.0-35.0 [facility] Comment on above: Performed By: #### L [id number] ####[facility] ([facility])[address] [place] [address] Hematocrit (Bld) [Volume fraction] 41.9 % Normal 36.0-48.0 [facility] Comment on above: Performed By: #### L [id number] ####[facility] ([facility])[address] [place] [address] Hemoglobin (Bld) [Mass/Vol] 14.1 g/dL Normal 12.0-15.0 [facility] Comment on above: Performed By: #### L [id number] ####[facility] ([facility])[address] [place] [address] Immature granulocytes (Bld) [#/Vol] 0.03 10*3/uL Normal 0.00-0.20 [facility] Comment on above: Performed By: #### L [id number] ####[facility] ([facility])[address] [place] [address] Immature granulocytes/100 WBC (Bld) 0.3 % Normal 0.0-1.0 [facility] Comment on above: Performed By: #### L [id number] ####[facility] ([facility])[address] [place] [address] Lymphocytes (Bld) [#/Vol] 2.22 10*3/uL Normal 1.20-4.00 [facility] Comment on above: Performed By: #### L [id number] ####[facility] ([facility])[address] [place] [address] Lymphocytes/100 WBC (Bld) 25.1 % Normal 20.0-45.0 [facility] Comment on above: Performed By: #### L [id number] ####[facility] ([facility])[address] [place] [address] MCH (RBC) [Entitic mass] 32.3 pg Normal 27.0-33.0 [facility] Comment on above: Performed By: #### L [id number] ####[facility] ([facility])[address] [place] [address] MCV (RBC) [Entitic vol] 95.9 fL Normal 82.0-98.0 [facility] Comment on above: Performed By: #### L [id number] ####[facility] ([facility])[address] [place] [address] Monocytes (Bld) [#/Vol] 0.63 10*3/uL Normal 0.10-1.00 [facility] Comment on above: Performed By: #### L [id number] ####[facility] ([facility])[address] [place] [address] Monocytes/100 WBC (Bld) 7.1 % Normal 5.0-12.0 [facility] Comment on above: Performed By: #### L [id number] ####[facility] ([facility])[address] [place] [address] Neutrophils (Bld) [#/Vol] 5.84 10*3/uL Normal 1.60-7.60 [facility] Comment on above: Performed By: #### L [id number] ####[facility] ([facility])[address] [place] [address] Neutrophils/100 WBC (Bld) 66.0 % Normal 40.0-72.0 [facility] Comment on above: Performed By: #### L [id number] ####[facility] ([facility])[address] [place] [address] NRBC (PER 100 WBCS) BY AUTOMATED COUNT 0.0 % Normal 0 [facility] Comment on above: Performed By: #### L [id number] ####[facility] ([facility])[address] [place] [address] PLATELETS (10*3/UL) IN BLOOD AUTOMATED COUNT 273 10*3/uL Normal 150-400 [facility] System Comment on above: Performed By: #### L [id number] ####[facility] ([facility])[address] [place] [address] RBC (Bld) [#/Vol] 4.37 10*6/uL Normal 3.80-5.00 [facility] Comment on above: Performed By: #### L [id number] ####[facility] ([facility])[address] [address] WBC (Bld) [#/Vol] 8.85 10*3/uL Normal 4.00-10.60 [facility] Comment on above: Performed By: #### L [id number] ####[facility] ([facility])[address] [address] CONSULTon 08-03-2024 CONSULT This report has been cancelled. 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 Patient HR 35 upon arrival to ED. Patient denies any chest pain. SOB with exertion. Normal [facility] MAGNESIUMon 08-03-2024 Magnesium [Mass/Vol] 2.4 mg/dL Normal 1.9-2.7 [facility] Comment on above: Performed By: #### L [id number] #### [facility] ([facility]) [address] [place] [address] NURSNOTEon 08-03-2024 NURSNOTE Report given to BORIS Blanchard from RENETTA Foster Any medications or safety alerts were reviewed. Any pending diagnostics and notifications were also reviewed, as well as any safety concerns or issues, abnormal labs, abnormal imagining, and abnormal assessment findings. Questions were answered. Normal [facility] Office Visiton 08-03-2024 Follow-up visit [id number] Cassandra Jo 1955 F Date Provider Department Center 08/03/2024 [address]79[address]-WOHXRUERNIE [facility] History Problem Relation Age of Onset Aortic aneurysm Mother Atrial fibrillation Mother Hypertension Father Diabetes Father Hypertension Brother Family Status - Relation Status Age at Mother Father Brother Level of Service:56870 [place] OFFICE/OUTPATIENT ESTABLISHED HIGH MDM 40 MIN Reason for Visit and Comments: Hypertension [747817] - BP has been high. Hyperlipidemia [182] Bradycardia [962947] - HR running in the high 30's-low 40's. Very lightheaded and tired lately. Fatigue [46] Shortness of Breath [229912] - Very SOB with minimal exertion. Normal [facility] TROPONIN Ion 08-03-2024 Troponin I.cardiac [Mass/Vol] 0.02 ng/mL Normal 0.00-0.04 [facility] Comment on above: Performed By: #### L [id number] ####[facility] ([facility])[address] [place] [address] Cryotherapy, skin lesionon 1 [facility] DERMPATH LAB- DERMATOPATHOLO GYon 03-23-2024 DERMPATH LAB- DERMATOPATHOLOGY Pathology report.total SEE COMMENT Dermatopathology Case: [id number] Authorizing Provider: Meena Schrader MD Collected: 03/23/2024 1101 [facility]ing [facility] Received: 03/23/2024 1213 OR Pathologist: Rosana Hoang [...] lower leg, left (Multi) C43.72 Specimen ID: [id number], [id number] Specimen Source: SENTINEL LYMPH NODE MELANOMA Site/Location: SENTINEL NODE #1 COUNT- 732 Collection Comments: Specimen ID: [id number], [id number] Specimen Source: SKIN EXCISION Site/Location: WIDE LOCAL [...] determined by the Department of Pathology at [facility]. The FDA does not require this test [...] The specimen was grossed by Roxanna Robert. Normal [facility] Comment on above: Order Comment: Pre-o p diagnosis: Malignant melanoma of lower leg, left (Multi) [C43.72] ECG 12-LEADon 03-23-2024 ECG 12-LEAD Ventricular Rate 73 Atrial Rate 73 P-R Interval 194 QRS Duration 86 Q-T Interval 384 QTC Calculation(Bazett) 423 P Peabody 39 R Peabody -6 T Peabody 39 QRS Count 12 Q Onset 216 P Onset 119 P Offset 173 T Offset 408 QTC Fredericia 410 Diagnosis Normal sinus rhythm Normal ECG No previous ECGs available Confirmed by Otis Canales ([id number]) on 03/24/2024 1:25:11 PM Normal [facility] NM LYMPHOSCINTIGRAMon 2023 NM LYMPHOSCINTIGRAM Interpreted By: Jamal Pak and Kaur Arashdeep STUDY: NM LYMPHOSCINTIGRAM; 03/23/2024 8:50 am INDICATION: Signs/Symptoms:SLNB. COMPARISON: None. ACCESSION NUMBER(S): [id number] ORDERING CLINICIAN: MEENA SCHRADER TECHNIQUE: DIVISION OF [...] Arreola MD. This study was interpreted at [place], [place]. MACRO: None Signed by: Jamal Castorena 03/23/2024 9:13 AM Dictation workstation: [id number] [facility] NM Lymphatic vessels Views W radionuclide intra lymphaticon 03-23-2024 1. A left inguinal lymph node, likely representing sentinel lymph node. No other draining node identified. Images were saved into PACS for review. I personally reviewed the images/study and I agree with the findings as stated by Ramana Arreola MD. This study was interpreted at [place], [place]. MACRO: None Signed by: Jamal Castorena 03/23/2024 9:13 AM Dictation workstation: [id number] MMODAL Interpreted By: Jamal Pak and Kaur Arashdeep STUDY: NM LYMPHOSCINTIGRAM; 03/23/2024 8:50 am INDICATION: Signs/Symptoms:SLNB. COMPARISON: None. ACCESSION NUMBER(S): [id number] ORDERING CLINICIAN: MEENA SCHRADER TECHNIQUE: DIVISION OF [...] am INDICATION: Signs/Symptoms:SLNB. COMPARISON: None. ACCESSION NUMBER(S): [id number] ORDERING CLINICIAN: MEENA SCHRADER TECHNIQUE: DIVISION OF [...] Arreola MD. This study was interpreted at [facility], [place], [place]. MACRO: None Signed by: Jamal Castorena 03/23/2024 9:13 AM Dictation workstation: [id number] [facility] Work Phone: Radiology Study observation (narrative) [facility] Work Phone: NM Lymphatic vessels Views W radionuclide intra lymphaticOrdered By: Jamal Castorena on 03-23-2024 [facility] Work Phone: Surgical pathology studyon 0 8-05-2024 Surgical pathology study Pathology report.total SEE COMMENT Dermatopathology Report Case: [id number] Authorizing Provider: Meena Schrader MD Collected: 03/09/2024 1249 Ordering Location: [facility] Received: 03/09/2024 1249 [facility] Pathologist: London Coulter MD Specimen: OUTSIDE BLOCK(S)/SLIDE(S), 3 SLIDES, [facility] #[id number] (BX: 02/24/2024) Path report.final diagnosis SEE COMMENT 3 SLIDES, [facility] #[id number] (BX: 02/24/2024) SKIN, LEFT LEG, SHAVE BIOPSY: [...] pT Category: pT1a Comment(s): [facility] [id number] Blocks 1 and 2. 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 Path report.gross observation SEE COMMENT A. OUTSIDE BLOCK(S)/SLIDE(S). Received for consultation from [facility] are three slides labeled [id number] (BX: 02/24/2024) along with the corresponding pathology report. Path report.microscopic observation Microscopic examination performed. [facility] Comment on above: Order Comment: Mater ials Received: 3 SLIDES, [facility] #[id number] (BX: 02/24/2024) MG MAMM SCREEN 3D CASTRO CADon 09-03-2022 MG MAMM SCREEN 3D CASTRO CAD Patient: MEI JO Exam Date: 09/03/2022 : 1955 Gender:F Ordering : DR BRIJESH ARMSTRONG M.D. Admission #: [id number] Family : Order #: [id number] CLICK HERE TO VIEW EXAM RADIOLOGY REPORT [...] at age 80. LOCATION: [facility] BREAST COMPOSITION: Scattered areas fibroglandular density. [...] 09/04/2022 at 07:37 Normal [facility] NM STRESS/REST MULTIon 08-15 NM STRESS/REST MULTI Patient: DONALDO JO Exam Date: 08/15/2022 : 1955 Gender:F Ordering : DR BRIJESH ARMSTRONG M.D. Admission #: [id number] Family : OSIEL THOMAS Order #: [id number] CLICK HERE TO VIEW EXAM RADIOLOGY REPORT [...] Alonso M.D. on 08/16/2022 at 11:03 Normal [facility] XR CHEST 2 Von 06-07-2022 XR [...] by: PETER CORREIA Date: 2022-06-07 18:35 Normal [facility] VC INJ SCL DOLLY ORIGINATION SPECIALIST VEINSon 0 12-05-2021 VC INJ SCL DOLLY ORIGINATION SPECIALIST VEINS Patient: MEI JO Exam Date: 12/05/2021 : 1955 Gender:F Ordering : DR PETER CORREIA M.D. Admission #: [id number] Family : Order #: [id number] CLICK HERE TO VIEW EXAM RADIOLOGY REPORT PROCEDURE: VEIN CENTER INJECTION SCLEROSING SOLUTION MULTIPLE VEINS SAME COMPARISON: VC INJ SCL DOLLY ORIGINATION SPECIALIST VEINS, 11/21/2021. INDICATIONS: Pain co-occurrent and due [...] Alonso M.D. on 12/05/2021 at 10:33 Normal [facility] VC INJ SCL DOLLY ORIGINATION SPECIALIST VEINSon 0 11-21-2021 VC INJ SCL DOLLY ORIGINATION SPECIALIST VEINS Patient: MEI JO Exam Date: 11/21/2021 : 1955 Gender:F Ordering : DR PETER CORREIA M.D. Admission #: [id number] Family : Order #: [id number] CLICK HERE TO VIEW EXAM RADIOLOGY REPORT PROCEDURE: VEIN CENTER INJECTION SCLEROSING SOLUTION MULTIPLE VEINS SAME COMPARISON: VC INJ SCL DOLLY ORIGINATION SPECIALIST VEINS, 11/07/2021. VC INJ SCL DOLLY ORIGINATION SPECIALIST VEINS, 11/02/2021. VC INJ SCL DOLLY ORIGINATION SPECIALIST VEINS, 10/25/2021. INDICATIONS: Pain co-occurrent and due [...] Alonso M.D. on 11/21/2021 at 13:[address] Normal [facility] VC INJ SCL DOLLY ORIGINATION SPECIALIST VEINSon 0 11-07-2021 VC INJ SCL DOLLY ORIGINATION SPECIALIST VEINS Patient: MEI JO Exam Date: 11/07/2021 : 1955 Gender:F Ordering : DR PETER CORREIA M.D. Admission #: [id number] Family : Order #: [id number] CLICK HERE TO VIEW EXAM RADIOLOGY REPORT PROCEDURE: VEIN CENTER INJECTION SCLEROSING SOLUTION MULTIPLE VEINS SAME COMPARISON: VC INJ SCL DOLLY ORIGINATION SPECIALIST VEINS, 11/02/2021. VC INJ SCL DOLLY ORIGINATION SPECIALIST VEINS, 10/25/2021. INDICATIONS: Pain co-occurrent and due [...] Correia MD on 11/07/2021 at 11:08 Normal [facility] VC INJ SCL DOLLY ORIGINATION SPECIALIST VEINSon 0 11-02-2021 VC INJ SCL DOLLY ORIGINATION SPECIALIST VEINS Patient: MEI JO Exam Date: 11/02/2021 : 1955 Gender:F Ordering : DR PETER CORREIA M.D. Admission #: [id number] Family : Order #: [id number] CLICK HERE TO VIEW EXAM RADIOLOGY REPORT PROCEDURE: VEIN CENTER INJECTION SCLEROSING SOLUTION MULTIPLE VEINS SAME COMPARISON: VC INJ SCL DOLLY ORIGINATION SPECIALIST VEINS, 10/25/2021. INDICATIONS: Pain co-occurrent and due [...] Joel Alonso M.D. on 11/02/2021 at 09:40 [facility] VC INJ SCL DOLLY ORIGINATION SPECIALIST VEINSon 0 10-25-2021 VC INJ SCL DOLLY ORIGINATION SPECIALIST VEINS Patient: MEI JO. Exam Date: 10/25/2021 : 1955 Gender:F Ordering : DR PETER CORREIA M.D. Admission #: [id number] Family : Order #: [id number] CLICK HERE TO VIEW EXAM RADIOLOGY REPORT [...] Correia MD on 10/25/2021 at 11:00 Normal [facility] VC EXT VENOUS RT LIMITEDon 0 10-24-2021 VC EXT VENOUS RT LIMITED Patient: MEI JO Exam Date: 10/23/2021 : 1955 Gender:F Ordering : DR PETER CORREIA M.D. 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 Thrombus noted in one [...] Correia MD on 10/23/2021 at 11:45 Normal [facility] VC CONSULT FOLLOWUPon 2021 VC CONSULT FOLLOWUP Patient: KEYANA JO Exam Date: 10/23/2021 : 1955 Gender:F Ordering : DR PETER CORREIA M.D. Admission #: [id number] Family : Order #: [id number] CLICK HERE TO VIEW EXAM RADIOLOGY REPORT [...] posterior tibial veins, expected complication as a dragger was present in the region of injection. [...] Correia MD on 10/23/2021 at 11:49 Normal [facility] VC INJ FOAM SCLERO W US MLTI on 10-17-2021 VC INJ FOAM SCLERO W US MLTI Patient: MEI JO Exam Date: 10/17/2021 : 1955 Gender:F Ordering : DR PETER CORREIA M.D. Admission #: [id number] Family : Order #: [id number] CLICK HERE TO VIEW EXAM RADIOLOGY REPORT [...] Pressure was also held to occlude two dragger veins. 6 mL aliquot of Varithena(r) was [...] content not included)... Normal [facility] VC CONSULT FOLLOWUPon 2021 VC CONSULT FOLLOWUP Patient: KEYANA JO Exam Date: 10/13/2021 : 1955 Gender:F Ordering : DR PETER CORREIA M.D. Admission #: [id number] Family : Order #: [id number] CLICK HERE TO VIEW EXAM RADIOLOGY REPORT [...] Alonso M.D. on 10/13/2021 at 09:58 Normal [facility] VC EXT VENOUS LT LIMITEDon 0 10-13-2021 VC EXT VENOUS LT LIMITED Patient: MEI JO Exam Date: 10/13/2021 : 1955 Gender:F Ordering : DR PETER CORREIA M.D. Admission #: [id number] Family : Order #: [id number] CLICK HERE TO VIEW EXAM RADIOLOGY REPORT [...] Alonso M.D. on 10/13/2021 at 09:54 Normal [facility] VC INJ FOAM SCLERO W US MLTI on 10-06-2021 VC INJ FOAM SCLERO W US MLTI Patient: MEI JO Exam Date: 10/06/2021 : 1955 Gender:F Ordering : DR PETER CORREIA M.D. Admission #: [id number] Family : Order #: [id number] CLICK HERE TO VIEW EXAM RADIOLOGY REPORT [...] content not included)... Normal [facility] VC CONSULT FOLLOWUPon 2021 VC CONSULT FOLLOWUP Patient: KEYANA JO Exam Date: 10/02/2021 : 1955 Gender:F Ordering : DR PETER CORREIA M.D. Admission #: [id number] Family : Order #: [id number] CLICK HERE TO VIEW EXAM RADIOLOGY REPORT [...] the left anterior accessory saphenous vein. The dragger veins are significantly decreased in size and [...] Correia MD on 10/02/2021 at 09:34 Normal [facility] VC EXT VENOUS LT LIMITEDon 0 10-02-2021 VC EXT VENOUS LT LIMITED Patient: MEI JO Exam Date: 10/02/2021 : 1955 Gender:F Ordering : DR PETER CORREIA M.D. Admission #: [id number] Family : Order #: [id number] CLICK HERE TO VIEW EXAM RADIOLOGY REPORT [...] to thrombus. *Exam performed in accordance with AIUM practice guidelines- Peripheral venous ultrasound, October 29, 2009. 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 Admission #: [id number] Family : Order #: [id number] CLICK HERE TO VIEW EXAM RADIOLOGY REPORT [...] Alonso M.D. on 09/27/2021 at 11:06 Normal [facility] VC CONSULT FOLLOWUPon 2021 VC CONSULT FOLLOWUP Patient: KEYANA JO Exam Date: 09/20/2021 : 1955 Gender:F Ordering : DR PETER CORREIA M.D. Admission #: [id number] Family : Order #: [id number] CLICK HERE TO VIEW EXAM RADIOLOGY REPORT [...] 09/20/2021 at 10:05 Normal [facility] VC EXT VENOUS LT LIMITEDon 0 09-20-2021 VC EXT VENOUS LT LIMITED Patient: MEI JO Exam Date: 09/20/2021 : 1955 Gender:F Ordering : DR PETER CORREIA M.D. Admission #: [id number] Family : Order #: [id number] CLICK HERE TO VIEW EXAM RADIOLOGY REPORT [...] Correia MD on 09/20/2021 at 09:52 Normal [facility] VC ENDOVENOUS ABL 1ST V LTon 09-13-2021 VC ENDOVENOUS ABL 1ST V LT Patient: MEI JO Exam Date: 09/13/2021 : 1955 Gender:F Ordering : DR PETER CORREIA M.D. Admission #: [id number] Family : Order #: [id number] CLICK HERE TO VIEW EXAM RADIOLOGY REPORT [...] Peter Correia MD on 09/13/2021 at 11:23 [facility] Q - SUREPATH-FPGS PAPon - CLINICAL INFORMATION: None given Normal [facility] [place] [facility] Comment on above: Order Comment: [facility] Testing performed at: [facility], [facility], [address] [place], [place] [address]Gaurav PA, , Sales And Service Technician: Donato Wall MD [facility] Collection Date/Time: [facility] Results Received Date/Time: [facility] Reported Date/Time: Performed By: #### 1 8810X #### [facility] Default [address] [place] [address] COMMENT SEE NOTE Normal [facility] Comment on above: Order Comment: [facility] Testing performed at: [facility], [facility] ([address], [address] [place] [address] PHILLIP Nolasco, , Sales And Service Technician: Donato Wall MD [facility] Collection Date/Time: [facility] [...] 1 8810X #### [facility] [address] [place] [address] COMMENT: SEE NOTE Normal [facility] Comment on above: Order Comment: [facility] Testing performed at: [facility], [facility], [address] [place], [place] [address]Gaurav PA, , Sales And Service Technician: Donato Wall MD [facility] Collection Date/Time: [facility] [...] 1 8810X #### [facility] Default [address] [place] [address] CHANNEL MARKETING 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 [address] [place], [place] [address] [address]. Performed By: #### 1 8810X #### [facility] Default [address] [place] [id number] INTERPRETATION/RESULT: SEE NOTE Normal No [facility] Comment on above: Order Comment: [facility] Testing performed at: [facility], [facility] ([address], [address] [place] [address] PHILLIP Nolasco, , Sales And Service Technician: Donato Wall MD [facility] Collection Date/Time: [facility] Results Received Date/Time: [facility] Reported Date/Time: Result Comment: Nega tive for intraepithelial lesion or malignancy. Atrophic pattern; predominantly parabasal cells Performed By: #### 1 8810X #### [facility] Default [address] [place] [address] LMP: None given Normal [facility] Comment on above: Order Comment: [facility] performed at: [facility], [facility], [address] [place], [place] [address]Gaurav PA, , Sales And Service Technician: Donato Wall MD [facility] Collection Date/Time: [facility] Results Received Date/Time: [facility] Reported Date/Time: Performed By: #### 1 8810X #### [facility] Default [address] [place] [address] PREV. BX: None given Normal [facility] Specialist Comment on above: Order Comment: [facility] performed at: [facility], [facility], [address] [place], [place] [address], [address], Sales And Service Technician: Donato Wall MD [facility] Collection Date/Time: [facility] Results Received Date/Time: [facility] Reported Date/Time: Performed By: #### 1 8810X #### [facility] Default [address] [place] [address] PREV. PAP: None given Normal [facility] Specialist Comment on above: Order Comment: [facility] performed at: [facility], [facility], [address] [place], [place] [address], [address], Sales And Service Technician: Donato Wall MD [facility] Collection Date/Time: [facility] Results Received Date/Time: [facility] Reported Date/Time: Performed By: #### 1 8810X #### [facility] Default [address] [place] [address] SOURCE: None given Normal [facility] Specialist Comment on above: Order Comment: [facility] Testing performed at: [facility], [facility] ([address], [address] [place], [place] [address], [address], Sales And Service Technician: Donato Wall MD [facility] Collection Date/Time: [facility] Results Received Date/Time: [facility] Reported Date/Time: Performed By: #### 1 8810X #### [facility] Default [address] [place] [address] HAND LEFT 3 [facility] 03-04-2019 HAND LEFT 3 S [facility] Department of Radiology [address] [place] [id number] ======== Patient Name: MEI JO : 1955 Sex: F Age: Race: NA Pt. Location: 84 Patient Status: Ordered Date: 03/04/2019 1:25:00 PM Completed Date: 03/04/2019 01:22 PM Requesting Provider: JOHN FERNÁNDEZ Attending Provider: Report Copy To: Signs & Symptoms: M79.642 Pain in left hand I10 History: Audrey Comments: , Views (X-RAY, HAND): Radiologic Protocol [...] arthritis Electronically signed by:Kaylie Dominguez. Transcribed by: [id number], User Resident: Electronically Signed by: KAYLIE DOMINGUEZ @ 03/04/2019 04:14 PM [place] [facility] Comment on above: Order Comment: , Silver ws (X-RAY, HAND): Radiologic Protocol , Views [...] Grayson' Revised Date Saved: 02/16/2019 02:01 pm [facility] Coding Summary C[facility] DATE[facility] Eze Grayson Date Saved: 02/16/2019 01:51 pm [facility] Coding Summary CODING DATE: [facility]/16/2019 [facility] [...] Onur Grayson' Date Saved: 02/16/2019 01:51 pm [facility] Coding Summary CODING DATE: [facility]/16/2019 [facility] [...] Grayson' Revised Date Saved: 02/16/2019 01:51 pm [facility] Release of Informationon Release of Information [phone] [id number]#1.00 OTGTIFF [facility] .Auto Diff 1on 02-10-2019 Auto Hardy % 6 % Normal 1-12 [facility] Comment on above: Performed By: #### 1 [id number], 0876574, [id number], [id number], 2873660 #### [facility] (DEFAULT) [address] [place] [address] Baso Abs# 0.0 x10 Normal 0.0-0.2 [facility] Comment on above: Performed By: #### 1 [id number], [id number], [id number], [id number], [id number] #### [facility] (DEFAULT) [address] [place] [address] Basophils/100 WBC (Bld) 0.2 % Normal 0.2-2.0 [facility] Comment on above: Performed By: #### 1 [id number], 7290368, [id number], 89721159, 9970366 #### [facility] (DEFAULT) [address] [place] [address] Eos Abs# 0.1 x10 Normal 0.0-0.4 [facility] Comment on above: Performed By: #### 1 [id number], 0901305, [id number], 70136081, 5356993 #### [facility] (DEFAULT) [address] [place] [address] Eosinophils/100 WBC (Bld) 0.9 % Normal 0.9-4.0 [facility] Comment on above: Performed By: #### 1 [id number], 1737936, [id number], 55226658, 0478154 #### [facility] (DEFAULT) [address] [place] [address] Lymphocytes (Bld) [#/Vol] 1.5 x10 Normal 1.3-2.9 [facility] Comment on above: Performed By: #### 1 [id number], 9988553, [id number], 44581365, 8085096 #### [facility] (DEFAULT) [address] [place] [address] Lymphocytes/100 WBC (Bld) 11 % Low 14-48 [facility] Comment on above: Performed By: #### 1 [id number], 5895443, 1677865034, 35672430, 4270837 #### [facility] (DEFAULT) [address] [place] [address] Hardy Abs# 0.8 x10 Normal 0.0-0.8 [facility] Comment on above: Performed By: #### 1 [id number], 6882308, [id number], 21042930, 7919318 #### [facility] (DEFAULT) [address] [place] [address] Neut Abs# 10.8 x10 High 1.5-9.2 [facility] Comment on above: Performed By: #### 1 [id number], 6013878, [id number], 21579626, 9396311 #### [facility] (DEFAULT) [address] [place] [address] Neutrophils/100 WBC (Bld) 81 % Normal 44-88 [facility] Comment on above: Performed By: #### 1 [id number], [id number], [id number], [id number], [id number] #### [facility] (DEFAULT) [address] [place] [address] CBC w/ Auto Diffon Erythrocyte distribution width (RBC) [Ratio] 12.7 % Normal 11.5-15.0 [facility] Comment on above: Performed By: #### 1 [id number], 9007851, [id number], [id number], 5762932 #### [facility] (DEFAULT) [address] [place] [address] Hematocrit (Bld) [Volume fraction] 37.0 % Normal 33.7-40.4 [facility] Comment on above: Performed By: #### 1 [id number], 3341115, [id number], 23690015, 6800955 #### [facility] (DEFAULT) [address] [place] [address] Hemoglobin (Bld) [Mass/Vol] 12.7 g/dL Normal 11.3-15.9 [facility] Comment on above: Performed By: #### 1 [id number], 7459622, [id number], 23715968, 0166920 #### [facility] (DEFAULT) [address] [place] [address] Man Diff? Auto Normal [facility] Comment on above: Performed By: #### 1 [id number], 7787123, [id number], 68523834, 2973884 #### [facility] (DEFAULT) [address] [place] [address] MCH (RBC) [Entitic mass] 32 pg Normal 24-34 [facility] Comment on above: Performed By: #### 1 [id number], 7847980, [id number], 73633761, 7126601 #### [facility] (DEFAULT) [address] [place] [address] MCHC (RBC) [Mass/Vol] 34 g/dL Normal 26-37 [facility] Comment on above: Performed By: #### 1 [id number], 2756367, [id number], 14305237, 9084795 #### [facility] (DEFAULT) [address] [place] [address] MCV (RBC) [Entitic vol] 94 fL Normal 81-100 [facility] Comment on above: Performed By: #### 1 [id number], 5769612, 5556253779, 36939424, 0127666 #### [facility] (DEFAULT) [address] [place] [address] Platelet mean volume (Bld) [Entitic vol] 8.6 fL Normal 6.3-10.2 [facility] Comment on above: Performed By: #### 1 [id number], 9939664, [id number], 44589267, [id number] #### [facility] (DEFAULT) [address] [place] [address] Platelets (Bld) [#/Vol] 278 x10 Normal 138-427 [facility] Comment on above: Performed By: #### 1 [id number], 0238858, [id number], 78312452, 7801799 #### [facility] (DEFAULT) [address] [place] [address] RBC (Bld) [#/Vol] 3.93 x10 Normal 3.70-5.30 [facility] Comment on above: Performed By: #### 1 [id number], 1950314, [id number], 83630215, 7498991 #### [facility] (DEFAULT) [address] [place] [address] WBC (Bld) [#/Vol] 13.3 x10 [facility] Comment on above: Performed By: #### 1 [id number], 9004272, [id number], 74793008, 9117851 #### [facility] (DEFAULT) [address] [place] [address] CMP Standardon 02-10-2019 eGFR Non AA >60 [facility] Comment on above: Performed By: #### 1 [id number], 2256662, 5362512549, 80659174, 5106074 #### [facility] (DEFAULT) [address] [place] [address] eGFR AA >60 [facility] Comment on above: Result Comment: Billing Clinician frantz Kidney disease could be indicated at eGFRs of less than 60 ml/min/1.73m2. Kidney Failure is indicated at less than 15 ml/min/1.73m2 Performed By: #### 1 [id number], 5618839, [id number], 64239920, 4613643 #### [facility] (DEFAULT) [address] [place] [address]442 Albumin [Mass/Vol] 4.4 g/dL Normal 3.5-5.0 [facility] Comment on above: Performed By: #### 1 [id number], 8869223, [id number], 21559177, 2583682 #### [facility] (DEFAULT) [address] [place] [address]3226 Albumin/Globulin [Mass ratio] 1.6 {ratio} Normal 1.4-2.6 [facility] Comment on above: Performed By: #### 1 [id number], 5588698, 9526090360, 27491714, 4319663 #### [facility] (DEFAULT) [address] [place] [address] Alk Phos 62 IU/L Normal 32-91 [facility] Comment on above: Performed By: #### 1 [id number], 2320515, [id number], 51840421, 3797812 #### [facility] (DEFAULT) [address] [place] [address] ALT/SGPT 19.0 IU/L Normal 14.0-54.0 [facility] Comment on above: Performed By: #### 1 [id number], 7537959, [id number], 21907789, 1691204 #### [facility] (DEFAULT) [address] [place] [address] Anion gap [Moles/Vol] 16.0 mmol/L Normal 5.0-19.0 [facility] Comment on above: Performed By: #### 1 [id number], 9226744, [id number], 83148018, 4869525 #### [facility] (DEFAULT) [address] [place] [address] AST/SGOT 22 IU/L Normal 15-41 [facility] Comment on above: Performed By: #### 1 [id number], 4215058, 0497581360, 53204267, 0202709 #### [facility] (DEFAULT) [address] [place] [address] Bili Total 0.6 mg/dL Normal 0.3-1.2 [facility] Comment on above: Performed By: #### 1 [id number], 1242497, 2489855897, 40132893, 7206605 #### [facility] (DEFAULT) [address] [place] [address] Calcium [Mass/Vol] 9.3 mg/dL Normal 8.9-10.3 [facility] Comment on above: Performed By: #### 1 [id number], 0477193, 1371810272, 66935395, 2002318 #### [facility] (DEFAULT) [address] [place] [address] Chloride [Moles/Vol] 103 mmol/L Normal 101-111 [facility] Comment on above: Performed By: #### 1 [id number], 6685789, 1324336255, 04959329, 8286656 #### [facility] (DEFAULT) [address] [place] [address] CO2 [Moles/Vol] 23 mmol/L Normal 21-32 [facility] Comment on above: Performed By: #### 1 [id number], 1779427, 3018530641, 68282268, 4165858 #### [facility] (DEFAULT) [address] [place] [address] Creatinine [Mass/Vol] 0.72 mg/dL Normal 0.60-1.30 [facility] Comment on above: Performed By: #### 1 [id number], 5509086, 3339590158, 50276672, 0963413 #### [facility] (DEFAULT) [address] [place] [address] Globulin (S) [Mass/Vol] 2.8 g/dL Normal 1.5-4.3 [facility] Comment on above: Performed By: #### 1 [id number], 2112281, 5761682625, 21695194, 8896676 #### [facility] (DEFAULT) [address] [place] [address] Glucose [Mass/Vol] 123.0 mg/dL High 74.0-118.0 [facility] Comment on above: Performed By: #### 1 [id number], 2095595, 2448760805, 93754563, 8963217 #### [facility] (DEFAULT) [address] [place] [address] Osmolality [Osmolality] 279 mOsm/L [facility] Comment on above: Performed By: #### 1 [id number], 5504752, 1023142102, 90888620, 5655265 #### [facility] (DEFAULT) [address] [place] [address]53 Potassium [Moles/Vol] 3.7 mmol/L Normal 3.6-5.1 [facility] Comment on above: Performed By: #### 1 [id number], 9057304, 2614418391, 44725555, 4623427 #### [facility] (DEFAULT) [address] [place] [address]85 Protein [Mass/Vol] 7.2 g/dL Normal 6.5-8.1 [facility] Comment on above: Performed By: #### 1 [id number], 5321015, 4736517775, 09038509, 0687812 #### [facility] (DEFAULT) [address] [place] [address] Sodium [Moles/Vol] 138.0 mmol/L Normal 136.0-144.0 [facility] Comment on above: Performed By: #### 1 [id number], 4410696, 4871638896, 68075885, 0005026 #### [facility] (DEFAULT) [address] [place] [address] 73316 Urea nitrogen [Mass/Vol] 18 mg/dL Normal 8-26 [facility] Comment on above: Performed By: #### 1 [id number], 0919070, 7694449936, 42961391, 4336559 #### [facility] (DEFAULT) [address] [place] [address] 40773 Urea nitrogen/Creatinine [Mass ratio] 25.0 mg/mg High 4.6-16.2 [facility] Comment on above: Performed By: #### 1 [id number], 3054379, 3207677179, 31485851, 9865496 #### [facility] (DEFAULT) [address] [place] [address] ED Clinical Summaryon 2018 ED Clinical Summary [facility] - Emergency Department [address] [place] [address] ED Clinical Summary PERSON INFORMATION Name: MEI JO Age: 63 Years Sex: FEMALE : 55 MRN: Acct#: Visit Reason: Hand laceration; LAC LEFT HAND Arrival: 02/10/19 16:19:00 Discharge: 02/10/19 18:34:00 LOS: 000 02:15 Check In: 02/10/19 16:19:00 Checkout:02/10/19 18:34:00 Address: [place] [facility] [address] PCP: MILADYS CORDERO PROVIDER INFORMATION Provider Role [...] Care Follow-Up: With: Address: When: Jimbo Gama [address] [place] [address] [facility] (2) Within 3 to 5 [...] You are sent with a prescription for [place], pain medication and he may take 1/2 tablet every 6 hours as needed for pain. Do not drive or drink alcohol while taking this medication as it may make you drowsy. You may return here to the emergency department for any worsening or concerning symptoms. With: Address: When: MILADYS CORDERO [address] [place] [address], [address] [place], [place] [id number] Business (1) Within 3 to 5 days DIAGNOSIS: Fall from ground level; Fracture of metacarpal of left hand, open; Hand laceration Patient Understands: Yes - Patient/family/caregiv er verbalizes understanding of instructions given Comment: [facility] ED Note - Physicianon 2018 ED Note [...] all digits in the left hand equal harness repairer strength. Good strength in flexion-extension MCP DIP [...] 17:15:00, rate 66, Sinus rhythm Normal ECG RI interval 190, QRS duration 85, QT/QTc 377/390, [...] Auto Lymph % 11 % LOW Auto Hardy % 6 % Auto Eos % 0.9 % Auto Baso % 0.2 % Neut Abs# 10.8 x103/mcL HI Lymph Abs# 1.5 x103/mcL Hardy Abs# 0.8 x103/mcL Eos Abs# 0.1 x103/mcL [...] or Dr. Puentes as she is from [facility] in 3-5 days to understand to call [...] and Plan Diagnosis Fall from ground level ([id number] W18.30XA, Discharge, Medical) Hand laceration (NDH92-BE S61.419A, Discharge, Medical) Fracture of metacarpal of left hand, open ([id number] S62.309B, Discharge, Medical) Plan Condition: Stable. Disposition: Discharged: Time 02/10/19 18:13:00, to home. Prescriptions: Launch prescriptions Pharmacy: Keflex 500 mg oral capsule (Prescribe): 500 mg = 1 cap(s), PO, q8hr, for 7 day(s), 21 cap(s), 0 Refill(s), Launch prescriptions Pharmacy: Louisville 5 mg-325 mg oral tablet (Prescribe): 1 [...] You are sent with a prescription for [place], pain medication and he may take 1/2 [...] appointment. She is given a prescription for [place], pain medication she may take 1 tablet [...] on: 02/10/2019 20:12 EDT] José Johnson PA-C [facility] ED Note-Nursingon 02-10-2019 ED Note-Nursing Patient arrives afte r a fall, states she tripped over a table and landed on the asphalt. Patient has a laceration to her left hand. Patient went to and was taken here for low blood pressure and she was feeling dizzy at that time, symptoms have resolved. [facility] ED Patient Education Noteon 02-10-2019 ED Patient [...] and water are not available, use hand sommelier. ? Change your dressing at least once [...] at home: Medicines ? Take or apply [id number]-[id number] and prescription medicines only as told by [...] 08/29/2005 Document Revised: 08/27/2017 Document Reviewed: 08/27/2017 [employer] Patient Education ? 2019 [employer]. Orthopedics Metacarpal Fracture A metacarpal fracture is [...] 07/22/2006 Document Revised: 12/27/2016 Document Reviewed: 05/11/2015 [employer] Interactive Patient Education ? 2019 [employer] Normal [facility] ED Patient Summaryon 019 ED Patient Summary [facility] - Emergency Department [address] [place] [address] PATIENT DISCHARGE INSTRUCTIONS Patient Information Name: MEI JO Age: 63 Years Date of : [birth year] Reason For Visit: Hand laceration; LAC LEFT HAND Arrival Time: 02/10/19 16:19:00 Primary Care Physician: MILADYS CORDERO Attending Physician: Harvey Velez MD Comment: Visit Diagnosis: Diagnoses This Visit Fall from ground level (W18.30XA) Fracture of metacarpal of left hand, open (S62.309B) Hand laceration (S61.419A) Hand laceration ([id number]) Prescription Information: If you have been given a prescription for narcotics, seek immediate medical attention if you have any difficulty breathing or any sudden status changes such as confusion and sleepiness. If you or anyone you know is experiencing suicidal thoughts, mental health, alcohol and/or drug addiction problems; contact the [facility] 25/02 Crisis Hotline -Text 1FLNU ju 828276. If you received any narcotics, sedation, or [...] legal documents With: Address: When: Jimbo Gama [address] [facility], [address] [place], [place] Business (2) Within 3 to 5 [...] You are sent with a prescription for [place], pain medication and he may take 1/2 tablet every 6 hours as needed for pain. Do not drive or drink alcohol while taking this medication as it may make you drowsy. You may return here to the emergency department for any worsening or concerning symptoms. With: Address: When: MILADYS CORDERO [address] [place] [address], [address] [place], [place] [id number] Business (1) Within 3 to 5 days Medication Information: The exam and treatment you received today in the [facility] Emergency Department were for an urgent problem and are not intended as complete care. It is important for you to follow up with a doctor, nurse practitioner, or physician?s aquatics assistant department head for ongoing care. If your symptoms become [...] so we can reach you if necessary. [facility] Emergency Department has provided you with a complete list of medications post discharge. Please inform your absence management consultant/provider of your visit and for further instruction on these medications. Any specific questions regarding your chronic medications and dosages should be discussed with your primary care physician(s) and/or pharmacist. New Medications [facility]/pharmacy #[id number], [address], [place] [id number], [phone] cephalexin (Keflex 500 mg oral capsule) 1 cap(s) Oral Every 8 hours for 7 Days. Refills: 0. Printed Prescriptions acetaminophen-hydrocod one (Louisville 5 mg-325 mg oral tablet) 1 tab(s) [...] 07/22/2006 Document Revised: 12/27/2016 Document Reviewed: 05/11/2015 [employer] Interactive Patient Education ? 2019 [employer] Sutured Wound Care Sutures are stitches [...] and water are not available, use hand sommelier. ? Change your dressing at least once [...] at home: Medicines ? Take or apply amvt-dxw-zpuzskp and prescription medicines only as told by [...] 08/29/2005 Document Revised: 08/27/2017 Document Reviewed: 08/27/2017 [employer] Interactive Patient Education ? 2019 [employer] Viruses or Bacteria What?s got you [...] Disease Control and Prevention April 2014 Normal [facility] Extra Blueon 02-10-2019 Tube Collected Yes [facility] Comment on above: Performed By: #### 1 [id number], [id number], [id number], [id number], [id number] #### [facility] (DEFAULT) [address] [place] [address] Troponin Ion 02-10-2019 Troponin I.cardiac [Mass/Vol] ng/mL Normal <=0.03 [facility] Comment on above: Performed By: #### 1 [id number], [id number], [id number], 21525373, 7669367 #### [facility] (DEFAULT) [address] [place] [address] XR Hand Complete Lefton XR Hand Complete [...] Feliciano Lozano 02/10/19 5:19 pm Technologist: JENIFER [facility] Vital Signs Date Time Vital Sign Value Performing Clinician Facility 01-13-2025 11:04-0400 Diastolic blood pressure 87 mm[Hg] Mri (I-Stat/1.5t) Work Phone: [facility] Comment on above: POST MRI Safe Mode 01-13-2025 11:04-0400 Heart rate 96 /min Mri (I-Stat/1.5t) Work Phone: [facility] Comment on above: POST MRI Safe Mode 01-13-2025 11:04-0400 SaO2% (BldA) [Mass fraction] 99 % Mri (I-Stat/1.5t) Work Phone: [facility] Comment on above: POST MRI Safe Mode 01-13-2025 11:04-0400 Systolic blood pressure 146 mm[Hg] Mri (I-Stat/1.5t) Work Phone: [facility] Comment on above: POST MRI Safe Mode 01-13-2025 09:26-0400 Body height 157.5 cm Mri (I-Stat/1.5t) Work Phone: [facility] 01-13-2025 09:26-0400 Body mass index (BMI) [Ratio] 29.63 kg/m2 Mri (I-Stat/1.5t) Work Phone: [facility] 01-13-2025 09:26-0400 Body weight 73.48 kg Mri (I-Stat/1.5t) Work Phone: [facility] 09-03-2024 09:27-0500 Body height 157.5 cm Brijesh Armstrong MD Work Phone: [facility] 09-03-2024 09:27-0500 Body mass index (BMI) [Ratio] 30.18 kg/m2 Brijesh Armstrong MD Work Phone: [facility] 09-03-2024 09:27-0500 Body weight 74.84 kg Brijesh Armstrong MD Work Phone: [facility] 09-03-2024 09:27-0500 Diastolic blood pressure 86 mm[Hg] Brijesh Armstrong MD Work Phone: [facility] 09-03-2024 09:27-0500 Heart rate 82 /min Brijesh Armstrong MD Work Phone: [facility] 09-03-2024 09:27-0500 SaO2% (BldA) [Mass fraction] 97 % Brijesh Armstrong MD Work Phone: [facility] 09-03-2024 09:27-0500 Systolic blood pressure 132 mm[Hg] Brijesh Armstrong MD Work Phone: [facility] 05-07-2024 13:34-0400 Body mass index (BMI) [Ratio] 29.31 kg/m2 Meena Schrader MD Work Phone: [facility] 05-07-2024 13:34-0400 Body temperature 96.6 [degF] Meena Schrader MD Work Phone: [facility] 05-07-2024 13:34-0400 Body weight 72.7 kg Meena Schrader MD Work Phone: [facility] 05-07-2024 13:34-0400 Diastolic blood pressure 84 mm[Hg] Meena Schrader MD Work Phone: [facility] 05-07-2024 13:34-0400 Heart rate 83 /min Meena Schrader MD Work Phone: [facility] 05-07-2024 13:34-0400 Respiratory rate 16 /min Meena Schrader MD Work Phone: [facility] 05-07-2024 13:34-0400 SaO2% (BldA) [Mass fraction] 97 % Meena Schrader MD Work Phone: [facility] 05-07-2024 13:34-0400 Systolic blood pressure 152 mm[Hg] Meena Schrader MD Work Phone: [facility] 04-14-2024 13:54-0400 Body mass index (BMI) [Ratio] 29.45 kg/m2 Meena Schrader MD Work Phone: [facility] 04-14-2024 13:54-0400 Body temperature 96.3 [degF] Meena Schrader MD Work Phone: [facility] 04-14-2024 13:54-0400 Body weight 73.03 kg Meena Schrader MD Work Phone: [facility] 04-14-2024 13:54-0400 Diastolic blood pressure 88 mm[Hg] Meena Schrader MD Work Phone: [facility] 04-14-2024 13:54-0400 Heart rate 106 /min Meena Schrader MD Work Phone: [facility] 04-14-2024 13:54-0400 Respiratory rate 18 /min Meena Schrader MD Work Phone: [facility] 04-14-2024 13:54-0400 SaO2% (BldA) [Mass fraction] 97 % Meena Schrader MD Work Phone: [facility] 04-14-2024 13:54-0400 Systolic blood pressure 139 mm[Hg] Meena Schrader MD Work Phone: [facility] 04-08-2024 09:50-0400 Body mass index (BMI) [Ratio] 29.12 kg/m2 Oziel DUVALL Work Phone: [facility] 04-08-2024 09:50-0400 Body temperature 96.1 [degF] Oziel Orlin FLOTATION TENDER HELPER-OPERATIONAL COMMUNICATION CHIEF Work Phone: [facility] 04-08-2024 09:50-0400 Body weight 72.21 kg Oziel Orlin FLOTATION TENDER HELPER-OPERATIONAL COMMUNICATION CHIEF Work Phone: [facility] 04-08-2024 09:50-0400 Diastolic blood pressure 89 mm[Hg] Oziel Ordaz FLOTATION TENDER HELPER-OPERATIONAL COMMUNICATION CHIEF Work Phone: [facility] 04-08-2024 09:50-0400 Heart rate 105 /min Oziel Ordaz FLOTATION TENDER HELPER-OPERATIONAL COMMUNICATION CHIEF Work Phone: [facility] 04-08-2024 09:50-0400 Respiratory rate 16 /min Oziel Ordaz FLOTATION TENDER HELPER-OPERATIONAL COMMUNICATION CHIEF Work Phone: [facility] 04-08-2024 09:50-0400 SaO2% (BldA) [Mass fraction] 100 % Oziel Orlin FLOTATION TENDER HELPER-OPERATIONAL COMMUNICATION CHIEF Work Phone: [facility] 04-08-2024 09:50-0400 Systolic blood pressure 128 mm[Hg] Oziel Ordaz FLOTATION TENDER HELPER-OPERATIONAL COMMUNICATION CHIEF Work Phone: [facility] 03-23-2024 13:25-0400 Body temperature 97 [degF] Meena Schrader MD Work Phone: [facility] 03-23-2024 13:25-0400 Diastolic blood pressure 77 mm[Hg] Meena Schrader MD Work Phone: [facility] 03-23-2024 13:25-0400 Heart rate 68 /min Meena Schrader MD Work Phone: [facility] 03-23-2024 13:25-0400 Respiratory rate 18 /min Meena Schrader MD Work Phone: [facility] 03-23-2024 13:25-0400 SaO2% (BldA) [Mass fraction] 96 % Meena Schrader MD Work Phone: [facility] 03-23-2024 13:25-0400 Systolic blood pressure 136 mm[Hg] Meena Schrader MD Work Phone: [facility] 03-23-2024 07:18-0400 Body height 157.5 cm Meena Schrader MD Work Phone: [facility] 03-23-2024 07:18-0400 Body mass index (BMI) [Ratio] 29.35 kg/m2 Meena Schrader MD Work Phone: [facility] 03-23-2024 07:18-0400 Body weight 72.8 kg Meena Schrader MD Work Phone: [facility] Encounters Encounter Date Encounter Type Care Provider Facility Start: 01-13-2025 [facility] Facility:[facility] Start: 01-13-2025 End: 01-13-2025 Subsequent hospital visit by physician Mri Main J 2 (I-Stat/1.5t) Work Phone: MRI J Start: 01-13-2025 [facility] Facility:[facility] Start: 01-13-2025 End: 01-13-2025 Subsequent hospital visit by physician [facility] Work Phone: Cardiology Comment on above: Pacemaker reprogramm ing/check [Z45.018] Start: 12-25-2024 [facility] Start: 12-08-2024 End: 12-08-2024 Bamboo flowsheet Roseann Mari MD Work Phone: [facility] Start: 12-08-2024 End: 12-08-2024 Bamboo flowsheet Roseann Mari MD Work Phone: [facility] Start: 12-08-2024 End: 12-08-2024 Office outpatient visit 15 minutes Roseann Mari MD Work Phone: [facility] Comment on above: Seborrheic keratosis (Primary Dx); Lentigines; History of malignant melanoma of skin Start: 12-08-2024 End: 12-08-2024 ambulatory ROSEANN Alford SHMEUL Not Available Start: 12-04-2024 ambulatory [facility] Start: 11-06-2024 End: 11-06-2024 Telephone encounter Brijesh Armstrong MD Work Phone: [facility] Start: 09-29-2024 End: 09-29-2024 ambulatory [facility] Start: 09-03-2024 End: 09-03-2024 Bamboo flowsheet Brijesh Armstrong MD Work Phone: [facility] Start: 09-03-2024 End: 09-03-2024 Bamboo flowsheet Brijesh Armstrong MD Work Phone: [facility] Start: 09-03-2024 End: 09-03-2024 Office outpatient visit 15 minutes Roseann Mari MD Work Phone: [facility] Comment on above: Seborrheic keratosis (Primary Dx); Lentigines; Actinic keratosis; History of malignant melanoma of skin Start: 09-03-2024 End: 09-03-2024 ambulatory ROSEANN MARI Not Available Start: 09-03-2024 End: 09-03-2024 Assay of hemosiderin, quant Brijesh Armstrong MD Work Phone: [facility] Work Phone: Start: 09-03-2024 End: 09-03-2024 Patient [...] Not Available Start: 08-18-2024 End: 08-18-2024 ambulatory [facility] Start: 08-14-2024 End: 08-14-2024 ambulatory JACINTA MORALES [facility] Start: 08-04-2024 Evaluation and manag ement of inpatient [facility] Start: 08-04-2024 Evaluation and manag ement of inpatient [facility] Start: 08-03-2024 Emergency department patient visit MADI TEMPLE [facility] Start: 08-03-2024 End: 08-04-2024 Evaluation and management of inpatient JOSE HOOK [facility] Start: 08-03-2024 End: 08-03-2024 ambulatory ERNIE [facility] Start: 06-02-2024 End: 06-02-2024 Bamboo ankita Mari MD Work Phone: [facility] Start: 06-02-2024 End: 06-02-2024 Matt Mari MD Work Phone: [facility] Start: 06-02-2024 End: 06-02-2024 Office outpatient visit 15 minutes Roseann Mari MD Work Phone: [facility] Comment on above: Seborrheic keratosis (Primary Dx); Lentigines; Herpesviral vesicular dermatitis; Actinic keratosis; History of malignant melanoma of skin Start: 06-02-2024 End: 06-02-2024 ambulatory ROSEANN MARI Not Available Start: 05-07-2024 End: 05-07-2024 Postop follow up visit related to original px Meena Schrader MD Work Phone: [facility] Comment on above: Wound infection afte r surgery (Primary Dx) Start: 05-07-2024 End: 05-07-2024 ambulatory MEENA SCHRADER [facility] Start: 04-14-2024 End: 04-14-2024 Postop follow up visit related to original px Meena Schrader MD Work Phone: [facility] Comment on above: Malignant melanoma o f lower leg, left (Multi) (Primary Dx) Start: 04-14-2024 End: 04-14-2024 ambulatory MEENA Mejia MEÑO [facility] Start: 04-08-2024 End: 04-08-2024 Postop follow up visit related to original px Oziel Alford Orlin FLOTATION TENDER HELPER-OPERATIONAL COMMUNICATION CHIEF Work Phone: [facility] Comment on above: Cellulitis of left l ower extremity (Primary Dx) Start: 04-08-2024 End: 04-08-2024 ambulatory OZIEL Rocío ORLIN [facility] Start: 03-23-2024 End: 03-23-2024 Subsequent hospital visit by physician Dayanna Lay 3 [facility] Comment on above: Malignant melanoma o f lower leg, left (Multi) Arrived Start: 03-23-2024 End: 03-23-2024 ambulatory [facility] Start: 03-23-2024 End: 03-23-2024 Subsequent hospital visit by physician Meena Schrader MD Work Phone: [facility] [place] Comment on above: Malignant melanoma o f lower leg, left (Multi) (Primary Dx) Start: 03-18-2024 ambulatory MEENA SCHRADER [facility] Start: 03-17-2024 End: 03-17-2024 Office outpatient visit 25 minutes Meena Schrader MD Work Phone: [facility] Comment on above: Malignant melanoma o f lower leg, left (Multi) (Primary Dx) Start: 03-17-2024 End: 03-17-2024 ambulatory MEENA Mejia MEÑO [facility] Start: 02-24-2024 End: 02-24-2024 ambulatory ROSEANN MARI Not Available Start: 07-12-2023 Howard Armstrong MD Work Phone: [facility] Comment on above: 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, in full remission (CMS/FORMERLY [facility]) Start: 09-03-2022 End: 09-04-2022 ambulatory [...] Date Procedure Procedure Detail Performing Clinician Start: 01-13-2025 Cardiac mri w/wo con trast & further seq Luke Garcia MD Work Phone: Start: 01-13-2025 Prgrmg dev eval implantable subq lead dfb system [facility] Provider Start: 01-13-2025 Radiologic exam ches t 2 views Luke Garcia MD Work Phone: Start: 10-20-2024 Mammography Brijesh fernandez MD Work [...] Treatment Date Care Activity Detail Author Start: 08-03-2027 Diabetes Screening Diabetes Screening [facility] Start: 10-20-2025 Screening for malignant neoplasm of breast Mammogram [facility] Start: 09-03-2025 Medicare Annual Wellness (AWV) Medicare Annual Wellness (AWV) [facility] Start: 08-31-2025 Screening for malignant neoplasm of colon [facility] Start: 03-10-2025 End: 03-10-2025 Patient encounter procedure 03/10/2025 10:50 AM EDT Office Visit [facility] [address] [place] [address] Roseann Mari MD [address] [place] [address] [facility] Start: 02-23-2025 End: 02-23-2025 Patient encounter procedure 02/23/2025 9:50 AM EDT Office Visit [facility] [address] [place] [address] Roseann Mari MD [address] [place] [address] [facility] Start: 12-08-2024 End: 12-08-2024 Patient encounter procedure 12/08/2024 10:05 AM EDT Office Visit [facility] [address] [place] [address] Roseann Mari MD [address] [place] [address] [facility] Start: 11-06-2024 End: 11-06-2025 Thyrotropin [Units/volume] in Serum or Plasma TSH Lab Routine Abnormal thyroid function test Expected: 11/06/2024 (Approximate), Expires: 11/06/2025 [facility] Work Phone: Comment on above: Expected: 11/06/2024 (Approximate), Expi res: 11/06/2025 Start: 11-06-2024 End: 11-06-2025 Thyroxine (T4) free [Mass/volume] in Serum or Plasma T4, free Lab Routine Abnormal thyroid function test Expected: 11/06/2024 (Approximate), Expires: 11/06/2025 [facility] Comment on above: Expected: 11/06/2024 (Approximate), Expi res: 11/06/2025 Start: 11-06-2024 End: 11-06-2025 Triiodothyronine (T3) Free [Mass/volume] in Serum or Plasma T3, free Lab Routine Abnormal thyroid function test Expected: 11/06/2024 (Approximate), Expires: 11/06/2025 [facility] Comment on above: Expected: 11/06/2024 (Approximate), Expi res: 11/06/2025 Start: 11-03-2024 End: 11-03-2024 Patient encounter procedure 11/03/2024 9:05 AM EDT Office Visit [facility] [address] [place] [address] Roseann Mari MD [address] [place] [address] [facility] Start: 10-18-2024 Covid-19 Vaccine ( season) Covid-19 Vaccine ( season) [facility] Start: 10-02-2024 End: 09-03-2025 DXA Skeletal system Views for bone density DEXA bone density Imaging Routine Estrogen deficiency Expected: 10/02/2024 (Approximate), Expires: 09/03/2025 [facility] Comment on above: Expected: 10/02/2024 (Approximate), Expi res: 09/03/2025 Start: 10-02-2024 End: 11-01-2025 MG Breast - bilateral Screening Bilateral screening mammogram Imaging Routine Breast screening Expected: 10/02/2024 (Approximate), Expires: 11/01/2025 [facility] Work Phone: Comment on above: Expected: 10/02/2024 (Approximate), Expi res: 11/01/2025 Start: 09-26-2024 Screening for malignant neoplasm of breast Mammogram [facility] Start: 09-03-2024 End: 09-03-2025 Lipid 1996 panel - Serum or Plasma Lipid panel Lab Routine Mixed hyperlipidemia (CMS/HCC) Expected: 09/03/2024 (Approximate), Expires: 09/03/2025 [facility] Comment on above: Expected: 09/03/2024 (Approximate), Expi res: 09/03/2025 Start: 09-03-2024 End: 09-03-2025 TSH W/REFLEX TO FT4 TSH W/REFLEX TO FT4 Lab Routine Mixed hyperlipidemia (CMS/HCC) Second degree atrioventricular block Expected: 09/03/2024 (Approximate), Expires: 09/03/2025 [facility] Comment on above: Expected: 09/03/2024 (Approximate), Expi res: 09/03/2025 Start: 09-03-2024 End: 09-03-2024 Patient encounter procedure [facility] Start: 09-03-2024 End: 09-03-2024 Patient encounter procedure 09/03/2024 9:30 AM EST Office Visit [facility] [address] [place] [address] Brijesh Armstrong MD [address] [facility] [address] [place] [address] Arrived [facility] Comment on above: Arrived Start: 08-22-2024 Medicare Annual Wellness (AWV) Medicare Annual Wellness (AWV) [facility] Start: 08-05-2024 Advance Directive Discussion Advance Directive Discussion [facility] Start: 06-02-2024 End: 06-02-2024 Patient encounter procedure 06/02/2024 11:20 AM EDT Office Visit [facility] [address] [place] [address] Roseann Mari MD [address] [place] [address] Arrived [facility] Comment on above: Arrived Start: 04-14-2024 End: 04-14-2024 Patient encounter procedure 04/14/2024 2:00 PM EDT Office Visit [facility] [address] [place] [address] [place] [address] [facility] [place] [address] [facility] Start: 04-05-2024 COVID-19 Vaccine ( season) COVID-19 Vaccine ( season) [facility] Start: 04-05-2024 DTaP/Tdap/Td Vaccines (2 - Td or Tdap) DTaP/Tdap/Td Vaccines (2 - Td or Tdap) [facility] Start: 04-05-2024 Influenza vaccination Influenza Vaccine (#1) [facility] Start: 04-05-2024 Urine microalbumin profile DTaP,Tdap,Td Vaccine (2 - Td or Tdap) [facility] Start: 03-23-2024 End: 03-17-2025 NM Lymphatic vessels Views W radionuclide intra lymphatic NM lymphoscintigram Imaging Routine Malignant melanoma of lower leg, left (Multi) Expected: 03/23/2024, Expires: 03/17/2025 [facility] Service Area Work Phone: Comment on above: Expected: 03/23/2024, Expires: Start: 03-23-2024 Subsequent hospital visit by physician 03/23/2024 Hospital Encounter [facility] [place] [address] [place] [address] [place] [address] [address] [place] [address] [facility] [place] Start: 03-23-2024 End: 03-23-2024 Bx/exc lymph [...] Vaccine ( season) COVID-19 Vaccine ( season) [facility] Start: 09-03-2023 Screening for malignant neoplasm of breast [facility] Start: 07-13-2023 Screening for osteoporosis Bone Density Scan [facility] Start: 11-14-2020 Pneumococcal Vaccine: 65+ Years (1 of 1 - PCV) Pneumococcal Vaccine: 65+ Years (1 of 1 - PCV) [facility] Start: 11-03-2020 Medicare Annual Wellness Visit Medicare Annual Wellness Visit [facility] Start: 11-14-2005 Pneumococcal Vaccine: 50+ (1 of 1 - PCV) Pneumococcal Vaccine: 50+ (1 of 1 - PCV) [facility] Start: 11-14-2005 Pneumococcal Vaccine: 65+ Years (1 of 1 - PCV) Pneumococcal Vaccine: 65+ Years (1 of 1 - PCV) [facility] Start: 11-14-2000 Lipid panel Lipid Screening [facility] Start: 11-14-2000 Screening for malignant neoplasm of colon [facility] Start: 11-14-1973 Anxiety Screening Anxiety Screening [facility] Start: 11-14-1973 Depression Screening Depression Screening [facility] Start: 11-14-1973 Diabetes mellitus screening Diabetes Screening [facility] Start: 11-14-1973 Hepatitis C screening Hepatitis C Screening [facility] Start: 05-16-1956 Examination of skin Derm Melanoma Skin Check [facility] Start: 1955 Lipid panel Lipid Panel [facility] Start: 1955 Medicare Annual Wellness Visit Medicare Annual Wellness Visit (AWV) [facility] Start: 1955 Screening for malignant neoplasm of colon [facility] Bx/exc lymph node op en superficial Biopsy Lymph Node Inguinal Malignant melanoma of lower leg, left (Multi) [facility] OR CARDIAC IMPLANTABLE DEVICE CHECK CARDIAC IMPLANTABLE DEVICE CHECK PACEART Routine Pacemaker reprogramming/check 01/13/2025 8:22 AM EDT [facility] Dermatopathology- [place] RM LAB [facility] Service Area Work Phone: Comment on above: Release Upon Ordering for 1 Occurrences starting 03/23/2024 Electrocardiogram, 12-lead Electrocardiogram, 12-lead ECG Routine 03/23/2024 7:13 AM EDT [facility] Work Phone: Excision malignant l esion trunk/arm/leg > 4.0 cm Excision Lesion Skin Lower Extremity Malignant melanoma of lower leg, left (Multi) [facility] [place] Immunizations Immunization Date Immunization Notes Care Provider [facility] 04-20-2024 influenza, high dose seasonal, preservative-free Brijesh Armstrong MD Work Phone: [facility] 04-20-2024 influenza virus vaccine, unspecified formulation Roseann Mari MD Work Phone: [facility] 08-08-2023 RSV, recombinant, protein subunit RSVpreF, adjuvant reconstitu, 120mcg/0.5mL, PF (Arexvy) Roseann Mari MD Work Phone: [facility] 03-28-2023 Influenza, Seasonal, Quadrivalent, Adjuvanted Brijesh Armstrong MD Work Phone: [facility] 03-28-2023 influenza virus vaccine, unspecified formulation Meena Schrader MD Work Phone: [facility] Work Phone: 05-13-2022 Moderna Bivalent Booster Vaccination Brijesh Armstrong MD Work Phone: [facility] 04-14-2022 Influenza, High-dose Seasonal, Quadrivalent, Preservative Free Brijesh Armstrong MD Work Phone: [facility] 05-03-2021 Influenza, High-dose Seasonal, Quadrivalent, Preservative Free Brijesh Armstrong MD Work Phone: [facility] 08-31-2019 zoster vaccine recombinant Brijesh Armstrong MD Work Phone: [facility] 04-07-2019 Influenza, injectabl e, Madin Roy Canine Kidney, preservative free, quadrivalent Brijesh Armstrong MD Work Phone: [facility] 04-07-2019 zoster vaccine recombinant Brijesh Armstrong MD Work Phone: [facility] 04-30-2016 zoster vaccine, live Brijesh Armstrong MD Work Phone: [facility] 04-16-2016 influenza, injectabl e, quadrivalent, preservative free Brijesh Armstrong MD Work Phone: [facility] 04-05-2014 tetanus toxoid, redu linda diphtheria toxoid, and acellular pertussis vaccine, adsorbed Brijesh Armstrong MD Work Phone: [facility] Payers Date Payer Category Payer Medicare [id number] 2020 Private Health Insurance [id number] 1959 Medicare [id number] 1959 Private Health Insurance CLI [id number] 1955 Unknown [id number] 2.16.84 0.1.736457.3.579.2.593 1955 Unknown [id number] 2.16.84 0.1.291459.3.579.2.593 1955 Unknown [id number] 2.16.84 0.1.835492.3.579.2.593 1955 Unknown [id number] 2.16.84 0.1.342290.3.579.2.593 1955 Unknown [id number] 2.16.84 0.1.531686.3.579.2.593 1955 Unknown [id number] 2.16.84 0.1.890292.3.579.2.593 1955 Unknown [id number] 2.16.84 0.1.707213.3.579.2.593 1955 Unknown [id number] 2.16.84 0.1.311013.3.579.2.593 1955 Unknown [id number] 2.16.84 0.1.436292.3.579.2.593 1955 Unknown [id number] 2.16.84 0.1.510428.3.579.2.593 1955 Unknown [id number] 2.16.84 0.1.615048.3.579.2.593 1955 Unknown [id number] 2.16.84 0.1.534677.3.579.2.593 1955 Unknown [id number] 2.16.84 0.1.613584.3.579.2.593 1955 Unknown [id number] 2.16.84 0.1.571147.3.579.2.593 1955 Unknown [id number] 2.16.84 0.1.781582.3.579.2.593 1955 Unknown [id number] 2.16.84 0.1.387388.3.579.2.593 1955 Unknown [id number] 2.16.8 40.1.714297.3.579.2.1245 1955 Unknown [id number] 2.16.8 40.1.455548.3.579.2.1244 1955 Unknown [id number] 2.16.8 40.1.790741.3.579.2.1245 1955 Unknown [id number] 2.16.8 40.1.010863.3.579.2.124 1955 Unknown [id number] 2.16.8 40.1.411041.3.579.2.124 1955 Unknown [id number] 2.16.8 40.1.278309.3.579.2.124 1955 Unknown [id number] 2.16.8 40.1.607717.3.579.2.124 1955 Unknown [id number] 2.16.8 40.1.709435.3.579.2.124 1955 Unknown [id number] 2.16.84 0.1.821257.3.579.2.1259 1955 Unknown [id number] 2.16.84 0.1.864106.3.579.2.1259 1955 Unknown [id number] 2.16.84 0.1.595563.3.579.2.1259 1955 Unknown [id number] 2.16.84 0.1.360928.3.579.2.1259 1955 Unknown [id number] 2.16.84 0.1.699077.3.579.2.1259 Social History Date Type Detail Facility Tobacco smoking stat [facility] Tobacco smoking consumption unknown [facility] Start: 08-22-2023 End: 01-13-2025 History of Social function [facility] Start: 08-22-2023 End: 01-13-2025 Tobacco use panel [facility] Start: 1955 Sex Assigned At Not on file [facility] Start: 03-18-2024 Tobacco smoking stat us NHIS Ex-smoker [facility] History of tobacco use [facility]: History of tobacco use [facility]: Start: 08-22-2023 End: 03-18-2024 Tobacco use and exposure Smokeless tobacco non-user [facility] Work Phone: Start: 04-14-2024 End: 12-08-2024 Alcoholic beverage intake Current drinker of alcohol (finding) [facility] Work Phone: Start: 03-13-2024 End: 05-07-2024 Exposure to SARS-CoV-2 (event) Not sure [facility] Start: 08-22-2023 Tobacco smoking stat [facility] Never smoked tobacco [facility] Start: 03-07-2024 End: 03-17-2024 Exposure to SARS-CoV-2 (event) Unable to assess [facility] Start: 03-29-2024 End: 04-08-2024 Exposure to SARS-CoV-2 (event) Yes [facility] National Score (1-100), lower number is lower risk 94 [facility] Medical Equipment Procedure Code Equipment Code Equipment Origin al Text Equipment Identifier Dates [id number] Start: 07-05-2024 [id number] Start: 07-05-2024 Pacemaker- [id number] Start: 08-03-2024 Comment on above: Description: -[facility] [id number] Clinical Notes 08-31-2021 to 01-13-2025 Kassandra Madison RN - 01/13/2025 10:00 AM Teresa Bean RT(R) - 01/13/2025 10:00 AM Vickie White RN - 01/13/2025 10:00 AM Farhana Potts RT(R) - 01/13/2025 8:00 AM EDT Note Date & Type Note Facility 01-13-2025 History of Present illness Narrative Radiology Service Progress Note DATE OF SERVICE: January 13, 2025 TIME: 9:26 AM PATIENT WEIGHT: 162LBS PATIENT IDENTITY VERIFICATION COMPLETED USING TWO (2) STANDARD IDENTIFIERS: Name and Date of confirmed by patient verbally and Name and Date of confirmed by identification band. FALL SCREENING: Has the patient had 2 falls in the last year or 1 fall with injury or currently using an Ambulatory Assistive Device (Walker, Cane, Wheelchair, Crutches, etc.)? No PATIENT GENDER DATA: Assigned female at . status: : No status: NO. ALLERGIES: Reviewed and unchanged CONTRAST ALLERGY: No EXAM: MRI - CONTRAST TYPE: GROUP II IV SITE: Ambulatory: A peripheral IV was started in the Right antecubital site with a Angio cath: 20 gauge. and A Saline lock was inserted per protocol IV SITE APPEARANCE: Clean,Dry and Intact SIGNATURE: Kassandra Madison RN PATIENT NAME: Mei Jo DATE: January 13, 2025 TIME: 9:26 AM Radiology Service Progress Note PATIENT NAME: Mei Jo DATE OF SERVICE: January 13, 2025 TIME: 10:30 AM PATIENT IDENTITY VERIFICATION COMPLETED USING TWO (2) IDENTIFIERS: Name and Date of confirmed by patient verbally and Name and Date of confirmed by identification band. FALL SCREENING: Has the patient had 2 falls in the last year or 1 fall with injury or currently using an Ambulatory Assistive Device (Walker, Cane, Wheelchair, Crutches, etc.)? No PATIENT GENDER DATA: Assigned female at . status: : No status: NO. PATIENT RELEVANT IMPLANT DATA REVIEWED: Yes MR Conditional CIED [employer] Remote programming PATIENT PRESENTS WITH AN IMPLANTABLE OR ATTACHED CHIP APPLYING MACHINE TENDER: No RADIOLOGY DEPARTMENT: MR; Exam(s) Completed: Cardiac: Cardiac. Lavender Administered: No PERIPHERAL IV DATA: Site assessment: Clean,Dry and Intact, Site disposition Left in for next appointment SIGNED BY: Peter Uribe RT, RT Karrie(R) January 13, 2025 10:30 AM Radiology Service Progress Note PATIENT NAME: Mei Jo DATE OF SERVICE: January 13, 2025 TIME: 10:07 AM PATIENT IDENTITY VERIFICATION COMPLETED USING TWO (2) STANDARD IDENTIFIERS: Name and Date of confirmed by patient verbally and Name and Date of confirmed by identification band. FALL RISK: no PATIENT GENDER DATA: Assigned female at . status: : No status: NO. PATIENT RELEVANT IMPLANT DATA REVIEWED: Yes ALLERGIES: Reviewed and unchanged MEDICATIONS REVIEWED: NO PROCEDURE: MRI - Conditional Pacemaker light rail signal technician called [employer] and placed pt into MRI Safe Mode VOO/80 for the MRI scan [employer] Locator Device - Settings:VOO 80 bpm Once scan is completed light rail signal technician called [employer] to place pt back into regular mode Physiologic monitoring per standard operating procedure. See vital sign flowsheet. IV SITE: Ambulatory: A peripheral IV was started in the Right antecubital site with a Angio cath: 20 gauge. and A Saline lock was inserted per protocol PERIPHERAL IV ACCESS: Discontinued PATIENT TOLERATED PROCEDURE: Without incident. PATIENT DISCHARGED TO: Home/Self Care SIGNED BY: Vickie Basilio RN PATIENT EDUCATION RADIOLOGY TOPIC: Procedure/Surgery: MRI Pacemaker READINESS TO LEARN COGNITIVE ABILITY: Alert and oriented MOTIVATION TO LEARN: Interested FAMILY SUPPORT: Unable to assess - Family not present INSTRUCTION PROVIDED TO: Patient PATIENT LEARNS BEST BY: Individual Instruction Verbal Instruction FACTORS AFFECTING LEARNING: None PHYSICAL LIMITATIONS AFFECTING LEARNING: None LEARNING RESPONSE Procedure: Angio Procedures: Radiology Procedures: MRI Pacemaker METHOD OF INSTRUCTION: Individual instruction Verbal instruction PATIENT / FAMILY RESPONSE: Verbalizes understanding of: Pre Procedure Instructions Post Procedure Instructions FOLLOW-UP PLAN: Complete - No need for follow-up SUPPLEMENTAL MATERIAL: na REFERRAL (RECOMMENDATION): None documented in this encounter [facility] 01-13-2025 Note HNO ID: [id number] Author: VICKIE BASILIO RN Service: Nursing Author Type: Registered Nurse Type: Progress Notes Filed: 01/13/2025 11:06 Note Text: Radiology Service Progress Note PATIENT NAME: Mei Jo DATE OF SERVICE: January 13, 2025 TIME: 10:07 AM PATIENT IDENTITY VERIFICATION COMPLETED USING TWO (2) STANDARD IDENTIFIERS: Name and Date of confirmed by patient verbally and Name and Date of confirmed by identification band. FALL RISK: no PATIENT GENDER DATA: Assigned female at . status: : No status: NO. PATIENT RELEVANT IMPLANT DATA REVIEWED: Yes ALLERGIES: Reviewed and unchanged MEDICATIONS REVIEWED: NO PROCEDURE: MRI - Conditional Pacemaker light rail signal technician called [employer] and placed pt into MRI Safe Mode VOO/80 for the MRI scan [employer] Locator Device - Settings:VOO 80 bpm Once scan is completed light rail signal technician called [employer] to place pt back into regular mode Physiologic monitoring per standard operating procedure. See vital sign flowsheet. IV SITE: Ambulatory: A peripheral IV was started in the Right antecubital site with a Angio cath: 20 gauge. and A Saline lock was inserted per protocol PERIPHERAL IV ACCESS: Discontinued PATIENT TOLERATED PROCEDURE: Without incident. PATIENT DISCHARGED TO: Home/Self Care SIGNED BY: Vickie Basilio RN PATIENT EDUCATION RADIOLOGY TOPIC: Procedure/Surgery: MRI Pacemaker READINESS TO LEARN COGNITIVE ABILITY: Alert and oriented MOTIVATION TO LEARN: Interested FAMILY SUPPORT: Unable to assess - Family not present INSTRUCTION PROVIDED TO: Patient PATIENT LEARNS BEST BY: Individual Instruction Verbal Instruction FACTORS AFFECTING LEARNING: None PHYSICAL LIMITATIONS AFFECTING LEARNING: None LEARNING RESPONSE Procedure: Angio Procedures: Radiology Procedures: MRI Pacemaker METHOD OF INSTRUCTION: Individual instruction Verbal instruction PATIENT / FAMILY RESPONSE: Verbalizes understanding of: Pre Procedure Instructions Post Procedure Instructions FOLLOW-UP PLAN: Complete - No need for follow-up SUPPLEMENTAL MATERIAL: na REFERRAL (RECOMMENDATION): None Electronically Signed By Vickie Basilio RN [facility] 01-13-2025 Note HNO ID: [id number] Author: KASSANDRA MADISON RN Service: Radiology Author Type: Registered Nurse Type: Progress Notes Filed: 01/13/2025 09:28 Note Text: Radiology Service Progress Note DATE OF SERVICE: January 13, 2025 TIME: 9:26 AM PATIENT WEIGHT: 162LBS PATIENT IDENTITY VERIFICATION COMPLETED USING TWO (2) STANDARD IDENTIFIERS: Name and Date of confirmed by patient verbally and Name and Date of confirmed by identification band. FALL SCREENING: Has the patient had 2 falls in the last year or 1 fall with injury or currently using an Ambulatory Assistive Device (Walker, Cane, Wheelchair, Crutches, etc.)? No PATIENT GENDER DATA: Assigned female at . status: : No status: NO. ALLERGIES: Reviewed and unchanged CONTRAST ALLERGY: No EXAM: MRI - CONTRAST TYPE: GROUP II IV SITE: Ambulatory: A peripheral IV was started in the Right antecubital site with a Angio cath: 20 gauge. and A Saline lock was inserted per protocol IV SITE APPEARANCE: Clean,Dry and Intact SIGNATURE: Kassandra Madison RN PATIENT NAME: Mei Jo DATE: January 13, 2025 TIME: 9:26 AM [facility] 01-13-2025 Note HNO ID: [id number] Author: TERESA BAKER RT(R) Service: Radiology Author Type: Technologist Type: Progress Notes Filed: 01/13/2025 10:31 Note Text: Radiology Service Progress Note PATIENT NAME: Mei Jo DATE OF SERVICE: January 13, 2025 TIME: 10:30 AM PATIENT IDENTITY VERIFICATION COMPLETED USING TWO (2) IDENTIFIERS: Name and Date of confirmed by patient verbally and Name and Date of confirmed by identification band. FALL SCREENING: Has the patient had 2 falls in the last year or 1 fall with injury or currently using an Ambulatory Assistive Device (Walker, Cane, Wheelchair, Crutches, etc.)? No PATIENT GENDER DATA: Assigned female at . status: : No status: NO. PATIENT RELEVANT IMPLANT DATA REVIEWED: Yes MR Conditional CIED [employer] Remote programming PATIENT PRESENTS WITH AN IMPLANTABLE OR ATTACHED CHIP APPLYING MACHINE TENDER: No RADIOLOGY DEPARTMENT: MR; Exam(s) Completed: Cardiac: Cardiac. Lavender Administered: No PERIPHERAL IV DATA: Site assessment: Clean,Dry and Intact, Site disposition Left in for next appointment SIGNED BY: Teresa Hebert RT(R) January 13, 2025 10:30 AM [facility] 01-13-2025 History of Present illness Narrative Radiology Service Progress Note PATIENT NAME: Mei Jo DATE OF SERVICE: January 13, 2025 TIME: 7:35 AM PATIENT IDENTITY VERIFICATION COMPLETED USING TWO (2) IDENTIFIERS: Name and Date of confirmed by patient verbally. FALL SCREENING: Has the patient had 2 falls in the last year or 1 fall with injury or currently using an Ambulatory Assistive Device (Walker, Cane, Wheelchair, Crutches, etc.)? No PATIENT GENDER DATA: Assigned female at . status: : No status: NO. PATIENT RELEVANT IMPLANT DATA REVIEWED: Not Applicable PATIENT PRESENTS WITH AN IMPLANTABLE OR ATTACHED CHIP APPLYING MACHINE TENDER: No RADIOLOGY DEPARTMENT: General X-ray: Exam(s) Completed: Chest X-Ray PERIPHERAL IV DATA: Not applicable SIGNED BY: RT Abdoulaye(R) January 13, 2025 7:35 AM documented in this encounter [facility] 01-13-2025 Note HNO ID: [id number] Author: FARHANA AMBRIZ RT(R) Service: Radiology Author Type: Technologist Type: Progress Notes Filed: 01/13/2025 07:35 Note Text: Radiology Service Progress Note PATIENT NAME: Mei Jo DATE OF SERVICE: January 13, 2025 TIME: 7:35 AM PATIENT IDENTITY VERIFICATION COMPLETED USING TWO (2) IDENTIFIERS: Name and Date of confirmed by patient verbally. FALL SCREENING: Has the patient had 2 falls in the last year or 1 fall with injury or currently using an Ambulatory Assistive Device (Walker, Cane, Wheelchair, Crutches, etc.)? No PATIENT GENDER DATA: Assigned female at . status: : No status: NO. PATIENT RELEVANT IMPLANT DATA REVIEWED: Not Applicable PATIENT PRESENTS WITH AN IMPLANTABLE OR ATTACHED CHIP APPLYING MACHINE TENDER: No RADIOLOGY DEPARTMENT: General X-ray: Exam(s) Completed: Chest X-Ray PERIPHERAL IV DATA: Not applicable SIGNED BY: RT Abdoulaye(R) January 13, 2025 7:35 AM [facility] 12-08-2024 History of Present illness Narrative Skin [...] Visit: 3 months documented in this encounter [facility] 11-06-2024 Telephone encounter Note Please call and inform- thyroid lab needs to be rechecked. A lab order was placed. I will call her with the results after they are done. [facility] 11-06-2024 Miscellaneous Notes Please call and inform- thyroid lab needs to be rechecked. A lab order was placed. I will call her with the results after they are done. documented in this encounter [facility] 09-29-2024 Note [place] Electrophysiology Consult Note [place] Cardiology [facility] Reason for visit: s/p PPM for CHB HPI: Mei Jo is a 68 y.o. 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 EKG in office showed complete heart block. She was sent to [facility] ED for evaluation and management on 08/03/24 and got PPM placed by me. Since then device check today has revealed NSVT and lead thresholds being stable. PMH: Past Medical History: Diagnosis Date Abnormal ECG Cancer (CMS/HCC) Hyperlipidemia Hypertension Second degree AV block Syncope PSH: Past Surgical History: Procedure Laterality Date CHOLECYSTECTOMY SH: Social Determinants of Health Tobacco Use: Low Risk (09/03/2024) Received from [facility] Patient History Smoking Tobacco Use: Never Smokeless [...] Depression: Not at risk (09/03/2024) Received from [facility] PHQ-2 Patient Health Questionnaire-2 Score: 0 Housing Stability: Low Risk (08/03/2024) Housing Stability Vital Sign Unable to Pay for Housing in the Last Year: No Number of Times Moved in the Last Year: Not on file Homeless in the Last Year: No Utilities: Not At Risk (08/03/2024) [facility] Utilities Threatened with loss of utilities: No [...] TRIGLYCERIDES , T (more content not included)... [facility] 09-03-2024 History of Present illness Narrative Images [...] limited to risks of scarring, darker or social sciences chair pigmentary changes, recurrence, incomplete removal and infection. [...] Visit: 3 months documented in this encounter [facility] 09-03-2024 History of Present illness Narrative Images [...] Do you have a medical power of corporate attorney?: No Objective : BP 132/86 Pulse [...] September 03, 2024 documented in this encounter [facility] 08-14-2024 Note Patient here for wou nd [...] No fevers no chills. Jacinta Morales MD [facility] 08-04-2024 Note Occupational Therapy Occupational Therapy Evaluation [...] Level of Function Prior Function Level of Kleberg: Independent with ADLs and functional transfers, Independent [...] Eating meals?: None (Independent) Total Score OT [facility]: 24 Assessment/Plan OT Assessment OT Education/Comments: (pacer handout issued and discussed, general home safety all with good return demo) Plan OT Discharge Recommendations: Home OT - Discharge Recommendations Placed: Yes OT Goals Multi-Disciplinary Problems (from Occupational Therapy) Active Problems Not on file [facility] 08-03-2024 Note [place] Cardiology - [facility] Subjective Mei Jo is a [...] will send the patient to ED at [facility]. I spoke already with Dr. Garcia he will see her immediately for permanent pacemaker implantation. Follow-up 1 to 2 weeks after pacemaker implantation Ernie Cao MD,[facility] 06-02-2024 History of Present illness Narrative [...] Actinic keratosis (4) Left Malar Cheek, Left Pentecostalism, Left Zygomatic Area, Right Supraorbital Region Erythematous [...] limited to risks of scarring, darker or social sciences chair pigmentary changes, recurrence, incomplete removal and infection. [...] skin lesion - Left Malar Cheek, Left Pentecostalism, Left Zygomatic Area, Right Supraorbital Region 5. [...] Visit: 3 months documented in this encounter [place] [address]-03-2024 History of Present illness Narrative ASSESSMENT AND [...] to clinic as needed. Meena Schrader MD [employer] Division of Surgical Oncology [phone] [email or web address] SUBJECTIVE Mei Jo is a 68 [...] MELANOCYTIC NEOPLASM SEEN. documented in this encounter [facility] Work Phone: 04-14-2024 History of Present illness [...] needed for wound care. Meena Schrader MD [employer] Division of Surgical Oncology [phone] [email or web address] SUBJECTIVE Mei Jo is a 68 [...] DIAGNOSIS A. NODE, SENTINEL NODE #1 COUNT- 219, BIOPSY: BENIGN LYMPH NODE. B. SKIN, 3X5 CM, SHORT SUPERIOR 12:00, LONG POSTERIOR 3:00, WIDE EXCISION: CHANGES CONSISTENT WITH PREVIOUS PROCEDURE, INKED MARGINS FREE IN THE PLANES OF SECTIONS EXAMINED, WITHOUT RESIDUAL ATYPICAL MELANOCYTIC NEOPLASM SEEN. documented in this encounter [facility] Work Phone: 04-08-2024 History of Present illness [...] Review Audit Reviewed by Roland Martell MA (Dye Beck Reel Operator) on 04/08/24 at 0951 Medication Order Taking? Sig Documenting Provider Last Dose Status cholecalciferol (Vitamin D-3) 50 mcg (2,000 unit) capsule [id number] Yes Take 1 capsule (50 mcg) by mouth once daily. Historical Provider, Taking Active citalopram (CeleXA) 10 mg tablet [id number] Yes Take 1 tablet (10 mg) by mouth once daily. Historical Provider, Taking Active fluticasone (Flonase) 50 mcg/actuation nasal spray [id number] Yes 1 spray once daily as needed. Historical Provider, Taking Active simvastatin (Zocor) 40 mg tablet [id number] Yes Take 1 tablet (40 mg) by mouth once daily. Historical Provider, Taking Active sulfamethoxazole-trimethoprim (Bactrim DS) 800-160 mg tablet [id number] Yes Take 1 tablet by mouth 2 [...] VARICOSE VEIN SURGERY documented in this encounter [facility] Work Phone: 03-23-2024 Hospital Discharge instructions Maryana [...] of the following, please call Radha Dash ([phone]) or Dr. Schrader's office ([phone]). Swelling under the incision like a golf ball or larger. Redness of the skin that is spreading away from the incision. Drainage from the incision. Fevers, chills, or any other concerning symptoms. Follow-up Call Amada Potts at [phone] to arrange a postop visit in 3 [...] and blood flow The doctor or nurse medical billing associate gives general anesthesia by a shot into [...] dizziness. Where can I learn more? [employer] https://www.nigms.nih.gov/educat ion/pages/factsheet_Anesthesia.a spx NHS Choices http://www.nhs.uk/conditions/Marcella esthetic-general/Pages/Definitio n.aspx Last Reviewed Date 2019-11-25 documented in this encounter [facility] Work Phone: 03-23-2024 Note Formatting of this n ote is different from the original. Excision Lesion Skin Lower Extremity (L), St[place]man Lymph Node Biopsy Operative Note Date: 03/23/2024 OR Location: [facility] Name: Mei Jo, : 1955, Age: 68 y.o., , Sex: female Diagnosis Pre-op Diagnosis * Malignant melanoma of lower leg, left (Multi) [C43.72] Post-op Diagnosis * Malignant melanoma of lower leg, left (Multi) [C43.72] Procedures Excision Lesion Skin Lower Extremity 00947 - RI EXCISION MALIGNANT LESION TRUNK/ARM/LEG > 4.0 CM St[place]man Lymph Node Biopsy 30217 - RI BX/EXC LYMPH NODE OPEN SUPERFICIAL Double VY Advancement flap closure Surgeons * Meena Schrader - Primary Resident/Fellow/Other Care Specialist: Surgeons and Role: * No surgeons found with a matching role * Procedure Summary Anesthesia: General ASA: II Anesthesia Staff: Anesthesiologist: Luis Carlos Cloud MD DRY PLASTERER: Gaetano Chavez APRN-FELIBERTO Estimated Blood Loss: 5mL [...] DERMATOPATHOLOGY Meena Schrader MD 03/23/2024 1110 Staff: Asphalt Distributor Tender: Marla Peña Person: Susana INDICATIONS FOR SURGERY [...] fascia (melanoma) Final dimensions of excision: 3.5cm yuhaaviatam Specimen marking stitches: Short stitch superior at 12:00, long stitch posterior at 3:00 Excision closure: 4-0 Prolene, antibiotic ointment, gauze and Rosmery wrap Location of sentinel nodes: Left groin Number of sentinel lymph nodes: 1 The patient arrived at [facility] for the aforementioned procedure. Consent was obtained, [...] multilayer fashion using a deep 2-0 Vicryl [id number], interrupted deep 3-0 Vicryl, and a running subcuticular 4-0 Monocryl. The skin was dressed with Dermabond. The patient was awoken and returned to the PACU in anticipation of discharge home. I was present scrubbed and directed all operative decision-making. [facility] Work Phone: 03-23-2024 Miscellaneous Notes Excision Lesion Skin Lower Extremity (L), Stedman Lymph Node Biopsy Operative Note Date: 03/23/2024 OR Location: [facility] Name: Mei Jo, : 1955, Age: 68 y.o., , Sex: female Diagnosis Pre-op Diagnosis * Malignant melanoma of lower leg, left (Multi) [C43.72] Post-op Diagnosis * Malignant melanoma of lower leg, left (Multi) [C43.72] Procedures Excision Lesion Skin Lower Extremity 68605 - RI EXCISION MALIGNANT LESION TRUNK/ARM/LEG > 4.0 CM [place] Lymph Node Biopsy 37547 - RI BX/EXC LYMPH NODE OPEN SUPERFICIAL Double VY Advancement flap closure Surgeons * Meena Schrader - Primary Resident/Fellow/Other Care Specialist: Surgeons and Role: * No surgeons found with a matching role * Procedure Summary Anesthesia: General ASA: II Anesthesia Staff: Anesthesiologist: Luis Carlos Cloud MD DRY PLASTERER: Gaetano Chavez APRN-DRY PLASTERER Estimated Blood Loss: 5mL Intra-op Medications: Administrations [...] DERMATOPATHOLOGY Meena Schrader MD 03/23/2024 1110 Staff: Asphalt Distributor Tender: Marla Peña Person: Susana INDICATIONS FOR SURGERY [...] fascia (melanoma) Final dimensions of excision: 3.5cm yuhaaviatam Specimen marking stitches: Short stitch superior at 12:00, long stitch posterior at 3:00 Excision closure: 4-0 Prolene, antibiotic ointment, gauze and Rosmery wrap Location of sentinel nodes: Left groin Number of sentinel lymph nodes: 1 The patient arrived at [facility] for the aforementioned procedure. Consent was obtained, [...] multilayer fashion using a deep 2-0 Vicryl [id number], interrupted deep 3-0 Vicryl, and a running subcuticular 4-0 Monocryl. The skin was dressed with Dermabond. The patient was awoken and returned to the PACU in anticipation of discharge home. I was present scrubbed and directed all operative decision-making. Reviewed pre-op instructions with patient including NPO after midnight, must have retail delivery driver, hospital and check in location, and day of surgery routine. documented in this encounter [facility] Work Phone: 03-23-2024 Attending History and physical [...] We will look for OR time at [place] in the coming weeks. I believe this will close primarily with a 1 cm margin primarily or with VY plasty. I spent 60 minutes in the professional and overall care of this patient. Meena Schrader MD [employer] Division of Surgical Oncology [phone] [email or web address] History Of Present Illness Referring provider: [...] visit Relevant Results FINAL DIAGNOSIS 3 SLIDES, [facility] #[id number] (BX: 02/24/2024) SKIN, LEFT LEG, SHAVE BIOPSY: [...] Comment(s) Tumor block is CSPL original case# [id number] Blocks 1 and 2. [facility] Work Phone: 03-23-2024 History and physical note [...] We will look for OR time at [place] in the coming weeks. I believe this will close primarily with a 1 cm margin primarily or with VY plasty. I spent 60 minutes in the professional and overall care of this patient. Meena Schrader MD [employer] Division of Surgical Oncology [phone] [email or web address] History Of Present Illness Referring provider: [...] visit Relevant Results FINAL DIAGNOSIS 3 SLIDES, [facility] #[id number] (BX: 02/24/2024) SKIN, LEFT LEG, SHAVE BIOPSY: [...] Comment(s) Tumor block is CSPL original case# [id number] Blocks 1 and 2. documented in this encounter [facility] Work Phone: 03-18-2024 Note Formatting of this n ote might be different from the original. Reviewed pre-op instructions with patient including NPO after midnight, must have retail delivery driver, hospital and check in location, and day of surgery routine. [facility] Work Phone: 03-17-2024 History of Present illness [...] We will look for OR time at [place] in the coming weeks. I believe this will close primarily with a 1 cm margin primarily or with VY plasty. I spent 60 minutes in the professional and overall care of this patient. Meena Schrader MD [employer] Division of Surgical Oncology [phone] [email or web address] History Of Present Illness Referring provider: [...] visit Relevant Results FINAL DIAGNOSIS 3 SLIDES, [facility] #[id number] (BX: 02/24/2024) SKIN, LEFT LEG, SHAVE BIOPSY: [...] Comment(s) Tumor block is CSPL original case# [id number] Blocks 1 and 2. documented in this encounter [facility] Work Phone: 07-15-2023 Telephone encounter Note Pt scheduled [facility] 07-15-2023 Miscellaneous Notes Pt scheduled Please advise a 30 days supply was sent to her pharmacy and she is due for an appt. documented in this encounter [facility] 07-12-2023 Telephone encounter Note Please advise a 30 days supply was sent to her pharmacy and she is due for an appt. [facility] 08-15-2022 Note CARDIAC STRESS TEST Requesting Physician: [...] 5. Clinical correlation recommended. [facility] 08-31-2021 Note SATISFACTORY FOR EVALUATION Nancy rubin [place] Director Shopper Marketing Comment on above: Order Comment: [facility] Testing performed at: [facility], [facility], [address] [place] [address], [id number], Sales And Service Technician: Donato Wall MD [facility] Collection Date/Time: [id number] [facility] Results Received Date/Time: [id number] [facility] Reported Date/Time: [id number] Performed By: #### 1 [id number] #### [facility] Laboratory Default [address] [place] [address] Evaluation note Diagnosis Major depressive disorder with single episode, in full remission (CMS/HCC) documented in this encounter [facility] HealthcareEvaluation note* Diagnosis Wound infection after surgery- Primary documented in this encounter [facility] Work Phone: Evaluation note* Diagnosis Seborrheic keratosis- Primary Lentigines Herpesviral vesicular dermatitis Dermatitis herpetiformis Actinic keratosis History of malignant melanoma of skin Personal history of malignant melanoma of skin documented in this encounter [facility]* Diagnosis Malignant melanoma of lower leg, left (Multi)- Primary Malignant melanoma of lower leg, left (Multi)- Primary documented in this encounter [facility] Work Phone: Evaluation note* Diagnosis Malignant melanoma of lower leg, left (Multi)- Primary Malignant melanoma of lower leg, left (Multi) Hyperlipidemia Other and unspecified hyperlipidemia AV block, 2nd degree Other second degree atrioventricular block documented in this encounter [facility] Work Phone: Evaluation note* Diagnosis Malignant melanoma of lower leg, left (Multi) documented in this encounter [facility] Work Phone: Evaluation note* Diagnosis Cellulitis of left lower extremity- Primary documented in this encounter [facility] Work Phone: Evaluation note* Diagnosis Malignant melanoma of lower leg, left (Multi)- Primary documented in this encounter [facility] Work Phone: Evaluation note* Diagnosis Routine general [...] pacemaker in situ documented in this encounter [facility] HealthcareEvaluation note* Diagnosis Seborrheic keratosis- Primary Lentigines Actinic keratosis History of malignant melanoma of skin Personal history of malignant melanoma of skin documented in this encounter [facility] HealthcareEvaluation note* Diagnosis Abnormal thyroid function test- Primary Nonspecific abnormal results of thyroid function study documented in this encounter [facility] HealthcareEvaluation note* Diagnosis Seborrheic keratosis- Primary Lentigines History of malignant melanoma of skin Personal history of malignant melanoma of skin documented in this encounter [facility] HealthcareEvaluation note* Diagnosis Pacemaker reprogramming/check Fitting and adjustment of cardiac pacemaker [facility] Auth/Cert Specialty Diagnoses / Procedures Referred By Lacey austin Referred To Contact Diagnoses Malignant melanoma of lower leg, left (Multi) Malignant melanoma of lower leg, left (Multi) [C43.72] Procedures RI EXCISION MALIGNANT LESION TRUNK/ARM/LEG > 4.0 CM RI BX/EXC LYMPH NODE OPEN SUPERFICIAL Excision Lesion Skin Lower Extremity Stedman [place] [address] [facility] [place] [address] [place] [address] [place] [id number] Referral ID Status Reason Start Date Expiration Date Visits Re quested Visits Authorized [id number] 1 1 [facility]* Outpatient Procedure (Routine) - Closed Specialty Diagnoses / Procedures Referred By Lacey austin Referred To Contact [facility] Diagnoses Pacemaker reprogramming/check Procedures CARDIAC IMPLANTABLE DEVICE CHECK Cardiology [address] [place] [address] Phone: tel: [facility] [place] [address] [place] [address] Referral ID Status Reason Start Date Expiration Date V isits Requested Visits Authorized [id number] Closed Auto-Generate d Referral 11/03/2024 11/03/2025 1 1 [facility] Summary Purpose Family History No Family History [...] (Multi) Procedures [place] [address] [address] Department of Surgery-[place] [id number] Referral ID Status Reason Start Date Expiration Date Visits Requested Visits Authorized [id number] Authorized Perform Procedure 03/17/2024 03/17/2025 2 2 Additional Source Comments INFORMATION SOURCE (unrecogn ized section and content) DATE CREATED AUTHOR 02/20/2019 [facility] DATE CREATED AUTHOR AUTHOR'S ORGANIZ ATION 03/11/2019 [facility] DATE CREATED AUTHOR AUTHOR'S ORGANIZ ATION 09/06/2021 [facility] dical Specialist DATE CREATED AUTHOR AUTHOR'S ORGANIZ ATION 09/05/2022 [facility] pital DATE CREATED AUTHOR AUTHOR'S ORGANIZ ATION 03/11/2024 [facility] DATE CREATED AUTHOR AUTHOR'S ORGANIZ ATION 03/26/2024 [facility] DATE CREATED AUTHOR AUTHOR'S ORGANIZ ATION 05/27/2024 [facility] DATE CREATED AUTHOR AUTHOR'S ORGANIZ ATION 09/14/2024 [facility] DATE CREATED AUTHOR AUTHOR'S ORGANIZ ATION 11/12/2024 [facility] DATE CREATED AUTHOR AUTHOR'S ORGANIZ ATION 12/11/2024 [facility] dical Specialists EPIC DATE CREATED AUTHOR AUTHOR'S ORGANIZ ATION 01/15/2025 [facility] DATE CREATED AUTHOR AUTHOR'S ORGANIZ ATION 01/17/2025 [facility] Reason for Visit (unrecogniz ed section and content) Reason Onset Date Comments Med Refill 07/12/2023 Citalopram to cv s in [place] Reason Comments Follow-up Reason Comments Skin Check Reason Comments Medicare Annual Wellness Visit Subsequen t Reason Comments Radio Main J1 Reason Comments Radiology MRI Care Teams (unrecognized sec tion and content) Equipment Lead Relationship Specialty Start Date End Date Brijesh Armstrong MD [address] [place] [address] PCP - ACO Reach 12/27/22 Brijesh Armstrong MD [address] [place] [address] PCP - General Internal Medicine 12/11/22 Equipment Lead Relationship Specialty Start Date End Date Brijesh Armstrong MD [address] [place] [address] PCP - General Internal Medicine 03/04/24 Equipment Lead Relationship Specialty Start Date End Date Brijesh Armstrong MD [address] [place] [address] PCP - ACO Reach 12/27/22 Brijesh Armstrong MD [address] [place] [address] PCP - General Internal Medicine 12/11/22 Equipment Lead Relationship Specialty Start Date End Date Brijesh Armstrong MD [address] [place] [address] PCP - ACO Reach 12/27/22 Brijesh Armstrong MD [address] [place] [address] PCP - General Internal Medicine 12/11/22 Equipment Lead Relationship Specialty Start Date End Date Brijesh Armstrong MD [address] [place] [address] PCP - General Internal Medicine 03/04/24 Equipment Lead Relationship Specialty Start Date End Date Brijesh Armstrong MD [address] [place] [address] PCP - General Internal Medicine 03/04/24 Equipment Lead Relationship Specialty Start Date End Date Brijesh Armstrong MD [address] [place] [address] PCP - General Internal Medicine 03/04/24 Equipment Lead Relationship Specialty Start Date End Date Brijesh Armstrong MD [address] [place] [address] PCP - General Internal Medicine 03/04/24 Equipment Lead Relationship Specialty Start Date End Date Brijesh Armstrong MD [address] [place] [address] PCP - General Internal Medicine 03/04/24 Equipment Lead Relationship Specialty Start Date End Date Brijesh Armstrong MD [address] [place] [address] PCP - General Internal Medicine 03/04/24 Equipment Lead Relationship Specialty Start Date End Date Brijesh Armstrong MD [address] [place] [address] PCP - General Internal Medicine 03/04/24 Equipment Lead Relationship Specialty Start Date End Date Brijesh Armstrong MD [address] [place] [address] PCP - ACO Reach 12/27/22 Brijesh Armstrong MD [address] [place] [address] PCP - General Internal Medicine 12/11/22 Equipment Lead Relationship Specialty Start Date End Date Brijesh Armstrong MD [address] [place] [address] PCP - ACO Reach 12/27/22 Brijesh Armstrong MD [address] [place] [address] PCP - General Internal Medicine 12/11/22 Equipment Lead Relationship Specialty Start Date End Date Brijseh Armstrong MD [address] [place] [address] PCP - ACO Reach 12/27/22 Brijesh Armstrong MD [address] [place] [address] PCP - General Internal Medicine 12/11/22 Equipment Lead Relationship Specialty Start Date End Date Brijesh Armstrong MD [address] [place] [address] PCP - ACO Reach 12/27/22 Brijesh Armstrong MD [address] [place] [address] PCP - General Internal Medicine 12/11/22 Equipment Lead Relationship Specialty Start Date End Date Brijesh Armstrong MD [address] [place] [address] PCP - ACO Reach 12/27/22 Brijesh Armstrong MD [address] [place] [address] PCP - General Internal Medicine 12/11/22 Equipment Lead Relationship Specialty Start Date End Date Luke Garcia MD [address] [place] [address] Referring Cardiology 10/01/24 Equipment Lead Relationship Specialty Start Date End Date Luke Garcia MD [address] [place] [address] Referring Cardiology 10/01/24 Equipment Lead Relationship Specialty Start Date End Date Luke Garcia MD [address] [place] [address] Referring Cardiology 10/01/24 Scheduled Active and Recently Administ ered Medications [...] 1036 (Given - Provid er: Gaetano Chavez, EDDIE-DRY PLASTERER) Continuous Medication Order 03/21/2024 03/22/2024 03/23/2024 lactated [...] (Given - Provid er: Meena Schrader MD) Source Comments (unrecognize d section and content) In the event this informatio n is protected by the Federal Confidentiality of Alcohol and Drug Abuse Patient Records regulations: The Federal rules restrict any use of the information to criminally investigate or prosecute any alcohol or drug abuse patient.[facility] the event this information is protected by the Federal Confidentiality of Alcohol and Drug Abuse Patient Records regulations: The Federal rules restrict any use of the information to criminally investigate or prosecute any alcohol or drug abuse patient.[facility] the event this information is protected by the Federal Confidentiality of Alcohol and Drug Abuse Patient Records regulations: The Federal rules restrict any use of the information to criminally investigate or prosecute any alcohol or drug abuse patient.[facility] FOR RECORDS PERTAINING TO PATIENTS WHO ARE [...] BE BASED ON THE PRIMARY CLINICAL RECORDS. [facility] [employer] provides no warranty or guarantee of the accuracy or completeness of information in this document.
== END 2025-01-26 20:56 | disposition home or self-care (01) ==
LOC: SLEEP 20:55
PROVIDERS: PCP Internal Medicine; Visit Provider Internal Medicine
DX: G47.33 Obstructive sleep apnea (adult) (pediatric) (principal)
CPT/HCPCS: 95811

== ENCOUNTER 2025-04-19 08:54 | Outpatient (OUT) | payer MEDICARE, SELFPAY ==
--- OUTSIDE RECORDS SUMMARY | 2025-04-19 09:01 | XMS_ITS | CCD ---
Author Organization [facility] Care Team Providers [employer] Representative Name Role Phone HOUSE, DR HOOK Primary [...] Unavailable ZIEBER, DR JOEL Guzman Consulting Unavailable HUMPHREYS, DR HOOK Primary Care Unavailable West, DR Tello Attending Unavailable West, DR Tello Consulting Unavailable West, DR Tello Admitting Unavailable ZIEBER, DR JOEL Guzman Consulting Unavailable HUMPHREYS, DR HOOK Primary Care Unavailable West, DR Tello Attending Unavailable West, DR eTllo Consulting Unavailable West, DR Tello Admitting Unavailable HUMPHREYS, DR HOOK Primary Care Unavailable West, DR Tello Admitting Unavailable West, DR Tello Attending Unavailable West, DR Tello Consulting Unavailable HOUSE, DR HOOK Primary Care Unavailable West, DR Tello Attending Unavailable West, DR Tello Admitting Unavailable West, DR Tello Consulting Unavailable Brijesh Armstrong MD Unavailable [phone] Brijesh Armstrong MD Primary Care Provider [phone] Brijesh Armstrong MD Primary Care Provider MEENA [...] Unavailable AIDE BRIJESH B Primary Care Unavailable Luke Garcia MD Unavailable LUKE GARCIA Referring Unavailable BRIJESH ARMSTRONG Attending Unavailable ROSEANN MARI Attending Unavailable PETROSEANN GUDINO Attending Unavailable ROSEANN MARI Attending Unavailable REGIS MCCANN Attending Unavailable REGIS MCCANN Referring Unavailable ROSEANN MARI Attending Unavailable Tangela Hernández DO Attending Provider [phone] Brijesh Armstrong II Primary Care Provider ERNIE CAO Attending Unavailable LUKE GARCIA Referring Unavailable TEMPLE, MADI Referring Unavailable TEMPLE, MADI Referring Unavailable LUKE GARCIA Referring Unavailable LUKE GARCIA Referring Unavailable LUKE GARCIA Referring Unavailable LUKE GARCIA Attending Unavailable LUKE GARCIA Referring Unavailable LUKE GARCIA Admitting Unavailable JOSE HOOK Attending Unavailable LUKE GARCIA Referring Unavailable LUKE GARCIA Referring Unavailable ERNIE CAO Attending Unavailable LUKE GARCIA Referring Unavailable LUKE GARCIA Referring Unavailable JACINTA MORALES Attending Unavailable Medications Current Medications Medication Drug Class(es) Dates Sig (Normalized) Sig (Original) calcium carbonate 1500 mg / cholecalciferol 200 unt oral tablet (10 sources) Vitamin D take 1 tablet by [...] daily. Active citalopram 10 mg oral tablet (20 sources) Serotonin Reuptake Inhibitor Start: End: take 1 tablet by mouth once daily in the morning citalopram (CeleXA) 10 MG tablet Indications: Major depressive disorder with single episode, in full remission TAKE 1 TABLET BY MOUTH EVERY DAY [...] propionate 0.05 mg/actuat metered dose nasal spray (20 sources) Corticosteroid take 1 spray(s) nasal route [...] via IV Push, administer over 3-5 minutes. predniSONE 10 mg oral tablet (6 sources) Start: 03-10-2025 predniSONE (Deltasone) 10 MG tablet Indications: Allergic contact dermatitis due to plants, except food Take 4 tabs daily x 7 days, take 2 tabs daily x 7 days, take 1 tab daily x 7 days. Total days: 21 49 tablet 03/10/2025 Active promethazine (Phenergan) 6.25 mg in sodium chloride 0.9% 50 mL IV (1 source) Start: 03-23-2024 6.25 mg, intravenous, Administer over 15 Minutes, Once as needed, Nausea/vomiting, second line, Starting on Sat03/23/24 at 1159, For 1 dose, Recovery (only) simvastatin 40 mg oral tablet (20 sources) HMG-CoA Reductase Inhibitor Start: 09-24-2024 take 1 tablet by mouth once daily in the morning simvastatin (Zocor) 40 MG tablet Indications: Mixed hyperlipidemia TAKE 1 TABLET BY MOUTH EVERY DAY [...] 03/28/2024 Active valACYclovir 1000 mg oral tablet (19 sources) Herpesvirus Nucleoside Analog DNA Polymerase Inhibitor, Herpes Simplex Virus Nucleoside Analog DNA Polymerase Inhibitor, Herpes Zoster Virus Nucleoside Analog DNA Polymerase Inhibitor Start: 06-02-2024 End: 03-10-2025 valACYclovir (Valtrex) 1 g tablet Indications: Herpesviral vesicular dermatitis Take 2 tablets twice a day x 1 day at first start of outbreak, 1 day supply 4 tablet 5 03/10/2025 Active Completed/Discontinued Medications Medication Drug Class(es) Dates Sig (Normalized) Sig (Original) Et-81h-ixirrudfhti (Lymphoseek) injection 0.614 millicurie (1 source) Start: [...] status; Translations: [Other specified counseling] 09-03-2024 Episodic Allergic reactions (2 sources) Allergic contact dermatitis caused by plant material; Translations: [Allergic contact dermatitis due to plants, except food] 03-10-2025 Episodic Complications of surgical procedures or medical care (4 sources) Postoperative wound infection; Translations: [Infection following a procedure, other surgical site, initial encounter] Onset: 05-07-2024 05-07-2024 Episodic Conduction disorders (20 sources) Second degree atrioventricular block; Translations: [Atrioventricular block, second degree] Onset: 03-07-2023 03-07-2023 Chronic Disorders of lipid metabolism (20 sources) Mixed hyperlipidemia; Translations: [Mixed hyperlipidemia] Onset: 08-03-2022 03-07-2023 Chronic Essential hypertension (2 sources) Essential (primary) hypertension; Translations: [Essential (primary) hypertension] Onset: 04-16-2025 Chronic Melanomas of skin (19 sources) Malignant melanoma of lower leg; Translations: [Malignant melanoma of left lower limb, including hip] Onset: 03-17-2024 03-17-2024 Chronic Melanomas of skin (7 sources) History of malignant melanoma of the skin; Translations: [Personal history of malignant melanoma of skin] 06-02-2024 Episodic Menopausal disorders (20 sources) Decreased estrogen level; Translations: [Other primary ovarian failure] Onset: 03-07-2023 03-07-2023 Chronic Mood disorders (20 sources) Single episode of major depression in full remission; Translations: [Major depressive disorder, single episode, in full remission] Onset: 03-07-2023 07-12-2023 Chronic Osteoarthritis (19 sources) Osteoarthritis of left knee joint; Translations: [Unilateral primary osteoarthritis, left knee] Onset: 03-07-2023 03-07-2023 Chronic Osteoporosis (20 sources) Osteoporosis; Translations: [Age-related osteoporosis without current pathological fracture] Onset: 03-07-2023 03-07-2023 Chronic Other connective tissue disease (2 sources) Synovial cyst of popliteal space [Stone], right knee; Translations: [Synovial cyst of popliteal space] 04-11-2025 Episodic Other ear and sense organ disorders (19 sources) Conductive hearing loss; Translations: [Conductive hearing loss, unspecified] Onset: 03-07-2023 03-07-2023 Chronic Other lower respiratory disease (4 sources) Other forms of dyspnea; Translations: [OTHER FORMS OF DYSPNEA] Onset: 08-15-2022 Episodic Other non-traumatic joint disorders (3 sources) Pain in right knee; Translations: [Pain in joint, lower leg] 04-11-2025 Episodic Other nutritional; endocrine; and metabolic disorders (2 sources) Obesity, unspecified; Translations: [Obesity, unspecified] Onset: 08-03-2024 Chronic Other screening for suspected conditions (not mental disorders or infectious disease) (7 sources) Encounter for screening mammogram for malignant neoplasm of breast; Translations: [Patient encounter status] Onset: 09-03-2022 Episodic Other skin disorders (7 sources) Seborrheic keratosis; Translations: [Other seborrheic keratosis] 06-02-2024 Episodic Other skin disorders (7 sources) Lentiginosis; Translations: [Other melanin hyperpigmentation] 06-02-2024 Episodic Other skin disorders (3 sources) Actinic keratosis; Translations: [Actinic keratosis] 06-02-2024 Episodic Otitis media and related conditions (19 sources) Chronic serous otitis media; Translations: [Chronic serous otitis media, unspecified ear] Onset: 03-07-2023 03-07-2023 Chronic Residual codes; unclassified (2 sources) Obstructive sleep apnea (adult) (pediatric); Translations: [Obstructive sleep apnea (adult) (pediatric)] Onset: 04-16-2025 Chronic Residual codes; unclassified (1 source) Family history of malignant neoplasm, unspecified; Translations: [FAM HX MALIGNANT NEOPLASM UNS] Onset: 09-04-2022 Episodic Skin and subcutaneous tissue infections (3 sources) Cellulitis of left lower limb; Translations: [Cellulitis of left lower limb] Onset: 04-08-2024 Episodic Unclassified (1 source) Radiology MRI Onset: 01-13-2025 Unclassified (1 source) Ventricular tachycardia, unspecified; Translations: [Ventricular tachycardia, unspecified] Onset: 09-29-2024 Viral infection (3 sources) Herpesviral vesicular dermatitis; Translations: [Herpesviral vesicular dermatitis] 06-02-2024 Episodic Past or Other Problems Problem Classification Problem Date Documented Da te Episodic/Chronic Biliary tract disease (19 sources) Cholelithiasis without obstruction; Translations: [Calculus of gallbladder without cholecystitis without obstruction] Onset: 03-07-2023 Episodic Cardiac dysrhythmias (5 sources) Bradycardia, unspecified; Translations: [Palpitations] Onset: 2 Episodic Other aftercare (4 sources) Encounter for surgical aftercare following surgery on the circulatory system; Translations: [ENC SURG AFTRCARE FLW SURG CIRC SYS] Onset: 2 Episodic Otitis media and related conditions (19 sources) Dysfunction of left eustachian tube; Translations: [Unspecified Eustachian tube disorder, left ear] Onset: 3 03-07-2023 Episodic Phlebitis; thrombophlebitis and thromboembolism (9 sources) Phlebitis and thrombophlebitis of superficial vessels of right lower extremity; Translations: [Phlebitis and thrombophlebitis of superficial vessels of left lower extremity] Onset: 2 Episodic Unclassified (2 sources) Patient encounter status 01-13-2025 Unclassified (1 source) Acute pain of right knee 04-15-2025 Unclassified (1 source) Ventricular tachycardia, unspecified; Translations: [Ventricular tachycardia, unspecified] Onset: 5 Varicose veins of lower extremity (20 sources) Varicose veins of bilateral lower extremities with pain; Translations: [Varicose veins of lower extremity] Onset: 2 Episodic Results Test Name Value Interpretation Reference Range Facility Office Visiton 04-16-2025 Follow-up visit [id number] Cassandra Jo 1955 F Date Provider Department Center 04/16/2025 [id number] CAO [facility] Family History Problem Relation Age of Onset Aortic aneurysm Mother Atrial fibrillation Mother Hypertension Father Diabetes Father Hypertension Brother Family Status - Relation Status Age at Mother Father Brother Level of Service:69130 MT OFFICE/OUTPATIENT ESTABLISHED MOD MDM 30 MIN Reason for Visit and Comments: Follow-up [789964] - 6 month follow up. Patient had cardiac MRI in January 2025 Hyperlipidemia [182] Second degree atriventricular block [Other] Varicose veins of bilateral lower extremities with pain [Other] Bradycardia [673243] Syncope [506] AV block 3rd degree [Other] TRAN [Other] Cardiac pacemaker [Other] Obesity [[id number]] Sleep apnea using CPAP [Other] Normal [facility] XR KNEE 4+ VIEWS RIGHTon XR KNEE 4+ VIEWS RIGHT XR KNEE 4+ VIEWS RIGHT : 04/01/2025 10:22 AM CLINICAL HISTORY: right knee pain, feels a popping sensation, painful, swelling posterior knee. COMPARISON: None available. TECHNIQUE: ROUTINE FINDINGS: Mild joint space narrowing is seen. It is greatest in the patellofemoral compartment. There may be a small effusion. On the posterior aspect of the knee ossific densities are seen. This could be flabella or loose bodies are not excluded. IMPRESSION: MILD DEGENERATIVE CHANGES ARE SEEN. DENSITY SEEN ON THE BACK OF THE KNEE COULD REPRESENT LOOSE BODIES. THERE IS NO EVIDENCE FOR FRACTURE. ELECTRONICALLY SIGNED BY: Shameka Chavis DO Normal Not Available XR Knee - right 4 Viewson MILD DEGENERATIVE CHANGES ARE SEEN. DENSITY SEEN ON THE BACK OF THE KNEE COULD REPRESENT LOOSE BODIES. THERE IS NO EVIDENCE FOR FRACTURE. ELECTRONICALLY SIGNED BY: Shameka Chavis DO IMAGING XR KNEE 4+ VIEWS RIGHT : 04/01/2025 10:22 AM CLINICAL HISTORY: right knee pain, feels a popping sensation, painful, swelling posterior knee. COMPARISON: None available. TECHNIQUE: ROUTINE FINDINGS: Mild joint space narrowing is seen. It is greatest in the patellofemoral compartment. There may be a small effusion. On the posterior aspect of the knee ossific densities are seen. This could be flabella or loose bodies are not excluded. IMAGING Shameka Chavis DO - 04/01/2025 XR KNEE 4+ VIEWS RIGHT : 04/01/2025 10:22 AM CLINICAL HISTORY: right knee pain, feels a popping sensation, painful, swelling posterior knee. COMPARISON: None available. TECHNIQUE: ROUTINE FINDINGS: Mild joint space narrowing is seen. It is greatest in the patellofemoral compartment. There may be a small effusion. On the posterior aspect of the knee ossific densities are seen. This could be flabella or loose bodies are not excluded. IMPRESSION: MILD DEGENERATIVE CHANGES ARE SEEN. DENSITY SEEN ON THE BACK OF THE KNEE COULD REPRESENT LOOSE BODIES. THERE IS NO EVIDENCE FOR FRACTURE. ELECTRONICALLY SIGNED BY: Shameka Chavis DO [facility] Radiology Study observation (narrative) [facility] XR Knee - right 4 ViewsOrder ed By: Shameka Chavis on 04-01-2025 [facility] Healthcare Work Phone: Orders Onlyon 03-18-2025 Orders Only [id number] Cassandra Jo 1955 F Date Provider Department Center 03/18/2025 LUKE AMIN [facility] Family History Problem Relation Age of Onset Aortic aneurysm Mother Atrial fibrillation Mother Hypertension Father Diabetes Father Hypertension Brother Family Status - Relation Status Age at Mother Father Brother [facility] 36on 01-14-[address] Garcia, patient does not need ICD. I canceled her follow up with him in February and scheduled her to follow up with Dr. Cao in Apr 2025. [facility] [address] Garcia, cardiac MRI performed yesterday at [facility] is normal. I spoke with patient and informed her. She wanted to know if this now means she doesn't need upgrade to ICD? Normal [facility] MR Heart cine for blood flow velocity mappingon 01-13-2025 * * *Final Report* * * DATE OF EXAM: Jan 13 2025 10:55AM [facility] 0704 - MRI CARDIAC VELOCITY FLOW MAP / PROCEDURE REASON: I47.20 * * * * Physician Interpretation * * * * Cardiac MRI Report: [facility] Date of service: 01/13/2025 10:13:04 AM Linked orders:[id number] CARDIAC VELOCITY FLOW MAP;[id number] CARD MORPH FUNC WO/W IVCON. Ordering physician: [...] TR severity: trace DIVISION OF RADIOLOGY Provider, [facility] - 01/13/2025 * * *Final Report* * * DATE OF EXAM: Jan 13 2025 10:55AM [facility] 0704 - MRI CARDIAC VELOCITY FLOW MAP / PROCEDURE REASON: I47.20 * * * * Physician Interpretation * * * * Cardiac MRI Report: [facility] Date of service: 01/13/2025 10:13:04 AM Linked orders:[id number] CARDIAC VELOCITY FLOW MAP;[id number] CARD MORPH FUNC WO/W IVCON. Ordering physician: [...] * * Final * * * RP Electrical Assembly Technician: SOCO (more content not included)... [facility] MRI CARD MORPH FUNC WO/W IVC ONon 01-13-2025 MRI CARD MORPH FUNC WO/W IVCON * * *Final Report* * * DATE OF EXAM: Jan 13 2025 10:55AM [facility] 0703 - MRI CARD MORPH FUNC WO/W IVCON / PROCEDURE REASON: I47.20 * * * * Physician Interpretation * * * * Cardiac MRI Report: [facility] Date of service: 01/13/2025 10:13:04 AM Linked orders:[id number] CARDIAC VELOCITY FLOW MAP;[id number] CARD MORPH FUNC WO/W IVCON. Ordering physician: [...] * * Final * * * RP Electrical Assembly Technician: BRITNEY Transcribe Date/Time: Jan 13 2025 10:13A Dictated by : LUKE MORE MD This examination was interpreted and the report reviewed and electronically sig (more content not included)... Normal [facility] MRI CARDIAC MORPH FUNC WO/W IVCONon 01-13-2025 * * *Final Report* * * DATE OF EXAM: Jan 13 2025 10:55AM [facility] 0703 - MRI CARD MORPH FUNC WO/W IVCON / PROCEDURE REASON: I47.20 * * * * Physician Interpretation * * * * Cardiac MRI Report: [facility] Date of service: 01/13/2025 10:13:04 AM Linked orders:[id number] CARDIAC VELOCITY FLOW MAP;[id number] CARD MORPH FUNC WO/W IVCON. Ordering physician: LUKE GARCIA Technologist: TERESA BAKER Fellow: Rc Palomo MD Interpreting physician: Luke More MD PATIENT: Name: MEI JO Age: 69 years Gender: F MRI Scanner: Siemens Daptiv 1.5T Comparison: None History: 69 y/o with [...] TR severity: trace DIVISION OF RADIOLOGY Provider, [facility] - 01/13/2025 * * *Final Report* * * DATE OF EXAM: Jan 13 2025 10:55AM [facility] 0703 - MRI CARD MORPH FUNC WO/W IVCON / PROCEDURE REASON: I47.20 * * * * Physician Interpretation * * * * Cardiac MRI Report: [facility] Date of service: 01/13/2025 10:13:04 AM Linked orders:[id number] CARDIAC VELOCITY FLOW MAP;[id number] CARD MORPH FUNC WO/W IVCON. Ordering physician: LUKE GARCIA Technologist: TERESA BAKER Fellow: Rc Palomo MD Interpreting physician: Luke More MD PATIENT: Name: MEI JO Age: 69 years Gender: F MRI Scanner: [employer] 1.5T Comparison: None History: 69 y/o with [...] * * Final * * * RP Electrical Assembly Technician: S (more content not included)... [facility] MRI CARDIAC VELOCITY FLOW CAROLINA Lyles 01-13-2025 MRI CARDIAC VELOCITY FLOW MAP * * *Final Report* * * DATE OF EXAM: Jan 13 2025 10:55AM [facility] 0704 - MRI CARDIAC VELOCITY FLOW MAP / PROCEDURE REASON: I47.20 * * * * Physician Interpretation * * * * Cardiac MRI Report: [facility] Date of service: 01/13/2025 10:13:04 AM Linked orders:[id number] CARDIAC VELOCITY FLOW MAP;[id number] CARD MORPH FUNC WO/W IVCON. Ordering physician: [...] * * Final * * * RP Electrical Assembly Technician: InflowControlribe Date/Time: Jan 13 2025 10:13A Dictated by : LUKE MORE MD This examination was interpreted and the report reviewed and electronically sign (more content not included)... Normal [facility] No Panel Informationon 01-13 IMPRESSION: No imagi [...] * * Final * * * RP Electrical Assembly Technician: InflowControlribe Date/Time: Jan 13 2025 10:13A Dictated by : LUKE MORE MD This examination was interpreted and the report reviewed and electronically signed by: LUKE MORE MD on Jan 13 2025 12:22PM [facility] DIVISION OF RADIOLOGY [facility] Radiology Study observation (narrative) [facility] XR CHEST 2V FRONTAL/LATon XR CHEST 2V [...] disease identified in the lungs or mediastinum. Electrical Assembly Technician: [facility] Transcribe Date/Time: Jan 13 2025 12:48P Dictated by : SHERRY HATFIELD MD This examination was interpreted and the report reviewed and electronically signed by: SHERRY HATFIELD MD on Jan 13 2025 12:49PM EST [id number] Normal [facility] XR Chest PA and Lateralon IMPRESSION: No acute disease identified in the lungs or mediastinum. Electrical Assembly Technician: [facility] Transcribe Date/Time: Jan 13 2025 12:48P Dictated [...] symmetric and well-maintained. DIVISION OF RADIOLOGY Provider, Denisse Orta - [...] disease identified in the lungs or mediastinum. Electrical Assembly Technician: PSCB Transcribe Date/Time: Jan 13 2025 12:48P Dictated by : SHERRY HATFIELD MD This examination was interpreted and the report reviewed and electronically signed by: SHERRY HATFIELD MD on Jan 13 2025 12:49PM EST [facility] XR Chest PA and LateralOrder ed By: Ccf Provider on 01-13-2025 [facility] Orders Onlyon 12-17-2024 Orders Only [id number] Cassandra Jo 1955 F Date Provider Department Center 12/17/2024 LUKE AMIN [facility] Family History Problem Relation Age of Onset Aortic aneurysm Mother Atrial fibrillation Mother Hypertension Father Diabetes Father Hypertension Brother Family Status - Relation Status Age at Mother Father Brother Normal [facility] T3, FREEon 11-10-2024 Free T3 [Mass/Vol] 2.9 pg/mL Normal 2.3-4.2 [facility] Comment on above: Performed By: #### 8 99, 76623, 866 #### [facility] [address], [address] [place] [address] Personal Injury Specialist: Collin Dickson MD T4, FREEon 11-10-2024 Free T4 [Mass/Vol] 0.9 ng/dL Normal 0.8-1.8 [facility] Comment on above: Order Comment: FASTI NG:NO FASTING: NO Performed By: #### 8 99, 89656, 866 #### [facility] [address] [place] [address], [address] [place] [address] Personal Injury Specialist: Collin Dickson MD TSHon 11-10-2024 TSH Qn 7.71 m[IU]/L High 0.40-4.50 [facility] Comment on above: Performed By: #### 8 99, 74272, 866 #### [facility] [address], [address] [place] [address] Personal Injury Specialist: Collin Dickson MD 36on 11-05-2024 36 Spoke with patient a nd advised her of Sr. Garcia's response keep appointment with [facility] for testing. Normal [facility] 36on 11-04-2024 36 This patient already has a pacemaker. Dr. Garcia ordered the MRI to r/o sarcoidosis. This does not have to be done urgently. If I were her, I would keep the already scheduled MRI at [facility] for 01/13. Normal [facility] Office Visiton 09-29-2024 Follow-up visit [id number] Cassandra Jo 1955 F Date Provider Department Center 09/29/2024 LUKE AMIN [facility] Family History Problem Relation Age of Onset Aortic aneurysm Mother Atrial fibrillation Mother Hypertension Father Diabetes Father Hypertension Brother Family Status - Relation Status Age at Mother Father Brother Level of Service:67561 MT OFFICE/OUTPATIENT ESTABLISHED LOW MDM 20 MIN Normal [facility] LIPID PANEL, STANDARDon Cholesterol [Mass/Vol] 236 mg/dL High <200 [facility] Comment on above: Order Comment: FASTI NG:YES FASTING: YES Performed By: #### 7 600, 56421, 866 #### [facility] [address], [address] [place] [address] Personal Injury Specialist: Collin Dickson MD Cholesterol in HDL [Mass/Vol] 83 mg/dL Normal > OR = 50 [facility] Comment on above: Order Comment: FASTI NG:YES FASTING: YES Performed By: #### 7 600, 68528, 866 #### [facility] [address], [address] [place] [address] Personal Injury Specialist: Collin Dickson MD Cholesterol in LDL [Mass/Vol] [...] LDL-C. Pravin SORIA et al. LYSSA. 2013;310(19): 4067-5067 (http://education.[employer]/faq/YOF911) Performed By: #### 7 600, 37118, 866 #### [facility] [address], [address] [place] [address] Personal Injury Specialist: Collin Dickson MD Cholesterol.total/Chol esterol in HDL [Mass ratio] 2.8 {ratio} Normal <5.0 [facility] Comment on above: Order Comment: FASTI NG:YES FASTING: YES Performed By: #### 7 600, 15735, 866 #### [facility] [address], [address] [place] [address] Personal Injury Specialist: Collin Dickson MD NON HDL CHOLESTEROL 153 mg/dL (calc) High <130 [facility] Comment on above: Order Comment: FASTI NG:YES FASTING: YES Result Comment: For patients with diabetes plus 1 major ASCVD risk factor, treating to a non-HDL-C goal of <100 mg/dL (LDL-C of <70 mg/dL) is considered a therapeutic option. Performed By: #### 7 600, 70428, 866 #### [facility] [place] [address] Personal Injury Specialist: Collin iDckson MD Triglyceride [Mass/Vol] 103 mg/dL Normal <150 [facility] Comment on above: Order Comment: FASTI NG:YES FASTING: YES Performed By: #### 7 600, 32840, 866 #### [facility] [place] [address] Personal Injury Specialist: Collin Dickson MD T4, FREEon 09-05-2024 Free T4 [Mass/Vol] 0.8 ng/dL Normal 0.8-1.8 [facility] Comment on above: Performed By: #### 7 600, 12717, 866 #### [facility] [place] [address] Personal Injury Specialist: Collin Dickson MD TSH W/REFLEX TO FT4on 2024 TSH W/REFLEX TO FT4 19.03 mIU/L High 0.40-4.50 [facility] Comment on above: Performed By: #### 7 600, 05086, 866 #### [facility] [place] [id number] Personal Injury Specialist: Collin Dickson MD No Panel Informationon 09-03 [facility] Healthcare Office Visiton 08-14-2024 Follow-up visit [id number] Cassandra Jo 1955 F Date Provider Department [place] 08/14/2024 Alva8-JACINTA MORALES [facility] Family History Problem Relation Age of Onset Aortic aneurysm Mother Atrial fibrillation Mother Hypertension Father Diabetes Father Hypertension Brother Family Status - Relation Status Age at Mother Father Brother Level of Service:NOCHG MT 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 She was sent to [facility] ED for evaluation and management. EP team [...] Lab PROCEDURE PERFORMED: 1. Implantation of pacemaker ([employer]) 2. Ultrasound guided venous access INDICATIONS: [...] 0.80 Glu (more content not included)... Normal [facility] EDPROVon 08-04-2024 EDPROV History of Present [...] Procedure Abnormality Status --------- ------ CBC auto differential[[id number]] Normal Final result Please view results for these tests on the individual orders. HUITRON TOP Extra Tube Hold for add-ons. XR chest 2 views Final Result * Uncomplicated postprocedural appearance of the chest. Electronically signed: Vignesh Ledbetter Complete Echo (TTE) w/wo Imaging Agent, Strain, [...] Attestion Madi Temple MD 08/10/24 0734 Normal [facility] 30on 08-03-2024 30 The patient is [...] and maintained or improved Outcome: Progressing Normal [facility] ANESon 08-03-2024 ANES -- Attestation signed [...] attending and fellow. Additional Equipment Requests Normal [facility] BASIC METABOLIC PANELon 12-3 0-2023 Anion gap [Moles/Vol] 12 mmol/L Normal 7-20 [facility] Comment on above: Performed By: #### L [id number] ####[facility] (BEAKER)[address] [place] [address] Calcium [Mass/Vol] 9.5 mg/dL Normal 8.6-10.3 [facility] Comment on above: Performed By: #### L [id number] ####[facility] (BEAKER)[address] [place] [address] Chloride [Moles/Vol] 106 mmol/L Normal 98-107 [facility] Comment on above: Performed By: #### L [id number] ####[facility] (BEAKER)[address] [place] [address] CO2 [Moles/Vol] 25 mmol/L Normal 21-31 [facility] Comment on above: Performed By: #### L [id number] ####[facility] (BEAKER)[address] [place] [address] Creatinine [Mass/Vol] 0.80 mg/dL Normal 0.60-1.20 [facility] Comment on above: Performed By: #### L [id number] ####[facility] (BEAKER)[address] [place] [address] GLOMERULAR FILTRATION RATE ML/MIN/1.73 SQ M.PREDICTED 80.2 mL/min/1.73m*2 Normal >60.0 [facility] Comment on above: Result Comment: [facility]???s estimated glomerular filtration rate (eGFR) will [...] of individuals. Performed By: #### L [id number] ####[facility] ([facility])[address] [place] [address] Glucose [Mass/Vol] 103 mg/dL High 70-100 [facility] Comment on above: Performed By: #### L [id number] ####[facility] [place] [address] Potassium [Moles/Vol] 3.6 mmol/L Normal 3.5-5.1 [facility] Comment on above: Performed By: #### L [id number] ####[facility] [place] [address] Sodium [Moles/Vol] 139 mmol/L Normal 136-145 [facility] Comment on above: Performed By: #### L [id number] ####[facility] (BEAKER)[address] [place] [address] Urea nitrogen [Mass/Vol] 13 mg/dL Normal 7-25 [facility] Comment on above: Performed By: #### L [id number] ####[facility] (BEAKER)[address] [place] [address] UREA NITROGEN/CREATININE (MASS RATIO) IN SER/PLAS 16.3 Normal [facility] Comment on above: Performed By: #### L [id number] ####[facility] (BEAKER)[address] [place] [address] CBC WITH AUTO DIFFERENTIALon 08-03-2024 Basophils (Bld) [#/Vol] 0.04 10*3/uL Normal 0.00-0.20 [facility] Comment on above: Performed By: #### L [id number] ####[facility] (BEAKER)[address] [place] [address] Basophils/100 WBC (Bld) 0.5 % Normal 0.0-1.0 [facility] Comment on above: Performed By: #### L [id number] ####[facility] (BEAKER)[address] [place] [address] Eosinophils (Bld) [#/Vol] 0.09 10*3/uL Normal 0.00-0.50 [facility] Comment on above: Performed By: #### L [id number] ####[facility] (BEAKER)[address] [place] [address] Eosinophils/100 WBC (Bld) 1.0 % Normal 0.0-6.0 [facility] Comment on above: Performed By: #### L [id number] ####[facility] (BEAKER)[address] [place] [address] Erythrocyte distribution width (RBC) [Ratio] 12.6 % Normal 11.5-15.0 [facility] Comment on above: Performed By: #### L [id number] ####[facility] (BEAKER)[address] [place] [address] ERYTHROCYTE MEAN CORPUSCULAR HEMOGLOBIN CONCENTRATION (G/DL) BY AUTOMATED 33.7 g/dL Normal 32.0-35.0 [facility] Comment on above: Performed By: #### L [id number] ####[facility] (BEAKER)[address] [place] [address] Hematocrit (Bld) [Volume fraction] 41.9 % Normal 36.0-48.0 [facility] Comment on above: Performed By: #### L [id number] ####[facility] (BEAKER)[address] [place] [address] Hemoglobin (Bld) [Mass/Vol] 14.1 g/dL Normal 12.0-15.0 [facility] Comment on above: Performed By: #### L [id number] ####[facility] ([facility])[address] [place] [address] Immature granulocytes (Bld) [#/Vol] 0.03 10*3/uL Normal 0.00-0.20 [facility] Comment on above: Performed By: #### L [id number] ####[facility] ([facility])[address] [place] [address] Immature granulocytes/100 WBC (Bld) 0.3 % Normal 0.0-1.0 [facility] Comment on above: Performed By: #### L [id number] ####[facility] ([facility])[address] [place] [address] Lymphocytes (Bld) [#/Vol] 2.22 10*3/uL Normal 1.20-4.00 [facility] Comment on above: Performed By: #### L [id number] ####[facility] ([facility])[address] [place] [address] Lymphocytes/100 WBC (Bld) 25.1 % Normal 20.0-45.0 [facility] Comment on above: Performed By: #### L [id number] ####[facility] ([facility])[address] [place] [address] MCH (RBC) [Entitic mass] 32.3 pg Normal 27.0-33.0 [facility] Comment on above: Performed By: #### L [id number] ####[facility] [place] [address] MCV (RBC) [Entitic vol] 95.9 fL Normal 82.0-98.0 [facility] Comment on above: Performed By: #### L [id number] ####[facility] ([facility] [place] [address] Monocytes (Bld) [#/Vol] 0.63 10*3/uL Normal 0.10-1.00 [facility] Comment on above: Performed By: #### L [id number] ####[facility] (BEAKER)[address] [place] [address] Monocytes/100 WBC (Bld) 7.1 % Normal 5.0-12.0 [facility] Comment on above: Performed By: #### L [id number] ####[facility] (BEAKER)[address] [place] [address] Neutrophils (Bld) [#/Vol] 5.84 10*3/uL Normal 1.60-7.60 [facility] Comment on above: Performed By: #### L [id number] ####[facility] (BEAKER)[address] [place] [address] Neutrophils/100 WBC (Bld) 66.0 % Normal 40.0-72.0 [facility] Comment on above: Performed By: #### L [id number] ####[facility] ([facility])[address] [place], [place] [address] NRBC (PER 100 WBCS) BY AUTOMATED COUNT 0.0 % Normal 0 [facility] Comment on above: Performed By: #### L [id number] ####[facility] (BEAKER)[address] [place], [place] [address] PLATELETS (10*3/UL) IN BLOOD AUTOMATED COUNT 273 10*3/uL Normal 150-400 [facility] Comment on above: Performed By: #### L [id number] ####[facility] (BEAKER)[address] [place] [address] RBC (Bld) [#/Vol] 4.37 10*6/uL Normal 3.80-5.00 [facility] Comment on above: Performed By: #### L [id number] ####[facility] (BEAKER)[address] [place] [address] WBC (Bld) [#/Vol] 8.85 10*3/uL Normal 4.00-10.60 [facility] Comment on above: Performed By: #### L [id number] ####[facility] ([facility] [place] [address] CONSULTon 08-03-2024 CONSULT This report has been cancelled. 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 Normal [facility] EDNURSon 08-03-2024 EDNURS Patient was instruct ed to come here by produce sorter to have pacemaker placed. Patient HR 35 upon arrival to ED. Patient denies any chest pain. SOB with exertion. Normal [facility] MAGNESIUMon 08-03-2024 Magnesium [Mass/Vol] 2.4 mg/dL Normal 1.9-2.7 [facility] Comment on above: Performed By: #### L [id number] #### [facility] (BEAKER) [address] [place] [address] NURSNOTEon 08-03-2024 NURSNOTE Report given to BORIS Blanchard from RENETTA Foster Any medications or safety alerts were reviewed. Any pending diagnostics and notifications were also reviewed, as well as any safety concerns or issues, abnormal labs, abnormal imagining, and abnormal assessment findings. Questions were answered. Normal [facility] Office Visiton 08-03-2024 Follow-up visit [id number] Cassandra Jo 1955 F Date Provider Department Center 08/03/2024 [id number] CAO Family History Problem Relation Age of Onset Aortic aneurysm Mother Atrial fibrillation Mother Hypertension Father Diabetes Father Hypertension Brother Family Status - Relation Status Age at Mother Father Brother Level of Service:60322 MT OFFICE/OUTPATIENT ESTABLISHED HIGH MDM 40 MIN Reason for Visit and Comments: Hypertension [616316] - BP has been high. Hyperlipidemia [182] Bradycardia [318797] - HR running in the high 30's-low 40's. Very lightheaded and tired lately. Fatigue [46] Shortness of Breath [583753] - Very SOB with minimal exertion. Normal [facility] TROPONIN Ion 08-03-2024 Troponin I.cardiac [Mass/Vol] 0.02 ng/mL Normal 0.00-0.04 [facility] Comment on above: Performed By: #### L [id number] ####[facility] (BEAKER)[address] [place] [address] Cryotherapy, skin lesionon 1 [facility] DERMPATH LAB- DERMATOPATHOLO GYon 03-23-2024 DERMPATH LAB- DERMATOPATHOLOGY Pathology report.total SEE COMMENT Dermatopathology Case: [id number] Authorizing Provider: Meena Schrader MD Collected: 03/23/2024 1101 Ordering Location: [facility] Received: 03/23/2024 1213 OR Pathologist: Rosana [...] lower leg, left (Multi) C43.72 Specimen ID: [id number] Specimen Source: SENTINEL LYMPH NODE MELANOMA Site/Location: SENTINEL NODE #1 COUNT- 732 Collection Comments: Specimen ID: [id number], [id number] Specimen Source: SKIN EXCISION Site/Location: WIDE LOCAL [...] determined by the Department of Pathology at [facility]. The FDA does not require this [...] specimen was grossed by Roxanna Robert. 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] ECG 12-LEADon 03-23-2024 ECG 12-LEAD Ventricular Rate 73 Atrial Rate 73 P-R Interval 194 QRS Duration 86 Q-T Interval 384 QTC Calculation(Bazett) 423 P Springdale 39 R Springdale -6 T Spring[place] 39 QRS Count 12 Q Onset 216 P Onset 119 P Offset 173 T Offset 408 QTC Fredericia 410 Diagnosis Normal sinus rhythm Normal ECG No previous ECGs available Confirmed by Otis Canales ([id number]) on 03/24/2024 1:25:11 PM Normal [facility] NM LYMPHOSCINTIGRAMon 2023 NM LYMPHOSCINTIGRAM Interpreted By: Jamal Pak and Kaur Arashdeep STUDY: NM LYMPHOSCINTIGRAM; 03/23/2024 8:50 am INDICATION: Signs/Symptoms:SLNB. COMPARISON: None. ACCESSION NUMBER(S): [id number] ORDERING CLINICIAN: MEENA SCHRADER TECHNIQUE: DIVISION OF NUCLEAR MEDICINE RADIONUCLIDE SENTINEL LYMPH NODE LYMPHOSCINTIGRAPHY A total of 0.6 millicuries of Tc-99m tilmanocept (LymphoseCityHook) was injected intradermally in a circumferential pattern [...] Arreola MD. This study was interpreted at [facility], [place], [place]. MACRO: None Signed by: Jamal Castorena 03/23/2024 9:13 AM Dictation workstation: [id number] Normal [facility] NM Lymphatic vessels Views W radionuclide intra lymphaticon 03-23-2024 1. A left inguinal lymph node, likely representing sentinel lymph node. No other draining node identified. Images were saved into PACS for review. I personally reviewed the images/study and I agree with the findings as stated by Ramana Arreola MD. This study was interpreted at [facility], [place], [place]. MACRO: None Signed by: Jamal Castorena 03/23/2024 9:13 AM Dictation workstation: [id number] Interpreted By: Jamal Pak and Kaur Arashdeep STUDY: NM LYMPHOSCINTIGRAM; 03/23/2024 8:50 am INDICATION: Signs/Symptoms:SLNB. COMPARISON: None. ACCESSION NUMBER(S): [id number] ORDERING CLINICIAN: MEENA SCHRADER TECHNIQUE: DIVISION OF [...] am INDICATION: Signs/Symptoms:SLNB. COMPARISON: None. ACCESSION NUMBER(S): [id number] ORDERING CLINICIAN: MEENA SCHRADER TECHNIQUE: DIVISION OF [...] Arreola MD. This study was interpreted at [facility], [place], [place]. MACRO: None Signed by: Jamal Castorena 03/23/2024 9:13 AM Dictation workstation: [id number] [facility] Work Phone: Radiology Study observation (narrative) [facility] Work Phone: NM Lymphatic vessels Views W radionuclide intra lymphaticOrdered By: Jamal Castorena on 03-23-2024 [facility] Work Phone: Surgical pathology studyon 0 03-09-2024 Surgical pathology study Pathology report.total SEE COMMENT Dermatopathology Report Case: [id number] Authorizing Provider: Meena Schrader MD Collected: 03/09/2024 1249 Ordering Location: [facility] Received: 03/09/[address] [place] [address] Pathologist: London Coulter MD Specimen: OUTSIDE BLOCK(S)/SLIDE(S), 3 SLIDES, [facility] #[id number] (BX: 02/24/2024) Path report.final diagnosis SEE COMMENT 3 SLIDES, [facility] #[id number] (BX: 02/24/2024) SKIN, LEFT LEG, SHAVE BIOPSY: [...] pT Category: pT1a Comment(s): [facility] [id number] Blocks 1 and 2. 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 Path report.gross observation SEE COMMENT A. OUTSIDE BLOCK(S)/SLIDE(S). Received for consultation from [facility] are three slides labeled [id number] (BX: 02/24/2024) along with the corresponding pathology report. Path report.microscopic observation Microscopic examination performed. [facility] Comment on above: Order Comment: Mater ials Received: 3 SLIDES, [facility] #[id number] (BX: 02/24/2024) MG MAMM SCREEN 3D CASTRO CADon 09-03-2022 MG MAMM SCREEN 3D CASTRO CAD Patient: MEI JO Exam Date: 09/03/2022 : 1955 Gender:F Ordering : DR BRIJESH ARMSTRONG M.D. Admission #: [id number] Family : Order #: [id number] CLICK HERE TO VIEW EXAM RADIOLOGY REPORT [...] at age 80. LOCATION: [facility] BREAST COMPOSITION: Scattered areas fibroglandular density. [...] 09/04/2022 at 07:37 Normal [facility] NM STRESS/REST MULTIon 08-15 NM STRESS/REST MULTI Patient: DONALDO JO Exam Date: 08/15/2022 : 1955 Gender:F Ordering : DR BRIJESH ARMSTRONG M.D. Admission #: [id number] Family : OSIEL THOMAS Order #: [id number] CLICK HERE TO VIEW EXAM RADIOLOGY REPORT [...] Alonso M.D. on 08/16/2022 at 11:03 Normal [facility] XR CHEST 2 Von 06-07-2022 [...] by: PETER CORREIA Date: 2022-06-07 18:35 Normal [facility] VC INJ SCL DOLLY TOBACCO DRYING MACHINE OPERATOR VEINSon 0 12-05-2021 VC INJ SCL DOLLY TOBACCO DRYING MACHINE OPERATOR VEINS Patient: MEI JO Exam Date: 12/05/2021 : 1955 Gender:F Ordering : DR PETER CORREIA M.D. Admission #: [id number] Family : Order #: [id number] CLICK HERE TO VIEW EXAM RADIOLOGY REPORT PROCEDURE: VEIN CENTER INJECTION SCLEROSING SOLUTION MULTIPLE VEINS SAME COMPARISON: VC INJ SCL DOLLY TOBACCO DRYING MACHINE OPERATOR VEINS, 11/21/2021. INDICATIONS: Pain co-occurrent and due [...] Alonso M.D. on 12/05/2021 at 10:33 Normal [facility] VC INJ SCL DOLLY TOBACCO DRYING MACHINE OPERATOR VEINSon 0 11-21-2021 VC INJ SCL DOLLY TOBACCO DRYING MACHINE OPERATOR VEINS Patient: MEI JO Exam Date: 11/21/2021 : 1955 Gender:F Ordering : DR PETER CORREIA M.D. Admission #: [id number] Family : Order #: [id number] CLICK HERE TO VIEW EXAM RADIOLOGY REPORT PROCEDURE: VEIN CENTER INJECTION SCLEROSING SOLUTION MULTIPLE VEINS SAME COMPARISON: VC INJ SCL DOLLY TOBACCO DRYING MACHINE OPERATOR VEINS, 11/07/2021. VC INJ SCL DOLLY TOBACCO DRYING MACHINE OPERATOR VEINS, 11/02/2021. VC INJ SCL DOLLY TOBACCO DRYING MACHINE OPERATOR VEINS, 10/25/2021. INDICATIONS: Pain co-occurrent and due [...] Alonso M.D. on 11/21/2021 at 13:25 Normal [facility] VC INJ SCL DOLLY TOBACCO DRYING MACHINE OPERATOR VEINSon 0 11-07-2021 VC INJ SCL DOLLY TOBACCO DRYING MACHINE OPERATOR VEINS Patient: MEI JO Exam Date: 11/07/2021 : 1955 Gender:F Ordering : DR PETER CORREIA M.D. Admission #: [id number] Family : Order #: [id number] CLICK HERE TO VIEW EXAM RADIOLOGY REPORT PROCEDURE: VEIN CENTER INJECTION SCLEROSING SOLUTION MULTIPLE VEINS SAME COMPARISON: VC INJ SCL DOLLY TOBACCO DRYING MACHINE OPERATOR VEINS, 11/02/2021. VC INJ SCL DOLLY TOBACCO DRYING MACHINE OPERATOR VEINS, 10/25/2021. INDICATIONS: Pain co-occurrent and due [...] Correia MD on 11/07/2021 at 11:08 Normal [facility] VC INJ SCL DOLLY TOBACCO DRYING MACHINE OPERATOR VEINSon 0 11-02-2021 VC INJ SCL DOLLY TOBACCO DRYING MACHINE OPERATOR VEINS Patient: MEI JO Exam Date: 11/02/2021 : 1955 Gender:F Ordering : DR PETER CORREIA M.D. Admission #: [id number] Family : Order #: [id number] CLICK HERE TO VIEW EXAM RADIOLOGY REPORT PROCEDURE: VEIN CENTER INJECTION SCLEROSING SOLUTION MULTIPLE VEINS SAME COMPARISON: VC INJ SCL DOLLY TOBACCO DRYING MACHINE OPERATOR VEINS, 10/25/2021. INDICATIONS: Pain co-occurrent and due [...] Alonso M.D. on 11/02/2021 at 09:40 Normal [facility] VC INJ SCL DOLLY TOBACCO DRYING MACHINE OPERATOR VEINSon 0 10-25-2021 VC INJ SCL DOLLY TOBACCO DRYING MACHINE OPERATOR VEINS Patient: MEI JO Exam Date: 10/25/2021 : 1955 Gender:F Ordering : DR PETER CORREIA M.D. Admission #: [id number] Family : Order #: [id number] CLICK HERE TO VIEW EXAM RADIOLOGY REPORT [...] Correia MD on 10/25/2021 at 11:00 Normal [facility] VC EXT VENOUS RT LIMITEDon 0 10-24-2021 VC EXT VENOUS RT LIMITED Patient: MEI JO Exam Date: 10/23/2021 : 1955 Gender:F Ordering : DR PETER CORREIA M.D. Admission #: [id number] Family : Order #: [id number] CLICK HERE TO VIEW EXAM RADIOLOGY REPORT [...] SSV is thrombosed as well as 2 research investigator veins mid calf. Thrombus noted in one of the posterior tibial veins. COMPRESSIBILITY: Non-compressible segments on the. FLOW: Absent flow corresponding to thrombus *Exam performed in accordance with [facility] practice [...] Correia MD on 10/23/2021 at 11:45 Normal [facility] VC CONSULT FOLLOWUPon 2021 VC CONSULT FOLLOWUP Patient: KEYANA JO Exam Date: 10/23/2021 : 1955 Gender:F Ordering : DR PETER CORREIA M.D. 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 [...] Correia MD on 10/23/2021 at 11:49 Normal [facility] VC INJ FOAM SCLERO W US MLTI on 10-17-2021 VC INJ FOAM SCLERO W US MLTI Patient: MEI JO Exam Date: 10/17/2021 : 1955 Gender:F Ordering : DR PETER CORREIA M.D. Admission #: [id number] Family : Order #: [id number] CLICK HERE TO VIEW EXAM RADIOLOGY REPORT [...] Pressure was also held to occlude two research investigator veins. 6 mL aliquot of Varithena(r) was [...] content not included)... Normal [facility] VC CONSULT FOLLOWUPon 2021 VC CONSULT FOLLOWUP Patient: KEYANA JO Exam Date: 10/13/2021 : 1955 Gender:F Ordering : DR PETER CORREIA M.D. Admission #: [id number] Family : Order #: [id number] CLICK HERE TO VIEW EXAM RADIOLOGY REPORT [...] Alonso M.D. on 10/13/2021 at 09:58 Normal [facility] VC EXT VENOUS LT LIMITEDon 0 10-13-2021 VC EXT VENOUS LT LIMITED Patient: MEI JO Exam Date: 10/13/2021 : 1955 Gender:F Ordering : DR PETER CORREIA M.D. Admission #: [id number] Family : Order #: [id number] CLICK HERE TO VIEW EXAM RADIOLOGY REPORT [...] Alonso M.D. on 10/13/2021 at 09:54 Normal [facility] VC INJ FOAM SCLERO W US MLTI on 10-06-2021 VC INJ FOAM SCLERO W US MLTI Patient: MEI JO Exam Date: 10/06/2021 : 1955 Gender:F Ordering : DR PETER CORREIA M.D. Admission #: [id number] Family : Order #: [id number] CLICK HERE TO VIEW EXAM RADIOLOGY REPORT [...] content not included)... Normal [facility] VC CONSULT FOLLOWUPon 2021 VC CONSULT FOLLOWUP Patient: KEYANA JO Exam Date: 10/02/2021 : 1955 Gender:F Ordering : DR PETER CORREIA M.D. Admission #: [id number] Family : Order #: [id number] CLICK HERE TO VIEW EXAM RADIOLOGY REPORT [...] the left anterior accessory saphenous vein. The research investigator veins are significantly decreased in size and [...] Correia MD on 10/02/2021 at 09:34 Normal [facility] VC EXT VENOUS LT LIMITEDon 0 10-02-2021 VC EXT VENOUS LT LIMITED Patient: MEI JO Exam Date: 10/02/2021 : 1955 Gender:F Ordering : DR PETER CORREIA M.D. Admission #: [id number] Family : Order #: [id number] CLICK HERE TO VIEW EXAM RADIOLOGY REPORT [...] Peter Correia MD on 10/02/2021 at 09:08 [facility] VC INJ FOAM SCLERO W US MLTI on 09-27-2021 VC INJ FOAM SCLERO W US MLTI Patient: MEI JO Exam Date: 09/27/2021 : 1955 Gender:F Ordering : DR PETER CORREIA M.D. Admission #: [id number] Family : Order #: [id number] CLICK HERE TO VIEW EXAM RADIOLOGY REPORT [...] 09/27/2021 at 11:06 Normal [facility] VC CONSULT FOLLOWUPon 2021 VC CONSULT FOLLOWUP Patient: KEYANA JOCarolin Exam Date: 09/20/2021 : 1955 Gender:F Ordering : DR PETER CORREIA M.D. Admission #: [id number] Family : Order #: [id number] CLICK HERE TO VIEW EXAM RADIOLOGY REPORT [...] 09/20/2021 at 10:05 Normal [facility] VC EXT VENOUS LT LIMITEDon 0 09-20-2021 VC EXT VENOUS LT LIMITED Patient: MEI JO Exam Date: 09/20/2021 : 1955 Gender:F Ordering : DR PETER CORREIA M.D. Admission #: [id number] Family : Order #: [id number] CLICK HERE TO VIEW EXAM RADIOLOGY REPORT [...] Correia MD on 09/20/2021 at 09:52 Normal [facility] VC ENDOVENOUS ABL 1ST V LTon 09-13-2021 VC ENDOVENOUS ABL 1ST V LT Patient: MEI JO Exam Date: 09/13/2021 : 1955 Gender:F Ordering : DR PETER CORREIA M.D. Admission #: [id number] Family : Order #: [id number] CLICK HERE TO VIEW EXAM RADIOLOGY REPORT [...] Correia MD on 09/13/2021 at 11:23 Normal [facility] Q - SUREPATH-FPGS PAPon - CLINICAL INFORMATION: None given Normal [facility] Comment on above: Order Comment: [facility] Testing performed at: [facility], [facility], [address] [place], [place] [address], [address], Copy Clerk: Donato Wall MD [facility] Collection Date/Time: [id number] [facility] Results Received Date/Time: [facility] Reported Date/Time: Performed By: #### 1 8810X #### [facility] Default [address] [place] [address] COMMENT SEE NOTE Normal [facility] Comment on above: Order Comment: [facility] Testing performed at: [facility], [facility], [address] [place] [address] [place], [address], Copy Clerk: Donato Wall MD [facility] Collection Date/Time: [facility] [...] 1 8810X #### [facility] Default [address] [place] [address] COMMENT: SEE NOTE Normal [facility] Comment on above: Order Comment: [facility] Testing performed at: [facility], [facility], [address] [place] [address] PHILLIP N[place], , Copy Clerk: Donato Wall MD [facility] Collection Date/Time: [facility] [...] 1 8810X #### [facility] Default [address] [place] [address] PATTERN FITTER: SEE NOTE Normal [facility] Specialist Comment on above: Order Comment: [facility] Testing performed at: [facility], [facility], [address] [place], [place] [address]Gaurav [place], , Copy Clerk: Donato Wall MD [facility] Collection Date/Time: [facility] Results Received Date/Time: [facility] Reported Date/Time: Result Comment: ANL, CT(ASCP) FOr informational purposes: All Cytology specimens are processed and screened at [facility]. [address] [place], [place] [address] [address]. Performed By: #### 1 8810X #### [facility] Default [address] [place] [address] INTERPRETATION/RESULT: SEE NOTE Normal [facility] Specialist Comment on above: Order Comment: [facility] Testing performed at: [facility], [facility], [address] [place], [place] [address]Gaurav [place], , Copy Clerk: Donato Wall MD [facility] Collection Date/Time: [facility] Results Received Date/Time: [facility] Reported Date/Time: Result Comment: Nega tive for intraepithelial lesion or malignancy. Atrophic pattern; predominantly parabasal cells Performed By: #### 1 8810X #### [facility] Default [address] [place] [address] LMP: None given Normal [facility] Comment on above: Order Comment: [facility] Testing performed at: [facility], [facility], [address] [place] [address] Gaurav [place], , Copy Clerk: Donato Wall MD [facility] Collection Date/Time: [facility] Results Received Date/Time: [facility] Reported Date/Time: Performed By: #### 1 8810X #### [facility] Default [address] [place] [address] PREV. BX: None given Normal [facility] Comment on above: Order Comment: [facility] Testing performed at: [facility], [facility], [address] [place] [address] aGurav [place], , Copy Clerk: Donato Wall MD [facility] Collection Date/Time: [facility] Results Received Date/Time: [facility] Reported Date/Time: Performed By: #### 1 8810X #### [facility] Default [address] [place] [address] PREV. PAP: None given Normal [facility] Comment on above: Order Comment: [facility] Testing performed at: [facility], [facility], [address] [place] [address] Gaurav [place], , Copy Clerk: Donato Wall MD [facility] Collection Date/Time: [facility] Results Received Date/Time: [facility] Reported Date/Time: Performed By: #### 1 8810X #### [facility] Default [address] [place] [address] SOURCE: None given Normal [facility] Comment on above: Order Comment: [facility] Testing performed at: [facility], [facility], [address] [place] [address], [place], [address], Copy Clerk: Donato Wall MD [facility] Collection Date/Time: [facility] Results Received Date/Time: [facility] Reported Date/Time: Performed By: #### 1 8810X #### [facility] Default [address] [place] [address] HAND LEFT 3 VWSon 03-04-2019 HAND LEFT 3 VWS [facility] Department of Radiology [address] [place] [address] ======== Patient Name: MEI JO : [...] FERNÁNDEZ MD , Exam: HAND LEFT 3 VWS ======== HAND LEFT 3 VWS 03/04/2019 1:22 PM EDT SIGNS AND SYMPTOMS: [...] arthritis Electronically signed by:Kaylie Dominguez. Transcribed by: [email or web address], User Resident: Electronically Signed by: KAYLIE DOMINGUEZ @ 03/04/2019 04:14 PM Normal [facility] Comment on above: Order Comment: , Vie ws (X-RAY, HAND): Radiologic Protocol , Views (X-RAY, HAND): Radiologic Protocol , , , Ordering Provider - JOHN FERNÁNDEZ MD , Coding Summaryon 02-16-2019 Coding Summary CODING DATE: 02/16/2019 [facility] STATUS: Home PAYOR: Commercial Insurance ADMIT [...] Grayson' Revised Date Saved: 02/16/2019 02:01 pm [facility] Coding Summary CODING DATE: 02/16/2019 [facility] STATUS: Home PAYOR: Commercial Insurance APC [...] Eze Grayson Date Saved: 02/16/2019 01:51 pm [facility] Coding Summary CODING DATE: 02/16/2019 [facility] STATUS: Home PAYOR: Commercial Insurance APC [...] Eze Grayson Date Saved: 02/16/2019 01:51 pm [facility] Coding Summary CODING DATE: 02/16/2019 [facility] STATUS: Home PAYOR: Commercial Insurance APC [...] Grayson' Revised Date Saved: 02/16/2019 01:51 pm [facility] Release of Informationon Release of Information [id number] OTGTIFF [facility] .Auto Diff 1on 02-10-2019 Auto [place] % 6 % Normal -12 [facility] Comment on above: Performed By: #### 1 [id number], 7008488, 7676399726, 88258881, 3336876 #### [facility] (DEFAULT) [address] [place] [address] Baso Abs# 0.0 x10 Normal 0.0-0.2 [facility] Comment on above: Performed By: #### 1 384691180, 4619208, 5235080141, 79058742, 8852069 #### [facility] (DEFAULT) [address] [place] [address] Basophils/100 WBC (Bld) 0.2 % Normal 0.2-2.0 [facility] Comment on above: Performed By: #### 1 460543612, 5957228, 3652644990, 83699141, 4317471 #### [facility] (DEFAULT) [address] [place] [address] Eos Abs# 0.1 x10 Normal 0.0-0.4 [facility] Comment on above: Performed By: #### 1 707273982, 8710745, 8936731402, 31241722, 7299574 #### [facility] (DEFAULT) [address] [place] [address] Eosinophils/100 WBC (Bld) 0.9 % Normal 0.9-4.0 [facility] Comment on above: Performed By: #### 1 [id number], 6158693, 3870440836, 25757350, 8144023 #### [facility] (DEFAULT) [address] [place] [address] Lymphocytes (Bld) [#/Vol] 1.5 x10 Normal 1.3-2.9 [facility] Comment on above: Performed By: #### 1 [id number], 4272248, 8246431397, 30807875, 0431853 #### [facility] (DEFAULT) [address] [place] [address] Lymphocytes/100 WBC (Bld) 11 % Low 14-48 [facility] Comment on above: Performed By: #### 1 770442347, 6617819, 3534725606, 42584711, 2393697 #### [facility] (DEFAULT) [address] [place] [address] [place] Abs# 0.8 x10 Normal 0.0-0.8 [facility] Comment on above: Performed By: #### 1 304469329, 3341560, 7173629786, 49045587, 6690035 #### [facility] (DEFAULT) [address] [place] [address] Neut Abs# 10.8 x10 High 1.5-9.2 [facility] Comment on above: Performed By: #### 1 933105847, 5228863, 9319518327, 00843615, 7152106 #### [facility] (DEFAULT) [address] [place] [address] Neutrophils/100 WBC (Bld) 81 % Normal 44-88 [facility] Comment on above: Performed By: #### 1 663462105, 1038684, 0174270464, 36209263, 4012636 #### [facility] (DEFAULT) [address] [place] [address] CBC w/ Auto Diffon 9 Erythrocyte distribution width (RBC) [Ratio] 12.7 % Normal 11.5-15.0 [facility] Comment on above: Performed By: #### 1 829876961, 7803751, 8689886036, 78975168, 6961578 #### [facility] (DEFAULT) [address] [place] [address] Hematocrit (Bld) [Volume fraction] 37.0 % Normal 33.7-40.4 [facility] Comment on above: Performed By: #### 1 102996541, 0842596, 8135401900, 42600292, 9501053 #### [facility] (DEFAULT) [address] [place] [address] Hemoglobin (Bld) [Mass/Vol] 12.7 g/dL Normal 11.3-15.9 [facility] Comment on above: Performed By: #### 1 578012832, 0847241, 9363009021, 41705985, 5668893 #### [facility] (DEFAULT) [address] [place] [address] Man Diff? Auto Normal [facility] Comment on above: Performed By: #### 1 430442390, 1997379, 1346091557, 11595554, 5588280 #### [facility] (DEFAULT) [address] [place] [address]9072 MCH (RBC) [Entitic mass] 32 pg Normal 24-34 [facility] Comment on above: Performed By: #### 1 956118263, 4716067, 3429772021, 84076641, 5060103 #### [facility] (DEFAULT) [address] [place] [address] 259[address] MCHC (RBC) [Mass/Vol] 34 g/dL Normal 26-37 [facility] Comment on above: Performed By: #### 1 087898695, 3501262, 4742443191, 90399832, 8626885 #### [facility] (DEFAULT) [address] [place] [address] 87346 MCV (RBC) [Entitic vol] 94 fL Normal 81-100 [facility] Comment on above: Performed By: #### 1 678054023, 6165403, 5214740831, 17031010, 9078042 #### [facility] (DEFAULT) [address] [place] [address] Platelet mean volume (Bld) [Entitic vol] 8.6 fL Normal 6.3-10.2 [facility] Comment on above: Performed By: #### 1 755852064, 2983321, 1315056952, 06955612, 9752194 #### [facility] (DEFAULT) [address] [place] [address] Platelets (Bld) [#/Vol] 278 x10 Normal 138-427 [facility] Comment on above: Performed By: #### 1 523408496, 1832145, 7197214972, 04061920, 2541674 #### [facility] (DEFAULT) [address] [place] [address] RBC (Bld) [#/Vol] 3.93 x10 Normal 3.70-5.30 [facility] Comment on above: Performed By: #### 1 580443331, 2937046, 3696585057, 05758062, 0742094 #### [facility] (DEFAULT) [address] [place] [address] WBC (Bld) [#/Vol] 13.3 x10 [facility] Comment on above: Performed By: #### 1 205112611, 7012434, 2838888074, 08769985, 1649530 #### [facility] (DEFAULT) [address] [place] [address] CMP Standardon 02-10-2019 eGFR Non AA >60 [facility] Comment on above: Performed By: #### 1 654156521, 5945727, 3515587927, 92784811, 5865178 #### [facility] (DEFAULT) [address] [place] [address] eGFR AA >60 [facility] Comment on above: Result Comment: Escort Service Attendant frantz Kidney disease could be indicated at eGFRs of less than 60 ml/min/1.73m2. Kidney Failure is indicated at less than 15 ml/min/1.73m2 Performed By: #### 1 471241532, 2354454, 4442327547, 73156322, 4889764 #### [facility] (DEFAULT) [address] [place] [address] Albumin [Mass/Vol] 4.4 g/dL Normal 3.5-5.0 [facility] Comment on above: Performed By: #### 1 267479656, 7398449, 2332811688, 57546616, 5088024 #### [facility] (DEFAULT) [address] [place] [address] Albumin/Globulin [Mass ratio] 1.6 {ratio} Normal 1.4-2.6 [facility] Comment on above: Performed By: #### 1 935054975, 6880482, 6357561108, 59507316, 2576625 #### [facility] (DEFAULT) [address] [place] [address] Alk Phos 62 IU/L Normal 32-91 [facility] Comment on above: Performed By: #### 1 155569445, 9763138, 8475624432, 83340253, 7257090 #### [facility] (DEFAULT) [address] [place] [address] ALT/SGPT 19.0 IU/L Normal 14.0-54.0 [facility] Comment on above: Performed By: #### 1 017982300, 5643152, 4282334333, 97211132, 0176950 #### [facility] (DEFAULT) [address] [place] [address] Anion gap [Moles/Vol] 16.0 mmol/L Normal 5.0-19.0 [facility] Comment on above: Performed By: #### 1 724990922, 9685403, 5523908208, 79765876, 9146264 #### [facility] (DEFAULT) [address] [place] [address] AST/SGOT 22 IU/L Normal 15-41 [facility] Comment on above: Performed By: #### 1 287098917, 2716738, 2564859804, 61000111, 8844073 #### [facility] (DEFAULT) [address] [place] [address] 51246 Bili Total 0.6 mg/dL Normal 0.3-1.2 [facility] Comment on above: Performed By: #### 1 636380883, 6622762, 8773941932, 79046115, 6318122 #### [facility] (DEFAULT) [address] [place] [address] Calcium [Mass/Vol] 9.3 mg/dL Normal 8.9-10.3 [facility] Comment on above: Performed By: #### 1 227121154, 3961296, 1818221919, 42519474, 1981062 #### [facility] (DEFAULT) [address] [place] [address] 65619 Chloride [Moles/Vol] 103 mmol/L Normal 101-111 [facility] Comment on above: Performed By: #### 1 079052744, 4798187, 4856052820, 01102956, 8753052 #### [facility] (DEFAULT) [address] [place] [address] 14430 CO2 [Moles/Vol] 23 mmol/L Normal 21-32 [facility] Comment on above: Performed By: #### 1 334196318, 5651681, 5365103514, 86400901, 9023049 #### [facility] (DEFAULT) [address] [place] [address] 04903 Creatinine [Mass/Vol] 0.72 mg/dL Normal 0.60-1.30 [facility] Comment on above: Performed By: #### 1 289795377, 8637230, 2380768175, 74826850, 1624753 #### [facility] (DEFAULT) [address] [place] [address] 02405 Globulin (S) [Mass/Vol] 2.8 g/dL Normal 1.5-4.3 [facility] Comment on above: Performed By: #### 1 372730836, 8202462, 0836156344, 97303831, 3285038 #### [facility] (DEFAULT) [address] [place] [address] 98627 Glucose [Mass/Vol] 123.0 mg/dL High 74.0-118.0 [facility] Comment on above: Performed By: #### 1 045202085, 0854773, 7069608339, 31200495, 6319826 #### [facility] (DEFAULT) [address] [place] [address]2391 Osmolality [Osmolality] 279 mOsm/L [facility] Comment on above: Performed By: #### 1 311310704, 2221902, 1811705762, 86193490, 1788839 #### [facility] (DEFAULT) [address] [place] [address] 57069 Potassium [Moles/Vol] 3.7 mmol/L Normal 3.6-5.1 [facility] Comment on above: Performed By: #### 1 093627303, 1246804, 3458891556, 29369445, 2332448 #### [facility] (DEFAULT) [address] [place] [address] 60006 Protein [Mass/Vol] 7.2 g/dL Normal 6.5-8.1 [facility] Comment on above: Performed By: #### 1 992520102, 0778971, 1109451041, 10163235, 1731753 #### [facility] (DEFAULT) [address] [place] [address] 83765 Sodium [Moles/Vol] 138.0 mmol/L Normal 136.0-144.0 [facility] Comment on above: Performed By: #### 1 138059587, 8567137, 3662150269, 40874500, 3815233 #### [facility] (DEFAULT) [address] [place] [address] 58568 Urea nitrogen [Mass/Vol] 18 mg/dL Normal 8-26 [facility] Comment on above: Performed By: #### 1 090407694, 8796729, 5360626395, 86103313, 5067351 #### [facility] (DEFAULT) [address] [place] [address] 96565 Urea nitrogen/Creatinine [Mass ratio] 25.0 mg/mg High 4.6-16.2 [facility] Comment on above: Performed By: #### 1 326217643, 7480433, 9828002770, 26859971, 2861204 #### [facility] (DEFAULT) [address] [place] [address]225 ED Clinical Summaryon 2018 ED Clinical Summary [facility] - Emergency Department [address] [place] [address] ED Clinical Summary PERSON INFORMATION Name: MEI JO Age: 63 Years Sex: FEMALE : 55 MRN: Acct#: Visit Reason: Hand laceration; LAC LEFT HAND Arrival: 02/10/19 16:19:00 Discharge: 02/10/19 18:34:00 LOS: 000 02:15 Check In: 02/10/19 16:19:00 Checkout:02/10/19 18:34:00 Address: [facility] [address] PCP: MILADYS CORDERO PROVIDER INFORMATION Provider Role [...] Care Follow-Up: With: Address: When: Jimbo Gama [address] [place] [address], [address] [place], [place] Business (2) Within 3 to 5 [...] You are sent with a prescription for [place], pain medication and he may take 1/2 tablet every 6 hours as needed for pain. Do not drive or drink alcohol while taking this medication as it may make you drowsy. You may return here to the emergency department for any worsening or concerning symptoms. With: Address: When: [address] [place], [place] [id number] Business (1) Within 3 to 5 days DIAGNOSIS: Fall from ground level; Fracture of metacarpal of left hand, open; Hand laceration Patient Understands: Yes - Patient/family/caregiv er verbalizes understanding of instructions given Comment: [facility] ED Note - Physicianon 2018 ED Note [...] all digits in the left hand equal bead wire insulator strength. Good strength in flexion-extension MCP DIP [...] 17:15:00, rate 66, Sinus rhythm Normal ECG MT interval 190, QRS duration 85, QT/QTc 377/390, [...] Auto Lymph % 11 % LOW Auto [place] % 6 % Auto Eos % 0.9 % Auto Baso % 0.2 % Neut Abs# 10.8 x103/mcL HI Lymph Abs# 1.5 x103/mcL [place] Abs# 0.8 x103/mcL Eos Abs# 0.1 x103/mcL [...] Dr. Puentes as she is from [facility] in 3-5 days to understand to call [...] and Plan Diagnosis Fall from ground level ([id number] W18.30XA, Discharge, Medical) Hand laceration ([id number] S61.419A, Discharge, Medical) Fracture of metacarpal of left hand, open (PEM99-RQ S62.309B, Discharge, Medical) Plan Condition: Stable. Disposition: Discharged: Time 02/10/19 18:13:00, to home. Prescriptions: [facility] Pharmacy: Keflex 500 mg oral capsule (Prescribe): 500 mg = 1 cap(s), PO, q8hr, for 7 day(s), 21 cap(s), 0 Refill(s), [facility]: Berkeley 5 mg-325 mg oral tablet (Prescribe): 1 [...] You are sent with a prescription for [place], pain medication and he may take 1/2 [...] appointment. She is given a prescription for [place], pain medication she may take 1 tablet [...] on: 02/10/2019 20:12 EDT] José Johnson PA-C [facility] ED Note-Nursingon 02-10-2019 ED Note-Nursing Patient arrives afte r a fall, states she tripped over a table and landed on the asphalt. Patient has a laceration to her left hand. Patient went to and was taken here for low blood pressure and she was feeling dizzy at that time, symptoms have resolved. [facility] ED Patient Education Noteon 02-10-2019 ED Patient [...] and water are not available, use hand cafeteria or lunchroom checker. ? Change your dressing at least once [...] at home: Medicines ? Take or apply exou-ybz-vrmzawz and prescription medicines only as told by [...] 08/29/2005 Document Revised: 08/27/2017 Document Reviewed: 08/27/2017 [employer] Patient Education ? 2019 [employer] Orthopedics Metacarpal Fracture A metacarpal fracture [...] 07/22/2006 Document Revised: 12/27/2016 Document Reviewed: 05/11/2015 [employer] Patient Education ? 2019 [employer] Normal [facility] ED Patient Summaryon 019 ED Patient Summary [facility] - Emergency Department [address] [place], [place] [id number] PATIENT DISCHARGE INSTRUCTIONS Patient Information Name: MEI JO Age: 63 Years Date of : [birth year] Reason For Visit: Hand laceration; LAC LEFT HAND Arrival Time: 02/10/19 16:19:00 Primary Care Physician: MILADYS CORDERO Attending Physician: Harvey Velez MD Comment: Visit Diagnosis: Diagnoses This Visit Fall from ground level (W18.30XA) Fracture of metacarpal of left hand, open (S62.309B) Hand laceration (S61.419A) Hand laceration ([id number]) Prescription Information: If you have been given a prescription for narcotics, seek immediate medical attention if you have any difficulty breathing or any sudden status changes such as confusion and sleepiness. If you or anyone you know is experiencing suicidal thoughts, mental health, alcohol and/or drug addiction problems; contact the [facility] 25/02 Crisis Hotline -Text 7ZCVI op 835187. If you received any narcotics, sedation, or [...] legal documents With: Address: When: Jimbo Gama [address] [place] [address], [address] [place], [place] Business (2) Within 3 to 5 [...] You are sent with a prescription for Berkeley, pain medication and he may take 1/2 tablet every 6 hours as needed for pain. Do not drive or drink alcohol while taking this medication as it may make you drowsy. You may return here to the emergency department for any worsening or concerning symptoms. With: Address: When: MILADYS CORDERO [address] [place] [address] [address] [place], [place] [id number] Business (1) Within 3 to 5 days Medication Information: The exam and treatment you received today in the [facility] Emergency Department were for an urgent problem and are not intended as complete care. It is important for you to follow up with a doctor, nurse practitioner, or physician?s electrician's assistant for ongoing care. If your symptoms [...] so we can reach you if necessary. [facility] Emergency Department has provided you with a complete list of medications post discharge. Please inform your construction manager/provider of your visit and for further instruction on these medications. Any specific questions regarding your chronic medications and dosages should be discussed with your primary care physician(s) and/or pharmacist. New Medications [facility]/pharmacy #[id number], [address] [place], [place] [id number], [phone] cephalexin (Keflex 500 mg oral capsule) 1 cap(s) Oral Every 8 hours for 7 Days. Refills: 0. Printed Prescriptions acetaminophen-hydrocod one (Berkeley 5 mg-325 mg oral tablet) 1 tab(s) [...] 07/22/2006 Document Revised: 12/27/2016 Document Reviewed: 05/11/2015 [employer] Patient Education ? 2019 [employer] Sutured Wound Care Sutures are stitches [...] and water are not available, use hand cafeteria or lunchroom checker. ? Change your dressing at least once [...] at home: Medicines ? Take or apply rrmr-gyh-njygnuf and prescription medicines only as told by [...] 08/29/2005 Document Revised: 08/27/2017 Document Reviewed: 08/27/2017 [employer] Interactive Patient Education ? 2019 [employer] Viruses or Bacteria What?s got you [...] for Disease Control and Prevention April 2014 [facility] 02-10-2019 Tube Collected Yes [facility] Comment on above: Performed By: #### 1 [id number] #### [facility] (DEFAULT) [address] [place] [address] Troponin Ion 02-10-2019 Troponin I.cardiac [Mass/Vol] ng/mL Normal <=0.03 [facility] Comment on above: Performed By: #### 1 [id number] #### [facility] (DEFAULT) [address] [place] [address] XR Hand Complete Lefton XR Hand Complete [...] Lozano 02/10/19 5:19 pm Technologist: JENIFER Sandhu [facility] Vital Signs Date Time Vital Sign Value Performing Clinician Facility 04-07-2025 15: Body height 156.21 cm Brijesh Armstrong II Work Phone: [facility] 04-07-2025 15: Body mass index (BMI) [Ratio] 29.7 kg/m2 Brijesh Armstrong II Work Phone: [facility] 04-07-2025 15: Body weight 72.57 kg Brijesh Armstrong II Work Phone: [facility] 04-07-2025 15: Diastolic blood pressure 86 mm[Hg] Brijesh Armstrong II Work Phone: [facility] 04-07-2025 15:09-0400 Heart rate 88 /min Brijesh Armstrong II Work Phone: [facility] 04-07-2025 15:09-0400 SaO2% (BldA) [Mass fraction] 96 % Brijesh Armstrong II Work Phone: [facility] 04-07-2025 15:09-0400 Systolic blood pressure 134 mm[Hg] Brijesh Armstrong II Work Phone: [facility] 04-01-2025 08:33-0400 Body height 157.5 cm Regis Mccann [employer] Work Phone: [facility] 04-01-2025 08:33-0400 Body mass index (BMI) [Ratio] 29.81 kg/m2 Regis Mccann [employer] Work Phone: [facility] 04-01-2025 08:33-0400 Body weight 73.94 kg Regis Mccann [employer] Work Phone: [facility] 04-01-2025 08:33-0400 Diastolic blood pressure 80 mm[Hg] Regis Mccann [employer] Work Phone: [facility] 04-01-2025 08:33-0400 Heart rate 86 /min Regis Mccann [employer] Work Phone: [facility] 04-01-2025 08:33-0400 Respiratory rate 16 /min Regis Mccann [employer] Work Phone: [facility] 04-01-2025 08:33-0400 SaO2% (BldA) [Mass fraction] 97 % Regis Mccann [employer] Work Phone: [facility] 04-01-2025 08:33-0400 Systolic blood pressure 124 mm[Hg] Regis Mccann [employer] Work Phone: [facility] 01-13-2025 11:04-0400 Diastolic blood pressure 87 mm[Hg] Mri (I-Stat/1.5t) Work Phone: [facility] Comment on above: POST MRI Safe Mode 01-13-2025 11:04-0400 Heart rate 96 /min Mri (I-Stat/1.5t) Work Phone: [facility] Comment on above: POST MRI Safe Mode 01-13-2025 11:04-0400 SaO2% (BldA) [Mass fraction] 99 % Mri (I-Stat/1.5t) Work Phone: [facility] Comment on above: POST MRI Safe Mode 01-13-2025 11:04-0400 Systolic blood pressure 146 mm[Hg] Mri (I-Stat/1.5t) Work Phone: [facility] Comment on above: POST MRI Safe Mode 01-13-2025 09:26-0400 Body height 157.5 cm Mri (I-Stat/1.5t) Work Phone: [facility] 01-13-2025 09:26-0400 Body mass index (BMI) [Ratio] 29.63 kg/m2 Mri (I-Stat/1.5t) Work Phone: [facility] 01-13-2025 09:26-0400 Body weight 73.48 kg Mri (I-Stat/1.5t) Work Phone: [facility] 09-03-2024 09:27-0500 Body height 157.5 cm Brijesh Armstrong MD Work Phone: [facility] 09-03-2024 09:27-0500 Body mass index (BMI) [Ratio] 30.18 kg/m2 Brijesh Armstrong MD Work Phone: [facility] 09-03-2024 09:27-0500 Body weight 74.84 kg Brijesh Armstrong MD Work Phone: [facility] 09-03-2024 09:27-0500 Diastolic blood pressure 86 mm[Hg] Brijesh Armstrong MD Work Phone: [facility] 09-03-2024 09:27-0500 Heart rate 82 /min Brijesh Armstrong MD Work Phone: [facility] 09-03-2024 09:27-0500 SaO2% (BldA) [Mass fraction] 97 % rBijesh Armstrong MD Work Phone: [facility] 09-03-2024 09:27-0500 Systolic blood pressure 132 mm[Hg] Brijesh Armstrong MD Work Phone: [facility] 05-07-2024 13:34-0400 Body mass index (BMI) [Ratio] 29.31 kg/m2 Meena Schrader MD Work Phone: [facility] 05-07-2024 13:34-0400 Body temperature 96.6 [degF] Meena Schrader MD Work Phone: [facility] 05-07-2024 13:34-0400 Body weight 72.7 kg Meena Schrader MD Work Phone: [facility] 05-07-2024 13:34-0400 Diastolic blood pressure 84 mm[Hg] Meena Schrader MD Work Phone: [facility] 05-07-2024 13:34-0400 Heart rate 83 /min Meena Schrader MD Work Phone: [facility] 05-07-2024 13:34-0400 Respiratory rate 16 /min Meena Schrader MD Work Phone: [facility] 05-07-2024 13:34-0400 SaO2% (BldA) [Mass fraction] 97 % Meena Schrader MD Work Phone: [facility] 05-07-2024 13:34-0400 Systolic blood pressure 152 mm[Hg] Meena Schrader MD Work Phone: [facility] 04-14-2024 13:54-0400 Body mass index (BMI) [Ratio] 29.45 kg/m2 Meena Schrader MD Work Phone: [facility] 04-14-2024 13:54-0400 Body temperature 96.3 [degF] Meena Schrader MD Work Phone: [facility] 04-14-2024 13:54-0400 Body weight 73.03 kg Meena Schrader MD Work Phone: [facility] 04-14-2024 13:54-0400 Diastolic blood pressure 88 mm[Hg] Meena Schrader MD Work Phone: [facility] 04-14-2024 13:54-0400 Heart rate 106 /min Meena Schrader MD Work Phone: [facility] 04-14-2024 13:54-0400 Respiratory rate 18 /min Meena Schrader MD Work Phone: [facility] 04-14-2024 13:54-0400 SaO2% (BldA) [Mass fraction] 97 % Meena Schrader MD Work Phone: [facility] 04-14-2024 13:54-0400 Systolic blood pressure 139 mm[Hg] Meena Schrader MD Work Phone: [facility] 04-08-2024 09:50-0400 Body mass index (BMI) [Ratio] 29.12 kg/m2 Oziel Ordaz ADVISOR [employer]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 Phone: [facility] 04-08-2024 09:50-0400 Body temperature 96.1 [degF] Oziel Ordaz ADVISOR [employer] M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 Phone: [facility] 04-08-2024 09:50-0400 Body weight 72.21 kg Oziel Ordaz APRN-[employer] M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 Phone: [facility] 04-08-2024 09:50-0400 Diastolic blood pressure 89 mm[Hg] Oziel Ordaz APRN-[employer]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 Phone: [facility] 04-08-2024 09:50-0400 Heart rate 105 /min Oziel Ordaz APRN-[employer] M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 Phone: [facility] 04-08-2024 09:50-0400 Respiratory rate 16 /min Oziel Ordaz APRN-[employer] M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 Phone: [facility] 04-08-2024 09:50-0400 SaO2% (BldA) [Mass fraction] 100 % Oziel Ordaz ADVISOR [employer] M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 Phone: [facility] 04-08-2024 09:50-0400 Systolic blood pressure 128 mm[Hg] Oziel Ordaz ADVISOR [employer] M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 Phone: [facility] 03-23-2024 13:25-0400 Body temperature 97 [degF] Meena Schrader MD Work Phone: [facility] 03-23-2024 13:25-0400 Diastolic blood pressure 77 mm[Hg] Meena Schrader MD Work Phone: [facility] 03-23-2024 13:25-0400 Heart rate 68 /min Meena Schrader MD Work Phone: [facility] 03-23-2024 13:25-0400 Respiratory rate 18 /min Meena Schrader MD Work Phone: [facility] 03-23-2024 13:25-0400 SaO2% (BldA) [Mass fraction] 96 % Meena Schrader MD Work Phone: [facility] 03-23-2024 13:25-0400 Systolic blood pressure 136 mm[Hg] Meena Schrader MD Work Phone: [facility] 03-23-2024 07:18-0400 Body height 157.5 cm Meena Schrader MD Work Phone: [facility] 03-23-2024 07:18-0400 Body mass index (BMI) [Ratio] 29.35 kg/m2 Meena Schrader MD Work Phone: [facility] 03-23-2024 07:18-0400 Body weight 72.8 kg Meena Schrader MD Work Phone: [facility] Encounters Encounter Date Encounter Type Care Provider Facility Start: 04-16-2025 End: 04-16-2025 ambulatory [facility] Start: 04-14-2025 End: 04-15-2025 Telephone encounter Regis Mccann [employer] Work Phone: [facility] Start: 04-07-2025 End: 04-07-2025 ambulatory Brijesh Armstrong II Work Phone: [facility] Work Phone: Start: 04-07-2025 End: 04-07-2025 Patient encounter procedure Tangelafred Hernández DO -[facility] Work Phone: Start: 04-01-2025 End: 04-01-2025 Bamboo flowsheet Regis Mccann [employer] Work Phone: [facility] Start: 04-01-2025 End: 04-01-2025 Bamboo flowsheet Regis Mccann [employer] Work Phone: [facility] Start: 04-01-2025 End: 04-01-2025 ambulatory REGIS MCCANN Not Available Start: 04-01-2025 End: 04-01-2025 Office outpatient visit 25 minutes Regis Mccann [employer] Work Phone: [facility] Comment on above: Stone's cyst, right (Primary Dx); Acute pain of right knee; Malignant melanoma of left lower limb, including hip (HCC) Start: 04-01-2025 End: 04-01-2025 ambulatory REGIS MCCANN Not Available Start: 03-22-2025 ambulatory [facility] Start: 03-16-2025 End: 03-16-2025 ambulatory [facility] Start: 03-10-2025 End: 03-10-2025 Bamboo flowsroseanne Mari MD Work Phone: [facility] Start: 03-10-2025 End: 03-10-2025 Matt Mari MD Work Phone: [facility] Start: 03-10-2025 End: 03-10-2025 Office outpatient visit 15 minutes Roseann Mrai MD [facility] Comment on above: Allergic contact haleigh matitis due to plants, except food (Primary Dx); Herpesviral vesicular dermatitis; Seborrheic keratosis; Lentigines; History of malignant melanoma of skin Start: 03-10-2025 End: 03-10-2025 ambulatory ROSEANN MARI Not Available Start: 01-26-2025 Non-patient / Non-visit [facility] Work Phone: Start: 01-13-2025 [facility] Facility:[facility] Start: 01-13-2025 End: 01-13-2025 Subsequent hospital visit by physician Mri Main J 2 (I-Stat/1.5t) Work Phone: MRI J Start: 01-13-2025 [facility] Facility:[facility] Start: 01-13-2025 End: 01-13-2025 Subsequent hospital visit by physician [facility] Work Phone: Cardiology Comment on above: Pacemaker reprogramm ing/check [Z45.018] Start: 12-25-2024 [facility] Start: 12-08-2024 End: 12-08-2024 Bamboo flowsroseanne Mari MD Work Phone: [facility] Start: 12-08-2024 End: 12-08-2024 Bamboo flowsroseanne Mari MD Work Phone: [facility] Start: 12-08-2024 End: 12-08-2024 Office outpatient visit 15 minutes Roseann Mari MD Work Phone: [facility] Comment on above: Seborrheic keratosis (Primary Dx); Lentigines; History of malignant melanoma of skin Start: 12-08-2024 End: 12-08-2024 ambulatory ROSEANN MARI Not Available Start: 12-04-2024 ambulatory [facility] Start: 11-06-2024 End: 11-06-2024 Telephone encounter Brijesh Armstrong MD Work Phone: [facility] Start: 09-29-2024 End: 09-29-2024 ambulatory [facility] Start: 09-03-2024 End: 09-03-2024 Bamboo flowsheet Brijesh [...] Not Available Start: 08-18-2024 End: 08-18-2024 ambulatory [facility] Start: 08-14-2024 End: 08-14-2024 ambulatory MALDONADOCresencio HICKSRAD [facility] Start: 08-04-2024 Evaluation and manag ement of inpatient [facility] Start: 08-04-2024 Evaluation and manag ement of inpatient [facility] Start: 08-03-2024 Emergency department patient visit MADI TEMPLE [facility] Start: 08-03-2024 End: 08-04-2024 Evaluation and management of inpatient [facility] Start: 08-03-2024 End: 08-03-2024 ambulatory ERNIE TERA [facility] Start: 06-02-2024 End: 06-02-2024 Matt Mari MD Work Phone: [facility] Start: 06-02-2024 End: 06-02-2024 Matt Mari MD Work Phone: [facility] Start: 06-02-2024 End: 06-02-2024 Office outpatient visit 15 minutes Roseann Mari MD Work Phone: [facility] Comment on above: Seborrheic keratosis (Primary Dx); Lentigines; Herpesviral vesicular dermatitis; Actinic keratosis; History of malignant melanoma of skin Start: 06-02-2024 End: 06-02-2024 ambulatory ROSEANN MARI Not Available Start: 05-07-2024 End: 05-07-2024 Postop follow up visit related to original px Meena Schrader MD Work Phone: [facility] Comment on above: Wound infection afte r surgery (Primary Dx) Start: 05-07-2024 End: 05-07-2024 ambulatory MEENA SCHRADER [facility] Start: 04-14-2024 End: 04-14-2024 Postop follow up visit related to original px Meena Schrader MD Work Phone: [facility] Comment on above: Malignant melanoma o f lower leg, left (Multi) (Primary Dx) Start: 04-14-2024 End: 04-14-2024 ambulatory [facility] Start: 04-08-2024 End: 04-08-2024 Postop follow up visit related to original px Oziel Ordaz 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 [employer]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 Phone: [facility] Comment on above: Cellulitis of left l ower extremity (Primary Dx) Start: 04-08-2024 End: 04-08-2024 ambulatory OZIEL Alford SANDRADAMIEN [facility] Start: 03-23-2024 End: 03-23-2024 Subsequent hospital visit by physician Dayanna aLy 3 [facility] Comment on above: Malignant melanoma o f lower leg, left (Multi) Arrived Start: 03-23-2024 End: 03-23-2024 ambulatory [facility] Start: 03-23-2024 End: 03-23-2024 Subsequent hospital visit by physician Meena Schrader MD Work Phone: [facility] [place] Comment on above: Malignant melanoma o f lower leg, left (Multi) (Primary Dx) Start: 03-18-2024 ambulatory [facility] Start: 03-17-2024 End: 03-17-2024 Office outpatient visit 25 minutes Meena Schrader MD Work Phone: [facility] Comment on above: Malignant melanoma o f lower leg, left (Multi) (Primary Dx) Start: 03-17-2024 End: 03-17-2024 ambulatory [facility] Start: 07-12-2023 Howard Armstrong MD Work Phone: [...] implantable subq lead dfb system [facility] Start: 01-13-2025 Radiologic exam ches t [...] Author Start: 08-03-2027 Diabetes Screening Diabetes Screening [facility] Start: 10-20-2025 Screening for malignant neoplasm of breast Mammogram [facility] Start: 09-03-2025 Medicare Annual Wellness (AWV) Medicare Annual Wellness (AWV) [facility] Start: 08-31-2025 Screening for malignant neoplasm of colon [facility] Start: 06-15-2025 End: 06-15-2025 Patient encounter procedure 06/15/2025 9:45 AM EST Office Visit [facility] [address] [place] [address] Roseann Mari MD [address] [place] [address] [facility] Start: 04-05-2025 Influenza vaccination Influenza Vaccine (#1) [facility] Start: 04-01-2025 End: 04-01-2025 Patient encounter procedure 04/01/2025 8:30 AM EDT Office Visit [facility] [address] [place] [id number] Regis Mccann, [employer] [address] [place] [address] Arrived [facility] Comment on above: Arrived Start: 03-10-2025 End: 03-10-2025 Patient encounter procedure [facility] Comment on above: Arrived Start: 02-23-2025 End: 02-23-2025 Patient encounter procedure 02/23/2025 9:50 AM EDT Office Visit [facility] [address] [place] [id number] Roseann Mari MD [address] [place], [place] [id number] [facility] Start: 12-08-2024 End: 12-08-2024 Patient encounter procedure 12/08/2024 10:05 AM EDT Office Visit [facility] [address] [place] [address] Roseann Mari MD [address] [place] [address] [facility] Start: 11-06-2024 End: 11-06-2025 Thyrotropin [Units/volume] in Serum or Plasma TSH Lab Routine Abnormal thyroid function test Expected: 11/06/2024 (Approximate), Expires: 11/06/2025 [facility] Work Phone: Comment on above: Expected: 11/06/2024 (Approximate), Expi res: 11/06/2025 Start: 11-06-2024 End: 11-06-2025 Thyroxine (T4) free [Mass/volume] in Serum or Plasma T4, free Lab Routine Abnormal thyroid function test Expected: 11/06/2024 (Approximate), Expires: 11/06/2025 [facility] Comment on above: Expected: 11/06/2024 (Approximate), Expi res: 11/06/2025 Start: 11-06-2024 End: 11-06-2025 Triiodothyronine (T3) Free [Mass/volume] in Serum or Plasma T3, free Lab Routine Abnormal thyroid function test Expected: 11/06/2024 (Approximate), Expires: 11/06/2025 [facility] Comment on above: Expected: 11/06/2024 (Approximate), Expi res: 11/06/2025 Start: 11-03-2024 End: 11-03-2024 Patient encounter procedure 11/03/2024 9:05 AM EDT Office Visit [facility] [address] [place] [address] Roseann Mari MD [address] [place] [address] [facility] Start: 10-18-2024 Covid-19 Vaccine () Covid-19 Vaccine () [facility] Start: 10-02-2024 End: 09-03-2025 DXA Skeletal system Views for bone density DEXA bone density Imaging Routine Estrogen deficiency Expected: 10/02/2024 (Approximate), Expires: 09/03/2025 [facility] Comment on above: Expected: 10/02/2024 (Approximate), Expi res: 09/03/2025 Start: 10-02-2024 End: 11-01-2025 MG Breast - bilateral Screening Bilateral screening mammogram Imaging Routine Breast screening Expected: 10/02/2024 (Approximate), Expires: 11/01/2025 [facility] Work Phone: Comment on above: Expected: 10/02/2024 (Approximate), Expi res: 11/01/2025 Start: 09-26-2024 Screening for malignant neoplasm of breast Mammogram [facility] Start: 09-03-2024 End: 09-03-2025 Lipid 1996 panel - Serum or Plasma Lipid panel Lab Routine Mixed hyperlipidemia (CMS/HCC) Expected: 09/03/2024 (Approximate), Expires: 09/03/2025 [facility] Comment on above: Expected: 09/03/2024 (Approximate), Expi res: 09/03/2025 Start: 09-03-2024 End: 09-03-2025 TSH W/REFLEX TO FT4 TSH W/REFLEX TO FT4 Lab Routine Mixed hyperlipidemia (CMS/HCC) Second degree atrioventricular block Expected: 09/03/2024 (Approximate), Expires: 09/03/2025 [facility] Comment on above: Expected: 09/03/2024 (Approximate), Expi res: 09/03/2025 Start: 09-03-2024 End: 09-03-2024 Patient encounter procedure [facility] Start: 09-03-2024 End: 09-03-2024 Patient encounter procedure 09/03/2024 9:30 AM EST Office Visit [facility] [address] [facility] [address] [place] [address] Brijesh Armstrong MD [address] [facility] [address] [place] [address] Arrived [facility] Comment on above: Arrived Start: 08-22-2024 Medicare Annual Wellness (AWV) Medicare Annual Wellness (AWV) [facility] Start: 08-05-2024 Advance Directive Discussion Advance Directive Discussion [facility] Start: 06-02-2024 End: 06-02-2024 Patient encounter procedure 06/02/2024 11:20 AM EDT Office Visit [facility] [address] [place] [address] Roseann Mari MD [address] [place] [address] Arrived [facility] Comment on above: Arrived Start: 04-14-2024 End: 04-14-2024 Patient encounter procedure 04/14/2024 2:00 PM EDT Office Visit [address] [place] [address] [place] [id number] [facility] [place] [address] [facility] Start: 04-05-2024 COVID-19 Vaccine ( season) COVID-19 Vaccine ( season) [facility] Start: 04-05-2024 DTaP/Tdap/Td Vaccines (2 - Td or Tdap) DTaP/Tdap/Td Vaccines (2 - Td or Tdap) [facility] Start: 04-05-2024 Influenza vaccination Influenza Vaccine (#1) [facility] Start: 04-05-2024 Urine microalbumin profile DTaP,Tdap,Td Vaccine (2 - Td or Tdap) [facility] Start: 03-23-2024 End: 03-17-2025 NM Lymphatic vessels Views W radionuclide intra lymphatic NM lymphoscintigram Imaging Routine Malignant melanoma of lower leg, left (Multi) Expected: 03/23/2024, Expires: 03/17/2025 [facility] Service Area Work Phone: Comment on above: Expected: 03/23/2024, Expires: Start: 03-23-2024 Subsequent hospital visit by physician 03/23/2024 Hospital Encounter [facility] [place] [address] [place] [address] [place] [address] [address] [place] [address] [facility] [place] Start: 03-23-2024 End: 03-23-2024 Bx/exc lymph node open superficial Biopsy Lymph Node Inguinal Malignant melanoma of lower leg, left (Multi) 03/23/2024 10:06 AM EDT [facility] Start: 03-23-2024 End: 03-23-2024 Excision malignant lesion trunk/arm/leg > 4.0 cm Excision Lesion Skin Lower Extremity Malignant melanoma of lower leg, left (Multi) 03/23/2024 10:06 AM EDT [facility] [place] Start: 10-23-2023 COVID-19 Vaccine ( season) COVID-19 Vaccine ( season) [facility] Start: 09-03-2023 Screening for malignant neoplasm of breast [facility] Start: 07-13-2023 Screening for osteoporosis Bone Density Scan [facility] Start: 11-14-2020 Pneumococcal Vaccine: 65+ Years (1 of 1 - PCV) Pneumococcal Vaccine: 65+ Years (1 of 1 - PCV) [facility] Start: 11-03-2020 Medicare Annual Wellness Visit Medicare Annual Wellness Visit [facility] Start: 11-14-2005 Pneumococcal Vaccine: 50+ (1 of 1 - PCV) Pneumococcal Vaccine: 50+ (1 of 1 - PCV) [facility] Start: 11-14-2005 Pneumococcal Vaccine: 65+ Years (1 of 1 - PCV) Pneumococcal Vaccine: 65+ Years (1 of 1 - PCV) [facility] Start: 11-14-2000 Lipid panel Lipid Screening [facility] Start: 11-14-2000 Screening for malignant neoplasm of colon [facility] Start: 11-14-1973 Anxiety Screening Anxiety Screening [facility] Start: 11-14-1973 Depression Screening Depression Screening [facility] Start: 11-14-1973 Diabetes mellitus screening Diabetes Screening [facility] Start: 11-14-1973 Hepatitis C screening Hepatitis C Screening [facility] Start: 11-14-1956 Skin Cancer Screening Skin Cancer Screening [facility] Start: 05-16-1956 Examination of skin Derm Melanoma Skin Check [facility] Start: 1955 Lipid panel Lipid Panel [facility] Start: 1955 Medicare Annual Wellness Visit Medicare Annual Wellness Visit (AWV) [facility] Start: 1955 Screening for malignant neoplasm of colon [facility] Bx/exc lymph node op en superficial Biopsy Lymph Node Inguinal Malignant melanoma of lower leg, left (Multi) Virtual [facility] OR CARDIAC IMPLANTABLE DEVICE CHECK CARDIAC IMPLANTABLE DEVICE CHECK PACEART Routine Pacemaker reprogramming/check 01/13/2025 8:22 AM EDT [facility] Dermatopathology- DE RM LAB [facility] Service Area Work Phone: Comment on above: Release Upon Ordering for 1 Occurrences starting 03/23/2024 Electrocardiogram, 12-lead Electrocardiogram, 12-lead ECG Routine 03/23/2024 7:13 AM EDT [facility] Work Phone: Excision malignant l esion trunk/arm/leg > 4.0 cm Excision Lesion Skin Lower Extremity Malignant melanoma of lower leg, left (Multi) [facility] [place] Immunizations Immunization Date Immunization Notes Care Provider Fa cili 04-20-2024 influenza, high dose seasonal, preservative-free Brijesh Armstrong MD Work Phone: [facility] 04-20-2024 influenza virus vaccine, unspecified formulation Roseann Mari MD Work Phone: [facility] 08-08-2023 RSV, recombinant, protein subunit RSVpreF, adjuvant reconstitu, 120mcg/0.5mL, PF (Arexvy) Roseann Mari MD Work Phone: [facility] 03-28-2023 Influenza, Seasonal, Quadrivalent, Adjuvanted Brijesh Armstrong MD Work Phone: [facility] 03-28-2023 influenza virus vaccine, unspecified formulation Meena Schrader MD Work Phone: [facility] Work Phone: 05-13-2022 Moderna Bivalent Booster Vaccination Brijesh Armstrong MD Work Phone: [facility] 04-14-2022 Influenza, High-dose Seasonal, Quadrivalent, Preservative Free Brijesh Armstrong MD Work Phone: [facility] 05-03-2021 Influenza, High-dose Seasonal, Quadrivalent, Preservative Free Brijesh Armstrong MD Work Phone: [facility] 08-31-2019 zoster vaccine recombinant Brijesh Armstrong MD Work Phone: [facility] 04-07-2019 Influenza, injectabl e, Madin [place] Canine Kidney, preservative free, quadrivalent Brijesh Armstrong MD Work Phone: [facility] 04-07-2019 zoster vaccine recombinant Brijesh Armstrong MD Work Phone: [facility] 04-30-2016 zoster vaccine, live Brijesh Armstrong MD Work Phone: [facility] 04-16-2016 influenza, injectabl e, quadrivalent, preservative free Brijesh Armstrong MD Work Phone: [facility] 04-05-2014 tetanus toxoid, redu linda diphtheria toxoid, and acellular pertussis vaccine, adsorbed Brijesh Armstrong MD Work Phone: [facility] Payers Date Payer Category Payer Medicare [id number] 2020 Private Health Insurance [id number] 1959 Medicare [id number] 1959 Private Health Insurance CLI [id number] 1955 Unknown [id number] 2.16.84 0.1.084534.3.579.2.593 1955 Unknown [id number] 2.16.84 0.1.655266.3.579.2.593 1955 Unknown [id number] 2.16.84 0.1.933518.3.579.2.593 1955 Unknown [id number] 2.16.84 0.1.272421.3.579.2.593 1955 Unknown [id number] 2.16.84 0.1.775658.3.579.2.593 1955 Unknown [id number] 2.16.84 0.1.660943.3.579.2.593 1955 Unknown [id number] 2.16.84 0.1.292870.3.579.2.593 1955 Unknown [id number] 2.16.84 0.1.812786.3.579.2.593 1955 Unknown [id number] 2.16.84 0.1.469167.3.579.2.593 1955 Unknown [id number] 2.16.84 0.1.589622.3.579.2.593 1955 Unknown [id number] 2.16.84 0.1.640367.3.579.2.593 1955 Unknown [id number] 2.16.84 0.1.510128.3.579.2.593 1955 Unknown [id number] 2.16.84 0.1.266608.3.579.2.593 1955 Unknown [id number] 2.16.84 0.1.228847.3.579.2.593 1955 Unknown [id number] 2.16.84 0.1.467750.3.579.2.593 1955 Unknown [id number] 2.16.84 0.1.496492.3.579.2.593 1955 Unknown [id number] 2.16.8 40.1.680834.3.579.2.124 1955 Unknown [id number] 2.16.8 40.1.968137.3.579.2.124 1955 Unknown [id number] 2.16.8 40.1.941380.3.579.2.1244 1955 Unknown [id number] 2.16.8 40.1.604882.3.579.2.1244 1955 Unknown [id number] 2.16.8 40.1.663997.3.579.2.1245 1955 Unknown [id number] 2.16.8 40.1.538356.3.579.2.1246 1955 Unknown [id number] 2.16.8 40.1.357315.3.579.2.1245 1955 Unknown [id number] 2.16.8 40.1.996997.3.579.2.1246 1955 Unknown [id number] 2.16.8 40.1.159401.3.579.2.9 1955 Unknown [id number] 2.16.8 40.1.584892.3.579.2.1259 1955 Unknown [id number] 2.16.8 40.1.564798.3.579.2.1258 1955 Unknown [id number] 2.16.84 0.1.874727.3.579.2.1259 1955 Unknown [id number] 2.16.84 0.1.194449.3.579.2.125 1955 Unknown [id number] 2.16.84 0.1.553686.3.579.2.1259 1955 Unknown [id number] 2.16.84 0.1.046742.3.579.2.1259 Social History Date Type Detail Facility [facility] Start: 08-22-2023 End: 03-31-2025 History of Social function [facility] Start: 08-22-2023 End: 03-31-2025 Tobacco use panel [facility] Start: 1955 Sex Assigned At Not on file [facility] Start: 03-18-2024 Tobacco smoking stat [facility] Ex-smoker [facility] History of tobacco use Current smoker [facility] Work Phone: History of tobacco use [facility] Start: 08-22-2023 End: 03-18-2024 Tobacco use and exposure Smokeless tobacco non-user [facility] Work Phone: Start: 04-14-2024 End: 04-01-2025 Alcoholic beverage intake Current drinker of alcohol (finding) [facility] Work Phone: Start: 03-13-2024 End: 05-07-2024 Exposure to SARS-CoV-2 (event) Not sure [facility] Start: 08-22-2023 [facility] Start: 03-07-2024 End: 03-17-2024 Exposure to SARS-CoV-2 (event) Unable to assess [facility] Start: 03-29-2024 End: 04-08-2024 Exposure to SARS-CoV-2 (event) Yes [facility] National Score (1-10 0), lower number is lower risk [address] [place] [address] How often do you nee d to have someone help you when you read instructions, pamphlets, or other written material from your doctor or pharmacy [SILS] Never [facility] Within the last year , have you been afraid of your partner or ex-partner? No [facility] Are you now , , , , never or living with a partner? [facility] How often to you hav e a drink containing alcohol? 2-3 time sa week [facility] How many standard drinks containing alcohol do you have on a typical day? 1 or 2 [facility] Do you feel stress - tense, restless, nervous, or anxious, or unable to sleep at night because your mind is troubled all the time - these days [OSQ] Not at all [facility] (I/We) worried wheth er (my/our) food would run out before (I/we) got money to buy more. Never true [facility] Sex Female (finding) [facility] Start: 1955 Sex Assigned At Female F [facility] Medical Equipment Procedure Code Equipment Code Equipment Origin al Text Equipment Identifier Dates [id number] Start: 07-05-2024 [id number] Start: 07-05-2024 Pacemaker- 24 [id number] Start: 08-03-2024 Comment on above: Description: [facility] [id number] RA [id number] RV [id number] Functional Status Date Assessment Result Facility 04-01-2025 Patient Health Quest ionnaire 2 item (PHQ-2) [Reported] [facility] Clinical Notes 08-31-2021 to 04-16-2025 Telephone Encounter - Regis Mccann NP - 04/15/2025 1:07 PM EDTTelephone Encounter - Regis Mccann NP - 04/15/2025 1:07 PM EDTTelephone Encounter - Makenna Irving MA - 04/14/2025 2:41 PM EDT Note Date & Type Note Facility 04-16-2025 Note [facility] Subjective Mei Jo is a 69 y.o. year old female patient being seen for bradycardia, dizziness and shortness of breath, hypertension, and hyperlipidemia Patient Active Problem List Diagnosis Hyperlipidemia Second degree atrioventricular block Syncope TRAN (dyspnea on exertion) Cholelithiasis without obstruction Chronic serous otitis media Conductive hearing loss Decreased estrogen level Eustachian tube dysfunction, left Major depressive disorder with single episode, in full remission Osteoporosis Primary osteoarthritis of left knee Varicose veins of bilateral lower extremities with pain Malignant melanoma of lower leg, left (CMS/HCC) Wound infection after surgery Bradycardia Complete heart block (CMS/HCC) Obesity (BMI 30-39.9) Heart block AV block, 3rd degree (CMS/HCC) Artificial cardiac pacemaker HPI 04/16/2025 Patient is here today for follow-up visit. She reports that she has been doing well. She denies any chest pain or shortness of breath at rest or with exertion. She denies orthopnea or paroxysmal nocturnal dyspnea or dizziness or palpitations or legs edema. She is diagnosed with sleep apnea and she wears CPAP 08/03/2024 Patient with history of hyperlipidemia and remote history of syncope related to hypoglycemia, also she had 2-1 AV block reported on prior EKG in 2021 but it was felt to be related to non- conducted PACs. She is here because of [...] (CMS/HCC) Hyperlipidemia Hypertension Second degree AV block Sleep apnea Syncope Past Surgical History: Procedure Laterality Date CHOLECYSTECTOMY INSERT / REPLACE / REMOVE PACEMAKER Family History Problem Relation Name Age of Onset Aortic aneurysm Mother Atrial fibrillation Mother Hypertension Father Diabetes Father Hypertension Brother Social History Tobacco Use Smoking status: Never Smokeless tobacco: Never Vaping Use Vaping status: Never Used Substance Use Topics Alcohol use: Yes Comment: 7 beers per week Drug use: Never Allergies No Known Allergies Medications Current Outpatient Medications: cholecalciferol, vitamin D3, 50 mcg (2,000 unit) capsule, Take 50 mcg by mouth in the morning., Disp: , Rfl: citalopram (CeleXA) 20 mg tablet, Take 10 mg by mouth in the morning. (Patient taking differently: Take by mouth in the morning.), Disp: , Rfl: simvastatin (Zocor) 40 mg tablet, Take 40 mg by mouth at bedtime., Disp: , Rfl: Objective Visit Vitals BP (!) 140/94 (BP Location: Right arm, Patient Position: Sitting) Pulse 81 Ht 1.575 m (5' 2 ) Wt 76.7 kg (169 lb) SpO2 97% BMI 30.91 kg/m??? OB Status Postmenopausal Smoking Status Never BSA 1.83 m??? Physical exam: GENERAL: alert and oriented [...] junctional escape rhythm, abnormal EKG EKG 11/18/2023 Echo Left Ventricle: The left ventricle is normal [...] difficult due to patients left arm in (more content not included)... [facility] 04-15-2025 Telephone encounter Note The pt is called today. We will refer her to orthopedics. Referral sent today. [facility] 04-15-2025 Miscellaneous Notes The pt is called today. We will refer her to orthopedics. Referral sent today. This is Mei Jo and my numbers [phone] and I was I had seen Regis Mccann and a week and about a week and a half ago and I wanted to know what to do to for my leg, my knee and give me a call back. Thank you. documented in this encounter [facility] 04-14-2025 Telephone encounter Note This is Mei Jo and my numbers [phone] and I was I had seen Regis Mccann and a week and about a week and a half ago and I wanted to know what to do to for my leg, my knee and give me a call back. Thank you. [facility] 04-01-2025 History of Present illness Narrative /'[ Subjective Patient ID: Mei Jo is a 69 y.o. female who presents for No chief complaint on file.. Mei presents today for RT leg/ knee pain She is having stiffness and it will pop when she walks. She did have a knot on the back of her knee and that has gone down some. No fall or injury. She did try ice but that make it feel worse and OTC Advil. Over the past 2 weeks, how often have you been bothered by any of the following problems? Little interest or pleasure in doing things: Not at all Feeling down, depressed, or hopeless: Not at all Patient Health Questionnaire-2 Score: 0 Current Outpatient Medications on File Prior to Visit Medication Sig Dispense Refill calcium citrate 600 [...] time each day at the same time. predniSONE (Deltasone) 10 MG tablet Take 4 tabs daily x 7 days, take 2 tabs daily x 7 days, take 1 tab daily x 7 days. Total days: 21 49 tablet 0 simvastatin (Zocor) 40 MG tablet TAKE 1 TABLET BY MOUTH EVERY DAY IN THE MORNING 90 tablet 3 valACYclovir (Valtrex) 1 g tablet Take 2 tablets twice a day x 1 day at first start of outbreak, 1 day supply 4 tablet 5 No current facility-administered medications on file prior to visit. I have reviewed and reconciled the history and medication list with the patient today. No Known Allergies Social History Tobacco Use Smoking status: Never Smokeless tobacco: Never Vaping Use Vaping status: Never Used Substance Use Topics Alcohol use: Yes Drug use: Never Family History Problem Relation Name Age of Onset Diabetes Mother Hypertension Father Past Medical History: Diagnosis Date Actinic keratosis Melanoma (HCC) Past Surgical History: Procedure Laterality Date CARDIAC PACEMAKER PLACEMENT 08/03/2024 Visit Vitals Smoking Status Never Review of Systems Constitutional: Positive for activity change. HENT: Negative. Eyes: Negative. Respiratory: Negative. Cardiovascular: Negative. Gastrointestinal: Negative. Genitourinary: Negative. Musculoskeletal: Positive for gait problem and joint swelling (Right posterior knee). Skin: Negative. Psychiatric/Behavioral: Negative. Endocrine: Negative. Allergic/Immunologic: Negative. Objective Physical Exam Vitals reviewed. Constitutional: Appearance: Normal appearance. HENT: Head: Normocephalic. Right Ear: External ear normal. Left Ear: External ear normal. Nose: Nose normal. Mouth/Throat: Pharynx: Oropharynx is clear. Eyes: Conjunctiva/sclera: Conjunctivae normal. Cardiovascular: Rate and Rhythm: Normal rate and regular rhythm. Heart sounds: Normal heart sounds. Pulmonary: Effort: Pulmonary effort is normal. Breath sounds: Normal breath sounds. Abdominal: Palpations: Abdomen is soft. Musculoskeletal: General: Tenderness (right posterior knee, mild swelling) present. Cervical back: Normal range of motion. Skin: General: Skin is warm and dry. Neurological: General: No focal deficit present. Mental Status: She is alert and oriented to person, place, and time. Psychiatric: Mood and Affect: Mood normal. Behavior: Behavior normal. Thought Content: Thought content normal. Judgment: Judgment normal. Assessment/Plan 1. Stone's cyst, right (Primary) Discussed possible bakers cyst, will obtain an xray of the right knee. The pt is in agreement with the plan. She is advised to continue otc ibuprofen at 600 mg TID over the next 5 days. Continue ice as needed and she would be notified of the results when completed. 2. Acute pain of right knee Xray ordered today. - XR knee 4+ views right; Future 3. Malignant melanoma of left lower limb, including hip (HCC) Stable No follow-ups on file. documented in this encounter [facility] 04-01-2025 Instructions Regis Mccann NP - 04/01/2025 8:30 AM EDT Xray ordered today of the right knee documented in this encounter [facility] 03-10-2025 History of Present illness Narrative Images from [...] excision Meena Schrader MD Additional testing: none Patient denies fatigue, shortness of breath, enlarged lymph nodes, unintentional weight loss, or abdominal pain today. Rash Location: arms Duration: 3 days Quality: itchy Modifying Factors: started after working in the yard Current treatments: OTC hydrocortisone Established patient All pertinent medical history, medications, and allergies were reviewed. General Exam: alert, oriented to person, place, and time, normal affect, well appearing Unaccompanied Scalp, Examined , exam limited by hair Right leg Examined Head, Face Examined Left leg Examined Neck Examined Right foot Examined Chest Examined Left foot Examined Back Examined Buttocks Examined Patient kept underwear on Abdomen Examined Digits,nails: Examined Right arm Examined Left arm Examined Lymphatics: Examined Hands Examined no cervical lymphadenopathy, no supraclavicular lymphadenopathy, no axillary lymphadenopathy, no inguinal lymphadenopathy Skin Exam 1. ALLERGIC CONTACT DERMATITIS DUE TO PLANTS, EXCEPT FOOD Right Upper Arm - Anterior Grouped pink papules Start prednisone 40 mg every day x 7 days, then 20 mg every day x 7 days, then 10 mg every day x 7 days. Instructed on use of prescribed medications. Instructed to notify office if worsening or failure to improve despite treatment. predniSONE (Deltasone) 10 MG tablet - Right Upper Arm - Anterior Take 4 tabs daily x 7 days, take 2 tabs daily x 7 days, take 1 tab daily x 7 days. Total days: 21 2. HERPESVIRAL VESICULAR DERMATITIS Right Upper Vermilion Lip Clear today. Continue Valtrex 2 grams bid x 1 day at first sign of outbreak. Related Medications valACYclovir (Valtrex) 1 g tablet Take 2 tablets twice a day x 1 day at first start of outbreak, 1 day supply 3. SEBORRHEIC KERATOSIS Generalized Stuck on verrucous, gee-brown papules and plaques. Patient was counseled regarding these benign growths. Removal is normally not necessary, but they may be removed if they are symptomatic or for cosmetic reasons. 4. LENTIGINES Generalized Scattered gee macules in sun-exposed areas. The patient was informed that lentigines are benign pigmented lesions that occur on sun-exposed and sun-damaged skin. No treatment is necessary. Recommended regular use of broad spectrum sunscreen SPF 30 or higher 5. HISTORY OF MALIGNANT MELANOMA OF SKIN Left [...] Visit: 3 months documented in this encounter [facility] 01-13-2025 History of Present illness Narrative Radiology [...] IMPLANT DATA REVIEWED: Yes MR Conditional CIED [employer] Remote programming PATIENT PRESENTS WITH AN IMPLANTABLE OR ATTACHED PARTS SALES COUNTERPERSON: No RADIOLOGY DEPARTMENT: MR; Exam(s) Completed: Cardiac: Cardiac. Lavender Administered: No PERIPHERAL IV DATA: Site assessment: Clean,Dry and Intact, Site disposition Left in for next appointment SIGNED BY: Teresa Hebert RT(R) January 13, 2025 10:30 AM Radiology Service [...] REVIEWED: NO PROCEDURE: MRI - Conditional Pacemaker environmental monitoring technician called [employer] and placed pt into MRI Safe Mode VOO/80 for the MRI scan [employer] Wheel [employer] Dealer Device - Settings:VOO 80 bpm Once scan is completed environmental monitoring technician called [employer] to place pt back into regular mode [...] REFERRAL (RECOMMENDATION): None documented in this encounter [facility] 01-13-2025 Note HNO ID: [id number] Author: VICKIE BASILIO RN Service: Nursing Author [...] REVIEWED: NO PROCEDURE: MRI - Conditional Pacemaker environmental monitoring technician called [employer] and placed pt into MRI Safe Mode VOO/80 for the MRI scan [employer] Dealer Device - Settings:VOO 80 bpm Once scan is completed environmental monitoring technician called [employer] to place pt back into regular mode [...] None Electronically Signed By Vickie Basilio RN [facility] 01-13-2025 Note HNO ID: [id number] Author: KASSANDRA MADISON RN Service: Radiology Author [...] DATE: January 13, 2025 TIME: 9:26 AM [facility] 01-13-2025 Note HNO ID: [id number] Author: TERESA BAKER RT(R) Service: Radiology Author [...] IMPLANT DATA REVIEWED: Yes MR Conditional CIED [employer] Remote programming PATIENT PRESENTS WITH AN IMPLANTABLE OR ATTACHED PARTS SALES COUNTERPERSON: No RADIOLOGY DEPARTMENT: MR; Exam(s) Completed: Cardiac: Cardiac. Lavender Administered: No PERIPHERAL IV DATA: Site assessment: Clean,Dry and Intact, Site disposition Left in for next appointment SIGNED BY: Teresa Hebert RT(R) January 13, 2025 10:30 AM [facility] 01-13-2025 History of Present illness Narrative Radiology [...] PATIENT PRESENTS WITH AN IMPLANTABLE OR ATTACHED PARTS SALES COUNTERPERSON: No RADIOLOGY DEPARTMENT: General X-ray: Exam(s) Completed: Chest X-Ray PERIPHERAL IV DATA: Not applicable SIGNED BY: RT Abdoulaye(Thomas) January 13, 2025 7:35 AM documented in this encounter [facility] 01-13-2025 Note HNO ID: [id number] Author: FARHANA AMBRIZ RT(R) Service: Radiology Author [...] PATIENT PRESENTS WITH AN IMPLANTABLE OR ATTACHED PARTS SALES COUNTERPERSON: No RADIOLOGY DEPARTMENT: General X-ray: Exam(s) Completed: Chest X-Ray PERIPHERAL IV DATA: Not applicable SIGNED BY: RT Abdoulaye(Thomas) January 13, 2025 7:35 AM [facility] 12-08-2024 History of Present illness Narrative Skin [...] Visit: 3 months documented in this encounter [facility] 11-06-2024 Telephone encounter Note Please call and inform- thyroid lab needs to be rechecked. A lab order was placed. I will call her with the results after they are done. [facility] 11-06-2024 Miscellaneous Notes Please call and inform- thyroid lab needs to be rechecked. A lab order was placed. I will call her with the results after they are done. documented in this encounter [facility] 09-29-2024 Note PA Electrophysiology Consult Note [facility] Reason for visit: s/p PPM for CHB HPI: Mei Jo is a 68 y.o. 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 EKG in office showed complete heart block. She was sent to [facility] ED for evaluation and management on 08/03/24 and got PPM placed by me. Since then device check today has revealed NSVT and lead thresholds being stable. PMH: Past Medical History: Diagnosis Date Abnormal ECG Cancer (CMS/HCC) Hyperlipidemia Hypertension Second degree AV block Syncope PSH: Past Surgical History: Procedure Laterality Date CHOLECYSTECTOMY SH: Social Determinants of Health Tobacco Use: Low Risk (09/03/2024) Received from [facility] Patient History Smoking Tobacco Use: Never Smokeless [...] Depression: Not at risk (09/03/2024) Received from [facility] PHQ-2 Patient Health Questionnaire-2 Score: 0 Housing Stability: Low Risk (08/03/2024) Housing Stability Vital Sign Unable to Pay for Housing in the Last Year: No Number of Times Moved in the Last Year: Not on file Homeless in the Last Year: No Utilities: Not At Risk (08/03/2024) [facility] Utilities Threatened with loss of utilities: [...] TRIGLYCERIDES , T (more content not included)... [facility] 09-03-2024 History of Present illness Narrative [...] limited to risks of scarring, darker or jointer submarine cable pigmentary changes, recurrence, incomplete removal and infection. [...] Visit: 3 months documented in this encounter [facility] 09-03-2024 History of Present illness Narrative Images [...] Do you have a medical power of managing attorney?: No Objective : BP 132/86 Pulse [...] Due Pneumococcal Vaccine: 65+ Years (1 of 1 - PCV) Never done Medicare Annual Wellness [...] September 03, 2024 documented in this encounter [facility] 08-14-2024 Note Patient here for wou nd [...] No fevers no chills. Jacinta Morales MD [facility] 08-04-2024 Note Occupational Therapy Occupational Therapy [...] Level of Function Prior Function Level of Wheeler: Independent with ADLs and functional transfers, Independent [...] Eating meals?: None (Independent) Total Score OT [facility]: 24 Assessment/Plan OT Assessment OT Education/Comments: (pacer handout issued and discussed, general home safety all with good return demo) Plan OT Discharge Recommendations: Home OT - Discharge Recommendations Placed: Yes OT Goals Multi-Disciplinary Problems (from Occupational Therapy) Active Problems Not on file [facility] 08-03-2024 Note [facility] Subjective Mei Jo is a 68 [...] will send the patient to ED at [facility]. I spoke already with Dr. Garcai he will see her immediately for permanent pacemaker implantation. Follow-up 1 to 2 weeks after pacemaker implantation Ernie Cao MD,[facility] 06-02-2024 History of Present illness Narrative [...] Actinic keratosis (4) Left Malar Cheek, Left Congregation, Left Zygomatic Area, Right Supraorbital Region Erythematous [...] limited to risks of scarring, darker or jointer submarine cable pigmentary changes, recurrence, incomplete removal and infection. [...] skin lesion - Left Malar Cheek, Left Congregation, Left Zygomatic Area, Right Supraorbital Region 5. [...] Visit: 3 months documented in this encounter [facility] 05-07-2024 History of Present illness Narrative ASSESSMENT [...] to clinic as needed. Meena Schrader MD grinder operator automatic Division of Surgical Oncology [phone] [email or web address] SUBJECTIVE Mei Jo is a 68 y.o. female who presents for a postoperative clinic visit. Referring provider: oRseann Mari Diagnosis: melanoma Location: left leg Thickness: [...] DIAGNOSIS A. NODE, SENTINEL NODE #1 COUNT- 346, BIOPSY: BENIGN LYMPH NODE. B. SKIN, 3X5 CM, SHORT SUPERIOR 12:00, LONG POSTERIOR 3:00, WIDE EXCISION: CHANGES CONSISTENT WITH PREVIOUS PROCEDURE, INKED MARGINS FREE IN THE PLANES OF SECTIONS EXAMINED, WITHOUT RESIDUAL ATYPICAL MELANOCYTIC NEOPLASM SEEN. documented in this encounter [facility] Work Phone: 04-14-2024 History of Present illness [...] needed for wound care. Meena Schrader MD grinder operator automatic Division of Surgical Oncology [phone] [email or web address] SUBJECTIVE Mei Jo is a 68 y.o. [...] MELANOCYTIC NEOPLASM SEEN. documented in this encounter [facility] Work Phone: 04-08-2024 History of Present illness [...] sentinel LN bx on 03/[address] Schraedr now with cellulitis not responsive to Bactrim. - start Keflex x5 days - ok to shower, no soaking - ok for bacitracin PRN - call with questions/concerns, worsening s/s infection Medication Documentation Review Audit Reviewed by Roland Martell MA (Manual Arts Therapy Teacher) on 04/08/24 at 0951 Medication Order Taking? Sig Documenting Provider Last Dose Status cholecalciferol (Vitamin D-3) 50 mcg (2,000 unit) capsule [id number] Yes Take 1 capsule (50 mcg) by mouth once daily. Historical Provider, Taking Active citalopram (CeleXA) 10 mg tablet [id number] Yes Take 1 tablet (10 mg) by mouth once daily. Historical Provider, Taking Active fluticasone (Flonase) 50 mcg/actuation nasal spray [id number] Yes 1 spray once daily as needed. Historical Provider, Taking Active simvastatin (Zocor) 40 mg tablet [id number] Yes Take 1 tablet (40 mg) by mouth once daily. Historical Provider, Taking Active sulfamethoxazole-trimethoprim (Bactrim DS) 800-160 mg tablet [id number] Yes Take 1 tablet by mouth 2 [...] VARICOSE VEIN SURGERY documented in this encounter [facility] Work Phone: 03-23-2024 Hospital Discharge instructions Maryana [...] of the following, please call Radha Dash ([phone]) or Dr. Schrader's office ([phone]). Swelling under the incision like a golf ball or larger. Redness of the skin that is spreading away from the incision. Drainage from the incision. Fevers, chills, or any other concerning symptoms. Follow-up Call Amada Delroy at [phone] to arrange a postop visit in 3 [...] and blood flow The doctor or nurse flare man gives general anesthesia by a shot into [...] dizziness. Where can I learn more? [employer] https://www.nigms.nih.gov/educat ion/pages/factsheet_Anesthesia.a spx NHS Choices http://www.nhs.uk/conditions/Marcella esthetic-general/Pages/Definitio n.aspx Last Reviewed Date 2019-11-25 documented in this encounter [facility] Work Phone: 03-23-2024 Note Formatting of this n ote is different from the original. Excision Lesion Skin Lower Extremity (L), [place] [facility] Bi[facility] Operative Note Date: 03/23/2024 OR Location: [facility] Name: Mei Jo, : 1955, Age: 68 y.o., , Sex: female Diagnosis Pre-op Diagnosis * Malignant melanoma of lower leg, left (Multi) [C43.72] Post-op Diagnosis * Malignant melanoma of lower leg, left (Multi) [C43.72] Procedures Excision Lesion Skin Lower Extremity 16270 - MT EXCISION MALIGNANT LESION TRUNK/ARM/LEG > 4.0 CM [place] Lymph Node Biopsy 31745 - MT BX/EXC LYMPH NODE OPEN SUPERFICIAL Double VY Advancement flap closure Surgeons * Meena Schrader - Primary Resident/Fellow/Other Certified Professional Ergonomist: Surgeons and Role: * No surgeons found with a matching role * Procedure Summary Anesthesia: General ASA: II Anesthesia Staff: Anesthesiologist: Luis Carlos Cloud MD SOFA BACK UPHOLSTERER: Gaetano Chavez APRN-SOFA BACK UPHOLSTERER Estimated Blood Loss: 5mL Intra-op Medications: Administrations [...] DERMATOPATHOLOGY Meena Schrader MD 03/23/2024 1110 Staff: Analyst Programmer: Marla Peña Person: Susana INDICATIONS FOR SURGERY [...] fascia (melanoma) Final dimensions of excision: 3.5cm anvik Specimen marking stitches: Short stitch superior at 12:00, long stitch posterior at 3:00 Excision closure: 4-0 Prolene, antibiotic ointment, gauze and Rosmery wrap Location of sentinel nodes: Left groin Number of sentinel lymph nodes: 1 The patient arrived at [facility] for the aforementioned procedure. Consent was [...] multilayer fashion using a deep 2-0 Vicryl [id number], interrupted deep 3-0 Vicryl, and a running subcuticular 4-0 Monocryl. The skin was dressed with Dermabond. The patient was awoken and returned to the PACU in anticipation of discharge home. I was present scrubbed and directed all operative decision-making. [facility] Work Phone: 03-23-2024 Miscellaneous Notes Excision Lesion Skin Lower Extremity (L), [place] [facility] Biopsy Operative Note Date: 03/23/2024 OR Location: [facility] Name: Mei Jo, : 1955, Age: 68 y.o., , Sex: female Diagnosis Pre-op Diagnosis * Malignant melanoma of lower leg, left (Multi) [C43.72] Post-op Diagnosis * Malignant melanoma of lower leg, left (Multi) [C43.72] Procedures Excision Lesion Skin Lower Extremity 14852 - MT EXCISION MALIGNANT LESION TRUNK/ARM/LEG > 4.0 CM [place] Lymph Node Biopsy 17983 - MT BX/EXC LYMPH NODE OPEN SUPERFICIAL Double VY Advancement flap closure Surgeons * Meena Schrader - Primary Resident/Fellow/Other Certified Professional Ergonomist: Surgeons and Role: * No surgeons found with a matching role * Procedure Summary Anesthesia: General ASA: II Anesthesia Staff: Anesthesiologist: Luis Carlos Cloud MD SOFA BACK UPHOLSTERER: Gaetano Chavez APRN-SOFA BACK UPHOLSTERER Estimated Blood Loss: 5mL Intra-op Medications: Administrations [...] DERMATOPATHOLOGY Meena Schrader MD 03/23/2024 1110 Staff: Analyst Programmer: Marla Peña Person: Susana INDICATIONS FOR SURGERY [...] fascia (melanoma) Final dimensions of excision: 3.5cm anvik Specimen marking stitches: Short stitch superior at 12:00, long stitch posterior at 3:00 Excision closure: 4-0 Prolene, antibiotic ointment, gauze and Rosmery wrap Location of sentinel nodes: Left groin Number of sentinel lymph nodes: 1 The patient arrived at [facility] for the aforementioned procedure. Consent was [...] multilayer fashion using a deep 2-0 Vicryl [id number], interrupted deep 3-0 Vicryl, and a running subcuticular 4-0 Monocryl. The skin was dressed with Dermabond. The patient was awoken and returned to the PACU in anticipation of discharge home. I was present scrubbed and directed all operative decision-making. Reviewed pre-op instructions with patient including NPO after midnight, must have driver/merchandiser, hospital and check in location, and day of surgery routine. documented in this encounter [facility] Work Phone: 03-23-2024 Attending History and physical [...] We will look for OR time at [facility] in the coming weeks. I believe this will close primarily with a 1 cm margin primarily or with VY plasty. I spent 60 minutes in the professional and overall care of this patient. Meena Schrader MD grinder operator automatic Division of Surgical Oncology [phone] [email or web address] History Of Present Illness Referring provider: [...] visit Relevant Results FINAL DIAGNOSIS 3 SLIDES, [facility] #[id number] (BX: 02/24/2024) SKIN, LEFT LEG, SHAVE BIOPSY: [...] Comment(s) Tumor block is CSPL original case# [id number] Blocks 1 and 2. [facility] Work Phone: 03-23-2024 History and physical note [...] We will look for OR time at [facility] in the coming weeks. I believe this will close primarily with a 1 cm margin primarily or with VY plasty. I spent 60 minutes in the professional and overall care of this patient. Meena Schrader MD grinder operator automatic Division of Surgical Oncology [phone] [email or web address] History Of Present Illness Referring provider: Roseann [...] visit Relevant Results FINAL DIAGNOSIS 3 SLIDES, [facility] #[id number] (BX: 02/24/2024) SKIN, LEFT LEG, SHAVE BIOPSY: [...] signed out by LONDON COULTER MD at 1755 Case Summary Report MELANOMA OF THE SKIN: [...] a peripheral margin Ulceration Not identified Anatomic (Ruzi) Level IV (melanoma invades reticular dermis) Mitotic [...] Comment(s) Tumor block is CSPL original case# [id number] Blocks 1 and 2. documented in this encounter [facility] Work Phone: 03-18-2024 Note Formatting of this n ote might be different from the original. Reviewed pre-op instructions with patient including NPO after midnight, must have driver/merchandiser, hospital and check in location, and day of surgery routine. [facility] Work Phone: 03-17-2024 History of Present illness [...] We will look for OR time at [facility] in the coming weeks. I believe this will close primarily with a 1 cm margin primarily or with VY plasty. I spent 60 minutes in the professional and overall care of this patient. Meena Schrader MD grinder operator automatic Division of Surgical Oncology [phone] [email or web address] History Of Present Illness Referring provider: Roseann [...] visit Relevant Results FINAL DIAGNOSIS 3 SLIDES, [facility], [facility] #[id number] (BX: 02/24/2024) SKIN, LEFT LEG, SHAVE BIOPSY: [...] Comment(s) Tumor block is CSPL original case# [id number] Blocks 1 and 2. documented in this encounter [facility] Work Phone: 07-15-2023 Telephone encounter Note Pt scheduled [facility] 07-15-2023 Miscellaneous Notes Pt scheduled Please advise a 30 days supply was sent to her pharmacy and she is due for an appt. documented in this encounter [facility] 07-12-2023 Telephone encounter Note Please advise a 30 days supply was sent to her pharmacy and she is due for an appt. [facility] 08-15-2022 Note CARDIAC STRESS TEST Requesting Physician: [...] 5. Clinical correlation recommended. [facility] 08-31-2021 Note SATISFACTORY FOR EVALUATION Nancy rubin [place] Correspondence [employer] Teacher Comment on above: Order Comment: [facility] Testing performed at: [facility], [facility], [address] [place] [address], [id number], Copy Clerk: Donato Wall MD [facility] Collection Date/Time: [facility] Results Received Date/Time: [facility] Reported Date/Time: Performed By: #### 1 [id number] #### [facility] Default [address] [place] [address] Evaluation note Diagnosis Major depressive disorder with single episode, in full remission (CMS/HCC) documented in this encounter [facility] HealthcareEvaluation note* Diagnosis Wound infection after surgery- Primary documented in this encounter [facility] Work Phone: Evaluation note* Diagnosis Seborrheic keratosis- Primary Lentigines Herpesviral vesicular dermatitis Dermatitis herpetiformis Actinic keratosis History of malignant melanoma of skin Personal history of malignant melanoma of skin documented in this encounter [facility] HealthcareEvaluation note* Diagnosis Malignant melanoma of lower leg, left (Multi)- Primary Malignant melanoma of lower leg, left (Multi)- Primary documented in this encounter [facility] Work Phone: Evaluation note* Diagnosis Malignant melanoma of lower leg, left (Multi)- Primary Malignant melanoma of lower leg, left (Multi) Hyperlipidemia Other and unspecified hyperlipidemia AV block, 2nd degree Other second degree atrioventricular block documented in this encounter [facility] Work Phone: Evaluation note* Diagnosis Malignant melanoma of lower leg, left (Multi) documented in this encounter [facility] Work Phone: Evaluation note* Diagnosis Cellulitis of left lower extremity- Primary documented in this encounter [facility] Work Phone: Evaluation note* Diagnosis Malignant melanoma of lower leg, left (Multi)- Primary documented in this encounter [facility] Work Phone: Evaluation note* Diagnosis Routine general [...] pacemaker in situ documented in this encounter [facility] HealthcareEvaluation note* Diagnosis Seborrheic keratosis- Primary Lentigines Actinic keratosis History of malignant melanoma of skin Personal history of malignant melanoma of skin documented in this encounter [facility] HealthcareEvaluation note* Diagnosis Abnormal thyroid function test- Primary Nonspecific abnormal results of thyroid function study documented in this encounter [facility] HealthcareEvaluation note* Diagnosis Seborrheic keratosis- Primary Lentigines History of malignant melanoma of skin Personal history of malignant melanoma of skin documented in this encounter [facility] HealthcareEvaluation note* Diagnosis Pacemaker reprogramming/check Fitting and adjustment of cardiac pacemaker [facility] Allergic contact dermatitis due to plants, except food- Primary Contact dermatitis and other eczema due to plants (except food) Herpesviral vesicular dermatitis Dermatitis herpetiformis Seborrheic keratosis Lentigines History of malignant melanoma of skin Personal history of malignant melanoma of skin documented in this encounter [facility] HealthcareEvaluation noteNo assessment information availableC[facility] Work Phone: Evaluation note* Diagnosis Stone's cyst, right- Primary Acute pain of right knee Malignant melanoma of left lower limb, including hip (HCC) Acute pain of right knee documented in this encounter [facility] HealthcareEvaluation note* Diagnosis Acute pain of right knee- Primary documented in this encounter [facility] HealthcareReason for referral (narrative)No reason for referral information availableC[facility] Work Phone: Reason for visit Narrative* Auth/Cert Specialty Diagnoses / Procedures Referred By Lacey austin Referred To Contact Diagnoses Malignant melanoma of lower leg, left (Multi) Malignant melanoma of lower leg, left (Multi) [C43.72] Procedures MT EXCISION MALIGNANT LESION TRUNK/ARM/LEG > 4.0 CM MT BX/EXC LYMPH NODE OPEN SUPERFICIAL Excision Lesion Skin Lower Extremity [place] [address] [facility] [place] [address] [address] Referral ID Status Reason Start Date Expiration Date Visits Re quested Visits Authorized [id number] 1 1 [facility] Work Phone: Reason for visit Narrative* Outpatient Procedure (Routine) - Closed Specialty Diagnoses / Procedures Referred By Lacey austin Referred To Contact [facility] Diagnoses Pacemaker reprogramming/check Procedures CARDIAC IMPLANTABLE DEVICE CHECK Cardiology [address] [place] [address] Phone: tel: [facility] [address] [place] [address] Referral ID Status Reason Start Date Expiration Date V isits Requested Visits Authorized [id number] Closed Auto-Generate d Referral 11/03/2024 11/03/2025 1 1 [facility] Summary Purpose Family History No Family History [...] Patient condition does not warra nt discussion Advance Directive Response Recorded Date/ Time Advance Directives No March 18, 2025 10:53am Reason for Referral Specialty Diagnoses / Procedures Referred By Contac t Referred To Contact Radiology Diagnoses Malignant melanoma of lower leg, left (Multi) Procedures [place] [address] [address] [place] [address] Referral ID Status Reason Start Date Expiration Date Visits Requested Visits Authorized [id number] Authorized Perform Procedure 03/17/2024 03/17/2025 2 2 Additional Source Comments INFORMATION SOURCE (unrecogn ized section and content) DATE CREATED AUTHOR 02/20/2019 [facility] DATE CREATED AUTHOR AUTHOR'S ORGANIZ ATION 03/11/2019 [facility] DATE CREATED AUTHOR AUTHOR'S ORGANIZ ATION 09/06/2021 [facility] dical Specialist DATE CREATED AUTHOR AUTHOR'S ORGANIZ ATION 09/05/2022 [facility] pital DATE CREATED AUTHOR AUTHOR'S ORGANIZ ATION 03/11/2024 [facility] DATE CREATED AUTHOR AUTHOR'S ORGANIZ ATION 03/26/2024 [facility] DATE CREATED AUTHOR AUTHOR'S ORGANIZ ATION 05/27/2024 [facility] DATE CREATED AUTHOR AUTHOR'S ORGANIZ ATION 09/14/2024 [facility] DATE CREATED AUTHOR AUTHOR'S ORGANIZ ATION 11/12/2024 [facility] DATE CREATED AUTHOR AUTHOR'S ORGANIZ ATION 01/15/2025 [facility] DATE CREATED AUTHOR AUTHOR'S ORGANIZ ATION 04/05/2025 [facility] dical Specialists EPIC DATE CREATED AUTHOR AUTHOR'S ORGANIZ ATION 04/18/2025 [facility] Reason for Visit (unrecogniz ed section and content) Reason Onset Date Comments Med Refill 07/12/2023 Citalopram to cv s in [place] Reason Comments Follow-up Reason Comments Skin Check Reason Comments Medicare Annual Wellness Visit Subsequen t Reason Comments Radio Main J1 Reason Comments Radiology MRI Reason Comments Skin Check Rash Care Teams (unrecognized sec tion and content) Players Club Representative Relationship Specialty Start Date End Date Brijesh Armstrong MD [address] [place] [address] PCP - ACO Reach 12/27/22 Brijesh Armstrong MD [address] [place] [address] PCP - General Internal Medicine 12/11/22 Players Club Representative Relationship Specialty Start Date End Date Brijesh Armstrong MD [address] [place] [address] PCP - General Internal Medicine 03/04/24 Players [employer] Representative Relationship Specialty Start Date End Date Brijesh Armstrong MD [address] [place] [address] PCP - ACO Reach 12/27/22 Brijesh Armstrong MD [address] [place] [address] PCP - General Internal Medicine 12/11/22 Players Club Representative Relationship Specialty Start Date End Date Brijesh Armstrong MD [address] [place] [address] PCP - ACO Reach 12/27/22 Brijesh Armstrong MD [address] [place] [address] PCP - General Internal Medicine 12/11/22 Players Club Representative Relationship Specialty Start Date End Date Brijesh Armstrong MD [address] [place] [address] PCP - General Internal Medicine 03/04/24 Players Club Representative Relationship Specialty Start Date End Date Brijesh Armstrong MD [address] [place] [address] PCP - General Internal Medicine 03/04/24 Players Club Representative Relationship Specialty Start Date End Date Brijesh Armstrong MD [address] [place] [address] PCP - General Internal Medicine 03/04/24 Players Club Representative Relationship Specialty Start Date End Date Brijesh Armstrong MD [address] [place] [address] PCP - General Internal Medicine 03/04/24 Players [employer] Representative Relationship Specialty Start Date End Date Brijesh Armstrong MD [address] [place] [address] PCP - General Internal Medicine 03/04/24 Players [employer] Representative Relationship Specialty Start Date End Date Brijesh Armstrong MD [address] [place] [address] PCP - General Internal Medicine 03/04/24 Players Club Representative Relationship Specialty Start Date End Date Brijesh Armstrong MD [address] [place] [address] PCP - General Internal Medicine 03/04/24 Players [employer] Representative Relationship Specialty Start Date End Date Brijesh Armstrong MD [address] [place] [address] PCP - ACO Reach 12/27/22 Brijesh Armstrong MD [address] [place] [address] PCP - General Internal Medicine 12/11/22 Players Club Representative Relationship Specialty Start Date End Date Brijesh Armstrong MD [address] [place] [address] PCP - ACO Reach 12/27/22 Brijesh Armstrong MD [address] [place] [address] PCP - General Internal Medicine 12/11/22 Players Club Representative Relationship Specialty Start Date End Date Brijesh Armstrong MD [address] [place] [address] PCP - ACO Reach 12/27/22 Brijesh Armstrong MD [address] [place] [address] PCP - General Internal Medicine 12/11/22 Players Club Representative Relationship Specialty Start Date End Date Brijesh Armstrong MD [address] [place] [address] PCP - ACO Reach 12/27/22 Brijesh Armstrong MD [address] [place] [address] PCP - General Internal Medicine 12/11/22 Players Club Representative Relationship Specialty Start Date End Date Brijesh Armstrong MD [address] [place] [address] PCP - ACO Reach 12/27/22 Brijesh Armstrong MD [address] [place] [address] PCP - General Internal Medicine 12/11/22 Players Club Representative Relationship Specialty Start Date End Date Luke Garcia MD [address] [place] [address] Referring Cardiology 10/01/24 Players Club Representative Relationship Specialty Start Date End Date Luke Garcia MD [address] [place] [address] Referring Cardiology 10/01/24 Players Club Representative Relationship Specialty Start Date End Date Luke Garcia MD [address] [place] [address] Referring Cardiology 10/01/24 Players Club Representative Relationship Specialty Start Date End Date Brijesh Armstrong MD [address] [place] [address] PCP - ACO Reach 12/27/22 Brijesh Armstrong MD [address] [place] [address] PCP - General Internal Medicine 12/11/22 Players Club Representative Relationship Specialty Start Date End Date Brijesh Armstrong MD [address] [place] [address] PCP - ACO Reach 12/27/22 Brijesh Armstrong MD [address] [place] [address] PCP - General Internal Medicine 12/11/22 Players Club Representative Relationship Specialty Start Date End Date Brijesh Armstrong MD [address] [facility] [address] [place] [address] PCP - ACO Reach 12/27/22 Brijesh Armstrong MD [address] [facility] [address] [place] [address] PCP - General Internal Medicine 12/11/22 Team Status: Active Member Role Status Dates Brijesh Armstrong II MD Primary Care Provider Active Team Status: Active Member Role Status Dates Tangela Hernández DO Attending Provider Active Sta rt: January 26, 2025 Team Status: Inactive Member Role Status Dates Tangela Hernández DO Attending Provider Active Sta rt: April 07, 2025 End: April 07, 2025 Brijesh Armstrong II MD Primary Care Provider Active Start: April 07, 2025 End: April 07, 2025 Players Club Representative Relationship Specialty Start Date End Date Brijesh Armstrong MD [address] [facility] [address] [place] [address] PCP - ACO Reach 12/27/22 Brijesh Armstrong MD [address] [facility] [address] [place] [address] PCP - General Internal Medicine 12/11/22 Players Club Representative Relationship Specialty Start Date End Date Brijesh Armstrong MD [address] [facility] [address] [place] [address] PCP - ACO Reach 12/27/22 Brijesh Armstrong MD [address] [facility] [address] [place] [address] PCP - General Internal Medicine 12/11/22 Scheduled [...] 1036 (Given - Provid er: Gaetano Chavez, ADVISOR [employer] FOUNDER-SOFA BACK UPHOLSTERER) Continuous Medication Order 03/21/2024 03/22/2024 03/23/2024 lactated [...] or prosecute any alcohol or drug abuse patient.[facility] Center[facility] the event this information is protected by the Federal Confidentiality of Alcohol and Drug Abuse Patient Records regulations: The Federal rules restrict any use of the information to criminally investigate or prosecute any alcohol or drug abuse patient.[facility] the event this information is protected by the Federal Confidentiality of Alcohol and Drug Abuse Patient Records regulations: The Federal rules restrict any use of the information to criminally investigate or prosecute any alcohol or drug abuse patient.[facility] Goals (unrecognized section and content) Goals may be documented in a n alternate section FOR RECORDS PERTAINING TO PATIENTS WHO ARE [...] BE BASED ON THE PRIMARY CLINICAL RECORDS. [facility] [employer] provides no warranty or guarantee of the accuracy or completeness of information in this document.
[2025-04-19 10:14] LABS: Alanine Aminotransferase 34 U/L (14-59); Anion Gap 10.1; Aspartate Amino Transferase 20 U/L (15-37); Blood Urea Nitrogen 13.0 mg/dL (7.0-18.0); Calcium 9.4 mg/dL (8.5-10.1); Carbon Dioxide 29.8 mmol/L (21.0-32.0); Chloride 106 mmol/L (98-107); Cholesterol 250 mg/dL (<=200); Estimated GFR (African America >60 (>=60 mL/min/1.73m^2); Estimated GFR (Non-African Ame >60 (>=60 mL/min/1.73m^2); Glucose 92 mg/dL (74-106); HDL Cholesterol 81 mg/dL (40-60); Potassium 3.9 mmol/L (3.5-5.1); Sodium 142 mmol/L (136-145); Triglycerides 123 mg/dL (<=150); VLDL CHOLESTEROL 24.6 mg/dL
== END 2025-04-19 08:55 | disposition home or self-care (01) ==
LOC: LAB 08:55
PROVIDERS: PCP Internal Medicine; Visit Provider Internal Medicine Cardiovascular Disease
DX: E78.00 Pure hypercholesterolemia, unspecified (principal); I10 Essential (primary) hypertension
CPT/HCPCS: 36415; 80048; 80061; 84450; 84460